=== PATIENT | male | born 1955 | race Caucasian/White ===

== ENCOUNTER 2021-02-17 08:10 | Outpatient (REF) | payer MEDICARE, SELFPAY ==
[2021-02-17 10:23] LABS: MANUAL DIFF FLAG NO
[2021-02-17 10:32] LABS: Basophils Absolute Auto 0.1 X10*3/uL (0.0-0.2); Basophils Percent Auto 1.1 % (0-2); Eosinophils Absolute Auto 0.3 X10*3/uL (0.0-0.4); Eosinophils Percent Auto 3.3 % (0-4); Hematocrit 43.8 % (42-52); Imm Gran Abs Auto 0.04 X10*3/uL (0.00-0.03); Imm Gran Pct Auto 0.5 % (0.0-0.4); Lymphocytes Absolute Auto 1.7 X10*3/uL (1.2-4.9); Lymphocytes Percent Auto 20.3 % (20-40); Mean Corpuscular Hemoglobin 28.1 pg (27.0-33.0); Mean Platelet Volume 10.2 fL (9.4-12.4); Monocytes Absolute Auto 0.6 X10*3/uL (0.1-1.2); Monocytes Percent Auto 6.8 % (2-11); Neutrophils Absolute Auto 5.8 X10*3/uL (2.0-8.3); Platelet Count 231 X10*3/uL (160-400); Red Blood Count 4.98 X10*6/uL (4.60-5.80); Red Cell Distribution Width 14.4 % (11.0-16.0); White Blood Count 8.4 X10*3/uL (4.8-10.8)
[2021-02-17 10:49] LABS: Alanine Aminotransferase 12 U/L (0-40); Albumin Level 4.4 g/dL (3.5-5.0); Alkaline Phosphatase 50 U/L (39-117); Anion Gap 16 (12-20); Aspartate Amino Transferase 12 U/L (5-37); Bilirubin Total 0.5 mg/dL (0.0-1.0); Blood Urea Nitrogen 23 mg/dL (9-16); Calcium 10.1 mg/dL (8.4-10.2); Carbon Dioxide 25 mmol/L (22-29); Chloride 105 mmol/L (96-108); Cholesterol 150 mg/dL; Estimated Glomerular Filt Rate 43; Glucose Fasting 174 mg/dL (60-99); HDL Cholesterol 41 mg/dL; LDL Cholesterol Calculated 81 mg/dl; Potassium 5.2 mmol/L (3.3-5.1); Sodium 141 mmol/L (135-145); Triglycerides 141 mg/dL
[2021-02-17 11:00] LABS: Prostate Specific Antigen 0.23 ng/mL (<0.05-4.0)
[2021-02-17 11:38] LABS: Estimated Average Glucose 186 mg/dL; Hemoglobin A1c % 8.1 %
== END 2021-02-17 08:11 | disposition home or self-care (01) ==
LOC: HO.10HDL 08:10
PROVIDERS: PCP Internal Medicine Medical Oncology; Visit Provider Internal Medicine Medical Oncology
DX: Z12.5 Encounter for screening for malignant neoplasm of prostate (principal); I10 Essential (primary) hypertension; N40.0 Benign prostatic hyperplasia without lower urinary tract symptoms; E78.2 Mixed hyperlipidemia
CPT/HCPCS: 36415; 80053; 80061; 83036; 84153; 85025

== ENCOUNTER 2021-05-02 08:26 | Outpatient (REF) | payer MEDICARE, SELFPAY ==
[2021-05-02 10:12] LABS: MANUAL DIFF FLAG NO
[2021-05-02 10:14] LABS: Basophils Absolute Auto 0.1 X10*3/uL (0.0-0.2); Basophils Percent Auto 1.1 % (0-2); Eosinophils Absolute Auto 0.3 X10*3/uL (0.0-0.4); Eosinophils Percent Auto 3.7 % (0-4); Hematocrit 43.7 % (42-52); Imm Gran Abs Auto 0.01 X10*3/uL (0.00-0.03); Imm Gran Pct Auto 0.1 % (0.0-0.4); Lymphocytes Absolute Auto 1.6 X10*3/uL (1.2-4.9); Lymphocytes Percent Auto 20.4 % (20-40); Mean Corpuscular Hemoglobin 27.5 pg (27.0-33.0); Mean Corpuscular Volume 85.7 fL (80-98); Monocytes Absolute Auto 0.5 X10*3/uL (0.1-1.2); Neutrophils Absolute Auto 5.1 X10*3/uL (2.0-8.3); Neutrophils Percent Auto 67.7 % (45-73); Platelet Count 217 X10*3/uL (160-400); Red Cell Distribution Width 13.7 % (11.0-16.0); White Blood Count 7.6 X10*3/uL (4.8-10.8)
[2021-05-02 10:28] LABS: Estimated Average Glucose 217 mg/dL; Hemoglobin A1c % 9.2 %
[2021-05-02 10:33] LABS: Alanine Aminotransferase 9 U/L (0-40); Albumin Level 4.2 g/dL (3.5-5.0); Alkaline Phosphatase 58 U/L (39-117); Anion Gap 16 (12-20); Aspartate Amino Transferase 12 U/L (5-37); Bilirubin Total 0.7 mg/dL (0.0-1.0); Blood Urea Nitrogen 17 mg/dL (9-16); Calcium 9.6 mg/dL (8.4-10.2); Carbon Dioxide 24 mmol/L (22-29); Chloride 103 mmol/L (96-108); Cholesterol 137 mg/dL; Estimated Glomerular Filt Rate 54; Glucose Fasting 178 mg/dL (60-99); HDL Cholesterol 39 mg/dL; LDL Cholesterol Calculated 77 mg/dl; Potassium 4.9 mmol/L (3.3-5.1); Sodium 138 mmol/L (135-145); Total Protein 7.7 g/dL (6.5-8.0); Triglycerides 109 mg/dL
== END 2021-05-02 08:27 | disposition home or self-care (01) ==
LOC: HO.10HDL 08:26
PROVIDERS: Visit Provider Internal Medicine Medical Oncology
DX: I10 Essential (primary) hypertension (principal); E78.2 Mixed hyperlipidemia; I25.10 Atherosclerotic heart disease of native coronary artery without angina pectoris; E11.9 Type 2 diabetes mellitus without complications
CPT/HCPCS: 36415; 80053; 80061; 83036; 85025

== ENCOUNTER 2022-04-07 07:46 | Outpatient (REF) | payer MEDICARE, SELFPAY ==
[2022-04-07 10:20] LABS: MANUAL DIFF FLAG NO
[2022-04-07 10:23] LABS: Basophils Absolute Auto 0.1 X10*3/uL (0.0-0.2); Basophils Percent Auto 1.4 % (0-2); Eosinophils Absolute Auto 0.4 X10*3/uL (0.0-0.4); Eosinophils Percent Auto 3.8 % (0-4); Hematocrit 45.2 % (42.0-52.0); Hemoglobin 14.2 g/dl (14.0-18.0); Imm Gran Abs Auto 0.04 X10*3/uL (0.00-0.03); Imm Gran Pct Auto 0.4 % (0.0-0.4); Lymphocytes Absolute Auto 2.1 X10*3/uL (1.2-4.9); Lymphocytes Percent Auto 22.3 % (20-40); Mean Corpuscular HGB Conc 31.4 g/dl (31.0-36.0); Mean Corpuscular Hemoglobin 26.6 pg (27.0-33.0); Mean Corpuscular Volume 84.8 fL (80.0-98.0); Monocytes Absolute Auto 0.6 X10*3/uL (0.1-1.2); Neutrophils Absolute Auto 6.3 x10*3/uL (2.0-8.3); Neutrophils Percent Auto 66.1 % (45-73); Platelet Count 251 X10*3/uL (160-400); Red Blood Count 5.33 X10*6/uL (4.60-5.80); Red Cell Distribution Width 14.6 % (11.0-16.0); White Blood Count 9.6 X10*3/uL (4.8-10.8)
[2022-04-07 10:36] LABS: Estimated Average Glucose 220 mg/dL; Hemoglobin A1c % 9.3 %
[2022-04-07 10:42] LABS: Alanine Aminotransferase 18 U/L (0-40); Albumin Level 4.1 g/dL (3.5-5.0); Alkaline Phosphatase 65 U/L (39-117); Anion Gap 20 (12-20); Aspartate Amino Transferase 13 U/L (5-37); Bilirubin Total 0.4 mg/dL (0.0-1.0); Blood Urea Nitrogen 34 mg/dL (9-16); Calcium 9.2 mg/dL (8.4-10.2); Carbon Dioxide 18 mmol/L (22-29); Chloride 103 mmol/L (96-108); Cholesterol 143 mg/dL; Estimated Glomerular Filt Rate 42; Glucose Fasting 209 mg/dL (60-99); HDL Cholesterol 41 mg/dL; LDL Cholesterol Calculated 67 mg/dl; Potassium 5.1 mmol/L (3.3-5.1); Sodium 136 mmol/L (135-145); Triglycerides 175 mg/dL
[2022-04-07 10:56] LABS: B Type Natriuretic Peptide 46 pg/mL (<100)
== END 2022-04-07 07:47 | disposition home or self-care (01) ==
LOC: HO.10HDL 07:46
PROVIDERS: Visit Provider Internal Medicine Medical Oncology
DX: E66.09 Other obesity due to excess calories (principal); E78.2 Mixed hyperlipidemia; E11.9 Type 2 diabetes mellitus without complications
CPT/HCPCS: 36415; 80053; 80061; 83036; 83880; 85025

== ENCOUNTER 2022-09-10 07:33 | Outpatient (REF) | payer MEDICARE, SELFPAY ==
[2022-09-10 10:56] LABS: MANUAL DIFF FLAG NO
[2022-09-10 11:26] LABS: Basophils Absolute Auto 0.1 X10*3/uL (0.0-0.2); Basophils Percent Auto 1.1 % (0-2); Eosinophils Absolute Auto 0.3 X10*3/uL (0.0-0.4); Eosinophils Percent Auto 2.9 % (0-4); Hematocrit 43.4 % (42.0-52.0); Hemoglobin 13.7 g/dl (14.0-18.0); Imm Gran Abs Auto 0.04 X10*3/uL (0.00-0.03); Imm Gran Pct Auto 0.5 % (0.0-0.4); Lymphocytes Absolute Auto 1.7 X10*3/uL (1.2-4.9); Mean Corpuscular HGB Conc 31.6 g/dl (31.0-36.0); Mean Corpuscular Hemoglobin 26.2 pg (27.0-33.0); Mean Platelet Volume 10.5 fL (9.4-12.4); Monocytes Absolute Auto 0.6 X10*3/uL (0.1-1.2); Monocytes Percent Auto 7.1 % (2-11); Neutrophils Absolute Auto 5.8 x10*3/uL (2.0-8.3); Neutrophils Percent Auto 68.4 % (45-73); Platelet Count 210 X10*3/uL (160-400); Red Blood Count 5.23 X10*6/uL (4.60-5.80); Red Cell Distribution Width 15.4 % (11.0-16.0); White Blood Count 8.5 X10*3/uL (4.8-10.8)
[2022-09-10 11:47] LABS: Alanine Aminotransferase 19 U/L (0-40); Alkaline Phosphatase 60 U/L (39-117); Anion Gap 17 (12-20); Aspartate Amino Transferase 12 U/L (5-37); Bilirubin Total 0.6 mg/dL (0.0-1.0); Blood Urea Nitrogen 26 mg/dL (9-16); Calcium 9.1 mg/dL (8.4-10.2); Carbon Dioxide 20 mmol/L (22-29); Chloride 104 mmol/L (96-108); Cholesterol 143 mg/dL; Estimated Average Glucose 212 mg/dL; Estimated Glomerular Filt Rate 57; Glucose Fasting 119 mg/dL (60-99); HDL Cholesterol 38 mg/dL; LDL Cholesterol Calculated 61 mg/dl; Potassium 4.3 mmol/L (3.3-5.1); Sodium 137 mmol/L (135-145); Total Protein 7.5 g/dL (6.5-8.0); Triglycerides 221 mg/dL
== END 2022-09-10 07:34 | disposition home or self-care (01) ==
LOC: HO.10HDL 07:33
PROVIDERS: Visit Provider Internal Medicine Medical Oncology
DX: I10 Essential (primary) hypertension (principal); N40.0 Benign prostatic hyperplasia without lower urinary tract symptoms; E78.2 Mixed hyperlipidemia
CPT/HCPCS: 36415; 80053; 80061; 83036; 85025

== ENCOUNTER 2022-11-26 16:42 | Outpatient (REF) | payer MEDICARE, SELFPAY | END 2022-11-26 16:43 | disposition home or self-care (01) | LOC: HO.LNP 16:42 | PROVIDERS: Visit Provider Internal Medicine Medical Oncology | DX: L03.011 Cellulitis of right finger (principal) | CPT/HCPCS: 87070; 87077; 87147; 87186; 87205 ==

== ENCOUNTER 2022-12-09 07:31 | Outpatient (REF) | payer MEDICARE, SELFPAY ==
[2022-12-09 10:54] LABS: MANUAL DIFF FLAG NO
[2022-12-09 10:57] LABS: Basophils Absolute Auto 0.1 X10*3/uL (0.0-0.2); Basophils Percent Auto 1.3 % (0-2); Eosinophils Absolute Auto 0.3 X10*3/uL (0.0-0.4); Eosinophils Percent Auto 3.1 % (0-4); Hematocrit 42.1 % (42.0-52.0); Imm Gran Abs Auto 0.04 X10*3/uL (0.00-0.03); Imm Gran Pct Auto 0.4 % (0.0-0.4); Lymphocytes Absolute Auto 1.7 X10*3/uL (1.2-4.9); Lymphocytes Percent Auto 18.5 % (20-40); Mean Corpuscular HGB Conc 30.9 g/dl (31.0-36.0); Mean Corpuscular Hemoglobin 25.5 pg (27.0-33.0); Mean Corpuscular Volume 82.7 fL (80.0-98.0); Mean Platelet Volume 9.7 fL (9.4-12.4); Monocytes Absolute Auto 0.6 X10*3/uL (0.1-1.2); Monocytes Percent Auto 6.6 % (2-11); Neutrophils Absolute Auto 6.4 x10*3/uL (2.0-8.3); Neutrophils Percent Auto 70.1 % (45-73); Platelet Count 224 X10*3/uL (160-400); Red Blood Count 5.09 X10*6/uL (4.60-5.80); Red Cell Distribution Width 15.6 % (11.0-16.0); White Blood Count 9.1 X10*3/uL (4.8-10.8)
[2022-12-09 11:07] LABS: Estimated Average Glucose 217 mg/dL; Hemoglobin A1c % 9.2 %
[2022-12-09 11:24] LABS: Alanine Aminotransferase 15 U/L (0-40); Albumin Level 3.6 g/dL (3.5-5.0); Alkaline Phosphatase 63 U/L (39-117); Anion Gap 11 (12-20); Aspartate Amino Transferase 12 U/L (5-37); Bilirubin Total 0.6 mg/dL (0.0-1.0); Blood Urea Nitrogen 22 mg/dL (9-16); Carbon Dioxide 24 mmol/L (22-29); Chloride 108 mmol/L (96-108); Cholesterol 106 mg/dL; Estimated Glomerular Filt Rate > 60; Glucose Fasting 86 mg/dL (60-99); HDL Cholesterol 38 mg/dL; LDL Cholesterol Calculated 50 mg/dl; Potassium 4.4 mmol/L (3.3-5.1); Sodium 139 mmol/L (135-145); Total Protein 7.5 g/dL (6.5-8.0); Triglycerides 91 mg/dL
[2022-12-09 11:40] LABS: Prostate Specific Antigen 0.18 ng/mL (<0.05-4.0)
== END 2022-12-09 07:32 | disposition home or self-care (01) ==
LOC: HO.10HDL 07:31
PROVIDERS: Visit Provider Internal Medicine Medical Oncology
DX: Z12.5 Encounter for screening for malignant neoplasm of prostate (principal); E78.2 Mixed hyperlipidemia; E11.9 Type 2 diabetes mellitus without complications; N40.0 Benign prostatic hyperplasia without lower urinary tract symptoms
CPT/HCPCS: 36415; 80053; 80061; 83036; 84153; 85025

== ENCOUNTER 2023-07-30 13:15 | Inpatient (IN) | payer MEDICARE, SELFPAY ==
--- NOTE | ~2023-07-30 | XR_ITS ---
EXAMINATION: XR KNEE, LEFT CLINICAL INFORMATION: Left knee pain and swelling. Fall. COMPARISON: None available. TECHNIQUE: Four views of the left knee. FINDINGS: There is mild loss of tricompartment joint space without any loose bodies, fracture or periapical spurring. There is mild suprapatellar joint effusion. There is anterior enthesophytes along the patella. Postsurgical liza are seen posterior to the proximal tibia likely vascular. XR/XR knee LT 4V IMPRESSION: Mild degenerative changes of the left knee without any visible acute fracture, dislocation or subluxation. There is mild suprapatellar joint effusion.
--- NOTE | ~2023-07-30 | XR_ITS ---
EXAMINATION: XR HAND, RIGHT CLINICAL INFORMATION: Right middle finger swelling. Erythema. COMPARISON: None available. TECHNIQUE: PA, lateral, and oblique views of the right hand. FINDINGS: Chronic erosions with absence of the 1st middle and distal phalanx as well as the 2nd proximal, middle, and distal phalanx, 3rd middle and distal phalanx, and 4th distal phalanx. There is prominent soft tissue swelling with subcutaneous emphysema and acute erosions at the remaining base of the 3rd middle phalanx. Findings are consistent with acute cellulitis and osteomyelitis. No acute fracture or dislocation. Atherosclerotic calcifications. XR/XR hand RT 2V IMPRESSION: 1. Findings consistent with acute cellulitis and osteomyelitis at the remaining base of the 3rd middle phalanx. 2. Chronic erosions throughout the remaining phalanges as above. 3. No acute fracture or dislocation.
--- NOTE | 2023-07-30 13:24 | ED_ITS ---
HPI - General Adult General Chief complaint: Extremity Injury, Lower Stated complaint: DIFFICULTY AMBULATING X 2 DAYS,KNEE PAIN Time Seen by Provider: 07/30/23 13:23 Source: patient Limitations: no limitations History of Present Illness HPI narrative: 67 years old with history of diabetes, CAD status post bypass, right BKA presents emergency room for left knee pain. Patient reports the pain started few days ago and is associated with swelling of the knee. He reports the pain seems very similar to his prior gout episodes. Patient denies chills or fever, reports pain with active movement of the knee. Denies chest pain, shortness of breath, abdominal pain nausea or vomiting. No headache, blurry vision, slurred speech. Patient reports that 2 days ago when the pain started he had a fall without LOC. Patient also complains of swelling of the 3rd digit of the right hand was pending outpatient follow-up next with hand surgeon. Related Data Home Medications Medication Instructions Recorded Confirmed atorvastatin 80 mg tablet 80 mg PO BEDTIME 07/30/23 07/30/23 dapagliflozin propanediol 10 mg 10 mg PO DAILY 07/30/23 07/30/23 tablet (Farxiga) dulaglutide 4.5 mg/0.5 mL 4.5 mg subcut QWEEK 07/30/23 07/30/23 subcutaneous pen injector (Trulicity) insulin lispro protamine-lispro 28 unit subcut BID 07/30/23 07/30/23 100 unit/mL (75-25) subcutaneous pen (Humalog Mix 75-25 KwikPen) lisinopril 40 mg tablet 40 mg PO DAILY 07/30/23 07/30/23 metformin 500 mg tablet 1,000 mg PO BID 07/30/23 07/30/23 metoprolol succinate 200 mg 200 mg PO DAILY 07/30/23 07/30/23 tablet,extended release 24 hr spironolactone 25 mg tablet 25 mg PO DAILY 07/30/23 07/30/23 Allergies Allergy/AdvReac Type Severity Reaction Status Date / Time No Known Allergies Allergy Verified 07/30/23 13:43 Review of Systems 2 Review of Systems: Yes all other systems are reviewed and are negative PMFSH Social History Social History Smoked in Last 30 Days: No Use of substances other than those prescribed or required for medical reasons: No Advance Directives: Yes Advance Directives Information Provided: Yes Advance Directives on File: No Physical Exam ED Vital Signs: Vital Signs - 24 hr 07/30/23 13:47 07/30/23 15:05 07/30/23 19:23 Temperature 98.5 F 98.3 F Pulse Rate 107 H 101 H 102 H Respiratory Rate 17 16 18 Blood Pressure 133/60 131/67 113/52 L Pulse Oximetry 99 98 98 Oxygen Delivery Method Room Air Room Air Room Air BMI result Body Mass Index 32.0 General: Alert, Not in Distress Skin: No rash, warm HEENT: Atraumatic, No Exudate or Pharyngeal Erythema Resp: Normal Breath sounds bilaterally Cardio: Regular rate and Rhythm, Normal S1, S2 ABD: Abd soft, non tender, no guarding or rebound. Normal Bowel sounds. : No cva tenderness Neuro: Alert, oriented x4, PERRL Strenght 5/5 on all extremities Sensation is preserved in both lower and upper extremities Index to nose: normal Cranial Nerves II-XII grossly intact No dysarthria, or aphasia No neglet. Visual lujan are normal bilaterally Psych: Cooperative, NO SI Msk: R BKA, Left knee is swollen pain with active movement, mild pain with passive movement, ROM is reduced. Rhand: third digit is markedly swollen and erythematous Course Reevaluation(s) Reevaluation #1: Patient reports mild improvement after her thoracentesis. Still unable to walk. Covered with cefazolin for right hand infection. Arthrocentesis results are pending. Patient does not qualify for sniff given his insurance. Family concerned that patient not able to take care of himself at home Time: 16:31 Reevaluation #2: Patient synovial fluid showed almost 9000 white blood cells which is consistent with inflammatory specimen. Considering patient physical exam I have low suspicion for septic arthritis at this time. Will discuss with hospitalist for admission. Time: 16:50 Reevaluation #3: Pending evaluation from hospitalist. Will sign out to Dr. Devlin Time: 21:41 Medications Administered Discontinued Medications Generic Name Dose Route Start Last Admin Trade Name Freq PRN Reason Stop Dose Admin Acetaminophen 975 mg 07/30/23 13:30 07/30/23 13:58 Acetaminophen 325 Mg Tablet PO 07/30/23 13:31 975 mg ONCE ONE Administration Cefazolin Sodium/Dextrose 2 gm in 50 mls @ 100 mls/hr 07/30/23 16:05 07/30/23 18:23 Ancef IV 07/30/23 16:34 Infused ONCE ONE Infusion Procedures Joint Aspiration/Injection Joint Asp./Inject. 1: Time Out Performed: Yes Side of body: left Joint Aspirated: knee Ultrasound Guidance: No Skin Prep: Chlorhexidine Needle Size Used: 20G Fluid Obtained: turbid Total fluid obtained (mL): 30 Patient Tolerated Procedure: well Complications: none Medical Decision Making Medical Decision Making MDM Narrative: 67 years old with past medical history of diabetes, CAD, gout presenting presenting with left knee pain and swelling. Possible differential diagnosis of this time include gout, prepatellar bursitis, contusion urinary is a hold. Patient overall looks well and I think septic arthritis is less likely. Plan: CBC, BMP, sed rate, CRP, analgesia, x-ray knee Lab Data 07/30/23 14:06 07/30/23 14:06 Labs: Lab Results 07/30/23 07/30/23 Range/Units 14:06 15:40 WBC 9.7 (4.8-10.8) X10*3/uL RBC 4.94 (4.60-5.80) X10*6/uL Hgb 12.7 L (14.0-18.0) g/dl Hct 39.6 L (42.0-52.0) % MCV 80.2 (80.0-98.0) fL MCH 25.7 L (27.0-33.0) pg MCHC 32.1 (31.0-36.0) g/dl RDW 15.4 (11.0-16.0) % Plt Count 246 (160-400) X10*3/uL MPV 9.0 L (9.4-12.4) fL Immature Gran % (Auto) 0.4 (0.0-0.4) % Neut % (Auto) 78.2 H (45-73) % Lymph % (Auto) 10.6 L (20-40) % [place] % (Auto) 9.1 (2-11) % Eos % (Auto) 0.9 (0-4) % Baso % (Auto) 0.8 (0-2) % Lymph # (Auto) 1.0 L (1.2-4.9) X10*3/uL [place] # (Auto) 0.9 (0.1-1.2) X10*3/uL Eos # (Auto) 0.1 (0.0-0.4) X10*3/uL Baso # (Auto) 0.1 (0.0-0.2) X10*3/uL Abs Immat Gran (auto) 0.04 H (0.00-0.03) X10*3/uL Absolute Neuts (auto) 7.6 (2.0-8.3) x10*3/uL Absolute Nucleated RBC 0.000 (0.0-0.012) X10*3/uL Nucleated RBC % (auto) 0.0 (0.0-0.2) /100WBC ESR 83 H (0-15) MM/HR Sodium 132 L (135-145) mmol/L Potassium 4.4 (3.3-5.1) mmol/L Chloride 101 (96-108) mmol/L Carbon Dioxide 21 L (22-29) mmol/L Anion Gap 14 (12-20) BUN 33 H (9-16) mg/dL Creatinine 1.49 H (0.5-1.4) mg/dL Estim Creat Clear Calc 59.9 Estimated GFR 47 Random Glucose 140 H (60-115) mg/dL Calcium 9.4 (8.4-10.2) mg/dL C-Reactive Protein 25.78 H (< or = 0.50) mg/dL Synovial Source Left knee Synovial WBC 8.914 X10*3/uL Synovial RBC 0.065 X10*6/uL Synovial Neutrophils 78 % Synovial Lymphocytes 3 % Synovial Monocytes 14 % Synovial Other Cells 5 Synovial Glucose 140 MG/DL Discharge Plan Discharge Clinical Impression: Pain and swelling of left knee Prescriptions: No Action metformin 500 mg tablet 1,000 mg PO BID atorvastatin 80 mg tablet 80 mg PO BEDTIME metoprolol succinate 200 mg tablet extended release 24 hr 200 mg PO DAILY spironolactone 25 mg tablet 25 mg PO DAILY lisinopril 40 mg tablet 40 mg PO DAILY insulin lispro protamin-lispro [Humalog Mix 75-25 KwikPen] 100 unit/mL (75-25) Insulin Pen 28 unit SUBCUT BID Farxiga 10 mg Tablet 10 mg PO DAILY Trulicity 4.5 mg/0.5 mL Pen Injector 4.5 mg SUBCUT QWEEK
--- NOTE | 2023-07-30 13:35 | PC.NURSE ---
pt to xray at this time.
[2023-07-30 13:44] VITALS: BP 158/66; PULSE 108; O2SAT 100; BMI 32.0
[2023-07-30 13:47] VITALS: BP 133/60; PULSE 107; RESP 17; TEMP 36.9; O2SAT 99
[2023-07-30] MEDS: Acetaminophen 325 MG TABLET 975 MG PO (13:58)
--- NOTE | 2023-07-30 13:58 | PC.NURSE ---
medication administered per provider order. will reassess pain level.
--- OUTSIDE RECORDS SUMMARY | 2023-07-30 14:03 | XMS_ITS | Continuity of Care Document ---
Author Name Unknown Organization [facility] Address [address] [place] [id number] Care Team Providers Care Testing Engineer Name Role Phone [place] MD Primary Care Physician [phone] Encounter [facility] Date(s): 10/27/19 - 11/26/[address] [id number]- [facility] Attending Physician: Not on Staff, Attending MD Admitting Physician: Not on Staff, Admitting MD Referring Physician: Not on Staff, Referring MD
--- OUTSIDE RECORDS SUMMARY | 2023-07-30 14:03 | XMS_ITS | Patient Health Record ---
Author Name Unknown Organization Wale Ta III, MD Address [address] [place] [address] [place] [address] Care Team Providers Care Public Health Aides Teacher Name Role Phone Wale Ta Primary Care Provider ALLERGIES No Known Allergies RESULTS Component Value Reference Range Notes Complete Blood Count Auto Di ff Reviewed date:09/13/2022 06:26:32 AM Interpretation: Performing Lab:[facility], [address] [place] [phone] Notes/Report: White Blood Count 8.5 4.8-10.8 X10*3/uL Red Blood Count 5.23 4.60-5.80 X10*6/uL Hemoglobin 13.7 14.0-18.0 g/dl Hematocrit 43.4 42.0-52.0 % Mean Corpuscular Volume 83.0 80.0-98.0 fL Mean Corpuscular Hemoglobin 26.2 27.0-33.0 pg Mean Corpuscular HGB Conc 31.6 31.0-36.0 g/dl Red Cell Distribution Width 15.4 11.0-16.0 % Platelet Count 210 160-400 X10*3/uL Mean Platelet Volume 10.5 9.4-12.4 fL Neutrophils Percent Auto 68.4 45-73 % Imm Gran Pct Auto 0.5 0.0-0.4 % Lymphocytes Percent Auto 20.0 20-40 % Monocytes Percent Auto 7.1 2-11 % Eosinophils Percent Auto 2.9 0-4 % Basophils Percent Auto 1.1 0-2 % NRBC Pct Auto 0.0 0.0-0.2 /100WBC Neutrophils Absolute Auto 5.8 2.0-8.3 x10*3/u L Imm Gran Abs Auto 0.04 0.00-0.03 X10*3/uL Lymphocytes Absolute Auto 1.7 1.2-4.9 X10*3/u L Monocytes Absolute Auto 0.6 0.1-1.2 X10*3/uL Eosinophils Absolute Auto 0.3 0.0-0.4 X10*3/u L Basophils Absolute Auto 0.1 0.0-0.2 X10*3/uL NRBC Abs Auto 0.000 0.0-0.012 X10*3/uL Comprehensive [place]. Panel Fa st Reviewed date:09/13/2022 06:26:32 AM Interpretation: Performing Lab:[facility], [address] [place] [phone] Notes/Report: Sodium 137 135-145 mmol/L Potassium 4.3 3.3-5.1 mmol/L Chloride 104 96-108 mmol/L Carbon Dioxide 20 22-29 mmol/L Anion Gap 17 12-20 Blood Urea Nitrogen 26 9-16 mg/dL Creatinine 1.27 0.5-1.4 mg/dL Estimated Glomerular Filt Rate 57 NOTE: For -Kosovan individuals, multiply the result by 1.210. Chronic Kidney Disease: Estimated GFR < 60 mL/min/1.73m2 Severe Kidney Disease: Estimated GFR < 15 mL/min/1.73m2 Glucose Fasting 119 60-99 mg/dL A fasting glucose from 100-125 mg/dl is considered impaired (pre-diabetes). Calcium 9.1 8.4-10.2 mg/dL Bilirubin Total 0.6 0.0-1.0 mg/dL Aspartate Amino Transferase 12 5-37 U/L Alanine Aminotransferase 19 0-40 U/L Total Protein 7.5 6.5-8.0 g/dL Albumin Level 4.0 3.5-5.0 g/dL Alkaline Phosphatase 60 39-117 U/L Lipid Panel Reviewed date:09/13/2022 06:26:32 AM Interpretation: Performing Lab:[facility], [address] [place] [phone] Notes/Report: Triglycerides 221 Desirable Triglyceride: less than 150 mg/dL Borderline High Triglyceride 150-199 mg/dL High Triglyceride: 200-499 mg/dL Very High Triglyceride: greater than or equal to 5OO mg/dL Cholesterol 143 Desirable Cholesterol: less than 200 mg/dL Borderline High Cholesterol: 200-239 mg/dL High Cholesterol: greater than 239 mg/dL LDL Cholesterol Calculated 61 Desirable LDL: less than 100 mg/dL Near Optimal/Above Optimal LDL: 110-129 mg/dL Borderline High LDL: 130-159 mg/dL High LDL: 160-189 mg/dL Very High LDL: greater than or equal to 190 mg/dL HDL Cholesterol 38 Desirable HDL: greater than 40 mg/dL Note: This HDL assay may give artificially low results in patients with liver disease. Hemoglobin A1c Reviewed date:09/13/2022 06:26:32 AM Interpretation: Performing Lab:[address] [phone] Notes/Report: Hemoglobin A1c % 9.0 Hemoglobin A1C Reference Range Adults: 4.8 - 6.0 % Non diabetic: < 6.0 % Goal: < 7.0 % Additional Action Suggested: > 8.0 % Note: Hemoglobin A1c results are invalid for patients with abnormal amounts of HbF. Blood transfusions may impact the HbA1c concentration in the patient sample. Estimated Average Glucose 212 eAG = Estimated average glucose which is %A1C expressed as average glucose, using the formula of the [id number] Average Glucose study (ADAG), Diabetes Care, Vol.31,#8, Mar. 2007 Gram stain Reviewed date:12/01/2022 11:51:30 AM Interpretation: Performing Lab:[facility], [address] [place] [phone] Notes/Report: RIGHT HAND FIRST FINGER Gram stain Gram stain results: Gram stain No polys Gram stain 2+ red blood cells Gram stain 2+ Gram-positive cocci Routine Culture Reviewed date:12/01/2022 11:51:30 AM Interpretation: Performing Lab:[address] [phone] Notes/Report: RIGHT HAND FIRST FINGER O:STAAUR Staphylococcus aureus Routine Culture Quant Org ID Routine Culture 3+ O:STRAGA Strep agalactiae (Gr p B) Routine Culture Quant Org ID Routine Culture 3+ Routine Culture Susc N/A Routine Culture Susceptibility not routinely performed on this isolate. Clindamycin <=0.25 Erythromycin <=0.25 Levofloxacin 0.25 Oxacillin <=0.25 Penicillin-G 0.06 Tetracycline >=16 Trimethoprim/Sulfamethoxa zole <=10 Complete Blood Count Auto Di ff Reviewed date:12/11/2022 08:42:42 AM Interpretation: Performing Lab:[facility], [address] [place] [phone] Notes/Report: White Blood Count 9.1 4.8-10.8 X10*3/uL Red Blood Count 5.09 4.60-5.80 X10*6/uL Hemoglobin 13.0 14.0-18.0 g/dl Hematocrit 42.1 42.0-52.0 % Mean Corpuscular Volume 82.7 80.0-98.0 fL Mean Corpuscular Hemoglobin 25.5 27.0-33.0 pg Mean Corpuscular HGB Conc 30.9 31.0-36.0 g/dl Red Cell Distribution Width 15.6 11.0-16.0 % Platelet Count 224 160-400 X10*3/uL Mean Platelet Volume 9.7 9.4-12.4 fL Neutrophils Percent Auto 70.1 45-73 % Imm Gran Pct Auto 0.4 0.0-0.4 % Lymphocytes Percent Auto 18.5 20-40 % Monocytes Percent Auto 6.6 2-11 % Eosinophils Percent Auto 3.1 0-4 % Basophils Percent Auto 1.3 0-2 % NRBC Pct Auto 0.0 0.0-0.2 /100WBC Neutrophils Absolute Auto 6.4 2.0-8.3 x10*3/u L Imm Gran Abs Auto 0.04 0.00-0.03 X10*3/uL Lymphocytes Absolute Auto 1.7 1.2-4.9 X10*3/u L Monocytes Absolute Auto 0.6 0.1-1.2 X10*3/uL Eosinophils Absolute Auto 0.3 0.0-0.4 X10*3/u L Basophils Absolute Auto 0.1 0.0-0.2 X10*3/uL NRBC Abs Auto 0.000 0.0-0.012 X10*3/uL Comprehensive [place]. Panel Fa st Reviewed date:12/11/2022 08:42:42 AM Interpretation: Performing Lab:[facility], [address] [place] [phone] Notes/Report: Sodium 139 135-145 mmol/L Potassium 4.4 3.3-5.1 mmol/L Chloride 108 96-108 mmol/L Carbon Dioxide 24 22-29 mmol/L Anion Gap 11 12-20 Blood Urea Nitrogen 22 9-16 mg/dL Creatinine 1.19 0.5-1.4 mg/dL Estimated Glomerular Filt Rate > 60 NOTE: For -[place] individuals, multiply the result by 1.210. Chronic Kidney Disease: Estimated GFR < 60 mL/min/1.73m2 Severe Kidney Disease: Estimated GFR < 15 mL/min/1.73m2 Glucose Fasting 86 60-99 mg/dL Calcium 9.0 8.4-10.2 mg/dL Bilirubin Total 0.6 0.0-1.0 mg/dL Aspartate Amino Transferase 12 5-37 U/L Alanine Aminotransferase 15 0-40 U/L Total Protein 7.5 6.5-8.0 g/dL Albumin Level 3.6 3.5-5.0 g/dL Alkaline Phosphatase 63 39-117 U/L Lipid Panel Reviewed date:12/11/2022 08:42:42 AM Interpretation: Performing Lab:[facility], [address] [place] [phone] Notes/Report: Triglycerides 91 Desirable Triglyceride: less than 150 mg/dL Borderline High Triglyceride 150-199 mg/dL High Triglyceride: 200-499 mg/dL Very High Triglyceride: greater than or equal to 5OO mg/dL Cholesterol 106 Desirable Cholesterol: less than 200 mg/dL Borderline High Cholesterol: 200-239 mg/dL High Cholesterol: greater than 239 mg/dL LDL Cholesterol Calculated 50 Desirable LDL: less than 100 mg/dL Near Optimal/Above Optimal LDL: 110-129 mg/dL Borderline High LDL: 130-159 mg/dL High LDL: 160-189 mg/dL Very High LDL: greater than or equal to 190 mg/dL HDL Cholesterol 38 Desirable HDL: greater than 40 mg/dL Note: This HDL assay may give artificially low results in patients with liver disease. Prostate Specific Antigen Reviewed date:12/11/2022 08:42:42 AM Interpretation: Performing Lab:[facility], [address] [place] [phone] Notes/Report: Prostate Specific Antigen 0.18 <0.05-4.0 ng/mL PSA methodology: Alvarado Alinity i Chemiluminescent Microparticle Immunoassay (CMIA) Hemoglobin A1c Reviewed date:12/11/2022 08:42:42 AM Interpretation: Performing Lab:[facility], [address] [place] [address] Notes/Report: Hemoglobin A1c % 9.2 Hemoglobin A1C Reference Range Adults: 4.8 - 6.0 % Non diabetic: < 6.0 % Goal: < 7.0 % Additional Action Suggested: > 8.0 % Note: Hemoglobin A1c results are invalid for patients with abnormal amounts of HbF. Blood transfusions may impact the HbA1c concentration in the patient sample. Estimated Average Glucose 217 eAG = Estimated average glucose which is %A1C expressed as average glucose, using the formula of the [id number] Average Glucose study (ADAG), Diabetes Care, Vol.31,#8, Mar. 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) Referral Organization Wale Ta III, MD Referring Provider First Name Wale Referring Provider Last Name Keyon Referring Provider Speciality Internal M edicine Referred Provider Ke Cantu Referred Provider Specialty Hand Surgery Referral Priority Routine Referral Appointment Date 12/18/2022 MEDICATIONS Medication SIG (Take, Route, Frequency, Duration) Notes Start Date End Date Status Lisinopril 20 MG TAKE 1 TABLET BY [place] TH DAILY Active Atorvastatin Calcium 40 MG 1 tablet Oral ly Once a day Active metFORMIN HCl 500 MG TAKE 2 TABLETS BY M OUTH IN THE MORNING AND 2 TABLETS AT NIGHT Active Trulicity 3 MG/0.5ML as directed Subcutaneous 7 now Active Spironolactone 25 MG 1 tablet Orally Onc e a day Active Metoprolol Succinate ER 100 MG 1 tablet Orally Once a day Active Doxycycline Hyclate 100 MG 1 tablet Oral ly Once a day 11/26/2022 Active IMMUNIZATIONS Vaccine Route Administration Date Status Comme carlie COVID- 19 Vaccine Unknown 03/04/2021 Administered Dorothy brush & Diogenes COVID- 19 Vaccine Unknown 07/28/2021 Administered COVID- 19 Vaccine Unknown 12/07/2020 Administered SOCIAL HISTORY Tobacco Use: Social History Observation Description Date Details (start date - stop date) Former Smoker NA - NA Sex Assigned At : Social History Observation Description Sex Assigned At Male Tobacco Use/Smoking Question Answer Notes Patient is a former smoker How long has it been since you last smoked? > 10 years Additional Findings: Tobacco Non-User Ex-cigaret te smoker Alcohol Screen Question Answer Notes Did you have a drink containing alcohol in the p ast year? No Points 0 Interpretation Negative PROBLEMS Problem Type ICD Code Onset Dates Problem Status W/U Status Risk SNOMED Code Notes Problem Former smoker (Z87.891) Active confirmed 3624674 He seems highl y motivated not to smoke. We discussed a plan to prevent relapse in times of stress and illness. Problem Type 2 diabetes mellitus without complications (E11.9) Active confirmed 147126163 His A1c is 9.2 . I have sent his lab data to his straight tooth gear generator operator at the [facility]. We will try to arrange a telemetry health visit. If not, I will increase his trulicity in his medications. Problem Other obesity due to excess calories (E66.09) Active confirmed [id number] He has lost 3 pounds and his body mass index is 32. We discussed following a reduced calorie diabetic diet, low in animal fat and sodium designed to lose weight at a rate of one half of a pound per week. Problem Mixed hyperlipidemia (E78.2) Active confirmed 514104794 His lipids are within the normal range. On the last lipid profile. No change in his regimen was needed. Problem Impacted cerumen, bilateral (H61.23) Active confirmed [id number] The impa ction as were removed without difficulty and his hearing was much improved. Problem Ischemic cardiomyopathy (I25.5) Active confirmed [id number] His congestive heart feels well compensated and he will call me if he gains more than 5 pounds. He will weigh himself weekly. 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 I recommended aggressive sodium restriction, weight loss and regular exercise. Problem Carpal tunnel syndrome, right (G56.01) Active confirmed [id number] This prob vandana is mild and does not require treatment at this time. Problem Non-rheumatic mitral regurgitation (I34.0) Active confirmed 367180663 His mitral irasema ve is now functioning properly. No murmur was heard. He is in sinus rhythm. Problem Benign prostatic hyperplasia, unspecified whether lower urinary tract symptoms present (N40.0) Active confirmed Benign prost atic hypertrophy without outflow obstruction ([id number]) He rises some sleep once or twice a night and is happy with this level of function. We discussed lifestyle modification as a way of reducing nocturia. Problem History of osteomyelitis (Z87.39) Active confirmed 914644706 He continues t o be cared for by the surgeons at [facility]. All of his wounds are healed. Despite the numerous missing portions of multiple fingers he says he is able to conduct all of the activities of daily life well. Problem History of right below knee amputation (Z89.511) Active confirmed 103724074 His prosthesis is functional and in good condition. Stump is intact. He is ambulatory. Problem Coronary artery disease involving [place] heart without angina pectoris, unspecified vessel or lesion type (I25.10) Active confirmed 23587387 His ischemic heart disease is stable. He has been compliant with all his medications. I encouraged him to obtain a primary care physician during the 6 months he is in [place] so that he may be referred to cardiology if necessary. VITAL SIGNS Temperature 97.0 degrees Fahrenheit 04/01/2023 Height 71 in 04/01/2023 Encounters Encounter Location Date Provider Diagnosis Wale Ta III, MD [address] [place] [address] [place] [address] 04/01/2023 Wale Ta Impacted cerumen, bilateral H61.23 Wale Ta III, MD [address] [place] [address] [place] [address] 09/01/2022 Wale Ta Impacted cerumen of both ears H61.23 Wale Ta III, MD [address] [place] [address] [place] [address] 09/16/2022 Wale Ta Impacted cerumen of both ears H61.23 ; Mixed hyperlipidemia E78.2 ; Type 2 diabetes mellitus without complications E11.9 and Benign prostatic hyperplasia, unspecified whether lower urinary tract symptoms present N40.0 Wale Ta III, MD [address] [place] [address] [place] [address] 12/14/2022 Wale Ta Cellulitis of right finger L03.011 ; Essential hypertension I10 ; Benign prostatic hyperplasia, unspecified whether lower urinary tract symptoms present N40.0 ; Mixed hyperlipidemia E78.2 ; Other obesity due to excess calories E66.09 ; History of right below knee amputation Z89.511 ; Former smoker Z87.891 ; Coronary artery disease involving [place] tribe heart without angina pectoris, unspecified vessel or lesion type I25.10 ; Ischemic cardiomyopathy I25.5 ; Non-rheumatic mitral regurgitation I34.0 and Type 2 diabetes mellitus without complications E11.9 Wale Ta III, MD [address] [place] [address] [address] [place] [address] 11/26/2022 Wale Ta Cellulitis of right finger L03.011 ; Essential hypertension I10 ; Benign prostatic hyperplasia, unspecified whether lower urinary tract symptoms present N40.0 ; Mixed hyperlipidemia E78.2 ; Other obesity due to excess calories E66.09 ; History of osteomyelitis Z87.39 ; History of right below knee amputation Z89.511 ; Former smoker Z87.891 ; Coronary artery disease involving [place] heart without angina pectoris, unspecified vessel or lesion type I25.10 ; Ischemic cardiomyopathy I25.5 ; Non-rheumatic mitral regurgitation I34.0 and Type 2 diabetes mellitus without complications E11.9 Wale Ta III, MD [address] [place] [address] [place] [address] 12/01/2022 Wale Ta Essential hypertensi on I10 ; Benign prostatic hyperplasia, unspecified whether lower urinary tract symptoms present N40.0 ; Mixed hyperlipidemia E78.2 ; History of osteomyelitis Z87.39 ; Other obesity due to excess calories E66.09 ; History of right below knee amputation Z89.511 ; Former smoker Z87.891 ; Coronary artery disease involving [place] heart without angina pectoris, unspecified vessel or lesion type I25.10 ; Ischemic cardiomyopathy I25.5 ; Type 2 diabetes mellitus without complications E11.9 and Cellulitis of finger of right hand L03.011 Wale Ta III, MD [address] [place] [address] [place] [address] 12/11/2022 Wale Ta Cellulitis of finger , right L03.011 ; Benign prostatic hyperplasia, unspecified whether lower urinary tract symptoms present N40.0 ; Essential hypertension I10 ; Mixed hyperlipidemia E78.2 ; Other obesity due to excess calories E66.09 ; History of osteomyelitis Z87.39 ; History of right below knee amputation Z89.511 ; Former smoker Z87.891 ; Coronary artery disease involving [place] heart without angina pectoris, unspecified vessel or lesion type I25.10 ; Ischemic cardiomyopathy I25.5 ; Non-rheumatic mitral regurgitation I34.0 ; Carpal tunnel syndrome, right G56.01 ; Type 2 diabetes mellitus without complications E11.9 and termination clerk (current) use of insulin Z79.4 Wale Ta III, MD [address] [place] [address] [place] [address] 12/21/2022 Wale Ta III, MD [address] [place] [address] [place] [address] 01/01/2023 Wale Ta III, MD [address] [place] [address] [place] [address] 10/02/2022 Wale Ta III, MD [address] [place] [address] [place] [address] 10/07/2022 Wale Ta III, MD [address] [place] [address] [place] [address] 11/09/2022 Wale Ta III, MD [address] [place] [address] [place] [address] 12/10/2022 Wale Ta III, MD [address] [place] [address] [place] [address] 12/18/2022 Wale Ta Cellulitis of right finger L03.011 Wale Ta III, MD [address] [place] [address] [place] [address] 12/21/2022 Wale Ta III, MD [address] [place] [address] [place] [address] 12/29/2022 Wale Ta III, MD [address] [place] [address] [place] [address] 05/27/2023 Wale Ta III, MD [address] [place] [address] [place] [address] 12/08/2022 Wale Ta History of right bel ow knee amputation Z89.511 ; Former smoker Z87.891 ; Coronary artery disease involving [place] heart without angina pectoris, unspecified vessel or lesion type I25.10 ; Ischemic cardiomyopathy I25.5 ; Non-rheumatic mitral regurgitation I34.0 ; History of osteomyelitis Z87.39 ; Type 2 diabetes mellitus without complications E11.9 and Cellulitis of left finger L03.012 ASSESSMENTS Encounter Date Diagnosis Assessment Notes Treatment Notes Treatment Clinical Notes 04/01/2023 Impacted cerumen, bilateral (ICD-10 - H61.23) The impaction as were removed without difficulty and his hearing was much improved. 09/01/2022 Impacted cerumen of both ears (ICD-10 - H61.23) This was removed with warm water irrigation without any problem. His hearing was restored. He left the office in stable and ambulatory condition. 09/16/2022 Mixed hyperlipidemia (ICD-10 - E78.2) His lipids are within the normal range. On the last lipid profile. No change in his regimen was needed. 09/16/2022 Impacted cerumen of both ears (ICD-10 - H61.23) His ears were recently cleaned and they are in need of no attention today. 12/14/2022 Cellulitis of right finger (ICD-10 - L03.011) The finger is much improved today. There is drainage of a copious amount of pus can be expressed from a palpable abscess cavity under the skin of the proximal right portion of the finger beyond the DIP joint. He will continue to play the with mild soap and water twice a day and change the bandage as needed. He will be seen by the group caring for him at [facility] later this week. 12/14/2022 Essential hypertension (ICD-10 - I10) His blood pressure today is well-controlled at 130/82. I recommended aggressive sodium restriction, weight loss and regular exercise. 11/26/2022 Cellulitis of right finger (ICD-10 - L03.011) He will use warm soaks. A culture was sent. He was put on antibiotics. He will be seen early next week and call me if anything worsens. 11/26/2022 Essential hypertension (ICD-10 - I10) His blood pressure today is well-controlled at 130/82. I recommended aggressive sodium restriction, weight loss and regular exercise. 12/01/2022 Essential hypertension (ICD-10 - I10) His blood pressure today is well-controlled at 130/82. I recommended aggressive sodium restriction, weight loss and regular exercise. 12/01/2022 Benign prostatic hyperplasia, unspecified whether lower urinary tract symptoms present (ICD-10 - N40.0) He rises some sleep once or twice a night and is happy with this level of function. We discussed lifestyle modification as a way of reducing nocturia. 12/11/2022 Benign prostatic hyperplasia, unspecified whether lower urinary tract symptoms present (ICD-10 - N40.0) He rises some sleep once or twice a night and is happy with this level of function. We discussed lifestyle modification as a way of reducing nocturia. 12/11/2022 Cellulitis of finger, right (ICD-10 - L03.011) He was put on levofloxacin 500 mg daily for 10 days. An appointment was made for him to plastic surgeons at the hand center at the [facility] in [place]. 12/18/2022 Cellulitis of right finger (ICD-10 - L03.011) 12/08/2022 Former smoker (ICD-10 - Z87.891) He seems highly motivated not to smoke. We discussed a plan to prevent relapse in times of stress and illness. 12/08/2022 History of right below knee amputation (ICD-10 - Z89.511) His prosthesis is functional and in good condition. Stump is intact. He is ambulatory. 09/16/2022 Type 2 diabetes mellitus without complications (ICD-10 - E11.9) His A1c is 9.0. I have sent his lab data to his straight tooth gear generator operator at the [facility]. We will try to arrange a telemetry health visit. If not, I will increase his trulicity in his medications. 12/14/2022 Benign prostatic hyperplasia, unspecified whether lower urinary tract symptoms present (ICD-10 - N40.0) He rises some sleep once or twice a night and is happy with this level of function. We discussed lifestyle modification as a way of reducing nocturia. 11/26/2022 Benign prostatic hyperplasia, unspecified whether lower urinary tract symptoms present (ICD-10 - N40.0) He rises some sleep once or twice a night and is happy with this level of function. We discussed lifestyle modification as a way of reducing nocturia. 12/01/2022 Mixed hyperlipidemia (ICD-10 - E78.2) His lipids are within the normal range. On the last lipid profile. No change in his regimen was needed. 12/11/2022 Essential hypertension (ICD-10 - I10) His blood pressure today is well-controlled at 130/82. I recommended aggressive sodium restriction, weight loss and regular exercise. 12/08/2022 Coronary artery disease involving [place] heart without angina pectoris, unspecified vessel or lesion type (ICD-10 - I25.10) His ischemic heart disease is stable. He has been compliant with all his medications. I encouraged him to obtain a primary care physician during the 6 months he is in [place] so that he may be referred to cardiology if necessary. 09/16/2022 Benign prostatic hyperplasia, unspecified whether lower urinary tract symptoms present (ICD-10 - N40.0) He rises some sleep once or twice a night and is happy with this level of function. We discussed lifestyle modification as a way of reducing nocturia. 12/14/2022 Mixed hyperlipidemia (ICD-10 - E78.2) His lipids are within the normal range. On the last lipid profile. No change in his regimen was needed. 11/26/2022 Mixed hyperlipidemia (ICD-10 - E78.2) His lipids are within the normal range. On the last lipid profile. No change in his regimen was needed. 12/01/2022 History of osteomyelitis (ICD-10 - Z87.39) He continues to be cared for by the surgeons at [facility]. All of his wounds are healed. Despite the numerous missing portions of multiple fingers he says he is able to conduct all of the activities of daily life well. 12/11/2022 Mixed hyperlipidemia (ICD-10 - E78.2) His lipids are within the normal range. On the last lipid profile. No change in his regimen was needed. 12/08/2022 Ischemic cardiomyopathy (ICD-10 - I25.5) His congestive heart feels well compensated and he will call me if he gains more than 5 pounds. He will weigh himself weekly. 12/14/2022 Other obesity due to excess calories (ICD-10 - E66.09) He has lost 3 pounds and his body mass index is 32. We discussed following a reduced calorie diabetic diet, low in animal fat and sodium designed to lose weight at a rate of one half of a pound per week. 11/26/2022 Other obesity due to excess calories (ICD-10 - E66.09) He has lost 3 pounds and his body mass index is 32. We discussed following a reduced calorie diabetic diet, low in animal fat and sodium designed to lose weight at a rate of one half of a pound per week. 12/01/2022 Other obesity due to excess calories (ICD-10 - E66.09) He has lost 3 pounds and his body mass index is 32. We discussed following a reduced calorie diabetic diet, low in animal fat and sodium designed to lose weight at a rate of one half of a pound per week. 12/11/2022 Other obesity due to excess calories (ICD-10 - E66.09) He has lost 3 pounds and his body mass index is 32. We discussed following a reduced calorie diabetic diet, low in animal fat and sodium designed to lose weight at a rate of one half of a pound per week. 12/08/2022 Non-rheumatic mitral regurgitation (ICD-10 - I34.0) His mitral valve is now functioning properly. No murmur was heard. He is in sinus rhythm. 12/14/2022 History of right below knee amputation (ICD-10 - Z89.511) His prosthesis is functional and in good condition. Stump is intact. He is ambulatory. 11/26/2022 History of osteomyelitis (ICD-10 - Z87.39) He continues to be cared for by the surgeons at [facility]. All of his wounds are healed. Despite the numerous missing portions of multiple fingers he says he is able to conduct all of the activities of daily life well. 12/01/2022 History of right below knee amputation (ICD-10 - Z89.511) His prosthesis is functional and in good condition. Stump is intact. He is ambulatory. 12/11/2022 History of osteomyelitis (ICD-10 - Z87.39) He continues to be cared for by the surgeons at [facility]. All of his wounds are healed. Despite the numerous missing portions of multiple fingers he says he is able to conduct all of the activities of daily life well. 12/08/2022 History of osteomyelitis (ICD-10 - Z87.39) He continues to be cared for by the surgeons at [facility]. All of his wounds are healed. Despite the numerous missing portions of multiple fingers he says he is able to conduct all of the activities of daily life well. 12/14/2022 Former smoker (ICD-10 - Z87.891) He seems highly motivated not to smoke. We discussed a plan to prevent relapse in times of stress and illness. 11/26/2022 History of right below knee amputation (ICD-10 - Z89.511) His prosthesis is functional and in good condition. Stump is intact. He is ambulatory. 12/01/2022 Former smoker (ICD-10 - Z87.891) He seems highly motivated not to smoke. We discussed a plan to prevent relapse in times of stress and illness. 12/11/2022 History of right below knee amputation (ICD-10 - Z89.511) His prosthesis is functional and in good condition. Stump is intact. He is ambulatory. 12/08/2022 Type 2 diabetes mellitus without complications (ICD-10 - E11.9) His A1c is 9.0. I have sent his lab data to his straight tooth gear generator operator at the [facility]. We will try to arrange a telemetry health visit. If not, I will increase his trulicity in his medications. 12/14/2022 Coronary artery disease involving [place] heart without angina pectoris, unspecified vessel or lesion type (ICD-10 - I25.10) His ischemic heart disease is stable. He has been compliant with all his medications. I encouraged him to obtain a primary care physician during the 6 months he is in [place] so that he may be referred to cardiology if necessary. 11/26/2022 Former smoker (ICD-10 - Z87.891) He seems highly motivated not to smoke. We discussed a plan to prevent relapse in times of stress and illness. 12/01/2022 Coronary artery disease involving [place] heart without angina pectoris, unspecified vessel or lesion type (ICD-10 - I25.10) His ischemic heart disease is stable. He has been compliant with all his medications. I encouraged him to obtain a primary care physician during the 6 months he is in [place] so that he may be referred to cardiology if necessary. 12/11/2022 Former smoker (ICD-10 - Z87.891) He seems highly motivated not to smoke. We discussed a plan to prevent relapse in times of stress and illness. 12/08/2022 Cellulitis of left finger (ICD-10 - L03.012) He will continue the antibiotic for the regular this week and come to the office for evaluation next Wednesday. 12/14/2022 Ischemic cardiomyopathy (ICD-10 - I25.5) His congestive heart feels well compensated and he will call me if he gains more than 5 pounds. He will weigh himself weekly. 11/26/2022 Coronary artery disease involving [place] heart without angina pectoris, unspecified vessel or lesion type (ICD-10 - I25.10) His ischemic heart disease is stable. He has been compliant with all his medications. I encouraged him to obtain a primary care physician during the 6 months he is in [place] so that he may be referred to cardiology if necessary. 12/01/2022 Ischemic cardiomyopathy (ICD-10 - I25.5) His congestive heart feels well compensated and he will call me if he gains more than 5 pounds. He will weigh himself weekly. 12/11/2022 Coronary artery disease involving [place] heart without angina pectoris, unspecified vessel or lesion type (ICD-10 - I25.10) His ischemic heart disease is stable. He has been compliant with all his medications. I encouraged him to obtain a primary care physician during the 6 months he is in [place] so that he may be referred to cardiology if necessary. 12/14/2022 Non-rheumatic mitral regurgitation (ICD-10 - I34.0) His mitral valve is now functioning properly. No murmur was heard. He is in sinus rhythm. 11/26/2022 Ischemic cardiomyopathy (ICD-10 - I25.5) His congestive heart feels well compensated and he will call me if he gains more than 5 pounds. He will weigh himself weekly. 12/01/2022 Type 2 diabetes mellitus without complications (ICD-10 - E11.9) His A1c is 9.0. I have sent his lab data to his straight tooth gear generator operator at the [facility]. We will try to arrange a telemetry health visit. If not, I will increase his trulicity in his medications. 12/11/2022 Ischemic cardiomyopathy (ICD-10 - I25.5) His congestive heart feels well compensated and he will call me if he gains more than 5 pounds. He will weigh himself weekly. 12/14/2022 Type 2 diabetes mellitus without complications (ICD-10 - E11.9) His A1c is 9.2. I have sent his lab data to his straight tooth gear generator operator at the [facility]. We will try to arrange a telemetry health visit. If not, I will increase his trulicity in his medications. 11/26/2022 Non-rheumatic mitral regurgitation (ICD-10 - I34.0) His mitral valve is now functioning properly. No murmur was heard. He is in sinus rhythm. 12/01/2022 Cellulitis of finger of right hand (ICD-10 - L03.011) The organism is Staphylococcus aureus which is sensitive to tetracycline. His doxycycline was continued. 12/11/2022 Non-rheumatic mitral regurgitation (ICD-10 - I34.0) His mitral valve is now functioning properly. No murmur was heard. He is in sinus rhythm. 11/26/2022 Type 2 diabetes mellitus without complications (ICD-10 - E11.9) His A1c is 9.0. I have sent his lab data to his straight tooth gear generator operator at the [facility]. We will try to arrange a telemetry health visit. If not, I will increase his trulicity in his medications. 12/11/2022 Carpal tunnel syndrome, right (ICD-10 - G56.01) This problem is mild and does not require treatment at this time. 12/11/2022 Type 2 diabetes mellitus without complications (ICD-10 - E11.9) His A1c is 9.0. I have sent his lab data to his straight tooth gear generator operator at the [facility]. We will try to arrange a telemetry health visit. If not, I will increase his trulicity in his medications. 12/11/2022 termination clerk (current) use of insulin (ICD-10 - Z79.4) PLAN OF TREATMENT Pending Test Test Name Order Date PROFILE, FASTING (COMPREHENSIVE METABOLI C) 09/16/2022 PROFILE, FASTING (COMPREHENSIVE METABOLI C) 12/18/2021 PROFILE, FASTING (COMPREHENSIVE METABOLI C) 06/15/2018 PROFILE, FASTING (COMPREHENSIVE METABOLI C) 05/05/2021 PROFILE, FASTING (COMPREHENSIVE METABOLI C) 04/09/2022 PROFILE, FASTING (COMPREHENSIVE METABOLI C) 07/01/2020 PROFILE, FASTING (COMPREHENSIVE METABOLI C) 03/27/2020 PROFILE, FASTING (COMPREHENSIVE METABOLI C) 12/29/2018 PROFILE, FASTING (COMPREHENSIVE METABOLI C) 09/26/2018 PROFILE, RANDOM (COMPREHENSIVE METABOLIC ) 03/03/2021 HEMOGLOBIN A1C (GLYCOHEMOGLOBIN) 019 HEMOGLOBIN A1C (GLYCOHEMOGLOBIN) 022 HEMOGLOBIN A1C (GLYCOHEMOGLOBIN) 021 HEMOGLOBIN A1C (GLYCOHEMOGLOBIN) 021 HEMOGLOBIN A1C (GLYCOHEMOGLOBIN) 020 HEMOGLOBIN A1C (GLYCOHEMOGLOBIN) 020 HEMOGLOBIN A1C (GLYCOHEMOGLOBIN) 019 LIPID PANEL 12/29/2018 LIPID PANEL 09/26/2018 LIPID PANEL 06/15/2018 LIPID PANEL 05/05/2021 LIPID PANEL 03/03/2021 LIPID PANEL 07/01/2020 LIPID PANEL 03/27/2020 BRAIN NATRIURETIC PEPTIDE (BNP) 12/19/19 22 PSA, TOTAL 09/16/2022 PSA, TOTAL 06/15/2018 PSA, TOTAL 07/01/2020 MICROALBUMIN, RANDOM 12/18/2021 MICROALBUMIN, RANDOM 05/05/2021 MICROALBUMIN, RANDOM 03/03/2021 MICROALBUMIN, RANDOM 03/27/2020 CBC w DIFF 03/03/2021 CBC w DIFF 07/01/2020 CBC w DIFF 03/27/2020 CBC w DIFF 12/29/2018 CBC w DIFF 09/16/2022 CBC w DIFF 04/09/2022 CBC w DIFF 09/26/2018 CBC w DIFF 06/15/2018 CBC w DIFF 12/18/2021 CBC w DIFF 05/05/2021 Lipid Panel 12/18/2021 Lipid Panel 09/16/2022 Lipid Panel 04/09/2022 Microalbumin, Random 09/16/2022 Hemoglobin A1c 04/09/2022 Hemoglobin A1c 09/16/2022 Next Appt Details Provider Name:Wale Ta, 08/20/2023 10:00:00 AM, [address] [place] [address] [place], [place], [address], Insurance Providers Payer Name Payer Address Payer Phone Subscriber Number Group Number Insured Name Patient Relationship to Insured Coverage Start Date Coverage End Date MEDICARE NGS [address] [place] [address] [id number] December, Raulito Self - patient is the insured FORMERLY [facility] [employer] [facility] [address] [place] [address] [id number] December, Raulito Self - patient is the insured MEDICAL (GENERAL) HISTORY Medical History History ICD Code cerumen impactions mixed hyperlipidemia essential hypertension obesity adult-onset diabetes mellitus bilateral sensorineural hearing loss amputation multiple digits secondary to osteomyelitis former smoker recovering alcoholic since 2000 coronary artery disease with CABGx4 2016 [facility] compensated chronic class II stage C systolic ischemic congestive heart failure. 2017 mitral valve annuloplasty. 2017. 4. Mitr al regurgitation patient refused insertion of recommended defibrillator 2017 carpal tunnel syndrome, right wrist Surgical History Surgery Date(Month/Year) Debridement osteomyelitis middle phalanx , left ring finger 2020-04-11 surgery on middle finger of left hand left eye cataract surgery 11/2018 mitral valve annuloplastyMona x4, [facility], Dr. Melchor 02/15 amputation left second finger 09/2014 amputation of left third finger 01/2014 surgery of right second finger re: ostem yelitis 07/2011 right below the knee amputation re: oste omyelitis 11/2000 Hospitalization History Reason Date(Month/Year) multiple hospitalizations for surgery
--- OUTSIDE RECORDS SUMMARY | 2023-07-30 14:03 | XMS_ITS | Continuity of Care Document ---
Author Name Unknown Organization [facility] Address [address] [place] [address]- Care Team Providers Care Surgical Services Asst Name Role Phone [place] MD Primary Care Physician [phone] Encounter 10/31/19 - 12/08/19 [facility] [address] [place] [address]- [facility] Discharge Disposition: CLIENT NO LONGER REQUIRES SKILLED CARE
[2023-07-30 14:11] LABS: MANUAL DIFF FLAG NO
[2023-07-30 14:12] LABS: Basophils Absolute Auto 0.1 X10*3/uL (0.0-0.2); Basophils Percent Auto 0.8 % (0-2); Eosinophils Absolute Auto 0.1 X10*3/uL (0.0-0.4); Eosinophils Percent Auto 0.9 % (0-4); Hematocrit 39.6 % (42.0-52.0); Hemoglobin 12.7 g/dl (14.0-18.0); Imm Gran Abs Auto 0.04 X10*3/uL (0.00-0.03); Imm Gran Pct Auto 0.4 % (0.0-0.4); Lymphocytes Percent Auto 10.6 % (20-40); Mean Corpuscular HGB Conc 32.1 g/dl (31.0-36.0); Mean Corpuscular Hemoglobin 25.7 pg (27.0-33.0); Mean Corpuscular Volume 80.2 fL (80.0-98.0); Monocytes Absolute Auto 0.9 X10*3/uL (0.1-1.2); Monocytes Percent Auto 9.1 % (2-11); Neutrophils Absolute Auto 7.6 x10*3/uL (2.0-8.3); Neutrophils Percent Auto 78.2 % (45-73); Platelet Count 246 X10*3/uL (160-400); Red Blood Count 4.94 X10*6/uL (4.60-5.80); Red Cell Distribution Width 15.4 % (11.0-16.0); White Blood Count 9.7 X10*3/uL (4.8-10.8)
[2023-07-30 14:28] LABS: Anion Gap 14 (12-20); Blood Urea Nitrogen 33 mg/dL (9-16); C Reactive Protein 25.78 mg/dL (< or = 0.50); Calcium 9.4 mg/dL (8.4-10.2); Carbon Dioxide 21 mmol/L (22-29); Chloride 101 mmol/L (96-108); Creatinine Clr Calc Pharmacy 59.9; Estimated Glomerular Filt Rate 47; Glucose Random 140 mg/dL (60-115); Potassium 4.4 mmol/L (3.3-5.1); Sodium 132 mmol/L (135-145)
[2023-07-30 14:47] LABS: Erythrocyte Sedimentation Rate 83 MM/HR (0-15)
[2023-07-30 15:05] VITALS: BP 131/67; PULSE 101; RESP 16; TEMP 36.8; O2SAT 98
[2023-07-30 15:46] LABS: Source Synovial Fluid Left knee
[2023-07-30 16:32] LABS: RBC Synovial Fluid 0.065 X10*6/uL; WBC Synovial Fluid 8.914 X10*3/uL
[2023-07-30 17:21] LABS: Lymphocytes Synovial Fluid 3 %; Monocytes Synovial Fluid 14 %; Neutrophils Synovial Fluid 78 %; Other Cells Synovial Fluid 5
[2023-07-30 17:22] LABS: BF Shift QC OK YES
[2023-07-30] MEDS: ceFAZolin Sodium/Dextrose,Iso 2 GM/50 ML PIGGYBACK IV (17:31)
[2023-07-30 19:00] LABS: Glucose Synovial Fluid 140 MG/DL
[2023-07-30 19:23] VITALS: BP 113/52; PULSE 102; RESP 18; O2SAT 98
--- NOTE | 2023-07-30 19:53 | PHA.MEDREC ---
Pharmacy Consult ? Medication Reconciliation Pharmacy has completed the medication reconciliation. Patient brother Desmond reported medications. Beth Hall, GilbertD
--- NOTE | 2023-07-30 22:10 | PC.NURSE ---
Pt requested and given urinal. Plan of care ongoing.
--- NOTE | 2023-07-30 22:18 | PC.NURSE ---
Pt dropped urinal on the floor. Environmental called for clean up.
--- NOTE | 2023-07-30 22:42 | PM.IMHP ---
History of Present Illness Date of Service: 07/30/23 Attending physician on admission: El Condon Chief Complaint: Left knee pain x 3 days Patient is a 67 year old white male with PMH of gout, PAD s/p Rt BKA, CAD, T2DM (on Insulin), hypertension and hyperlipidemia who presents to the emergency room from home complaining of severe left knee pain for the past several days. He also reports falling on the knee 2 days ago when he could no longer support himself on his left leg. The fall happened after the knee swelling and hence not the cause. There was no head strike or LOC associated with the fall. He also denies any associated fevers or chills. He states that these symptoms are very similar to previous episodes of acute gout attack that he has had. The knee was aspirated and synovial fluid analysis revealed 8.914 WBC with 78% neutrophils. Crystal analysis is pending. Blood work done revealed elevated serum creatinine at 1.5 (baseline 1.2). He received IV Morphine and empiric Cefazolin and admission was thereafter requested. Review of Systems Review of Systems: Yes all other systems are reviewed and are negative [facility] Medical History (Updated 07/31/23 @ 05:22 by El Condon MD) Amputation finger Gout Coronary artery disease Hypertension, essential Type 2 diabetes mellitus Functional capacity: independent ambulation Pertinent family history: Reviewed with patient and not pertinent to current admission Surgical History (Updated 07/31/23 @ 05:22 by El Condon MD) Hx of right BKA Social History Household Members: Family Housing: House Patient Tobacco Use Status: Never used Tobacco Smoked in Last 30 Days: No Use of substances other than those prescribed or required for medical reasons: No Have you been hit, kicked, punched, or otherwise hurt by someone within the past year? If so, by whom?: No Are you made to feel afraid or neglected: No Advance Directives: Yes Advance Directives Information Provided: Yes Advance Directives on File: No Advance Directives Date on File: 07/31/23 Do you have thoughts of harming others: None Do you have a plan to hurt others: No Plan Nutrition Risks: No Nutritional Risk Meds Allergies Allergy/AdvReac Type Severity Reaction Status Date / Time No Known Allergies Allergy Verified 07/30/23 13:43 Active Medications: Home Medications Medication Instructions Recorded Confirmed Last Taken Type atorvastatin 80 mg tablet 80 mg PO BEDTIME 07/30/23 07/30/23 07/29/23 History dapagliflozin propanediol 10 mg 10 mg PO DAILY 07/30/23 07/30/23 07/30/23 History tablet (Farxiga) dulaglutide 4.5 mg/0.5 mL 4.5 mg subcut QWEEK 07/30/23 07/30/23 Unknown History subcutaneous pen injector (Trulicity) insulin lispro protamine-lispro 28 unit subcut BID 07/30/23 07/30/23 07/30/23 History 100 unit/mL (75-25) subcutaneous pen (Humalog Mix 75-25 KwikPen) lisinopril 40 mg tablet 40 mg PO DAILY 07/30/23 07/30/23 07/30/23 History metformin 500 mg tablet 1,000 mg PO BID 07/30/23 07/30/23 07/30/23 History metoprolol succinate 200 mg 200 mg PO DAILY 07/30/23 07/30/23 07/30/23 History tablet,extended release 24 hr spironolactone 25 mg tablet 25 mg PO DAILY 07/30/23 07/30/23 07/30/23 History Physical Exam Vital Signs and Narrative: Vital Signs: Last Vital Signs Temp 98.3 F 07/30/23 15:05 Pulse 102 H 07/30/23 19:23 Resp 18 07/30/23 19:23 BP 113/52 L 07/30/23 19:23 Pulse Ox 98 07/30/23 19:23 O2 Del Method Room Air 07/30/23 19:23 BMI result Body Mass Index 32.0 General: Well nourished. Awake, alert and oriented x 4. No apparent distress Eyes: No pallor or jaundice. PERRLA, EOMI HENT: Moist oral mucus membranes. No oropharyngeal lesions. Neck: Supple. No cervical adenopathy. No JVD Cardiovascular: Regular rate and rhythm. Normal heart sounds. No murmurs, rubs or gallops. No JVD. No peripheral edema. Respiratory: Normal respiratory effort with no accessory muscle use. CTAB. Gastrointestinal: Abdomen is soft, non-tender, non-distended. NABS. No hepatosplenomegaly Extremities: Amputation of all fingers and right BKA. Left knee is swollen and with limited ROM. No erythema and no increased warmth. Skin: Warm/Dry. No rashes. No mottling. Capillary refill is < 2 seconds Neurological: AAOx4. Intact speech & cognition. CN II - XII grossly intact but not individually tested. No motor or sensory deficits Hematologic: No bleeding. No ecchymosis. No swollen or tender lymph nodes. Psychiatric: Cooperative. Appropriate mood and affect. Results Labs 07/30/23 14:06 07/30/23 14:06 Labs: Laboratory Results - last 24 hr 07/30/23 07/30/23 14:06 15:40 MCV 80.2 MCH 25.7 L MCHC 32.1 RDW 15.4 Plt Count 246 MPV 9.0 L Immature Gran % (Auto) 0.4 Neut % (Auto) 78.2 H Lymph % (Auto) 10.6 L [place] % (Auto) 9.1 Eos % (Auto) 0.9 Baso % (Auto) 0.8 Lymph # (Auto) 1.0 L [place] # (Auto) 0.9 Eos # (Auto) 0.1 Baso # (Auto) 0.1 Abs Immat Gran (auto) 0.04 H Absolute Neuts (auto) 7.6 Absolute Nucleated RBC 0.000 Nucleated RBC % (auto) 0.0 ESR 83 H Anion Gap 14 Estim Creat Clear Calc 59.9 Estimated GFR 47 Random Glucose 140 H Calcium 9.4 C-Reactive Protein 25.78 H Synovial Source Left knee Synovial WBC 8.914 Synovial RBC 0.065 Synovial Neutrophils 78 Synovial Lymphocytes 3 Synovial Monocytes 14 Synovial Other Cells 5 Synovial Glucose 140 Imaging Radiologist's Impressions: Impressions Knee X-Ray 07/30/23 13:53 Mild degenerative changes of the left knee without any visible acute fracture, dislocation or subluxation. There is mild suprapatellar joint effusion. Assessment and Plan (1) Gouty arthritis of left knee: Status: Acute (2) Acute renal failure: Status: Acute (3) Hypertension, essential: Status: Acute (4) Coronary artery disease: Status: Acute (5) Type 2 diabetes mellitus: Status: Acute Plan 67 year old white male with PMH of gout, PAD s/p Rt BKA, CAD, T2DM (on Insulin), hypertension and hyperlipidemia here with: 1. Left knee pain and swelling - concerning for gouty arthritis given h/o gout and synovial fluid analysis though crystal analysis is pending - admit for pain control - he has mild renal insufficiency so will avoid NSAIDs - await synovial fluid crystal analysis before deciding on starting allopurinol - avoid systemic steroids for now - hold off antibiotics for now 2. Acute renal failure - noted with mild renal insufficiency with serum creatinine up to 1.49 - avoid nephrotoxic meds - closely monitor 3. Type 2 diabetes mellitus - he is on Insulin 75/25 28 units BID which we don't carry - start on Insulin Lantus (will start at 20 units BID) and titrate for BS control. - add SSI coverage 4. Hypertension - BP well controlled - resume Metoprolol 5. Hyperlipidemia - resume Atorvastatin DVT: SC Lovenox CODE STATUS: Full code Admission for at least 2 midnights for management of possible gouty arthritis of left knee and QUINTEN. Total time managing care of this patient today: 75 minutes. Quality Stroke Does the patient have a stroke diagnosis?: No VTE Prior VTE?: No VTE Risk Level:: Medical - moderate - high VTE Device Contraindication: Treatment Not Indicated VTE Drug Contraindication: N/A - Med Ordered
[2023-07-30] MEDS: Insulin Glargine,Hum.rec.anlog 100 UNIT/ML 10 ML VIAL 20 UNIT SUBCUT (23:33)
[2023-07-30] MEDS: Atorvastatin Calcium 80 MG TABLET PO (23:34)
[2023-07-30] MEDS: Enoxaparin Sodium 40 MG/0.4 ML SYRINGE SUBCUT (23:35)
[2023-07-30 23:44] LABS: Glucose, Whole Blood 161 mg/dL (60-115)
--- NOTE | 2023-07-30 23:44 | PC.NURSE ---
Pt medicated per sep. POC 161. Pt refused morphine. Plan of care ongoing.
[2023-07-31] MEDS: 0.9 % Sodium Chloride Flush 3 ML SYRINGE IVFLUSH ×4 (00:58→20:55)
[2023-07-31 01:55] VITALS: BMI 30.9
[2023-07-31 01:56] VITALS: BP 127/66; PULSE 114; RESP 16; TEMP 36.7; O2SAT 96
[2023-07-31 03:41] VITALS: BP 140/73; PULSE 109; RESP 16; TEMP 36.9; O2SAT 99
[2023-07-31 06:39] LABS: MANUAL DIFF FLAG NO
[2023-07-31 06:55] LABS: Anion Gap 15 (12-20); Blood Urea Nitrogen 35 mg/dL (9-16); Calcium 9.4 mg/dL (8.4-10.2); Carbon Dioxide 21 mmol/L (22-29); Chloride 105 mmol/L (96-108); Creatinine Clr Calc Pharmacy 68.6; Estimated Glomerular Filt Rate 56; Glucose Random 110 mg/dL (60-115); Potassium 4.4 mmol/L (3.3-5.1); Sodium 137 mmol/L (135-145)
[2023-07-31 07:07] LABS: Basophils Absolute Auto 0.1 X10*3/uL (0.0-0.2); Basophils Percent Auto 0.7 % (0-2); Eosinophils Absolute Auto 0.1 X10*3/uL (0.0-0.4); Eosinophils Percent Auto 1.7 % (0-4); Hematocrit 39.9 % (42.0-52.0); Hemoglobin 12.7 g/dl (14.0-18.0); Imm Gran Abs Auto 0.03 X10*3/uL (0.00-0.03); Imm Gran Pct Auto 0.4 % (0.0-0.4); Lymphocytes Absolute Auto 0.8 X10*3/uL (1.2-4.9); Mean Corpuscular HGB Conc 31.8 g/dl (31.0-36.0); Mean Corpuscular Hemoglobin 26.1 pg (27.0-33.0); Mean Corpuscular Volume 82.1 fL (80.0-98.0); Mean Platelet Volume 9.4 fL (9.4-12.4); Monocytes Absolute Auto 0.7 X10*3/uL (0.1-1.2); Monocytes Percent Auto 9.7 % (2-11); Neutrophils Absolute Auto 5.4 x10*3/uL (2.0-8.3); Neutrophils Percent Auto 76.5 % (45-73); Platelet Count 263 X10*3/uL (160-400); Red Blood Count 4.86 X10*6/uL (4.60-5.80); Red Cell Distribution Width 15.2 % (11.0-16.0)
[2023-07-31 07:36] LABS: Glucose, Whole Blood 96 mg/dL (60-115)
[2023-07-31 07:52] VITALS: BP 134/73; PULSE 100; RESP 18; TEMP 36.3; O2SAT 100
[2023-07-31] MEDS: Insulin Glargine,Hum.rec.anlog 100 UNIT/ML 10 ML VIAL 20 UNIT SUBCUT ×2 (08:35→20:55)
[2023-07-31] MEDS: Spironolactone 25 MG TABLET PO (08:35)
[2023-07-31] MEDS: lisinopriL 40 MG TABLET PO (08:36)
[2023-07-31] MEDS: metFORMIN HCl 1,000 MG TABLET 1000 MG PO (08:36)
[2023-07-31] MEDS: Empagliflozin 10 MG TABLET PO (08:36)
[2023-07-31] MEDS: Docusate Sodium 100 MG CAPSULE PO ×2 (08:36→20:55)
[2023-07-31] MEDS: Metoprolol Succinate ER 100 MG TAB.ER.24H 200 MG PO (08:36)
[2023-07-31 11:27] LABS: Glucose, Whole Blood 176 mg/dL (60-115)
[2023-07-31] MEDS: Insulin Lispro 100 UNIT/ML 3 ML VIAL SUBCUT ×3 (11:40→20:54)
--- NOTE | 2023-07-31 15:32 | MHC.CM.PN ---
CM MET WITH PT AND BROTHER, EDMUNDO, AT BEDSIDE PT LIVES IN THE SAME HOME HIS BROTHER WHO ASSISTS HIM PRN THEY REPORT WHEN THE PT IS WELL, HE IS INDEPENDENT WITH MOST CARE AND DRIVES HE HAS NO HOME SERVICES PT HAS A WALKER AND WHEEL CHAIR WELL A LE PROSTHETIC HE CAN TRANSFER INDEPENDENTLY AND WALKS WITH WALKER AND PROSTHETIC WHEN AT BASELINE PT HAS A HCP COMPLETED WITH A SUPERVISOR HOUSECLEANER NAMING HIS BROTHER HIS AGENT, COPY REQUESTED PCP: RAND KIRKLAND IMM DELIVERED DCP: HOME RESUME FAMILY SUPPORT BROTHER TO TRANSPORT EDMUNDO: [phone]
[2023-07-31 15:41] VITALS: BP 119/59; PULSE 93; RESP 18; TEMP 36.4; O2SAT 96
[2023-07-31 16:26] LABS: Glucose, Whole Blood 210 mg/dL (60-115)
--- NOTE | 2023-07-31 17:26 | P.PNIM_ITS ---
Subjective Subjective Date of Service: 07/31/23 Interval History: seen and examined this morning follow up for left knee pain, right middle finger swelling and erythema still with pain at left knee denies fever or chills Review of Systems Review of Systems: Yes all other systems are reviewed and are negative Constitutional Constitutional: Denies chills and Denies fever(s) Cardiovascular Cardiovascular: Denies chest pain and Denies palpitations Gastrointestinal Gastrointestinal: Denies abdominal pain Endocrine Endocrine: Denies palpitations Physical Exam 2 Vital Signs: Vital Signs: Last Vital Signs Temp 97.5 F 07/31/23 15:41 Pulse 93 07/31/23 15:41 Resp 18 07/31/23 15:41 BP 119/59 L 07/31/23 15:41 Pulse Ox 96 07/31/23 15:41 O2 Del Method Room Air 07/31/23 15:41 BMI result Body Mass Index 30.9 Const: General: cooperative, comfortable, alert and awake Nutritional Appearance: average body habitus Orientation/consciousness: patient oriented x3 Resp: Effort & Inspection: normal respiratory effort, able to speak in complete sentences, no respiratory distress and no use of accessory muscles Cardio: Rate: regular rate GI: Inspection: No distended Palpation (GI): Soft to palpation and nontender Neuro: General: patient oriented x3, moves all extremities and CN's II-XI intact bilaterally Extrem: Other: no redness, no significant swelling of left knee right middle finger with erythema, swelling, no drainage multiple finger amputations on bilateral hands right bka Objective Data Active Medications Acetaminophen (Acetaminophen 325 Mg Tablet) 650 mg PO Q6H PRN PRN Reason: Pain, Mild (Pain Scale 1-3) Atorvastatin Calcium (Atorvastatin Calcium 80 Mg Tablet) 80 mg PO BEDTIME [facility] Last Admin: 07/30/23 23:34 Dose: 80 mg Documented By: NANCI Dextrose (Dextrose 50 % 25 Gm/50 Ml Syringe) 25 gm IVPUSH Q15M PRN; Protocol PRN Reason: per Hypoglycemia Standing Ord. Docusate Sodium (Docusate Sodium 100 Mg Capsule) 100 mg PO BID [facility] Last Admin: 07/31/23 08:36 Dose: 100 mg Documented By: OKSANA Empagliflozin (Empagliflozin 10 Mg Tablet) 10 mg PO DAILY [facility] Last Admin: 07/31/23 08:36 Dose: 10 mg Documented By: OKSANA Enoxaparin Sodium (Enoxaparin Sodium 40 Mg/0.4 Ml Syringe) 40 mg SUBCUT Q24H [facility] Last Admin: 07/30/23 23:35 Dose: 40 mg Documented By: NANCI Glucose (Glucose Gel 15 Gm Gel..Gram.) 15 gm PO Q15M PRN; Protocol PRN Reason: per Hypoglycemia Standing Ord. Cefazolin Sodium 1 gm/ Sodium (Chloride) 50 mls @ 100 mls/hr IV Q8H [facility] Last Infusion: 07/31/23 12:17 Dose: Infused Documented By: OKSANA Insulin Glargine (Insulin Glargine,Hum.Rec.Anlog 100 Unit/Ml 10 Ml Vial) 20 unit SUBCUT BID [facility] Last Admin: 07/31/23 08:35 Dose: 20 unit Documented By: OKSANA Insulin Human Lispro (Insulin Lispro 100 Unit/Ml 3 Ml Vial) 0 unit SUBCUT QIDACHS [facility]; Protocol Last Admin: 07/31/23 16:40 Dose: 4 unit Documented By: OKSANA Lisinopril (Lisinopril 40 Mg Tablet) 40 mg PO DAILY [facility]; Protocol Last Admin: 07/31/23 08:36 Dose: 40 mg Documented By: OKSANA Melatonin (Melatonin 3 Mg Tablet) 6 mg PO BEDTIME PRN PRN Reason: Insomnia Metformin HCl (Metformin Hcl 1,000 Mg Tablet) 1,000 mg PO BID [facility] Last Admin: 07/31/23 08:36 Dose: 1,000 mg Documented By: OKSANA Metoprolol Succinate (Metoprolol Succinate Er 100 Mg Tab.Er.24h) 200 mg PO DAILY [facility]; Protocol Last Admin: 07/31/23 08:36 Dose: 200 mg Documented By: OKSANA Morphine Sulfate (Morphine Sulfate 4 Mg/Ml Cartridge) 2 mg IVPUSH Q4H PRN; Protocol PRN Reason: Pain, Severe (Pain Scale 7-10) Ondansetron HCl (Ondansetron Hcl 4 Mg/2 Ml Vial) 4 mg IVPUSH Q8H PRN PRN Reason: Nausea and Vomiting Oxycodone HCl (Oxycodone Hcl Immed Release 5 Mg Tablet) 5 mg PO Q6H PRN PRN Reason: Pain, Moderate(Pain Scale 4-6) Sodium Chloride (0.9 % Sodium Chloride Flush 3 Ml Syringe) 3 ml IVFLUSH QSHIFT [facility] Last Admin: 07/31/23 14:59 Dose: 3 ml Documented By: OKSANA Spironolactone (Spironolactone 25 Mg Tablet) 25 mg PO DAILY [facility]; Protocol Last Admin: 07/31/23 08:35 Dose: 25 mg Documented By: OKSANA Labs 07/31/23 06:29 07/31/23 06:29 Labs: Laboratory Results - last 24 hr 07/30/23 07/30/23 07/31/23 15:40 23:40 06:29 MCV 82.1 MCH 26.1 L MCHC 31.8 RDW 15.2 Plt Count 263 MPV 9.4 Immature Gran % (Auto) 0.4 Neut % (Auto) 76.5 H Lymph % (Auto) 11.0 L [place] % (Auto) 9.7 Eos % (Auto) 1.7 Baso % (Auto) 0.7 Lymph # (Auto) 0.8 L [place] # (Auto) 0.7 Eos # (Auto) 0.1 Baso # (Auto) 0.1 Abs Immat Gran (auto) 0.03 Absolute Neuts (auto) 5.4 Absolute Nucleated RBC 0.000 Nucleated RBC % (auto) 0.0 Anion Gap 15 Estim Creat Clear Calc 68.6 Estimated GFR 56 POC Glucose 161 H Random Glucose 110 Calcium 9.4 Synovial Glucose 140 07/31/23 07/31/23 07/31/23 07:13 11:13 16:07 MCV MCH MCHC RDW Plt Count MPV Immature Gran % (Auto) Neut % (Auto) Lymph % (Auto) [place] % (Auto) Eos % (Auto) Baso % (Auto) Lymph # (Auto) [place] # (Auto) Eos # (Auto) Baso # (Auto) Abs Immat Gran (auto) Absolute Neuts (auto) Absolute Nucleated RBC Nucleated RBC % (auto) Anion Gap Estim Creat Clear Calc Estimated GFR POC Glucose 96 176 H 210 H Random Glucose Calcium Synovial Glucose Microbiology Microbiology Results: Microbiology 07/30/23 15:40 Gram Stain - Final Knee aspirate Anaerobic Culture - Preliminary No growth to date. Gross Specimen Examination - Final Fluid Crystals - Final Joint Fluid Culture - Preliminary No growth to date. Assessment and Plan (1) Pain and swelling of left knee: Status: Acute Plan 67 year old white male with PMH of gout, PAD s/p Rt BKA, CAD, T2DM (on Insulin), hypertension and hyperlipidemia here with: right middle finger cellulitis and osteomyelitis xray showing osteo, CRP and ESR elevated was started on kefzol for cellulitis, will add vanco no sepsis ID consult patient follow with hand clinic/surgeon that he has an appointment with on 08/06. he would like to keep that appointment Left knee pain and swelling synovial fluid negative for infection, no crystals seen likely due to OA symptomatic treatment PT eval pending QUINTEN on CKD3 resolved, creatinine near baseline Type 2 diabetes mellitus on Insulin 75/25 28 units BID -nonformulary - started on Insulin Lantus (will start at 20 units BID) and titrate for BS control. - SSI coverage - metformin, trulicity on hold Hypertension continue Metoprolol Hyperlipidemia Atorvastatin DVT: SC Lovenox CODE STATUS: Full code attending - dr. harrison dispo: PT eval pending Patient requires ongoing inpatient stay for management of right hand cellulitis and osteomyelitis requiring IV antibiotics and evaluation by specialist as well as PT evaluation Quality Stroke Does the patient have a stroke diagnosis?: No VTE Prior VTE?: No VTE Risk Level:: Medical - moderate - high VTE Device Contraindication: Treatment Not Indicated VTE Drug Contraindication: N/A - Med Ordered
--- NOTE | 2023-07-31 18:19 | PHA.PROG ---
Admission Date/Time: July 30, 2023 22:37 Indication: SSTI Weight in k.2 kg Adjusted body weight in K.2 KG [place] body weight in K.6 KG Obesity Dosing Indication % IBW: Serum Creatinine - Last 168 Hours 07/30/23 07/31/23 14:06 06:29 Creatinine 1.49 H 1.28 Estimated CrCl and GFR - Last 168 Hours 07/30/23 07/31/23 14:06 06:29 Estim Creat Clear Calc 59.9 68.6 Estimated GFR 47 56 Vancomycin Loading Dose: 2000 MG Current Vancomycin Dosing Regimen: 750 MG Q12H Vancomycin Monitoring using AUC goal of 400 - 600 range with trough as surrogate marker:PREDICTED AUC 421 Date and Time for next Vancomycin Level to be drawn: BEFORE 3RD DOSE 08/01/23 @1600 Pharmacist Comments on Vancomycin Plan: OBESE Vancomycin dosing will take advantage of [employer] as a clinical decision support tool that uses Bayesian modeling to calculate individual patient's pharmacokinetic parameters and forecast the patient's drug concentration time course with the target goal AUC 24 range of 400 - 600 mg/L/hr.
[2023-07-31] MEDS: vancomycin/NS 2,000 MG/500 ML PLAST..BAG 250 MG IV (19:25)
[2023-07-31 19:29] VITALS: BP 109/58; PULSE 87; RESP 18; TEMP 37.1; O2SAT 100
[2023-07-31 20:25] LABS: Glucose, Whole Blood 175 mg/dL (60-115)
[2023-07-31] MEDS: Atorvastatin Calcium 80 MG TABLET PO (20:54)
[2023-07-31] MEDS: Enoxaparin Sodium 40 MG/0.4 ML SYRINGE SUBCUT (23:17)
[2023-08-01 03:24] VITALS: BP 111/55; PULSE 75; RESP 18; TEMP 37; O2SAT 99
[2023-08-01 05:46] LABS: Hematocrit 36.6 % (42.0-52.0); Hemoglobin 11.5 g/dl (14.0-18.0); Mean Corpuscular HGB Conc 31.4 g/dl (31.0-36.0); Mean Corpuscular Hemoglobin 25.8 pg (27.0-33.0); Mean Corpuscular Volume 82.1 fL (80.0-98.0); Mean Platelet Volume 9.6 fL (9.4-12.4); Platelet Count 275 X10*3/uL (160-400); Red Blood Count 4.46 X10*6/uL (4.60-5.80); Red Cell Distribution Width 15.4 % (11.0-16.0); White Blood Count 8.2 X10*3/uL (4.8-10.8)
[2023-08-01] MEDS: vancomycin HCL 750 MG in 0.9 % Sodium Chloride 250 ML 265 MG IV (05:52)
[2023-08-01 05:59] LABS: Anion Gap 14 (12-20); Blood Urea Nitrogen 41 mg/dL (9-16); Calcium 9.1 mg/dL (8.4-10.2); Carbon Dioxide 22 mmol/L (22-29); Chloride 104 mmol/L (96-108); Creatinine Clr Calc Pharmacy 64.1; Estimated Glomerular Filt Rate 52; Glucose Random 117 mg/dL (60-115); Potassium 4.6 mmol/L (3.3-5.1); Sodium 135 mmol/L (135-145)
[2023-08-01 07:29] LABS: Glucose, Whole Blood 129 mg/dL (60-115)
[2023-08-01 08:00] VITALS: BP 137/61; PULSE 77; RESP 16; TEMP 36.1; O2SAT 100
[2023-08-01] MEDS: Insulin Glargine,Hum.rec.anlog 100 UNIT/ML 10 ML VIAL 20 UNIT SUBCUT ×2 (08:54→21:08)
[2023-08-01] MEDS: Spironolactone 25 MG TABLET PO (08:54)
[2023-08-01] MEDS: lisinopriL 40 MG TABLET PO (08:55)
[2023-08-01] MEDS: Metoprolol Succinate ER 100 MG TAB.ER.24H 200 MG PO (08:55)
[2023-08-01] MEDS: Empagliflozin 10 MG TABLET PO (08:55)
[2023-08-01] MEDS: 0.9 % Sodium Chloride Flush 3 ML SYRINGE IVFLUSH ×3 (08:55→22:15)
[2023-08-01] MEDS: Docusate Sodium 100 MG CAPSULE PO ×2 (08:55→20:41)
[2023-08-01 10:12] LABS: Estimated Average Glucose 177 mg/dL; Hemoglobin A1c % 7.8 % (<6.0)
[2023-08-01 11:30] LABS: Glucose, Whole Blood 159 mg/dL (60-115)
[2023-08-01] MEDS: Insulin Lispro 100 UNIT/ML 3 ML VIAL SUBCUT ×3 (11:44→21:09)
[2023-08-01] MEDS: Acetaminophen 325 MG TABLET 650 MG PO (11:52)
--- NOTE | 2023-08-01 14:34 | P.PNIM_ITS ---
Subjective Subjective Date of Service: 08/01/23 Interval History: seen and examined this morning follow up for left knee pain, right hand infection no overnight events has not attempted standing or walking today no fever or chills Review of Systems Review of Systems: Yes all other systems are reviewed and are negative Constitutional Constitutional: Denies fever(s) Cardiovascular Cardiovascular: Denies chest pain, Denies palpitations and Denies dyspnea Respiratory Respiratory: Denies cough and Denies dyspnea Gastrointestinal Gastrointestinal: Denies abdominal pain Endocrine Endocrine: Denies palpitations Physical Exam 2 Vital Signs: Vital Signs: Last Vital Signs Temp 96.9 F 08/01/23 08:00 Pulse 77 08/01/23 08:00 Resp 16 08/01/23 08:00 BP 137/61 08/01/23 08:00 Pulse Ox 100 08/01/23 08:00 O2 Del Method Room Air 08/01/23 08:00 BMI result Body Mass Index 30.9 Const: General: cooperative, comfortable, alert and awake Nutritional Appearance: average body habitus Orientation/consciousness: patient oriented x3 Resp: Effort & Inspection: normal respiratory effort, able to speak in complete sentences, no respiratory distress and no use of accessory muscles Cardio: Rate: regular rate GI: Inspection: No distended Palpation (GI): Soft to palpation and nontender Skin: Other: right middle finger with erythema, swelling, some drainage Neuro: General: patient oriented x3, moves all extremities and CN's II-XI intact bilaterally Extrem: Other: s/p right BKA no erythema or swelling of left knee; no significant joint effusion appreciated Objective Data Active Medications Acetaminophen (Acetaminophen 325 Mg Tablet) 650 mg PO Q6H PRN PRN Reason: Pain, Mild (Pain Scale 1-3) Last Admin: 08/01/23 11:52 Dose: 650 mg Documented By: OKSANA Atorvastatin Calcium (Atorvastatin Calcium 80 Mg Tablet) 80 mg PO BEDTIME [facility] Last Admin: 07/31/23 20:54 Dose: 80 mg Documented By: JASON Dextrose (Dextrose 50 % 25 Gm/50 Ml Syringe) 25 gm IVPUSH Q15M PRN; Protocol PRN Reason: per Hypoglycemia Standing Ord. Docusate Sodium (Docusate Sodium 100 Mg Capsule) 100 mg PO BID [facility] Last Admin: 08/01/23 08:55 Dose: 100 mg Documented By: OKSANA Empagliflozin (Empagliflozin 10 Mg Tablet) 10 mg PO DAILY [facility] Last Admin: 08/01/23 08:55 Dose: 10 mg Documented By: OKSANA Enoxaparin Sodium (Enoxaparin Sodium 40 Mg/0.4 Ml Syringe) 40 mg SUBCUT Q24H [facility] Last Admin: 07/31/23 23:17 Dose: 40 mg Documented By: JASON Glucose (Glucose Gel 15 Gm Gel..Gram.) 15 gm PO Q15M PRN; Protocol PRN Reason: per Hypoglycemia Standing Ord. Cefazolin Sodium 1 gm/ Sodium (Chloride) 50 mls @ 100 mls/hr IV Q8H [facility] Last Infusion: 08/01/23 12:28 Dose: Infused Documented By: OKSANA Vancomycin HCl 750 mg/ Sodium (Chloride) 265 mls @ 265 mls/hr IV Q12H [facility] Last Infusion: 08/01/23 07:04 Dose: Infused Documented By: JASON Insulin Glargine (Insulin Glargine,Hum.Rec.Anlog 100 Unit/Ml 10 Ml Vial) 20 unit SUBCUT BID [facility] Last Admin: 08/01/23 08:54 Dose: 20 unit Documented By: OKSANA Insulin Human Lispro (Insulin Lispro 100 Unit/Ml 3 Ml Vial) 0 unit SUBCUT QIDACHS [facility]; Protocol Last Admin: 08/01/23 11:44 Dose: 2 unit Documented By: OKSANA Lisinopril (Lisinopril 40 Mg Tablet) 40 mg PO DAILY [facility]; Protocol Last Admin: 08/01/23 08:55 Dose: 40 mg Documented By: KOSANA Melatonin (Melatonin 3 Mg Tablet) 6 mg PO BEDTIME PRN PRN Reason: Insomnia Metoprolol Succinate (Metoprolol Succinate Er 100 Mg Tab.Er.24h) 200 mg PO DAILY [facility]; Protocol Last Admin: 08/01/23 08:55 Dose: 200 mg Documented By: OKSANA Morphine Sulfate (Morphine Sulfate 4 Mg/Ml Cartridge) 2 mg IVPUSH Q4H PRN; Protocol PRN Reason: Pain, Severe (Pain Scale 7-10) Ondansetron HCl (Ondansetron Hcl 4 Mg/2 Ml Vial) 4 mg IVPUSH Q8H PRN PRN Reason: Nausea and Vomiting Oxycodone HCl (Oxycodone Hcl Immed Release 5 Mg Tablet) 5 mg PO Q6H PRN PRN Reason: Pain, Moderate(Pain Scale 4-6) Pharmacy Consult (Consult Rx Vancomycin Dosing) 1 each MISCELLANE DAILY PRN PRN Reason: Consult order Sodium Chloride (0.9 % Sodium Chloride Flush 3 Ml Syringe) 3 ml IVFLUSH QSHIFT [facility] Last Admin: 08/01/23 08:55 Dose: 3 ml Documented By: OKSANA Spironolactone (Spironolactone 25 Mg Tablet) 25 mg PO DAILY [facility]; Protocol Last Admin: 08/01/23 08:54 Dose: 25 mg Documented By: OKSANA Labs 08/01/23 05:11 08/01/23 05:11 Labs: Laboratory Results - last 24 hr 07/31/23 07/31/23 08/01/23 16:07 20:20 05:11 MCV 82.1 MCH 25.8 L MCHC 31.4 RDW 15.4 Plt Count 275 MPV 9.6 Absolute Nucleated RBC 0.000 Nucleated RBC % (auto) 0.0 Anion Gap 14 Estim Creat Clear Calc 64.1 Estimated GFR 52 POC Glucose 210 H 175 H Random Glucose 117 H Estimat Average Glucose 177 Hemoglobin A1c % 7.8 H Calcium 9.1 08/01/23 08/01/23 07:20 11:22 MCV MCH MCHC RDW Plt Count MPV Absolute Nucleated RBC Nucleated RBC % (auto) Anion Gap Estim Creat Clear Calc Estimated GFR POC Glucose 129 H 159 H Random Glucose Estimat Average Glucose Hemoglobin A1c % Calcium Microbiology Microbiology Results: Microbiology 07/30/23 15:40 Gram Stain - Final Knee aspirate Anaerobic Culture - Preliminary No growth to date. Gross Specimen Examination - Final Fluid Crystals - Final Joint Fluid Culture - Final No growth after 2 days Assessment and Plan (1) Pain and swelling of left knee: Status: Acute (2) Osteomyelitis of right hand: Status: Acute Plan 67 year old white male with PMH of gout, PAD s/p Rt BKA, CAD, T2DM (on Insulin), hypertension and hyperlipidemia here with: right middle finger cellulitis and osteomyelitis xray showing osteo, CRP and ESR elevated continue kefzol (has previous culture from right hand MSSA) no sepsis ID consult patient follow with hand clinic/surgeon that he has an appointment with on 08/06. he would like to keep that appointment and have definitive management with his hand surgeon. Left knee pain and swelling synovial fluid negative for infection, no crystals seen xray negative for fracture, dislocation, mild suprapatellar joint effusion likely due to OA symptomatic treatment PT eval pending consider ortho eval if no improvement QUINTEN on CKD3 resolved, creatinine near baseline Type 2 diabetes mellitus Hba1c 7.8 on Insulin 75/25 28 units BID -nonformulary - started on Insulin Lantus (will start at 20 units BID) and titrate for BS control. continue jardiance - SSI coverage - metformin, trulicity on hold Hypertension continue Metoprolol, lisinopril, aldactone Hyperlipidemia Atorvastatin DVT: SC Lovenox CODE STATUS: Full code attending - dr. harrison dispo: PT eval pending. likely discharge with po abx for definitive management with pt hand surgeon as per patient preference Patient requires ongoing inpatient stay for management of right hand cellulitis and osteomyelitis requiring IV antibiotics and evaluation by specialist as well as PT evaluation Quality Stroke Does the patient have a stroke diagnosis?: No VTE Prior VTE?: No VTE Risk Level:: Medical - moderate - high VTE Device Contraindication: Treatment Not Indicated VTE Drug Contraindication: N/A - Med Ordered
[2023-08-01 15:22] VITALS: BP 100/52; PULSE 70; RESP 16; TEMP 36.4; O2SAT 98
[2023-08-01 16:34] LABS: Glucose, Whole Blood 210 mg/dL (60-115)
[2023-08-01 16:48] LABS: Vancomycin Random 21.8 mcg/mL (15-20)
[2023-08-01 20:00] VITALS: BP 110/53; PULSE 70; RESP 18; TEMP 36.2; O2SAT 99
[2023-08-01] MEDS: Atorvastatin Calcium 80 MG TABLET PO (20:41)
[2023-08-01 20:57] LABS: Glucose, Whole Blood 176 mg/dL (60-115)
[2023-08-01] MEDS: Enoxaparin Sodium 40 MG/0.4 ML SYRINGE SUBCUT (22:14)
--- NOTE | 2023-08-01 23:31 | W.PM.IDCN ---
History of Present Illness Data of Consult Service Date: 08/01/23 Requesting physician: Jovita Kwong Primary Care Provider: Wale Ta MD HPI Reason for consult: right middle finger He presents with right third finger erythema and discomfort. He has right BKA and had left knee swelling . He is anxious to see Dr Clarke at [facility] hand clinic this week. He has OM right third finger. He has no fever or chills. Review of Systems Review of Systems: Yes all other systems are reviewed and are negative PMFSH Past Medical History Medical History Amputation finger Gout Coronary artery disease Hypertension, essential Type 2 diabetes mellitus Family History Family history: reviewed and not pertinent Surgical History Surgical History Hx of right BKA Social History Social History Household Members: Family Housing: House Patient Tobacco Use Status: Never used Tobacco Smoked in Last 30 Days: No Use of substances other than those prescribed or required for medical reasons: No Currently Displaying Signs/Symptoms of Drug Intoxication Withdrawal: No Have you been hit, kicked, punched, or otherwise hurt by someone within the past year? If so, by whom?: No Are you made to feel afraid or neglected: No Advance Directives: Yes Advance Directives Information Provided: Yes Advance Directives on File: No Advance Directives Date on File: 07/31/23 Do you have thoughts of harming others: None Do you have a plan to hurt others: No Plan Nutrition Risks: No Nutritional Risk service: No Meds Allergies Allergy/AdvReac Type Severity Reaction Status Date / Time No Known Allergies Allergy Verified 07/30/23 13:43 Active Medications: Current Medications Acetaminophen (Acetaminophen 325 Mg Tablet) 650 mg PO Q6H PRN PRN Reason: Pain, Mild (Pain Scale 1-3) Last Admin: 08/01/23 11:52 Dose: 650 mg Atorvastatin Calcium (Atorvastatin Calcium 80 Mg Tablet) 80 mg PO BEDTIME [facility] Last Admin: 08/01/23 20:41 Dose: 80 mg Dextrose (Dextrose 50 % 25 Gm/50 Ml Syringe) 25 gm IVPUSH Q15M PRN; Protocol PRN Reason: per Hypoglycemia Standing Ord. Docusate Sodium (Docusate Sodium 100 Mg Capsule) 100 mg PO BID [facility] Last Admin: 08/01/23 20:41 Dose: 100 mg Empagliflozin (Empagliflozin 10 Mg Tablet) 10 mg PO DAILY [facility] Last Admin: 08/01/23 08:55 Dose: 10 mg Enoxaparin Sodium (Enoxaparin Sodium 40 Mg/0.4 Ml Syringe) 40 mg SUBCUT Q24H [facility] Last Admin: 08/01/23 22:14 Dose: 40 mg Glucose (Glucose Gel 15 Gm Gel..Gram.) 15 gm PO Q15M PRN; Protocol PRN Reason: per Hypoglycemia Standing Ord. Cefazolin Sodium 1 gm/ Sodium (Chloride) 50 mls @ 100 mls/hr IV Q8H [facility] Last Infusion: 08/01/23 20:43 Dose: Infused Insulin Glargine (Insulin Glargine,Hum.Rec.Anlog 100 Unit/Ml 10 Ml Vial) 20 unit SUBCUT BID [facility] Last Admin: 08/01/23 21:08 Dose: 20 unit Insulin Human Lispro (Insulin Lispro 100 Unit/Ml 3 Ml Vial) 0 unit SUBCUT QIDACHS [facility]; Protocol Last Admin: 08/01/23 21:09 Dose: 2 unit Lisinopril (Lisinopril 40 Mg Tablet) 40 mg PO DAILY [facility]; Protocol Last Admin: 08/01/23 08:55 Dose: 40 mg Melatonin (Melatonin 3 Mg Tablet) 6 mg PO BEDTIME PRN PRN Reason: Insomnia Metoprolol Succinate (Metoprolol Succinate Er 100 Mg Tab.Er.24h) 200 mg PO DAILY [facility]; Protocol Last Admin: 08/01/23 08:55 Dose: 200 mg Morphine Sulfate (Morphine Sulfate 4 Mg/Ml Cartridge) 2 mg IVPUSH Q4H PRN; Protocol PRN Reason: Pain, Severe (Pain Scale 7-10) Ondansetron HCl (Ondansetron Hcl 4 Mg/2 Ml Vial) 4 mg IVPUSH Q8H PRN PRN Reason: Nausea and Vomiting Oxycodone HCl (Oxycodone Hcl Immed Release 5 Mg Tablet) 5 mg PO Q6H PRN PRN Reason: Pain, Moderate(Pain Scale 4-6) Sodium Chloride (0.9 % Sodium Chloride Flush 3 Ml Syringe) 3 ml IVFLUSH QSHIFT [facility] Last Admin: 08/01/23 22:15 Dose: 3 ml Spironolactone (Spironolactone 25 Mg Tablet) 25 mg PO DAILY [facility]; Protocol Last Admin: 08/01/23 08:54 Dose: 25 mg Home Medications Medication Instructions Recorded Confirmed Last Taken Type atorvastatin 80 mg tablet 80 mg PO BEDTIME 07/30/23 07/30/23 07/29/23 History dapagliflozin propanediol 10 mg 10 mg PO DAILY 07/30/23 07/30/23 07/30/23 History tablet (Farxiga) dulaglutide 4.5 mg/0.5 mL 4.5 mg subcut QWEEK 07/30/23 07/30/23 Unknown History subcutaneous pen injector (Trulicity) insulin lispro protamine-lispro 28 unit subcut BID 07/30/23 07/30/23 07/30/23 History 100 unit/mL (75-25) subcutaneous pen (Humalog Mix 75-25 KwikPen) lisinopril 40 mg tablet 40 mg PO DAILY 07/30/23 07/30/23 07/30/23 History metformin 500 mg tablet 1,000 mg PO BID 07/30/23 07/30/23 07/30/23 History metoprolol succinate 200 mg 200 mg PO DAILY 07/30/23 07/30/23 07/30/23 History tablet,extended release 24 hr spironolactone 25 mg tablet 25 mg PO DAILY 07/30/23 07/30/23 07/30/23 History Physical Exam Vital Signs: Vital Signs: Last Vital Signs Temp 97.2 F 08/01/23 20:00 Pulse 70 08/01/23 20:00 Resp 18 08/01/23 20:00 BP 110/53 L 08/01/23 20:00 Pulse Ox 99 08/01/23 20:00 O2 Del Method Room Air 08/01/23 20:00 BMI result Body Mass Index 30.9 Const: General: cooperative HEENT: Head: Yes normal to inspection Face and sinus: Yes normal facial exam Mouth: Normal oral and palatal mucosa present Teeth and gingiva: dentition normal Eyes: General: appearance normal, both eyes and all related structures Pupils: Equal, round and reactive pupils present Resp: Effort & Inspection: normal respiratory effort Cardio: Rate: regular rate Rhythm: regular rhythm GI: Palpation (GI): Soft to palpation and nontender : General: Yes no CVA tenderness Back/Spine/Pelvis: Back: no CVA tenderness Skin: General skin exam: no rashes or lesions noted Neuro: General: moves all extremities Cranial nerves: Yes Equal, round and reactive pupils present Extrem: Other: right BKA right fingers multiple amputations finger Psych: Appearance: grossly normal Results Labs 08/01/23 05:11 08/01/23 05:11 Labs: Short CBC 08/01/23 Range/Units 05:11 WBC 8.2 (4.8-10.8) X10*3/uL Hgb 11.5 L (14.0-18.0) g/dl Hct 36.6 L (42.0-52.0) % Plt Count 275 (160-400) X10*3/uL BMP 08/01/23 05:11 Sodium 135 Potassium 4.6 Chloride 104 Carbon Dioxide 22 BUN 41 H Creatinine 1.37 Calcium 9.1 Microbiology Microbiology Results: Microbiology 07/30/23 15:40 Knee aspirate Gram Stain - Final 07/30/23 15:40 Knee aspirate Anaerobic Culture - Preliminary No growth to date. 07/30/23 15:40 Knee aspirate Gross Specimen Examination - Final 07/30/23 15:40 Knee aspirate Fluid Crystals - Final 07/30/23 15:40 Knee aspirate Joint Fluid Culture - Final No growth after 2 days Assessment and Plan (1) Osteomyelitis of right hand: Status: Acute Right hand OM Patient wants amputation that is curative he has had in past of finger. (2) Acute renal failure: Status: Acute Plan Would continue IV Kefzol as in hospital Po Keflex outpatient until sees Hand Surgeon.
[2023-08-02 03:32] VITALS: BP 127/56; PULSE 68; RESP 18; TEMP 36; O2SAT 99
[2023-08-02 06:00] LABS: Creatinine Clr Calc Pharmacy 55.9; Estimated Glomerular Filt Rate 44
[2023-08-02 07:29] VITALS: BP 117/63; PULSE 66; RESP 16; TEMP 36.4; O2SAT 100
[2023-08-02 07:58] LABS: Glucose, Whole Blood 148 mg/dL (60-115)
[2023-08-02] MEDS: lisinopriL 40 MG TABLET PO (08:04)
[2023-08-02] MEDS: Spironolactone 25 MG TABLET PO (08:04)
[2023-08-02] MEDS: Insulin Glargine,Hum.rec.anlog 100 UNIT/ML 10 ML VIAL 20 UNIT SUBCUT ×2 (08:04→20:18)
[2023-08-02] MEDS: Docusate Sodium 100 MG CAPSULE PO ×2 (08:05→20:18)
[2023-08-02] MEDS: Metoprolol Succinate ER 100 MG TAB.ER.24H 200 MG PO (08:05)
[2023-08-02] MEDS: 0.9 % Sodium Chloride Flush 3 ML SYRINGE IVFLUSH ×3 (08:05→20:19)
[2023-08-02] MEDS: Empagliflozin 10 MG TABLET PO (08:05)
[2023-08-02 09:00] VITALS: BP 117/63; PULSE 66; O2SAT 100
--- NOTE | 2023-08-02 11:18 | P.PNIM_ITS ---
Subjective Subjective Date of Service: 08/02/23 Interval History: seen and examined this morning follow up for left knee pain, right hand infection no new issues, PT saw him today and recommends STR Physical Exam 2 Vital Signs: Vital Signs: Last Vital Signs Temp 97.6 F 08/02/23 07:29 Pulse 66 08/02/23 09:00 Resp 16 08/02/23 07:29 BP 117/63 08/02/23 09:00 Pulse Ox 100 08/02/23 09:00 O2 Del Method Room Air 08/02/23 07:29 BMI result Body Mass Index 30.9 Objective Data Active Medications Acetaminophen (Acetaminophen 325 Mg Tablet) 650 mg PO Q6H PRN PRN Reason: Pain, Mild (Pain Scale 1-3) Last Admin: 08/01/23 11:52 Dose: 650 mg Documented By: OKSANA Atorvastatin Calcium (Atorvastatin Calcium 80 Mg Tablet) 80 mg PO BEDTIME [facility] Last Admin: 08/01/23 20:41 Dose: 80 mg Documented By: JOSELITO Dextrose (Dextrose 50 % 25 Gm/50 Ml Syringe) 25 gm IVPUSH Q15M PRN; Protocol PRN Reason: per Hypoglycemia Standing Ord. Docusate Sodium (Docusate Sodium 100 Mg Capsule) 100 mg PO BID [facility] Last Admin: 08/02/23 08:05 Dose: 100 mg Documented By: YOVANY Empagliflozin (Empagliflozin 10 Mg Tablet) 10 mg PO DAILY [facility] Last Admin: 08/02/23 08:05 Dose: 10 mg Documented By: YOVANY Enoxaparin Sodium (Enoxaparin Sodium 40 Mg/0.4 Ml Syringe) 40 mg SUBCUT Q24H [facility] Last Admin: 08/01/23 22:14 Dose: 40 mg Documented By: JOSELITO Glucose (Glucose Gel 15 Gm Gel..Gram.) 15 gm PO Q15M PRN; Protocol PRN Reason: per Hypoglycemia Standing Ord. Cefazolin Sodium 1 gm/ Sodium (Chloride) 50 mls @ 100 mls/hr IV Q8H [facility] Last Infusion: 08/02/23 11:13 Dose: Infused Documented By: YOVANY Insulin Glargine (Insulin Glargine,Hum.Rec.Anlog 100 Unit/Ml 10 Ml Vial) 20 unit SUBCUT BID [facility] Last Admin: 08/02/23 08:04 Dose: 20 unit Documented By: YOVANY Insulin Human Lispro (Insulin Lispro 100 Unit/Ml 3 Ml Vial) 0 unit SUBCUT QIDACHS [facility]; Protocol Last Admin: 08/02/23 07:59 Dose: Not Given Documented By: YOVANY Non-Admin Reason: No Insulin Coverage Lisinopril (Lisinopril 40 Mg Tablet) 40 mg PO DAILY [facility]; Protocol Last Admin: 08/02/23 08:04 Dose: 40 mg Documented By: YOVANY Melatonin (Melatonin 3 Mg Tablet) 6 mg PO BEDTIME PRN PRN Reason: Insomnia Metoprolol Succinate (Metoprolol Succinate Er 100 Mg Tab.Er.24h) 200 mg PO DAILY [facility]; Protocol Last Admin: 08/02/23 08:05 Dose: 200 mg Documented By: YOVANY Morphine Sulfate (Morphine Sulfate 4 Mg/Ml Cartridge) 2 mg IVPUSH Q4H PRN; Protocol PRN Reason: Pain, Severe (Pain Scale 7-10) Ondansetron HCl (Ondansetron Hcl 4 Mg/2 Ml Vial) 4 mg IVPUSH Q8H PRN PRN Reason: Nausea and Vomiting Oxycodone HCl (Oxycodone Hcl Immed Release 5 Mg Tablet) 5 mg PO Q6H PRN PRN Reason: Pain, Moderate(Pain Scale 4-6) Sodium Chloride (0.9 % Sodium Chloride Flush 3 Ml Syringe) 3 ml IVFLUSH [facility] Last Admin: 08/02/23 08:05 Dose: 3 ml Documented By: YOVANY Spironolactone (Spironolactone 25 Mg Tablet) 25 mg PO DAILY [facility]; Protocol Last Admin: 08/02/23 08:04 Dose: 25 mg Documented By: YOVANY Labs 08/01/23 05:11 08/02/23 05:27 Labs: Laboratory Results - last 24 hr 08/01/23 08/01/23 08/01/23 11:22 16:05 16:22 Hold Purple Top Estim Creat Clear Calc Estimated GFR POC Glucose 159 H 210 H Random Vancomycin 21.8 H 08/01/23 08/02/23 08/02/23 20:52 05:27 07:41 Hold Purple Top SEE NOTE Estim Creat Clear Calc 55.9 Estimated GFR 44 POC Glucose 176 H 148 H Random Vancomycin Microbiology Microbiology Results: Microbiology 07/30/23 15:40 Gram Stain - Final Knee aspirate Anaerobic Culture - Preliminary No growth to date. Gross Specimen Examination - Final Fluid Crystals - Final Joint Fluid Culture - Final No growth after 2 days Assessment and Plan (1) Pain and swelling of left knee: Status: Acute (2) Osteomyelitis of right hand: Status: Acute Plan 67 year old white male with PMH of gout, PAD s/p Rt BKA, CAD, T2DM (on Insulin), hypertension and hyperlipidemia here with: right middle finger cellulitis and osteomyelitis xray showing osteo, CRP and ESR elevated continue kefzol (has previous culture from right hand MSSA) no sepsis ID consult: recommends ampuatation as curative, pt prefers further management by his hand Surgeon in [place], he has an appointment [place] 08/06/23. Left knee pain and swelling synovial fluid negative for infection, no crystals seen xray negative for fracture, dislocation, mild suprapatellar joint effusion likely due to OA symptomatic treatment PT rec STR consider ortho eval if no improvement QUINTEN on CKD3,Cr within baseline Type 2 diabetes mellitus Hba1c 7.8 on Insulin 75/25 28 units BID -nonformulary - changed to Lantus 20 and will adjust as needed for optimal sugar control continue jardiance, SSI - metformin, trulicity on hold Hypertension continue Metoprolol, lisinopril, aldactone Hyperlipidemia Atorvastatin DVT: SC Lovenox CODE STATUS: Full code dispo: STR recommended by PT but unlikely to agree with that Patient requires ongoing inpatient stay for management of right hand cellulitis and osteomyelitis requiring IV antibiotics and evaluation by specialist and need for placement, will discuss placement with him and CM Quality Stroke Does the patient have a stroke diagnosis?: No VTE Prior VTE?: No VTE Risk Level:: Medical - moderate - high VTE Device Contraindication: Treatment Not Indicated VTE Drug Contraindication: N/A - Med Ordered
[2023-08-02 12:02] LABS: Glucose, Whole Blood 176 mg/dL (60-115)
[2023-08-02] MEDS: Insulin Lispro 100 UNIT/ML 3 ML VIAL SUBCUT ×3 (12:06→20:18)
[2023-08-02 15:51] VITALS: BP 117/56; PULSE 67; RESP 16; TEMP 36.2; O2SAT 100
[2023-08-02 16:09] LABS: Glucose, Whole Blood 176 mg/dL (60-115)
[2023-08-02 19:34] VITALS: BP 124/59; PULSE 75; RESP 18; TEMP 36.7; O2SAT 100
[2023-08-02 20:13] LABS: Glucose, Whole Blood 193 mg/dL (60-115)
[2023-08-02] MEDS: Atorvastatin Calcium 80 MG TABLET PO (20:18)
[2023-08-02] MEDS: Enoxaparin Sodium 40 MG/0.4 ML SYRINGE SUBCUT (22:27)
[2023-08-03 04:00] VITALS: BP 143/67; PULSE 68; RESP 18; TEMP 37; O2SAT 98
[2023-08-03 07:14] LABS: Creatinine Clr Calc Pharmacy 66.5; Estimated Glomerular Filt Rate 54
[2023-08-03 08:00] VITALS: BP 102/55; PULSE 68; RESP 18; TEMP 36.4; O2SAT 100
[2023-08-03 08:15] LABS: Glucose, Whole Blood 136 mg/dL (60-115)
[2023-08-03] MEDS: 0.9 % Sodium Chloride Flush 3 ML SYRINGE IVFLUSH ×3 (08:15→20:30)
[2023-08-03] MEDS: Insulin Glargine,Hum.rec.anlog 100 UNIT/ML 10 ML VIAL 20 UNIT SUBCUT ×2 (08:15→20:28)
[2023-08-03] MEDS: Spironolactone 25 MG TABLET PO (08:21)
[2023-08-03] MEDS: Metoprolol Succinate ER 100 MG TAB.ER.24H 200 MG PO (08:21)
[2023-08-03] MEDS: Empagliflozin 10 MG TABLET PO (08:21)
[2023-08-03] MEDS: lisinopriL 40 MG TABLET PO (08:22)
--- NOTE | 2023-08-03 09:53 | P.PNIM_ITS ---
Subjective Subjective Date of Service: 08/04/23 Interval History: f/u on OM of finger, patient thinks continue to improve Physical Exam 2 Vital Signs: Vital Signs: Last Vital Signs Temp 97.6 F 08/03/23 08:00 Pulse 68 08/03/23 08:00 Resp 18 08/03/23 08:00 BP 102/55 L 08/03/23 08:00 Pulse Ox 100 08/03/23 08:00 O2 Del Method Room Air 08/03/23 08:00 BMI result Body Mass Index 30.9 Const: Other: General: AO X 3, no acute distress Resp: CTA bilateral CVS: S1,S2,RRR GI: +BS, NT, no distention Skin: No rash Neuro: motor grossly intact Psych: appropriate affect Objective Data Active Medications Acetaminophen (Acetaminophen 325 Mg Tablet) 650 mg PO Q6H PRN PRN Reason: Pain, Mild (Pain Scale 1-3) Last Admin: 08/01/23 11:52 Dose: 650 mg Documented By: OKSANA Atorvastatin Calcium (Atorvastatin Calcium 80 Mg Tablet) 80 mg PO BEDTIME [facility] Last Admin: 08/02/23 20:18 Dose: 80 mg Documented By: JOSELITO Dextrose (Dextrose 50 % 25 Gm/50 Ml Syringe) 25 gm IVPUSH Q15M PRN; Protocol PRN Reason: per Hypoglycemia Standing Ord. Docusate Sodium (Docusate Sodium 100 Mg Capsule) 100 mg PO BID [facility] Last Admin: 08/03/23 08:23 Dose: Not Given Documented By: LAMAR Non-Admin Reason: Patient Refused Empagliflozin (Empagliflozin 10 Mg Tablet) 10 mg PO DAILY [facility] Last Admin: 08/03/23 08:21 Dose: 10 mg Documented By: LAMAR Enoxaparin Sodium (Enoxaparin Sodium 40 Mg/0.4 Ml Syringe) 40 mg SUBCUT Q24H [facility] Last Admin: 08/02/23 22:27 Dose: 40 mg Documented By: JOSELITO Glucose (Glucose Gel 15 Gm Gel..Gram.) 15 gm PO Q15M PRN; Protocol PRN Reason: per Hypoglycemia Standing Ord. Cefazolin Sodium 1 gm/ Sodium (Chloride) 50 mls @ 100 mls/hr IV Q8H [facility] Last Infusion: 08/03/23 03:07 Dose: Infused Documented By: JOSELITO Insulin Glargine (Insulin Glargine,Hum.Rec.Anlog 100 Unit/Ml 10 Ml Vial) 20 unit SUBCUT BID [facility] Last Admin: 08/03/23 08:15 Dose: 20 unit Documented By: LAMAR Insulin Human Lispro (Insulin Lispro 100 Unit/Ml 3 Ml Vial) 0 unit SUBCUT QIDACHS [facility]; Protocol Last Admin: 08/03/23 08:10 Dose: Not Given Documented By: LAMAR Non-Admin Reason: No Insulin Coverage Lisinopril (Lisinopril 40 Mg Tablet) 40 mg PO DAILY [facility]; Protocol Last Admin: 08/03/23 08:22 Dose: 40 mg Documented By: LAMAR Melatonin (Melatonin 3 Mg Tablet) 6 mg PO BEDTIME PRN PRN Reason: Insomnia Metoprolol Succinate (Metoprolol Succinate Er 100 Mg Tab.Er.24h) 200 mg PO DAILY [facility]; Protocol Last Admin: 08/03/23 08:21 Dose: 200 mg Documented By: LAMAR Morphine Sulfate (Morphine Sulfate 4 Mg/Ml Cartridge) 2 mg IVPUSH Q4H PRN; Protocol PRN Reason: Pain, Severe (Pain Scale 7-10) Ondansetron HCl (Ondansetron Hcl 4 Mg/2 Ml Vial) 4 mg IVPUSH Q8H PRN PRN Reason: Nausea and Vomiting Oxycodone HCl (Oxycodone Hcl Immed Release 5 Mg Tablet) 5 mg PO Q6H PRN PRN Reason: Pain, Moderate(Pain Scale 4-6) Sodium Chloride (0.9 % Sodium Chloride Flush 3 Ml Syringe) [facility] Last Admin: 08/03/23 08:15 Dose: 3 ml Documented By: LAMAR Spironolactone (Spironolactone 25 Mg Tablet) 25 mg PO DAILY [facility]; Protocol Last Admin: 08/03/23 08:21 Dose: 25 mg Documented By: LAMAR Labs 08/01/23 05:11 08/03/23 05:50 Labs: Laboratory Results - last 24 hr 08/02/23 08/02/23 08/02/23 11:59 15:54 20:07 Hold Purple Top Estim Creat Clear Calc Estimated GFR POC Glucose 176 H 176 H 193 H 08/03/23 08/03/23 05:50 08:09 Hold Purple Top SEE NOTE Estim Creat Clear Calc 66.5 Estimated GFR 54 POC Glucose 136 H Microbiology Microbiology Results: Microbiology 07/30/23 15:40 Gram Stain - Final Knee aspirate Anaerobic Culture - Preliminary No growth to date. Gross Specimen Examination - Final Fluid Crystals - Final Joint Fluid Culture - Final No growth after 2 days Assessment and Plan (1) Pain and swelling of left knee: Status: Acute (2) Osteomyelitis of right hand: Status: Acute Plan 67 year old white male with PMH of gout, PAD s/p Rt BKA, CAD, T2DM (on Insulin), hypertension and hyperlipidemia here with: right middle finger cellulitis and osteomyelitis xray showing osteo, CRP and ESR elevated continue kefzol (has previous culture from right hand MSSA) no sepsis ID consult: recommends ampuatation as curative, pt prefers further management by his hand Surgeon in [place], he has an appointment [place] 08/06/23. Left knee pain and swelling synovial fluid negative for infection, no crystals seen xray negative for fracture, dislocation, mild suprapatellar joint effusion likely due to OA symptomatic treatment PT rec STR consider ortho eval if no improvement QUINTEN on CKD3,Cr within baseline Type 2 diabetes mellitus Hba1c 7.8 on Insulin 75/25 28 units BID -nonformulary - changed to Lantus 20 and will adjust as needed for optimal sugar control continue jardiance, SSI - metformin, trulicity on hold Hypertension continue Metoprolol, lisinopril, aldactone Hyperlipidemia Atorvastatin DVT: SC Lovenox CODE STATUS: Full code dispo: STR recommended by PT but unlikely to agree with that Patient requires ongoing inpatient stay for management of right hand cellulitis and osteomyelitis requiring IV antibiotics and evaluation by specialist and need for placement, will discuss placement with him and CM Quality Stroke Does the patient have a stroke diagnosis?: No VTE Prior VTE?: No VTE Risk Level:: Medical - moderate - high VTE Device Contraindication: Treatment Not Indicated VTE Drug Contraindication: N/A - Med Ordered
[2023-08-03 11:08] LABS: Glucose, Whole Blood 178 mg/dL (60-115)
[2023-08-03] MEDS: Insulin Lispro 100 UNIT/ML 3 ML VIAL SUBCUT ×2 (11:48→16:43)
[2023-08-03 15:03] VITALS: BP 119/56; PULSE 64; RESP 18; TEMP 36.3; O2SAT 100
--- NOTE | 2023-08-03 16:01 | MHC.CM.PN ---
CM MET WITH PT AND BROTHER AT BEDSIDE WITH SNF CHOICES. PT/BROTHER CHOSE [facility], [facility]. [facility] HAS OFFERED A BED FOR 08/04/23. TRANSPORT PRE BOOKED FOR 11 AM, MADE AWARE. CM WILL CONTINUE TO FOLLOW FOR ANY CHANGE IN DC PLAN/NEEDS.
[2023-08-03 16:18] LABS: Glucose, Whole Blood 229 mg/dL (60-115)
[2023-08-03 19:46] VITALS: BP 122/59; PULSE 67; RESP 18; TEMP 36.3; O2SAT 99
[2023-08-03 20:19] LABS: Glucose, Whole Blood 150 mg/dL (60-115)
[2023-08-03] MEDS: Atorvastatin Calcium 80 MG TABLET PO (20:28)
[2023-08-03] MEDS: Enoxaparin Sodium 40 MG/0.4 ML SYRINGE SUBCUT (22:56)
[2023-08-04 04:00] VITALS: BP 117/56; PULSE 70; RESP 16; TEMP 36; O2SAT 99
[2023-08-04 07:13] LABS: Glucose, Whole Blood 152 mg/dL (60-115)
[2023-08-04 07:42] VITALS: BP 127/61; PULSE 63; RESP 20; TEMP 36.1; O2SAT 94
[2023-08-04] MEDS: Insulin Lispro 100 UNIT/ML 3 ML VIAL SUBCUT ×2 (08:09→11:43)
[2023-08-04] MEDS: Insulin Glargine,Hum.rec.anlog 100 UNIT/ML 10 ML VIAL 20 UNIT SUBCUT (08:10)
[2023-08-04] MEDS: Metoprolol Succinate ER 100 MG TAB.ER.24H 200 MG PO (08:11)
[2023-08-04] MEDS: cephALEXin 500 MG CAPSULE PO (08:11)
[2023-08-04] MEDS: Empagliflozin 10 MG TABLET PO (08:11)
[2023-08-04] MEDS: 0.9 % Sodium Chloride Flush 3 ML SYRINGE IVFLUSH (08:11)
[2023-08-04] MEDS: Spironolactone 25 MG TABLET PO (08:11)
[2023-08-04] MEDS: lisinopriL 40 MG TABLET PO (08:11)
--- NOTE | 2023-08-04 10:09 | PM.DS ---
DS: Providers Provider Date of Service: 08/04/23 Date of admission: 07/30/23 22:37 Primary care physician: Wale Ta MD Consults: 07/31/23 17:28 Consult to Infectious Diseases Routine Consulting Provider: [facility] Infectious Disease Reason for consultation: osteo right middle finger Has provider been notified: No DS: Diagnosis Discharge Diagnosis (1) Pain and swelling of left knee: Status: Acute (2) Osteomyelitis of right hand: Status: Acute DS: Summary Hospital Course Hospital Course: admission HPI Chief Complaint: Left knee pain x 3 days Patient is a 67 year old white male with PMH of gout, PAD s/p Rt BKA, CAD, T2DM (on Insulin), hypertension and hyperlipidemia who presents to the emergency room from home complaining of severe left knee pain for the past several days. He also reports falling on the knee 2 days ago when he could no longer support himself on his left leg. The fall happened after the knee swelling and hence not the cause. There was no head strike or LOC associated with the fall. He also denies any associated fevers or chills. He states that these symptoms are very similar to previous episodes of acute gout attack that he has had. The knee was aspirated and synovial fluid analysis revealed 8.914 WBC with 78% neutrophils. Crystal analysis is pending. Blood work done revealed elevated serum creatinine at 1.5 (baseline 1.2). He received IV Morphine and empiric Cefazolin and admission was thereafter requested. Additionally he was noted to have right middle finger with erythema, swelling, some drainage Hospital course by problems Left knee pain and swelling--Patient had join aspirate done and fluid was negative for infection or crystal, xray showed no fracture, pain likely from OA and fall. He has been treated symptomatically and physical therapy recommends STR which he is agreable right middle finger cellulitis and osteomyelitis as evident on xray, elevated CRP and ESR. 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 He has previous history of MSSA of the right hand, he was treated with IV Kefzol and was evaluated by ID with recommendation of likely amputation that the patient prefers being addressed by his hand surgeon at [place], he has an appointment on 08/06/23, his brother will take him to the appointment. ID recommends changing to PO Keflex at discharge. QUINTEN on CKD3, Cr within baseline 1.3 Type 2 diabetes mellitus Hba1c 7.8 on Insulin 75/25 28 units BID -nonformulary - changed to Lantus 20, while in the hospital and recommend resuming usual meds upon discharge Hypertension continue Metoprolol, lisinopril, aldactone Hyperlipidemia Atorvastatin Dispo: to STR Time Attestation Discharge coordination time: Greater than 30 minutes Quality: Safe Use of Opioids Does Pt have an Active Cancer Diagnosis on the Problem List?: No Quality: Stroke Does the patient have a stroke diagnosis?: No Physical Exam Vital Signs: Vital Signs: Last Vital Signs Temp 96.9 F 08/04/23 07:42 Pulse 63 08/04/23 07:42 Resp 20 08/04/23 07:42 BP 127/61 08/04/23 07:42 Pulse Ox 94 08/04/23 07:42 O2 Del Method Room Air 08/04/23 07:42 BMI result Body Mass Index 30.9 Const: Other: General: AO X 3, no acute distress Resp: CTA bilateral CVS: S1,S2,RRR GI: +BS, NT, no distention Skin: No rash, swollen right middle finger, no discharge, Neuro: motor grossly intact Psych: appropriate affect DS: Data Data Completed and Pending Labs on day of discharge: Laboratory Results - last 24 hr 08/03/23 08/03/23 08/03/23 11:03 16:14 20:08 POC Glucose 178 H 229 H 150 H 08/04/23 07:06 POC Glucose 152 H Preliminary micro results at discharge 07/30/23 15:40 Anaerobic Culture - Preliminary Knee aspirate No growth to date. Discharge Plan Discharge Anticipated Discharge Date/Time: 08/04/23 10:07 Patient Disposition: Xfer SNF Discharge Diagnosis: osteomyelitis of the finger Referrals: Wale Ta MD [Primary Care Provider] - 1 Week Discharge Medications: New oxycodone 5 mg Tablet 5 mg PO Q6H PRN (Reason: Pain, Moderate(Pain Scale 4-6)) Qty: 15 0RF Rx Instructions: Partial Fill upon patient request. cephalexin 500 mg Capsule 500 mg PO QID Qty: 56 0RF Continued metformin 500 mg tablet 1,000 mg PO BID atorvastatin 80 mg tablet 80 mg PO BEDTIME metoprolol succinate 200 mg tablet extended release 24 hr 200 mg PO DAILY spironolactone 25 mg tablet 25 mg PO DAILY lisinopril 40 mg tablet 40 mg PO DAILY insulin lispro protamin-lispro [Humalog Mix 75-25 KwikPen] 100 unit/mL (75-25) Insulin Pen 28 unit SUBCUT BID Farxiga 10 mg Tablet 10 mg PO DAILY Trulicity 4.5 mg/0.5 mL Pen Injector 4.5 mg SUBCUT QWEEK Discharge Orders: Discharge Order (Routine); Ordered 08/04/23 Ordered By: Jesus Fine Diet: Diabetic diet Activity on Discharge: As tolerated Stand Alone Forms: Patient Portal Discharge page Care Plan Goals: full recovery from osteomyelitis and recovery from knee pain difficulty ambulating. Health Concerns: Osteomyelitis of the finger Plan of Treatment: antibiotics to treat the osteomyelitis and to follow up with hand surgeon as scheduled on WednesdayAugust 06 , please tell your surgeon you are prescribed antibiotics for 14 more day and if no surgery will be done, you will need antibiotivs for longer Assessment: See above
--- NOTE | 2023-08-04 11:02 | MHC.CM.PN ---
PLAN IS DC TO [facility] TODAY FOR [facility]. PATIENT, RN, AND UNIT AWARE OF PLAN.
--- NOTE | 2023-08-04 11:47 | MHC.CM.PN ---
PATIENT'S BROTHER, CHRISTIANO (IN ROOM) WILL BRING PATIENT'S KWICK PEN HUMALOG, TRULICITY, AND FARXIGA, TO THE FACILITY. [facility] AWARE VIA [facility].
== END 2023-08-04 12:45 | disposition skilled nursing facility (03) | DRG 638 ==
LOC: HO.ED 14:44 → HO.EDOVER 23:52 → HO.S3 07-31 00:13
PROVIDERS: Physician Assistant Medical; Admitting Provider Internal Medicine; Emergency Provider Student in an Organized Health Care Education/Training Program; PCP Internal Medicine Medical Oncology; Visit Provider Internal Medicine
DX: E11.628 Type 2 diabetes mellitus with other skin complications (principal); M86.141 Other acute osteomyelitis, right hand; L03.011 Cellulitis of right finger; I12.9 Hypertensive chronic kidney disease with stage 1 through stage 4 chronic kidney disease, or unspecified chronic kidney disease; E78.5 Hyperlipidemia, unspecified; N17.9 Acute kidney failure, unspecified; E11.51 Type 2 diabetes mellitus with diabetic peripheral angiopathy without gangrene; N18.30 Chronic kidney disease, stage 3 unspecified; E11.22 Type 2 diabetes mellitus with diabetic chronic kidney disease; E11.69 Type 2 diabetes mellitus with other specified complication; I25.10 Atherosclerotic heart disease of native coronary artery without angina pectoris; Z95.1 Presence of aortocoronary bypass graft; Z89.511 Acquired absence of right leg below knee; Z79.4 Long term (current) use of insulin; Z79.899 Other long term (current) drug therapy
CPT/HCPCS: 36415; 73120; 73564; 80048; 80202; 82565; 82945; 82947; 83036; 85025; 85027; 85652; 86140; 87070; 87073; 87205; 89051; 89060; 97162; 99285; J0690; J1650; J3370

== ENCOUNTER → 2023-07-30 22:37 | Outpatient (BNV) | payer MEDICARE, SELFPAY | PROVIDERS: Admitting Provider Internal Medicine; Emergency Provider Student in an Organized Health Care Education/Training Program; PCP Internal Medicine Medical Oncology; Visit Provider Internal Medicine | DX: M86.9 Osteomyelitis, unspecified (principal); N17.9 Acute kidney failure, unspecified | CPT/HCPCS: 99222 ==

== ENCOUNTER → 2023-07-30 22:37 | Outpatient (BNV) | payer MEDICARE, SELFPAY | PROVIDERS: Admitting Provider Internal Medicine; Emergency Provider Student in an Organized Health Care Education/Training Program; PCP Internal Medicine Medical Oncology; Visit Provider Internal Medicine | DX: M86.9 Osteomyelitis, unspecified (principal); L03.011 Cellulitis of right finger; M25.462 Effusion, left knee; M17.12 Unilateral primary osteoarthritis, left knee | CPT/HCPCS: 99223; 99232; 99233; 99239 ==

== ENCOUNTER 2025-01-30 12:52 | Inpatient (IN) | payer MEDICARE, MEDICAID, SELFPAY ==
[2025-01-30] VITALS (19 sets, daily range): BP systolic 76–133; BP diastolic 34–94; PULSE 96–122; RESP 13–26; TEMP 36.6–39.5; O2SAT 93–100; BMI 32.4; BMI 32.6
--- NOTE | ~2025-01-30 | CT_ITS ---
EXAMINATION: CT ABDOMEN AND PELVIS WITHOUT CONTRAST CLINICAL INFORMATION: Acute kidney insufficiency, sepsis, urinary tract infection COMPARISON: None available. TECHNIQUE: Multidetector volumetric imaging was performed from the superior aspect of the liver through the pubic symphysis. Sagittal and coronal reformatted images were obtained on the technologist's workstation. This CT examination was performed using dose optimization techniques as appropriate, variously including the following: *Automated exposure control *Adjustment of mA and/or kV according to patient size (this includes techniques or standardized protocols for targeted exams where dose is matched to indication/reason for exam; i.e. extremities or head) *Use of iterative reconstruction technique DLP: 777 mGY*cm FINDINGS: LUNG BASES: The visualized lung bases are unremarkable. LIVER, GALLBLADDER, AND BILIARY TREE: The liver is normal in size, shape, and attenuation. No focal hepatic lesion or biliary ductal dilatation is present. There is a large calcified gallstone. PANCREAS: Unremarkable. SPLEEN: Unremarkable. ADRENAL GLANDS: Unremarkable. KIDNEYS AND URETERS: The kidneys are normal in size, shape, and attenuation. No hydronephrosis, hydroureter, or calculi seen. No perinephric stranding. BLADDER: There is circumferential bladder wall thickening. GASTROINTESTINAL TRACT: There is a wire leading into the rectum. Diverticulosis is present in the descending and sigmoid colon without inflammation or wall thickening. Normal appendix is identified. ABDOMINAL WALL: No significant hernia is appreciated. LYMPH NODES: Normal. VASCULAR: Moderate atherosclerotic calcific lesions are present. PELVIC VISCERA: Unremarkable. OSSEOUS STRUCTURES: Multilevel degenerative disc disease with bridging osteophytes thoracic spine is noted. 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 CT/CT abdomen pelvis wo IV con IMPRESSION: Bladder wall thickening raises torsion of cystitis. Cholelithiasis. Diverticulosis without sign of infection. Fleischner guidelines were followed. Electronically signed by: Dani Huerta MD 01/30/2025 05:12 PM EDT
--- NOTE | ~2025-01-30 | CT_ITS ---
CLINICAL HISTORY: Osteo of fingers? Left Hand CT left hand without IV contrast. Comparison: None Findings: This exam was nondiagnostic due to excessive motion. There is evidence of amputation at the level of the 2nd proximal phalanx 3rd metacarpal phalangeal joint 4th middle phalanx and 5th middle phalanx Impression: 1. Nondiagnostic study due to motion This document has been electronically signed by: Devan Enriquez MD on 01/31/2025 10:09:05
--- NOTE | ~2025-01-30 | CT_ITS ---
CLINICAL HISTORY: osteo of fingers? Right Hand CT righthand without IV contrast. Comparison: None Findings: This exam was nondiagnostic for osteomyelitis of the digits due to motion. 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 Impression: 1. Nondiagnostic exam for osteomyelitis of the digits. Amputation sites as described with the adjacent soft tissue thickening but no soft tissue gas or soft tissue defects demonstrated. Subtle pathology may be obscured.. No carpal bone fractures or carpal malalignment. Radial carpal joint intact ulnar and radial styloid preserved. 2. Consider plain radiograph correlation if patient can not cooperate. Otherwise three-phase bone scan may be indicated This document has been electronically signed by: Devan Enriquez MD on 01/31/2025 10:21:29
--- NOTE | ~2025-01-30 | XR_ITS ---
EXAMINATION: XR CHEST CLINICAL INFORMATION: sepsis COMPARISON: None available. TECHNIQUE: Frontal view of the chest was obtained. FINDINGS: Poor inspiration. No consolidation pleural effusion or pneumothorax. Cardiomediastinal silhouette size is normal. Metallic device overlapping the left lateral lower hemithorax. Sternal wires. Level spondylosis. Degenerative changes both shoulders. XR/XR chest 1V IMPRESSION: No acute airspace disease. Electronically signed by: Jovan Howard MD 01/30/2025 03:21 PM EDT
--- NOTE | ~2025-01-30 | NM_ITS ---
EXAMINATION: Nuclear medicine three-phase bone scan both hands. CLINICAL INDICATIONS: Bilateral hand osteomyelitis. Amputation of distal phalanges of both hands. Below left knee amputation COMPARISON: CT hand 01/31/2025. TECHNIQUE: Following intravenous administration of 36 mCi of 99m technetium MDP, three-phase bone scan of both hands were obtained. FINDINGS: RIGHT HAND: On first phase bone scan there is increased flow, blood pool imaging and static activity in the first, third and the fifth distal fingers consistent with osteomyelitis. LEFT HAND: On first phase bone scan there is mild increased flow to the fifth digit with increased blood pool activity in the second phase and focal intense activity in third phase in distal first and fifth digit consistent with osteomyelitis. Additional areas of abnormal activity seen. NM/NM bone 3 phase IMPRESSION: Findings suggestive of osteomyelitis of first, third and fifth distal fingers of RIGHT HAND consistent with osteomyelitis. Osteomyelitis distal first and the fifth digit LEFT HAND. Activity is significantly more intense in the distal little finger/fifth digit Electronically signed by: Armando Alvarado MD 02/01/2025 04:33 PM EDT
--- NOTE | 2025-01-30 13:09 | ED.FEVER ---
HPI - Fever General Chief Complaint: Weakness Stated Complaint: Sepsis Alert, Weakness X2 weeks Temp 100.5,HR120 Time Seen by Provider: 01/30/25 13:01 History of Present Illness ED Provider: Alberto Simpson MD HPI Narrative: . The patient is a poor historian apparently not as active over the past few days per the brother who checks on him intermittently. The brother notes that the patient has been coughing a bit patient denies this. He denies any urinary incontinence or urinary symptoms. This is a pt with patient history of bilateral lower extremity amputations, diabetes, right middle finger osteomyelitis presents with fever Related Data Home Medications ?Medication ?Instructions ?Recorded ?Confirmed atorvastatin 80 mg tablet 80 mg PO DAILY 07/30/23 01/30/25 dapagliflozin propanediol 10 mg 10 mg PO DAILY 07/30/23 01/30/25 tablet (Farxiga) dulaglutide 4.5 mg/0.5 mL 4.5 mg subcut WE 07/30/23 01/30/25 subcutaneous pen injector (Trulicity) insulin lispro protamine-lispro 28 unit subcut BIDAC 07/30/23 01/30/25 100 unit/mL (75-25) subcutaneous pen (Humalog Mix 75-25 KwikPen) lisinopril 40 mg tablet 40 mg PO DAILY 07/30/23 01/30/25 metformin 500 mg tablet 1,000 mg PO BID 07/30/23 01/30/25 metoprolol succinate 200 mg 200 mg PO DAILY 07/30/23 01/30/25 tablet,extended release 24 hr spironolactone 25 mg tablet 25 mg PO DAILY 07/30/23 01/30/25 hydrochlorothiazide 25 mg tablet 25 mg PO DAILY 01/30/25 01/30/25 Allergies Allergy/AdvReac Type Severity Reaction Status Date / Time No Known Allergies Allergy Verified 01/30/25 13:14 [facility] Past Medical History Medical History Amputation finger Gout Coronary artery disease Hypertension, essential Type 2 diabetes mellitus Surgical History Hx of right BKA Social History Social History Household Members: Other Household Members Other:: brother Housing: House Do you presently have visiting nurse or other home services: No Patient Tobacco Use Status: Never used Tobacco Smoked in Last 30 Days: No Use of substances other than those prescribed or required for medical reasons: No Currently Displaying Signs/Symptoms of Drug Intoxication Withdrawal: No Have you been hit, kicked, punched, or otherwise hurt by someone within the past year? If so, by whom?: No Do you feel safe in your current relationship?: No Current Relationship Is there a partner from a previous relationship who is making you feel unsafe now?: No Are you made to feel afraid or neglected: No Advance Directives: Yes Advance Directives on File: Yes Advance Directives Date on File: 07/31/23 Do you have a plan to hurt others: No Plan Recently lost weight without trying: No service: No Physical Exam Vital Signs: Vital Signs: Last Vital Signs Temp 97.6 F 01/31/25 11:00 Pulse 108 H 01/31/25 15:00 Resp 14 01/31/25 15:00 BP 133/63 01/31/25 15:00 Pulse Ox 95 01/31/25 15:00 O2 Del Method Room Air 01/31/25 15:00 BMI result Body Mass Index 32.4 Const: Other: EXAM: Gen: Alert, awake, well appearing, dehydrated. Scattered bandages on the fingers. BKA. Occasionally confused thought he was in the ER for several days but he just arrived a few hours before proceeding me. He is otherwise interactive. No focal deficits or external signs of injury Head: Atraumatic Eyes: Anicteric, Normal conjunctiva. ENT: Moist mucosa, no pallor. ? Neck: Supple. Skin: ?No observable rash or bruising on exposed or examined skin Respiratory: Breathing comfortably, No distress.Clear to auscultation bilaterally, symmetric chest expansion, No wheeze, rales, ronchi. Cardiovascular: Regular rate and rhythm. No murmurs or rub. Well perfused periphery, warm extremities. No edema. ? Abdominal: No FOCAL TENDERNESS. Soft, no objective distension. No palpable masses or obvious organomegaly. ?No guarding, no rebound tenderness or other peritoneal findings. : No flank tenderness. Neuro: Alert. Gross movement of all extremities intact. ? Psych: Calm. Cooperative. MSK: No grossly visible deformity. Vital signs: See flowsheet Course Reevaluation(s) Reevaluation #1: 17:30 focused examination and reassessment for sepsis. IVC with normal respirophasic dynamics. Medications Administered Generic Name Dose Route Start Last Admin Trade Name Lakhwinder PRN Reason Stop Dose Admin Acetaminophen 650 mg 01/30/25 20:02 01/30/25 21:27 Acetaminophen 325 Mg Tablet PO 650 mg Q6H PRN Administration Pain, Mild 1-3,fever,headache Atorvastatin Calcium 80 mg 01/31/25 09:00 01/31/25 10:18 Atorvastatin Calcium 80 Mg Tablet PO 80 mg DAILY RONAL Administration Enoxaparin Sodium 40 mg 01/30/25 21:00 01/30/25 20:26 Enoxaparin Sodium 40 Mg/0.4 Ml Syringe SUBCUT 40 mg Q24H RONAL Administration Piperacillin Sod/Tazobactam 50 mls @ 100 mls/hr 01/30/25 20:00 01/31/25 10:50 Sod 3.375 gm/ Sodium Chloride IV Infused Q6H RONAL Infusion Norepinephrine Bitartrate 8 mg in 250 mls @ 0 mls/hr 01/30/25 22:30 01/31/25 04:34 Levophed IVCONT 0 mcg/kg/min .Q0M RONAL 0 mls/hr Protocol Titration Per Protocol Insulin Human Lispro 0 unit 01/30/25 21:00 01/31/25 12:28 Insulin Lispro 100 Unit/Ml 3 Ml Vial SUBCUT 4 unit QIDACHS RONAL Administration Protocol Sodium Chloride 3 ml 01/31/25 00:00 01/31/25 09:48 0.9 % Sodium Chloride Flush 3 Ml Syringe IVFLUSH 3 ml QSHIFT RONAL Administration Discontinued Medications Generic Name Dose Route Start Last Admin Trade Name Lakhwinder PRN Reason Stop Dose Admin Acetaminophen 975 mg 01/30/25 13:42 01/30/25 13:53 Acetaminophen 325 Mg Tablet PO 01/30/25 13:43 975 mg ONCE ONE Administration Albuterol Sulfate 10 mg 01/30/25 14:22 01/30/25 14:39 Albuterol Sulfate (0.083%) 2.5 Mg/3 Ml Vial.Neb INHALE 01/30/25 14:23 10 mg ONCE ONE Administration Ceftriaxone Sodium 2 gm 01/30/25 13:41 01/30/25 13:53 Ceftriaxone Sodium 2 Gm Vial IVPUSH 01/30/25 13:42 2 gm ONCE ONE Administration Dextrose 25 gm 01/30/25 14:22 01/30/25 14:42 Dextrose 50 % 25 Gm/50 Ml Syringe IVPUSH 01/30/25 14:23 25 gm ONCE ONE Administration Vancomycin HCl 2,000 mg in 500 mls @ 250 mls/hr 01/30/25 13:41 01/30/25 16:09 Vancomycin/Ns IV 01/30/25 15:40 Infused ONCE ONE Infusion Lactated Ringer's 3,072 mls @ 3,072 mls/hr 01/30/25 13:42 01/30/25 16:29 Lr 30 ml/kg infuse over 1 hr (3072 ml) 01/30/25 14:41 Infused IV Infusion .Q1H ONE Calcium Gluconate 1 gm in 50 mls @ 200 mls/hr 01/30/25 14:25 01/30/25 16:00 Calcium Gluconate IV 01/30/25 14:39 Infused ONCE ONE Infusion Lactated Ringer's 500 mls @ 999 mls/hr 01/30/25 19:45 01/30/25 20:29 Lr IV 01/30/25 20:15 Infused .Q31M RONAL Infusion Albumin Human 100 mls @ 133.333 mls/hr 01/30/25 20:00 01/30/25 21:35 Kedbumin 25 % IV 01/30/25 21:44 Infused Q1H RONAL Infusion Magnesium Sulfate 2 gm in 50 mls @ 25 mls/hr 01/31/25 08:20 01/31/25 11:50 Magnesium Sulfate/H2o IV 01/31/25 10:19 Infused ONCE ONE Infusion Insulin Human Regular 5 unit 01/30/25 14:22 01/30/25 14:42 Insulin Regular, Human 100 Unit/Ml 10 Ml Vial IVPUSH 01/30/25 14:23 5 unit ONCE ONE Administration Sodium Zirconium Cyclosilicate 5 gm 01/30/25 14:22 01/30/25 14:43 Sodium Zirconium Cyclosilicate 5 Gm Powd.Pack PO 01/30/25 14:23 5 gm ONCE ONE Administration Sodium Zirconium Cyclosilicate 10 gm 01/30/25 20:13 01/30/25 20:25 Sodium Zirconium Cyclosilicate 10 Gm Powd.Pack PO 01/30/25 20:14 10 gm ONCE ONE Administration Procedures Procedure Narrative Procedure Narrative: EMERGENCY ULTRASOUND INTERPRETATION-Limited Echocardiography [This study was ordered, performed, and interpreted by myself. The study reveals: Impression: Limited evaluation of LV or RV function. No pericardial effusion [Emergent Cardiac for Indication: Views Used: PLAX, Pericardial Effusion/Tamponade Findings: NONE Chest: No evidence of pleural effusion on either side Performed by: MD Calvin Images were stored CPT:16040] __ EMERGENCY ULTRASOUND INTERPRETATION-Limited Retroperitoneal (Renal) [This study was ordered, performed, and interpreted by myself. The study reveals: Impression: NO EVIDENCE OF UROLOGIC OBSTRUCTION] January 30, 2025: 1723 [Indication: FLANK PAIN Bladder: ANECHOIC URINE moderate volume at least over 200 cc Right Kidney: NO HYDRONEPHROSIS Performed by: Alberto Simpson MD Images were stored CPT: 24544] Medical Decision Making Medical Decision Making MDM Narrative: 69-year-old male arrived with fever. The patient is a poorly-controlled diabetic looks likely this is urinary etiology. The patient remained hemodynamically stable most of the ED course did have transient hypotension resolved on its own starting at about 16:30. The patient has no obvious acute musculoskeletal or skin or soft tissue sources identified. No traumatic injuries. He likely was having some urinary retention possibly due to positional difficulty voluntarily urinating in the bed so we placed a Arthur given the QUINTEN. Hyperkalemia: Likely secondary to dehydration/acute kidney injury. Hyperkalemic treatment provided including Lokelma, albuterol, D50 and insulin. This improved although the repeat potassium went from 6.5-5.8 there was some hemolysis on the 2nd study we will get that repeated. CT of the abdomen was performed to evaluate for any signs of urologic obstruction. Chest x-ray clear of infiltrates the patient has no acute hypoxia. Total 3.5 L of crystalloid including the 3 L here and 500 from EMS Differential Diagnosis Differential Diagnoses: The differential diagnosis associated with the presentation includes UTI, encephalopathy, musculoskeletal or skin or soft tissue infection, Admission/Observation Consideration of admission/observation: Escalation of care including admission/observation considered Briefly considered vasopressors however patient's blood pressure level doubt and stabilized. There was only 1 measurement that was hypotensive that the nurse felt was legitimate accurate blood pressure measurement. Without any treatment subsequent blood pressures were normal . No systolic below 90. The single blood pressure was a map of 62. Lactate never increased over 4. Regardless the patient received a total of 30 cc/kg fluid. Lab Data MDM Lab Attestation statement: I reviewed the patient's lab results. 01/31/25 07:39 01/31/25 07:39 Labs: Lab Results 01/30/25 01/30/25 01/30/25 Range/Units 13:29 13:34 13:37 WBC 15.5 H (4.8-10.8) X10*3/uL RBC 5.10 (4.60-5.80) X10*6/uL Hgb 11.5 L (14.0-18.0) g/dl Hct 38.3 L (42.0-52.0) % MCV 75.1 L (80.0-98.0) fL MCH 22.5 L (27.0-33.0) pg MCHC 30.0 L (31.0-36.0) g/dl RDW 19.9 H (11.0-16.0) % Plt Count 281 (160-400) X10*3/uL MPV 9.3 L (9.4-12.4) fL Immature Gran % (Auto) 0.4 (0.0-0.4) % Neut % (Auto) 92.4 H (45-73) % Lymph % (Auto) 4.2 L (20-40) % [place] % (Auto) 2.3 (2-11) % Eos % (Auto) 0.2 (0-4) % Baso % (Auto) 0.5 (0-2) % Lymph # (Auto) 0.7 L (1.2-4.9) X10*3/uL [place] # (Auto) 0.4 (0.1-1.2) X10*3/uL Eos # (Auto) 0.0 (0.0-0.4) X10*3/uL Baso # (Auto) 0.1 (0.0-0.2) X10*3/uL Abs Immat Gran (auto) 0.06 H (0.00-0.03) X10*3/uL Absolute Neuts (auto) 14.3 H (2.0-8.3) x10*3/uL Absolute Nucleated RBC 0.000 (0.0-0.012) X10*3/uL Nucleated RBC % (auto) 0.0 (0.0-0.2) /100WBC Smear Tech's Comments VERIFIED Sodium 138 (135-145) mmol/L Potassium 6.5 H* (3.3-5.1) mmol/L Chloride 113 H (96-108) mmol/L Carbon Dioxide 15 L (22-29) mmol/L Anion Gap 17 (12-20) BUN 73 H (9-16) mg/dL Creatinine 1.97 H (0.5-1.4) mg/dL Estim Creat Clear Calc 41.8 Estimated GFR 34 POC Glucose (60-115) mg/dL Random Glucose 86 (60-115) mg/dL Lactic Acid 2.2 H* (0.5-2.0) mmol/L Lactic Acid F/U @ 2Hr (0.5-2.0) mmol/L Calcium 9.7 D (8.4-10.2) mg/dL Total Bilirubin 0.3 (0.0-1.0) mg/dL Direct Bilirubin (0.0-0.5) mg/dL AST (5-37) U/L ALT (0-40) U/L Alkaline Phosphatase (39-117) U/L Total Protein (6.5-8.0) g/dL Albumin (3.5-5.0) g/dL Lipase (8-78) U/L Urine Color Yellow Urine Appearance Cloudy Urine pH 5.5 (5.0-9.0) Ur Specific [place] 1.015 (1.005-1.025) Urine Protein 30 (1+) H (Neg-Trace) mg/dL Urine Glucose (UA) 500 H (Negative) mg/dL Urine Ketones Negative (Negative) mg/dL Urine Blood Moderate (2+) H (Negative) Urine Nitrite Negative (Negative) Ur Leukocyte Esterase Large (3+) H (Negative) Urine RBC 3-5 H (0-2) /HPF Urine WBC >50 H (0-5) /HPF Ur Squamous Epith Cells 0-2 (0-2) /HPF Urine Bacteria None Seen (None Seen) Hyaline Casts 0-2 (0-2) /LPF Influenza Type A (PCR) NEGATIVE (Negative) Influenza Type B (PCR) NEGATIVE (Negative) RSV RNA Qual (PCR) NEGATIVE (Negative) SARS-CoV-2 RNA (RT-PCR) NEGATIVE (Negative) 01/30/25 01/30/25 Range/Units 15:56 16:36 WBC (4.8-10.8) X10*3/uL RBC (4.60-5.80) X10*6/uL Hgb (14.0-18.0) g/dl Hct (42.0-52.0) % MCV (80.0-98.0) fL MCH (27.0-33.0) pg MCHC (31.0-36.0) g/dl RDW (11.0-16.0) % Plt Count (160-400) X10*3/uL MPV (9.4-12.4) fL Immature Gran % (Auto) (0.0-0.4) % Neut % (Auto) (45-73) % Lymph % (Auto) (20-40) % [place] % (Auto) (2-11) % Eos % (Auto) (0-4) % Baso % (Auto) (0-2) % Lymph # (Auto) (1.2-4.9) X10*3/uL [place] # (Auto) (0.1-1.2) X10*3/uL Eos # (Auto) (0.0-0.4) X10*3/uL Baso # (Auto) (0.0-0.2) X10*3/uL Abs Immat Gran (auto) (0.00-0.03) X10*3/uL Absolute Neuts (auto) (2.0-8.3) x10*3/uL Absolute Nucleated RBC (0.0-0.012) X10*3/uL Nucleated RBC % (auto) (0.0-0.2) /100WBC Smear Tech's Comments Sodium 135 (135-145) mmol/L Potassium 5.8 H (3.3-5.1) mmol/L Chloride 115 H (96-108) mmol/L Carbon Dioxide 12 L (22-29) mmol/L Anion Gap 14 (12-20) BUN 65 H (9-16) mg/dL Creatinine 1.95 H (0.5-1.4) mg/dL Estim Creat Clear Calc 42.2 Estimated GFR 34 POC Glucose 109 (60-115) mg/dL Random Glucose 125 H (60-115) mg/dL Lactic Acid (0.5-2.0) mmol/L Lactic Acid F/U @ 2Hr 2.3 H* (0.5-2.0) mmol/L Calcium 8.7 D (8.4-10.2) mg/dL Total Bilirubin 0.3 (0.0-1.0) mg/dL Direct Bilirubin 0.1 (0.0-0.5) mg/dL AST 69 H (5-37) U/L ALT 21 (0-40) U/L Alkaline Phosphatase 62 (39-117) U/L Total Protein 7.1 (6.5-8.0) g/dL Albumin 2.7 L (3.5-5.0) g/dL Lipase 96 H (8-78) U/L Urine Color Urine Appearance Urine pH (5.0-9.0) Ur Specific [place] (1.005-1.025) Urine Protein (Neg-Trace) mg/dL Urine Glucose (UA) (Negative) mg/dL Urine Ketones (Negative) mg/dL Urine Blood (Negative) Urine Nitrite (Negative) Ur Leukocyte Esterase (Negative) Urine RBC (0-2) /HPF Urine WBC (0-5) /HPF Ur Squamous Epith Cells (0-2) /HPF Urine Bacteria (None Seen) Hyaline Casts (0-2) /LPF Influenza Type A (PCR) (Negative) Influenza Type B (PCR) (Negative) RSV RNA Qual (PCR) (Negative) SARS-CoV-2 RNA (RT-PCR) (Negative) Radiology Impression Discussion of test interpretation with radiology: I have reviewed the radiologist's reading. (There was a delay in receiving radiology report of the CT eventually we got it scanned in below) Radiologist Impression: Critical Care Time Critical Care Time Critical Care Time: Yes Total Critical Care Time: 85 Attestation: ED Critical Care: Authorized and Performed by: Alberto Simpson MD Total critical care time: Approximately 85 Diagnosis: Severe sepsis, UTI with encephalopathy, hyperkalemia secondary to acute kidney injury requiring aggressive intravenous treatments Due to a high probability of clinically significant, life threatening deterioration, the patient required my highest level of preparedness to intervene emergently and I personally spent this critical care time directly and personally managing the patient. This critical care time included obtaining a history; examining the patient; pulse oximetry; ordering and review of studies; arranging urgent treatment with development of a management plan; evaluation of patient's response to treatment; frequent reassessment; and, discussions with other providers. This critical care time was performed to assess and manage the high probability of imminent, life-threatening deterioration that could result in multi-organ failure. It was exclusive of separately billable procedures and treating other patients and teaching time. Discharge Plan Discharge Clinical Impression: Acute UTI Patient Disposition: Admitted As Inpatient Interventions: Admission Worksheet (ED) Last Done: 01/30/25 18:19 Discharge Date/Time: 01/30/25 19:02
[2025-01-30 13:44] LABS: Hematocrit 38.3 % (42.0-52.0); Hemoglobin 11.5 g/dl (14.0-18.0); Imm Gran Abs Auto 0.06 X10*3/uL (0.00-0.03); Imm Gran Pct Auto 0.4 % (0.0-0.4); Lymphocytes Absolute Auto 0.7 X10*3/uL (1.2-4.9); MANUAL DIFF FLAG SCAN; Mean Corpuscular HGB Conc 30.0 g/dl (31.0-36.0); Mean Corpuscular Hemoglobin 22.5 pg (27.0-33.0); Mean Corpuscular Volume 75.1 fL (80.0-98.0); NRBC Abs Auto 0.000 X10*3/uL (0.0-0.012); NRBC Pct Auto 0.0 /100WBC (0.0-0.2); Platelet Count 281 X10*3/uL (160-400); Red Blood Count 5.10 X10*6/uL (4.60-5.80); SCAN SMEAR FLAG 1; White Blood Count 15.5 X10*3/uL (4.8-10.8)
--- NOTE | 2025-01-30 13:52 | ECG_ITS ---
Test Reason : WEAKNESS Blood Pressure : */* mmHG Vent. Rate : 123 BPM Atrial Rate : 123 BPM P-R Int : 120 ms QRS Dur : 150 ms QT Int : 394 ms P-R-T Axes : 34 -89 73 degrees QTcB Int : 564 ms Sinus tachycardia Left axis deviation Right bundle branch block Inferior infarct , age undetermined Abnormal ECG No previous ECGs available Referred By: Alberto Simpson Electronically Signed By: DARYL DAVIDSON MD
[2025-01-30] MEDS: vancomycin/NS 2,000 MG/500 ML PLAST..BAG 250 MG IV (13:53)
[2025-01-30 13:54] LABS: Appearance Urine Cloudy; Glucose Urine UA 500 mg/dL (Negative); PH 5.5 (5.0-9.0); Specific Gravity - Urine 1.015 (1.005-1.025); UMIC TRIGGER UACC YES
[2025-01-30] MEDS: LACTATED RINGERS 3072 ML IV (13:57)
[2025-01-30 14:01] LABS: UACC Culture Trigger YES
[2025-01-30 14:15] LABS: Anion Gap 17 (12-20); Blood Urea Nitrogen 73 mg/dL (9-16); Calcium 9.7 mg/dL (8.4-10.2); Carbon Dioxide 15 mmol/L (22-29); Chloride 113 mmol/L (96-108); Creatinine Clr Calc Pharmacy 41.8; Estimated Glomerular Filt Rate 34; Potassium 6.5 mmol/L (3.3-5.1); Sodium 138 mmol/L (135-145)
[2025-01-30 14:21] LABS: Resp Syncy Virus RNA Qual PCR NEGATIVE (Negative); SARS COV2 PCR INHOUSE NEGATIVE (Negative)
[2025-01-30] MEDS: Albuterol Sulfate (0.083%) 2.5 MG/3 ML VIAL.NEB 10 MG INHALE (14:39)
[2025-01-30] MEDS: Calcium Gluconate/NaCl,Iso-Osm 1 GM/50 ML PLAST..BAG IV (14:41)
--- NOTE | 2025-01-30 15:04 | PC.NURSE ---
69 M presents to ED with generalized weakness, unable to walk this morning and weakness that has progressed over 2 weeks, pt also had a temperature at home. A+Ox4. Pt has a BKA on the R leg and bilateral hand finger amputations. RR even and unlabored, denies SOB. Sts some dark stools but denies n/v/c/d or abdominal pain. Denies CP. Pt is tachycardic and had a fever upon arrival. Pt being worked up as a sepsis protocol. Continuing to work-up patient.
--- OUTSIDE RECORDS SUMMARY | 2025-01-30 15:09 | XMS_ITS ---
Author Organization [facility] Care Team Providers Care Emergency Medcl Emt Name Role Phone Kyle Nieto Zan Unavailable Unavailable Allergies and adverse reactions No Known Allergies Care Team Name Role Address Phone Organization Dates Kyle Zan Owensyousif [address] [place] [address], [id number], [place] (Office): : [facility] 07/03/2015 - 07/19/2015 Immunizations Immunization Status Vaccine Details Vaccine Code CodeSystem Date Notes Influenza cancelled Influenza, high-dose, split virus, trivalent, injectable, preservative free 135 CVX created date: 07/04/2015 consent date: 07/04/2015 Pneumovax Dose 1 cancelled pneumococcal polysaccharide vaccine, 23 valent 33 CVX created date: 07/04/2015 consent date: 07/04/2015 Prevnar 13 cancelled created date: 07/04/2015 consent date: 07/04/2015 Mental Status Section Date Assessment Total Score Description 07/19/2015 BIMS 15 cognitively int act PHQ-9 00 07/17/2015 BIMS 14 cognitively int act PHQ-9 00 Problems Problem # Description Date of onset Resolved Date Code CodeSystem Concern Status 1 ACQUIRED ABSENCE OF LEFT FINGER(S) 07/03/[address] active 2 ACQUIRED ABSENCE OF RIGHT FINGER(S) 07/03/[address] active 3 ACQUIRED ABSENCE OF RIGHT LEG BELOW KNEE 07/03/[address] active 4 ATHEROSCLEROTIC HEART DISEASE OF [place] CORONARY ARTERY WITHOUT ANGINA PECTORIS 07/03/[address] active 5 CHRONIC OSTEOMYELITIS WITH DRAINING SINUS, LEFT ANKLE AND FOOT 07/03/[address] active 6 DIRECT INFECTION OF UNSPECIFIED ANKLE AND FOOT IN INFECTIOUS AND PARASITIC DISEASES CLASSIFIED ELSEWHERE 07/03/[address] active 7 ENCOUNTER FOR OTHER SPECIFIED AFTERCARE 07/03/[address] active 8 ESSENTIAL (PRIMARY) HYPERTENSION 07/03/[address] active 9 HYPERLIPIDEMIA, UNSPECIFIED 07/03/[address] active 10 OTHER ABNORMALITIES OF GAIT AND MOBILITY 07/03/[address] active 11 PERIPHERAL VASCULAR DISEASE, UNSPECIFIED 07/03/[address] active 12 POLYNEUROPATHY IN DISEASES CLASSIFIED ELSEWHERE 07/03/[address] active 13 TYPE 2 DIABETES MELLITUS WITH OTHER SPECIFIED COMPLICATION 07/03/[address] active 14 UNSPECIFIED LACK OF COORDINATION 07/03/[address] active Reason for Referral No Reasons for Referral Entered Social History Social History Observation Description Start Date End Date Code Code System Current Smoking Status Tobacco smoking consumption unknown 200978256 SNOMED CT Sex Assigned At Male 1955 39574-0 [facility] Gender Identity Vital Signs Code Code System Vitals Name Values and Units Timing Information 2339-0 [facility] Blood Sugar Ofesf=984.0 Units=mg/dL 07/19/2015 8462-4 [facility] Blood Pressure-Diastolic Value=70 Un its=mmHg 07/19/2015 8480-6 [facility] Blood Pressure-Systolic Mdyyt=638 Un its=mmHg 07/19/2015 8310-5 [facility] Body Temperature Value=98.8 Units= F 07/19/2015 8867-4 [facility] Heart rate Value=97.0 Units=/min 52974-0 [facility] O2 % BldC Oximetry Value=98.0 Units= % 07/19/2015 9279-1 [facility] Respiratory Rate Value=18.0 Units=/m in 07/17/2015 56858-0 [facility] Weight Whekj=608.0 Units=Lbs 07/2015 8302-2 [facility] Height Value=72.0 Units=Inches 07/09/2015
--- OUTSIDE RECORDS SUMMARY | 2025-01-30 15:09 | XMS_ITS | Encounter Summary ---
Author Organization [facility] Address [address] [place] [address] Care Team Providers Care Anchor Operator Name Role Phone Wale Ta Primary Care Provider [phone] Encounter Details Date Type Department Care Team (Late st Contact Info) Description 08/04/2022 Telephone [facility] [address] [place] [address] Rosa Sandra NP [address] [place] [address] Social History Tobacco Use Types Packs/Day Years Used Date Smoking Tobacco: Former Cigarettes 1 45 1 965 - 2010 Smokeless Tobacco: Never Comments:: Alcohol Use Standard Drinks/Week Comments Not Currently 0 (1 standard drink = 0.6 oz pur e alcohol) Sex and Gender Information Value Date Recorded Sex Assigned at Male 12/24/2022 12:42 PM EDT Legal Sex Male 6:26 PM EDT Gender Identity Male 12/24/2022 12:42 PM EDT Sexual Orientation Straight 12/27/2022 10 :27 AM EDT documented as of this encounter Plan of Treatment Upcoming Encounters Date Type Department Care Team (Late st Contact Info) Description 05/18/2025 8:30 AM EDT Office Visit [facility] [address] [place] [address] [place]: Thu Rinaldi, Azam Ledbetter MD [address] [place] [address] 06/06/2025 8:00 AM EST Appointment [facility] [address] [place] [address] Shakir Moctezuma MD [address] [place] [phone] 11/08/2025 7:40 AM EDT Follow-Up [facility] 4th floor Cardiology Medicine [address] [place] [address] [place]: Efrain Mccoy II, MD [address] [place] [id number] documented as of this encounter Visit Diagnoses Not on filedocumented in this encounter Additional Health Concerns Infection Onset Date Last Indicated Resolved Time 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
--- OUTSIDE RECORDS SUMMARY | 2025-01-30 15:09 | XMS_ITS | Patient Health Record ---
Author Organization Wale Ta III, MD Address [address] [place] [address] [place] [address] Care Team Providers Care Disease Control Inspector Name Role Phone Wale Ta Primary Care Provider Allergies Allergen (clinical drug ingredient) Drug/Non Drug Allergy documented on EMR Reaction Allergy Type Onset Date Status No Known Drug Allergy Unknown Drug Allergy Active Reason For Referral No Information Medications Medication SIG (Take, Route, Frequency, Duration) Notes Start Date End Date Status metFORMIN HCl 500 MG 2 tablet daily Oral ly Once a day for 90 days Active Lisinopril 20 MG TAKE 1 TABLET BY DAILY Active Trulicity 3 MG/0.5ML as directed Subcutaneous 7 now Active Spironolactone 25 MG 1 tablet Orally Onc e a day Active Atorvastatin Calcium 40 MG 1 tablet Oral ly Once a day Active Metoprolol Succinate ER 100 MG 1 tablet Orally Once a day Active Immunizations Vaccine Route Administration Date Status [facility] COVID- 19 Vaccine Unknown 03/04/2021 Administered ip.access & Diogenes COVID- 19 Vaccine Unknown 07/28/2021 Administered COVID- 19 Vaccine Unknown 12/07/2020 Administered Social History Tobacco Use: Social History Observation Description Date [...] ast year? No Points 0 Interpretation Negative Problems Problem Type SNOMED Code ICD Code Onset Dates Problem Status W/U Status Risk Notes Problem 5100539 Former smoker (Z87.891) Active confirmed He seems highly motivated not to smoke. We discussed a plan to prevent relapse in times of stress and illness. Problem 895194146 Type 2 diabetes mellitus without complications (E11.9) Active confirmed His A1c is 9.2. I have sent his lab data to his distribution coordinator at the [facility]. We will try to arrange a telemetry health visit. If not, I will increase his trulicity in his medications. Problem 227916652 Other obesity due to excess calories (E66.09) Active confirmed His body mass index is now 33. He has gained 16 pounds since his last visit. We have discussed his diet and nutrition. We formulated a weight loss program. He will lose weight at a rate of one half of a pound per week through a diet restricted in fact calories and sodium combined with physical activity. Problem 568632774 Mixed hyperlipidemia (E78.2) Active confirmed His lipids are within the normal range. On the last lipid profile. No change in his regimen was needed. Problem Impacted cerumen (25509903) Impacted cerumen, unspecified ear (H61.20) Active confirmed Warm water irrigation of the ear canals was employed to remove the cerumen impaction. Both were removed without any toxicity or trauma. He immediately could hear better and says he felt much better. He will return to routine medical care as scheduled. Problem 6819289713007077 Impacted cerumen, bilateral (H61.23) Active confirmed The impaction a s were removed without difficulty and his hearing was much improved. Problem 085798406 Ischemic cardiomyopathy (I25.5) Active confirmed His congestive heart feels well compensated and he will call me if he gains more than 5 pounds. He will weigh himself weekly. 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 I recommended aggressive sodium restriction, weight loss and regular exercise. Problem 902350433802966 Carpal tunnel syndrome, right (G56.01) Active confirmed This problem is mild and does not require treatment at this time. Problem 765716153 Non-rheumatic mitral regurgitation (I34.0) Active confirmed His mitral valv e is now functioning properly. No murmur was heard. He is in sinus rhythm. Problem Benign prostatic hypertrophy without outflow obstruction (082283639) Benign prostatic hyperplasia, unspecified whether lower urinary tract symptoms present (N40.0) Active confirmed He rises den e sleep once or twice a night and is happy with this level of function. We discussed lifestyle modification as a way of reducing nocturia. Problem 731477842 History of osteomyelitis (Z87.39) Active confirmed He continues to be cared for by the surgeons at [facility]. All of his wounds are healed. Despite the numerous missing portions of multiple fingers he says he is able to conduct all of the activities of daily life well. Problem 176359455 History of right below knee amputation (Z89.511) Active confirmed His prosthesis is functional and in good condition. Stump is intact. He is ambulatory. Problem 10375414 Coronary artery disease involving [place] heart without angina pectoris, unspecified vessel or lesion type (I25.10) Active confirmed His ischemic heart disease is stable. He has been compliant with all his medications. I encouraged him to obtain a primary care physician during the 6 months he is in [place] so that he may be referred to cardiology if necessary. Vital Signs Heart Rate 71 /min 10/10/2024 Temperature 97.0 degrees Fahrenheit 10/10/2024 Blood pressure diastolic 70 mm Hg 10/10/2024 Height 71 in 10/10/2024 Blood pressure systolic 136 mm Hg 10/10/2024 Weight 241 lbs 10/10/2024 BMI 33.61 kg/m2 10/10/2024 Encounters Encounter Location Date Provider Diagnosis Wale Ta III, MD [address] [place] [address] [place] [address] 06/23/2024 Wale Ta Impacted cerumen, unspecified ear H61.20 Wale Ta III, MD [address] [place] [address] [place] [address] 08/31/2024 Wale Ta Impacted cerumen, unspecified ear H61.20 ; Other obesity due to excess calories E66.09 ; Essential hypertension I10 ; Coronary artery disease involving [place] heart without angina pectoris, unspecified vessel or lesion type I25.10 ; Mixed hyperlipidemia E78.2 ; Former smoker Z87.891 and Loose toenail L60.9 Wale Ta III, MD [address] [place] [address] [address] [place] [address] 10/10/2024 Wale Ta Impacted cerumen, unspecified ear H61.20 Wale Ta III, MD [address] [place] [address] [address] [place] [address] 12/28/2024 Wale Ta III, MD [address] [place] [address] [address] [place] [address] 01/01/2025 Wale Ta Assessments Encounter Date Diagnosis (ICD Code) Assessment Notes Treat ment Notes Treatment Clinical Notes 06/23/2024 Impacted cerumen, unspecified ear (ICD-10 - H61.20) 08/31/2024 Other obesity due to excess calories (ICD-10 - E66.09) His body mass index is now 33. He has gained 16 pounds since his last visit. We have discussed his diet and nutrition. We formulated a weight loss program. He will lose weight at a rate of one half of a pound per week through a diet restricted in fact calories and sodium combined with physical activity. 08/31/2024 Impacted cerumen, unspecified ear (ICD-10 - H61.20) Both ears were cleaned and free of cerumen at this time. 10/10/2024 Impacted cerumen, unspecified ear (ICD-10 - H61.20) Warm water irrigation of the ear canals was employed to remove the cerumen impaction. Both were removed without any toxicity or trauma. He immediately could hear better and says he felt much better. He will return to routine medical care as scheduled. 08/31/2024 Essential hypertension (ICD-10 - I10) His blood pressure today is well-controlled at 130/82. I recommended aggressive sodium restriction, weight loss and regular exercise. 08/31/2024 Coronary artery disease involving [place] heart without angina pectoris, unspecified vessel or lesion type (ICD-10 - I25.10) His ischemic heart disease is stable. He has been compliant with all his medications. I encouraged him to obtain a primary care physician during the 6 months he is in [place] so that he may be referred to cardiology if necessary. 08/31/2024 Mixed hyperlipidemia (ICD-10 - E78.2) His lipids are within the normal range. On the last lipid profile. No change in his regimen was needed. 08/31/2024 Former smoker (ICD-1 0 - Z87.891) He seems highly motivated not to smoke. We discussed a plan to prevent relapse in times of stress and illness. 08/31/2024 Loose toenail (ICD-1 0 - L60.9) The left first toenail is loose but still attached above 50% at the base. It will likely become detached in the near future. He was instructed to bandage it and protected to let me know if it is detached. It was not removed today Plan Of Treatment Pending Test Test Name Order Date PROFILE, FASTING (COMPREHENSIVE METABOLI C) 09/26/2018 PROFILE, FASTING (COMPREHENSIVE METABOLI C) 09/16/2022 PROFILE, FASTING (COMPREHENSIVE METABOLI C) 06/15/2018 PROFILE, FASTING (COMPREHENSIVE METABOLI C) 12/18/2021 PROFILE, FASTING (COMPREHENSIVE METABOLI C) 05/05/2021 PROFILE, FASTING (COMPREHENSIVE METABOLI C) 04/09/2022 PROFILE, FASTING (COMPREHENSIVE METABOLI C) 07/01/2020 PROFILE, FASTING (COMPREHENSIVE METABOLI C) 03/27/2020 PROFILE, FASTING (COMPREHENSIVE METABOLI C) 12/29/2018 PROFILE, RANDOM (COMPREHENSIVE METABOLIC ) 03/03/2021 HEMOGLOBIN A1C (GLYCOHEMOGLOBIN) 019 HEMOGLOBIN A1C (GLYCOHEMOGLOBIN) 019 HEMOGLOBIN A1C (GLYCOHEMOGLOBIN) 022 HEMOGLOBIN A1C (GLYCOHEMOGLOBIN) 021 HEMOGLOBIN A1C (GLYCOHEMOGLOBIN) 021 HEMOGLOBIN A1C (GLYCOHEMOGLOBIN) 020 HEMOGLOBIN A1C (GLYCOHEMOGLOBIN) 020 LIPID PANEL 12/29/2018 LIPID PANEL 09/26/2018 LIPID PANEL 06/15/2018 LIPID PANEL 05/05/2021 LIPID PANEL 03/03/2021 LIPID PANEL 07/01/2020 LIPID PANEL 03/27/2020 BRAIN NATRIURETIC PEPTIDE (BNP) 12/19/19 22 PSA, TOTAL 07/01/2020 PSA, TOTAL 09/16/2022 PSA, TOTAL 06/15/2018 MICROALBUMIN, RANDOM 03/03/2021 MICROALBUMIN, RANDOM 03/27/2020 MICROALBUMIN, RANDOM 12/18/2021 MICROALBUMIN, RANDOM 05/05/2021 CBC w DIFF 12/18/2021 CBC w DIFF 05/05/2021 CBC w DIFF 03/03/2021 CBC w DIFF 07/01/2020 CBC w DIFF 03/27/2020 CBC w DIFF 12/29/2018 CBC w DIFF 09/16/2022 CBC w DIFF 04/09/2022 CBC w DIFF 09/26/2018 CBC w DIFF 06/15/2018 Lipid Panel 12/18/2021 Lipid Panel 09/16/2022 Lipid Panel 04/09/2022 Microalbumin, Random 09/16/2022 Hemoglobin A1c 04/09/2022 Hemoglobin A1c 09/16/2022 Next Appt Details Provider Name:Wale Ta, 03/01/2025 09:00:00 AM, [address] [place] [address] [address], [place], [address], Insurance Providers Payer Name Payer Address Payer Phone Subscriber Number Group Number Insured Name Patient Relationship to Insured Coverage Start Date Coverage End Date MEDICARE NGS [address] [place] [address] [id number] December, Raulito Self - patient is the insured [facility] CLAIM DIV [address] [place] [address] [id number] December, Raulito Self - patient is the insured Medical (General) History Medical History History ICD Code cerumen impactions mixed hyperlipidemia essential hypertension obesity adult-onset diabetes mellitus bilateral sensorineural hearing loss amputation multiple digits secondary to osteomyelitis former smoker recovering alcoholic since 2000 coronary artery disease with CABGx4 2016 [facility] compensated chronic class II stage C systolic ischemic congestive heart failure. 2017 mitral valve annuloplasty. 2017. 4. Mitr al regurgitation patient refused insertion of recommended defibrillator 2017 carpal tunnel syndrome, right wrist Diabetes Surgical History Surgery Date(Month/Year) No history Debridement osteomyelitis middle phalanx , left ring finger 2020-04-11 surgery on middle finger of left hand left eye cataract surgery 11/2018 mitral valve annuloplasty, C ABG x4, [facility], Dr. Melchor 02/15 amputation left second finger 09/2014 amputation of left third finger 01/2014 surgery of right second finger re: ostem yelitis 07/2011 right below the knee amputation re: oste omyelitis 11/2000 Hospitalization History Reason Date(Month/Year) No history multiple hospitalizations for surgery
--- OUTSIDE RECORDS SUMMARY | 2025-01-30 15:09 | XMS_ITS | Data Portability ---
Author Organization [place] - [facility] Address [address] [place] [address] Care Team Providers Care Assistant Name Role Phone RAND KIRKLAND Primary Care Provider [phone] Assessment Encounter Date Assessment Date Assessment LastModified by Organization Details LastModified Time 08/21/2020 08/21/2020 Overview/History : 64yo male who is new to with a PMHx of HTN, HLD, DM, osteomyelitis, CAD s/p CABG & pacemaker/defib being seen today for wound evaluation. He has had multiple courses of osteomyelitis, multiple fingers amputated as well as a R BKA. He reports 8 days ago he burned L foot in the shower. He has neuropathy so he cannot feel his feet. He reports his RN popped the blisters last as well as 2 days ago. Draining purulent/sanguinou s fluid. He was last treated for Osteomyelitis in June and recently has his Piccline removed after completeing a course of Vanco. He denies any recent fevers, chest pain, difficulty breathing or N/V/D. He reports he can no longer walk past 24hrs, he thinks he has gout in his knees. Normally ambulates with prosthetic leg & walker. Exam: Alert, non toxic appearing Normal heart sounds Lungs clear- breathing unlabored No swelling or signs of gout noted knees. See Photos of L foot- draining blisters, erythema and warmth, appears infected DDx considered, but not limited to: Infected 2nd degree burn Osteomyelitis- most likely, given history and appearance of wound Cellulitis- likely- warm/erythema Sepsis possible- currently hemodynamically stable Gout-knees less likely Work up/Results: Wound cleansed, redressed- care escalated to ED Plan/Discussion: Discussed with patient and his brother given his history of diabetes and osteomyelitis, he needs to be evaluated in the emergency department. Wound appears infected, warmth and erythema, patient will likely need IV antibiotics and extensive wound care, and surgical consult. The patient understood and agreed with this plan. All questions were answered prior to team departure. Fire department was called to assist us in getting patient into his brothers car, all of his care is at [facility] and he wishes to go there. Pt transferred in stable condition. Proper Personal Protective Equipment (PPE), including gloves, eye protection and masks were donned and doffed appropriately and all equipment cleaned using approved technique with germicidal disposable wipes prior to and after care of this patient according [facility]. [email or web address] Not available 08/21/2020 15:10:34 Plan of Treatment Reminders Order Date Submit Date Provider Last Modified By Organization Details Last Modified Time Details Appointments None record ed. Lab None record ed. Referral None record ed. Procedures None record ed. Surgeries None record ed. Imaging None record ed. Medication Orders None record ed. Patient TargetsNo targets recorded. Patient InstructionsNo instructions recorded. Reason for Referral None Reported. Procedures Surgical History Date Name Laterality Status Provider Name and Address Organization Details Recorded Time 08/21/19 21 Medication Review completed Tiffani Hoang NP [address] [place], [address], [facility] 08/21/2020 10:46:57 amputation of leg through tibia and fibula completed Tiffani Hoang NP [address] [place], [address], [facility] 08/21/2020 10:29:36 Imaging Results None recorded. Procedure Notes None recorded. Medical Equipment None Reported. Allergies No known drug allergies Medications Name Sig Start Date Stop Date Status Note LastModified by Organization Details LastModified Time atorvastati n 40 mg tablet active Not Available Not Available Not Available metformin 500 mg tablet active Not Available Not Available Not Available azithromyci n 250 mg tablet TAKE 2 TABLETS BY MOUTH TODAY, THEN TAKE 1 TABLET DAILY FOR 4 DAYS 08/21 completed Not Available Not Available Not Available metoprolol succinate ER 50 mg tablet,exte nded release 24 hr active Not Available Not Available Not Available FreeStyle Lancets 28 gauge CHECK BLOOD SUGAR THREE TIMES A DAY OR DIRECTED active Not Available Not Available No t Available lisinopril 20 mg tablet active Not Available Not Available Not Available metoprolol succinate ER 100 mg tablet,exte nded release 24 hr active Not Available Not Available Not Available vancomycin 5 gram intravenous solution 08/21 completed Not Available Not Available Not Available vancomycin 1,000 mg intravenous injection 08/21 completed Not Available Not Available Not Available cefazolin 10 gram solution for injection 08/21 completed Not Available Not Available Not Available spironolact one 25 mg tablet active Not Available Not Available Not Available Ear Wax Removal Drops 6.5 % INSTILL 5 DROPS INTO AFFECTED EAR TWICE A DAY FOR 5 DAYS active Not Available Not Available No t Available lisinopril 40 mg tablet TAKE 1/2 TAB BY MOUTH DAILY X3DAYS AND IF NO DIZZINESS INCREASE TO 1 FULL TABLET active Not Available Not Available No t Available glipizide 5 mg tablet active Not Available Not Available No t Available amoxicillin 875 mg-potassiu m clavulanate 125 mg tablet 08/21 completed Not Available Not Available Not Available ceftriaxone 2 gram solution for injection 08/21 completed Not Available Not Available Not Available FreeStyle Lite Meter kit USE TO CHECK BLOOD SUGARS 3 TIMES DAILY OR DIRECTED active Not Available Not Available No t Available FreeStyle Lite Strips USE TO TEST BLOOD SUGAR 3 TIMES A DAY DIRECTED active Not Available Not Available No t Available Humalog Mix 75-25 KwikPen U-100 insulin 100 unit/mL subcutaneou s pen INJECT 30 UNITS INTO THE SKIN IN THE MORNING AND 15 UNITS IN THE EVENING active Not Available Not Available No t Available BD Ultra-Fine Sunita Pen Needle 32 gauge x 5/32 USE TO ADMINISTE R INSULIN TWICE DAILY active Not Available Not Available No t Available Trulicity 1.5 mg/0.5 mL subcutaneou s pen injector INJECT 1 PEN INTO THE SKIN ONCE A WEEK 08/21 completed Not Available Not Available Not Available Trulicity 0.75 mg/0.5 mL subcutaneou s pen injector INJECT 1 PEN SUBCUTANE OUSLY ONCE WEEKLY active Not Available Not Available No t Available Vitals Date Recorded Body temperature Respiratory rate Oxygen saturation Oxygen saturation in Arterial blood by Pulse oximetry Heart rate Systolic blood pressure Diastolic blood pressure Provider Name and Address Organization Details Last Updated DateTime 1 99 [degF] 18 /min 96 % 96 % 92 /min 118 mm[Hg] 68 mm[Hg] Not Available [facility] 10:15:43 Social History Question Answer Notes LastModified by Organizat ion Details LastModified Time Tobacco Smoking Status Former Smoker Tiffani Hoang, VANDA [address], [place], [address], [place] [facility] 08/21/2020 10:30:16 What Is Your Code Status? Full Code [email or web address] Information not available 08/21/2020 Within The Past 12 Months, Has It Happened That The Food You Bought Just Didn't Last And You Didn't Have Money To Get More. No Information not available 08/21/2020 Within The Past 12 Months, Have You Worried That Your Food Would Run Out Before You Got Money To Buy More. No Information not available 08/21/2020 Fall Risk: Do You Feel Unsteady When Standing Or Walking? Yes [email or web address] Information not available 08/21/2020 We Know That How And When People Interact With Friends And Family Can Be Very Different From Person To Person. How Often Do You Have The Opportunity To See Or Talk To People That You Care About And Feel Close To? (Ex: Talking To Friends On The Phone Or Visiting Friends Or Family Or Going To Synagogue Or Club Meetings) 5 Or More Times Per Week [email or web address] Information not available 08/21/2020 We Know From Many Of Our Patients That Covering All Of Their Costs Can Be Difficult At Times. This Can Cause Stress And Impact Health. In The Past Year, Have You Been Unable To Get Any Of The Following When It Was Really Needed? No [email or web address] Information not available 08/21/2020 What Is Your Housing Situation Today? I Have Housing [email or web address] Information not available 08/21/2020 Would You Like Help Connecting To Resources? None [email or web address] Information not available 08/21/2020 Sex: Unknown Functional Status None recorded. Mental Status None recorded. Family History Relationship Description Onset Age of this Age Resolved Age Notes LastModified by Organization Details LastModified Time Maternal Grandmother Diabetes mellitus Not available 2020 10:30:02 Medical History Condition Response Diabetes Y Coronary Artery Disease Y High Cholesterol Y Pulmonary Embolism N Cancer N Stroke N Hypertension Y Depression N COPD N Asthma N Kidney Disease N Past Encounters Encounter ID Performer Location Encounter Start Date Encounter Closed Date Diagnosis/Indication Diagnosis SNOMED-CT Code Diagnosis ICD10 Code Diagnosis Note [id number] Tiffani Hoang NP [facility] [address] [place] [address] 08/21/2020 10:06:16 08/23/2020 15:32:27 Partial thickness burn of lower limb 16761314 T24.232A Wound cellulitis 8957062 03 L03.90 Type 2 ignacio betes mellitus 76185400 E11.59 History of osteomyelitis 107415454 Z87.39 Health Concerns Section Related Observation LastModified by Organization Detai ls LastModified Time None Recorded Concern Status LastModified by Organization Details LastModified Time None Recorded Advance Directives Directive None Recorded Payers Insurance Date Sequence Insurance Name Policy Number Policy [place] Covered Member ID [place] Member ID Guarantor Name 08/20/2020 1 *SELF PAY* Raulito December [id number] Raulito 08/28/2020 2 AARP (MEDICARE SUPPLEMENT) Raulito December [id number] Raulito 08/28/2020 1 [place]IC[place] [employer] Raulito Zuluaga December [id number] Raulito December Notes Date Note Type Note Provider Name and Address Organization Details Recorded Time 08/21/2020 text/html 64yo male who is new to being seen today for a burn to his L foot in the shower on Wednesday08/13/20- blisters formed, RN broke blisters on and again yesterday. He has a PMHx of DM, osteomyelitis, CAD s/p CABG, HTN/HLD, pacemaker/defib. He denies any pain but has had neuropathy for >30 years and cannot feel like foot. He denies any fevers. Reports normal appetite no N/V/D. Tiffani Hoang NP [address], [place], [address], [place] [facility] 08/21/2020 15:12:17
[2025-01-30 15:41] LABS: Reflex Lactate? Lactic Acid Added
[2025-01-30 16:02] LABS: Glucose, Whole Blood 109 mg/dL (60-115)
[2025-01-30 17:02] LABS: Anion Gap 14 (12-20); Blood Urea Nitrogen 65 mg/dL (9-16); Calcium 8.7 mg/dL (8.4-10.2); Carbon Dioxide 12 mmol/L (22-29); Chloride 115 mmol/L (96-108); Creatinine Clr Calc Pharmacy 42.2; Estimated Glomerular Filt Rate 34; Potassium 5.8 mmol/L (3.3-5.1); Sodium 135 mmol/L (135-145)
[2025-01-30 17:15] LABS: ~Lactic Acid-LAB USE ONLY 2.3 mmol/L (0.5-2.0)
--- NOTE | 2025-01-30 17:56 | MHC.EDTECH ---
Admitting provider said to hold off on doing the potassium blood draw due to the lactic acid being due in 30 minutes and the save the patient a second blood draw
[2025-01-30 18:39] LABS: Reflex Lactate? 2 Y
--- NOTE | 2025-01-30 18:43 | PHA.MEDREC ---
Addendum entered by Raulito Galindo, [facility] 01/30/25 19:06: Med rec reviewed Original Note: Pharmacy Consult ? Medication Reconciliation Pharmacy has completed the medication reconciliation. Spoke with pt and he confirmed his medications. Pt confirmed his medications but was not so sure about his Trulicity dose . I called pt brother Caleb to help and he was able to confirm the Trulicity dosage of 4.5mg and the pt is due for it tomorrow (01/31). Pt brother confirmed the pt gets Trulicity and Humalog filled though [facility] and Farxiga is filled through [facility] and all of his other medications through [facility].
--- NOTE | 2025-01-30 19:05 | PM.IMHP ---
History of Present Illness Date of Service: 01/30/25 Attending physician on admission: [facility] Chief Complaint: Generalized weakness Pt is a 69-year-old male with a PMH significant for?PAD s/p right BKA, multiple finger amputations, CAD, insulin-dependent type 2 diabetes, HTN, HLD, and gout who presents to the ED from home with?generalized weakness and lethargy. Pt is a poor historian with possible cognitive impairment and unable to provide any detailed HPI. Lives with his brother who takes care of him, feeds him, and administers all of his medications. Brother contacted via phone and he reports pt has been feeling generally unwell for the past 2 weeks and not been eating or drinking much. Intermittently complains of epigastric and periumbilical discomfort, though no nausea or vomiting. A few episodes of diarrhea 2 weeks ago, but none since. Pt himself denies any acute medical complaints, including abdominal pain, nausea, vomiting, or diarrhea. Of note, brother reports pt was previously on chronic amoxicillin for 1 year for chronic finger infections, last dose on November 29. Breath reports since November pt has been on a slow decline. In the ED pt was febrile up to 103.1, tachycardic up to 122, tachypneic up to 26, and soft BP as low as 96/45, satting at 100% Labs were significant for leukocytosis of 15.5, potassium 6.5, creatinine 1.97 (previous 1.32), lactic acid 2.2, AST 69, and lipase 96. UA positive for UTI. Tested negative for flu, COVID, RSV. CXR showed no acute airspace disease. EKG demonstrated sinus tachycardia of 123 with RBBB, nothing prior for comparison. Pt was treated in the ED with acetaminophen, IVF, albuterol, calcium gluconate, insulin, dextrose, Lokelma, vancomycin, and ceftriaxone. Pt is admitted to the hospital for treatment and further evaluation of UTI with sepsis and hyperkalemia and QUINTEN in the setting of diuretic use and poor p.o. intake. Review of Systems Review of Systems: Negative except for that which is stated in the HPI. [facility] Medical History (Updated 02/01/25 @ 09:51 by Raiza Pruett, DNP, DIRECTOR ENGINEERING-BC) Finger ulcer Amputation finger Gout Coronary artery disease Hypertension, essential Type 2 diabetes mellitus Surgical History Hx of right BKA Social History Household Members: Other Household Members Other:: brother Housing: House Do you presently have visiting nurse or other home services: No Patient Tobacco Use Status: Never used Tobacco Smoked in Last 30 Days: No Use of substances other than those prescribed or required for medical reasons: No Currently Displaying Signs/Symptoms of Drug Intoxication Withdrawal: No Have you been hit, kicked, punched, or otherwise hurt by someone within the past year? If so, by whom?: No Do you feel safe in your current relationship?: No Current Relationship Is there a partner from a previous relationship who is making you feel unsafe now?: No Are you made to feel afraid or neglected: No Advance Directives: Yes Advance Directives on File: Yes Advance Directives Date on File: 07/31/23 Do you have a plan to hurt others: No Plan Recently lost weight without trying: No service: No Meds Allergies Allergy/AdvReac Type Severity Reaction Status Date / Time No Known Allergies Allergy Verified 01/30/25 13:14 Home Medications ?Medication ?Instructions ?Recorded ?Confirmed ?Last Taken ?Type atorvastatin 80 mg tablet 80 mg PO DAILY 07/30/23 01/30/25 01/29/25 History dapagliflozin propanediol 10 mg 10 mg PO DAILY 07/30/23 01/30/25 01/29/25 History tablet (Farxiga) dulaglutide 4.5 mg/0.5 mL 4.5 mg subcut WE 07/30/23 01/30/25 01/24/25 History subcutaneous pen injector (Trulicity) insulin lispro protamine-lispro 28 unit subcut BIDAC 07/30/23 01/30/25 01/29/25 History 100 unit/mL (75-25) subcutaneous pen (Humalog Mix 75-25 KwikPen) lisinopril 40 mg tablet 40 mg PO DAILY 07/30/23 01/30/25 01/29/25 History metformin 500 mg tablet 1,000 mg PO BID 07/30/23 01/30/25 01/29/25 History metoprolol succinate 200 mg 200 mg PO DAILY 1201/30/25 01/29/25 History tablet,extended release 24 hr spironolactone 25 mg tablet 25 mg PO DAILY 07/30/23 01/30/25 01/29/25 History hydrochlorothiazide 25 mg tablet 25 mg PO DAILY 01/30/25 01/30/25 01/29/25 History Physical Exam Vital Signs and Narrative: Vital Signs: Last Vital Signs Temp 100.4 F 01/30/25 18:30 Pulse 96 01/30/25 18:30 Resp 13 01/30/25 18:30 BP 101/52 L 01/30/25 18:30 Pulse Ox 96 01/30/25 18:30 O2 Del Method Room Air 01/30/25 18:30 BMI result Body Mass Index 32.4 General: Alert and oriented to person and time, but not to place or situation. This appears to be his baseline. In no acute distress Resp: CTA bilaterally CVS: S1, S2, RRR GI: +BS, NT, no distention Skin: Warm, dry Neuro: Cranial nerves II-XII grossly intact bilaterally. Motor grossly intact bilaterally Extremities: Right BKA. Left lower extremity with area of erythema and superficial abrasions. As pictured below. Upper extremities with multiple finger amputations. Psych: Appropriate affect Results Labs 02/01/25 03:27 02/01/25 03:27 Labs: Laboratory Results - last 24 hr 01/30/25 01/30/25 01/30/25 13:29 13:34 13:37 MCV 75.1 L MCH 22.5 L MCHC 30.0 L RDW 19.9 H Plt Count 281 MPV 9.3 L Immature Gran % (Auto) 0.4 Neut % (Auto) 92.4 H Lymph % (Auto) 4.2 L [place] % (Auto) 2.3 Eos % (Auto) 0.2 Baso % (Auto) 0.5 Lymph # (Auto) 0.7 L [place] # (Auto) 0.4 Eos # (Auto) 0.0 Baso # (Auto) 0.1 Abs Immat Gran (auto) 0.06 H Absolute Neuts (auto) 14.3 H Absolute Nucleated RBC 0.000 Nucleated RBC % (auto) 0.0 Smear Tech's Comments VERIFIED Anion Gap 17 Estim Creat Clear Calc 41.8 Estimated GFR 34 POC Glucose Random Glucose 86 Lactic Acid 2.2 H* Lactic Acid F/U @ 2Hr Calcium 9.7 D Total Bilirubin 0.3 Urine Color Yellow Urine Appearance Cloudy Urine pH 5.5 Ur Specific [place] 1.015 Urine Protein 30 (1+) H Urine Glucose (UA) 500 H Urine Ketones Negative Urine Blood Moderate (2+) H Urine Nitrite Negative Ur Leukocyte Esterase Large (3+) H Urine RBC 3-5 H Urine WBC >50 H Ur Squamous Epith Cells 0-2 Urine Bacteria None Seen Hyaline Casts 0-2 Influenza Type A (PCR) NEGATIVE Influenza Type B (PCR) NEGATIVE RSV RNA Qual (PCR) NEGATIVE SARS-CoV-2 RNA (RT-PCR) NEGATIVE 01/30/25 01/30/25 15:56 16:36 MCV MCH MCHC RDW Plt Count MPV Immature Gran % (Auto) Neut % (Auto) Lymph % (Auto) [place] % (Auto) Eos % (Auto) Baso % (Auto) Lymph # (Auto) [place] # (Auto) Eos # (Auto) Baso # (Auto) Abs Immat Gran (auto) Absolute Neuts (auto) Absolute Nucleated RBC Nucleated RBC % (auto) Smear Tech's Comments Anion Gap 14 Estim Creat Clear Calc 42.2 Estimated GFR 34 POC Glucose 109 Random Glucose 125 H Lactic Acid Lactic Acid F/U @ 2Hr 2.3 H* Calcium 8.7 D Total Bilirubin Urine Color Urine Appearance Urine pH Ur Specific [place] Urine Protein Urine Glucose (UA) Urine Ketones Urine Blood Urine Nitrite Ur Leukocyte Esterase Urine RBC Urine WBC Ur Squamous Epith Cells Urine Bacteria Hyaline Casts Influenza Type A (PCR) Influenza Type B (PCR) RSV RNA Qual (PCR) SARS-CoV-2 RNA (RT-PCR) Imaging Radiologist's Impressions: Impressions Chest X-Ray 01/30/25 15:10 IMPRESSION: No acute airspace disease. Electronically signed by: Jovan Howard MD 01/30/2025 03:21 PM EDT Assessment and Plan (1) Acute UTI: Status: Acute (2) QUINTEN (acute kidney injury): Status: Acute (3) Hyperkalemia: Status: Acute Plan Pt is a 69-year-old male with a PMH significant for?PAD s/p right BKA, multiple finger amputations, CAD, insulin-dependent type 2 diabetes, HTN, HLD, and gout who presents to the ED from home with?generalized weakness and lethargy. Pt is admitted to the hospital for treatment and further evaluation of UTI with sepsis and hyperkalemia and QUINTEN in the setting of diuretic use and poor p.o. intake. UTI with severe sepsis UA+, pt with generalized weakness, lethargy, reduced p.o. intake at home Meets sepsis criteria with severe features with fever, tachycardia, tachypnea, and lactic acid 2.2 Pt was given sepsis bolus fluids and started on broad-spectrum antibiotics in the ED After being brought to the floor pt became hypotensive at 76/46; was given albumin at sepsis rate Will treat with vancomycin and Zosyn, started 01/30/2025 Follow urine cultures, monitor BP closely QUINTEN and hyperkalemia Potassium 6.5, creatinine 1.97 Secondary to hypovolemia in the setting of reduced p.o. intake and continued hydrochlorothiazide and spironolactone use Pt received IVF for QUINTEN Received albuterol, calcium gluconate, insulin, dextrose, and Lokelma for hyperkalemia Trend labs Monitor on telemetry Question of left lower extremity cellulitis Pt with questionable cellulitis vs chronic venous stasis dermatitis Pt being covered with vancomycin and Zosyn as above Insulin-dependent type [address] sliding scale insulin Hold metformin, Farxiga, Trulicity HTN Hold lisinopril, hydrochlorothiazide, and spironolactone due to QUINTEN and electrolyte abnormalities Full Code Attending:?Dr. Fine DVT Prophylaxis: Lovenox Pt will require a hospitalization of at least two nights for treatment of UTI with sepsis and hyperkalemia and QUINTEN in the setting of hypovolemia from diuretic use and poor p.o. intake. Pt will require administration of IV antibiotics, IVF, and close monitoring of electrolytes and labs. Quality Stroke Does the patient have a stroke diagnosis?: No VTE Prior VTE?: No VTE Risk Level:: Medical - moderate - high VTE Device Contraindication: Treatment Not Indicated VTE Drug Contraindication: N/A - Med Ordered
[2025-01-30 19:20] LABS: Alanine Aminotransferase 21 U/L (0-40); Albumin Level 2.7 g/dL (3.5-5.0); Alkaline Phosphatase 62 U/L (39-117); Aspartate Amino Transferase 69 U/L (5-37); Lipase 96 U/L (8-78); Total Protein 7.1 g/dL (6.5-8.0)
[2025-01-30] MEDS: Lactated Ringers 500 ML 999 ML IV (19:39)
--- NOTE | 2025-01-30 19:45 | PHA.PROG ---
Admission Date/Time: January 30, 2025 17:29 Indication: skin + skin structure Weight in k.4 kg Adjusted body weight in Kg: [place] body weight in Kg: Obesity Dosing Indication % IBW: BMI 32.4 Serum Creatinine - Last 168 Hours 01/30/25 01/30/25 13:29 16:36 Creatinine 1.97 H 1.95 H Estimated CrCl and GFR - Last 168 Hours 01/30/25 01/30/25 13:29 16:36 Estim Creat Clear Calc 41.8 42.2 Estimated GFR 34 34 Vancomycin Loading Dose: 2000mg X1 Current Vancomycin Dosing Regimen: 1000mg Q24H Vancomycin Monitoring using AUC goal of 400 - 600 range with trough as surrogate marker: 440 Date and Time for next Vancomycin Level to be drawn: 02/01 @1200 Pharmacist Comments on Vancomycin Plan: pt's SCr elevated, staying on cautious side, with potential to be increased to 1250mg Q24H if improves. Predicted trough 14.3. Vancomycin dosing will take advantage of [employer] as a clinical decision support tool that uses Bayesian modeling to calculate individual patient's pharmacokinetic parameters and forecast the patient's drug concentration time course with the target goal AUC 24 range of 400 - 600 mg/L/hr.
[2025-01-30] MEDS: Albumin Human 25 % 100 ML 133.33 ML IV ×2 (20:02→20:48)
[2025-01-30 20:08] LABS: Potassium 5.7 mmol/L (3.3-5.1)
[2025-01-30 20:13] LABS: ~Lactic Acid-LAB USE ONLY 2.0 mmol/L (0.5-2.0)
[2025-01-30 20:55] LABS: Glucose, Whole Blood 135 mg/dL (60-115)
--- NOTE | 2025-01-30 21:48 | PM.CCN ---
Critical Care Event Note Summary Date of Service: 01/30/25 Code activated: No Narrative: This case had a high probability of a clinically significant, sudden, or life threatening deterioration of this patient's condition which required my full and direct attention, intervention and personal management. Critical Care Time (minutes): 30 Comment: This is a 69-year-old male with a past medical history of peripheral artery disease s/p? right BKA, multiple fingers amputations, coronary artery disease, insulin-dependent type 2 diabetes, hypertension, hyperlipidemia, gout,? and possible cognitive impairment (lives with brother who feeds him and administers meds) who presented to the? emergency department with generalized weakness and lethargy.? In the ED pt was febrile up to 103.1, tachycardic up to 122, tachypneic up to 26, and soft BP as low as 96/45, satting at 100%? Labs were significant for leukocytosis of 15.5, potassium 6.5, creatinine 1.97 (previous 1.32), lactic acid 2.2, AST 69, and lipase 96.? UA positive for UTI.? Tested negative for flu, COVID, RSV. CXR showed no acute airspace disease. Treated in the ED with acetaminophen, IVF, albuterol, calcium gluconate, insulin, dextrose, Lokelma, vancomycin, and ceftriaxone. ?He was admitted to Hospital Medicine? for UTI with sepsis,? hyperkalemia,? and QUINTEN in the setting of diuretic use and poor p.o. Intake.? ?Initially patient normotensive,? but later hypotensive to systolic of 70s.? Despite fluid administration patient continued to be hypotensive requiring transfer to ICU for? vasopressor support.? Dx: Severe sepsis due to? UTI.? No evidence of septic shock,? when patient became hypotensive lactic improved to 2.? Plan: Broaden antibiotic coverage to vancomycin and Zosyn. Wean off vasopressors as tolerated
[2025-01-31] VITALS (28 sets, daily range): BP systolic 89–152; BP diastolic 33–67; PULSE 90–108; RESP 11–28; TEMP 36.4–37.2; O2SAT 90–99; BMI 32.6
--- NOTE | 2025-01-31 07:14 | PC.NURSE ---
Pt arrived to bed 259 from [facility] and oriented to staff and unit. He denied pain or other complaint. Pt afebrile, MAP 65 when cuff positioned well and pt not moving during BP check. He had a full bed bath and was repositioned with pt falling asleep quickly after. MAP dropped and Levophed started as noted in MAR. Provider aware. Levophed titrated to off in approx 3 hours as noted in MAR and provider also aware. Lab called with 3 critical results BC+ 2nd set for gram+ cocci in clusters, BC + 1st set for gram+ cocci in clusters, and BC +SA. all 3 results immediately reported to provider Petra Augustine who was present on unit. Pt noted to have slight pink blanchable buttocks with foam applied for protection. L heel slight pink blanchable with foam heel/ankle protector applied. L abraham and L great toe with scattered scabbing. R inner knee with 1cm open area with callous border with no drainage noted and pink foam applied. ? from prosthetic leg? bilateral hands with amputations of fingers. dsgs on L 5th, R 2nd and 4th fingers stated as from bleeding after finger pokes. This am discussing removing dressings to fingers with patient he states they are there so he doesn't bite his fingers. dressings removed and fingertips appear close to bone and soft. all cleansed with NS and CSD applied. Provider made immediately aware. bunch cath initially yellow,cloudy, and purulent now clear yellow. bunch care provided.
[2025-01-31 07:47] LABS: Glucose, Whole Blood 253 mg/dL (60-115)
[2025-01-31 07:50] LABS: Venous Blood Gas Refer to POC result
[2025-01-31 07:51] LABS: VBG HCO3 11 mmol/L (22-26); VBG O2 % Saturation 99.0 %
[2025-01-31 07:57] LABS: Hematocrit 30.3 % (42.0-52.0); Hemoglobin 9.1 g/dl (14.0-18.0); Imm Gran Abs Auto 0.04 X10*3/uL (0.00-0.03); Imm Gran Pct Auto 0.5 % (0.0-0.4); Lymphocytes Absolute Auto 0.3 X10*3/uL (1.2-4.9); MANUAL DIFF FLAG SCAN; Mean Corpuscular HGB Conc 30.0 g/dl (31.0-36.0); Mean Corpuscular Hemoglobin 22.4 pg (27.0-33.0); Mean Corpuscular Volume 74.6 fL (80.0-98.0); NRBC Abs Auto 0.000 X10*3/uL (0.0-0.012); NRBC Pct Auto 0.0 /100WBC (0.0-0.2); Platelet Count 162 X10*3/uL (160-400); Red Blood Count 4.06 X10*6/uL (4.60-5.80); SCAN SMEAR FLAG 1; White Blood Count 8.6 X10*3/uL (4.8-10.8)
[2025-01-31 08:08] LABS: Alanine Aminotransferase 22 U/L (0-40); Albumin Level 3.2 g/dL (3.5-5.0); Alkaline Phosphatase 52 U/L (39-117); Anion Gap 13 (12-20); Aspartate Amino Transferase 33 U/L (5-37); Blood Urea Nitrogen 56 mg/dL (9-16); Calcium 8.7 mg/dL (8.4-10.2); Carbon Dioxide 14 mmol/L (22-29); Chloride 113 mmol/L (96-108); Creatinine Clr Calc Pharmacy 45.6; Estimated Glomerular Filt Rate 37; Lipase 41 U/L (8-78); Potassium 5.6 mmol/L (3.3-5.1); Sodium 134 mmol/L (135-145); Total Protein 7.0 g/dL (6.5-8.0)
[2025-01-31 08:14] LABS: Magnesium 1.4 mg/dL (1.6-2.6)
[2025-01-31 08:16] LABS: Troponin-I High Sensitivity 72.1 ng/L (<3.5-35.0)
[2025-01-31] MEDS: 0.9 % Sodium Chloride Flush 3 ML SYRINGE IVFLUSH ×3 (09:48→21:19)
[2025-01-31] MEDS: Magnesium Sulfate/H2O 2 GM/50 ML PIGGYBACK IV (09:50)
[2025-01-31 11:41] LABS: Glucose, Whole Blood 203 mg/dL (60-115)
--- NOTE | 2025-01-31 11:53 | PM.CCPN ---
Subjective Subjective Date of Service: 01/31/25 Interval History: 69-year-old male longstanding type 2 diabetic besides insulin requiring he is on metformin he is on an SGLT2 inhibitor he is on a GLP 1 inhibitor and metformin I believe and for hypertension he is on lisinopril and apparently has not been feeling well for a while and he has had a lot of peripheral ischemic issues and multiple fingers with with amputations down to the proximal interphalangeal joints and he apparently nausea on the end of it and he has got exposed bone and a lot of necrotic looking the no skin so surrounding it as of course potential portals of entry for bacteria but he did present with a prolonged failure to thrive loss of appetite and Nichole progressive weakness and some degree of nausea and no anusha vomiting no diarrhea in the last 2 weeks but he became amino more precipitously lethargic and weak and the brother who takes care of him brings him to the hospital and so far we have 2/2 blood culture bottles for Gram-positive cocci and urinary tract also which is clearly infected positive for Gram-positive cocci and antibiotic coverage is certainly more than adequate and will Pare it down once we get a and organism but he has had history that we did not know that he had a coronary bypass grafting surgery a number of years ago and he has a defibrillator could see the coil in the apex of the right ventricle it has never fired but obviously was given to him because of an underlying cardiomyopathy and I did a bedside echo with a subxiphoid view normal right ventricle but he has got a dilated and very hypokinetic left ventricle sinus rhythm but a wide QRS looking light bifascicular block with first-degree AV block and metabolically I can see why the adeno he has not been thriving because I think he has he has developed a form of a non-anion gap hyperchloremic metabolic acidosis probably from renal tubular acidosis and he has got a moderate degree of renal insufficiency as well and probably a recent rise in his BUN and creatinine but thus far he is not on the Levophed he has gym he just got IV fluid and with that his blood pressures have been hovering at about 100-115 systolic over 70 sinus tachycardia 105 but oxygen saturations 98 Critical Care Time (minutes): 50 Physical Exam Vital Signs: Vital Signs: Last Vital Signs Temp 97.6 F 01/31/25 11:00 Pulse 94 01/31/25 11:00 Resp 14 01/31/25 11:00 BP 115/57 L 01/31/25 11:00 Pulse Ox 97 01/31/25 11:00 O2 Del Method Room Air 01/31/25 11:00 BMI result Body Mass Index 32.6 So vital signs adequate and his mental status is is fine and he is able to communicate and there are no skin rashes just those areas that he unfortunately nose on which are the finger surrounding the exposed bone on all of his digits Lungs by exam and by x-ray are clear Abdomen is soft with no organomegaly nontender Objective Data Labs 01/31/25 07:39 01/31/25 07:39 Labs: Laboratory Results - last 24 hr 01/30/25 01/30/25 01/30/25 13:29 13:34 13:37 WBC 15.5 H RBC 5.10 Hgb 11.5 L Hct 38.3 L MCV 75.1 L MCH 22.5 L MCHC 30.0 L RDW 19.9 H Plt Count 281 MPV 9.3 L Immature Gran % (Auto) 0.4 Neut % (Auto) 92.4 H Lymph % (Auto) 4.2 L Caroline % (Auto) 2.3 Eos % (Auto) 0.2 Baso % (Auto) 0.5 Lymph # (Auto) 0.7 L Caroline # (Auto) 0.4 Eos # (Auto) 0.0 Baso # (Auto) 0.1 Abs Immat Gran (auto) 0.06 H Absolute Neuts (auto) 14.3 H Absolute Nucleated RBC 0.000 Nucleated RBC % (auto) 0.0 Smear Tech's Comments VERIFIED Hold Purple Top VBG pH VBG pCO2 VBG pO2 VBG HCO3 VBG O2 Saturation VBG Base Excess Sodium 138 Potassium 6.5 H* Chloride 113 H Carbon Dioxide 15 L Anion Gap 17 BUN 73 H Creatinine 1.97 H Estim Creat Clear Calc 41.8 Estimated GFR 34 POC Glucose Random Glucose 86 Lactic Acid 2.2 H* Lactic Acid F/U @ 2Hr Lactic Acid F/U @ 4Hr Calcium 9.7 D Phosphorus Magnesium Total Bilirubin 0.3 Direct Bilirubin AST ALT Alkaline Phosphatase Troponin I High Sens Total Protein Albumin Lipase Hold Yellow Top Urine Color Yellow Urine Appearance Cloudy Urine pH 5.5 Ur Specific [place] 1.015 Urine Protein 30 (1+) H Urine Glucose (UA) 500 H Urine Ketones Negative Urine Blood Moderate (2+) H Urine Nitrite Negative Ur Leukocyte Esterase Large (3+) H Urine RBC 3-5 H Urine WBC >50 H Ur Squamous Epith Cells 0-2 Urine Bacteria None Seen Hyaline Casts 0-2 Influenza Type A (PCR) NEGATIVE Influenza Type B (PCR) NEGATIVE RSV RNA Qual (PCR) NEGATIVE SARS-CoV-2 RNA (RT-PCR) NEGATIVE 01/30/25 01/30/25 01/30/25 15:56 16:36 19:27 WBC RBC Hgb Hct MCV MCH MCHC RDW Plt Count MPV Immature Gran % (Auto) Neut % (Auto) Lymph % (Auto) Caroline % (Auto) Eos % (Auto) Baso % (Auto) Lymph # (Auto) Caroline # (Auto) Eos # (Auto) Baso # (Auto) Abs Immat Gran (auto) Absolute Neuts (auto) Absolute Nucleated RBC Nucleated RBC % (auto) Smear Tech's Comments Hold Purple Top SEE NOTE VBG pH VBG pCO2 VBG pO2 VBG HCO3 VBG O2 Saturation VBG Base Excess Sodium 135 Potassium 5.8 H 5.7 H Chloride 115 H Carbon Dioxide 12 L Anion Gap 14 BUN 65 H Creatinine 1.95 H Estim Creat Clear Calc 42.2 Estimated GFR 34 POC Glucose 109 Random Glucose 125 H Lactic Acid Lactic Acid F/U @ 2Hr 2.3 H* Lactic Acid F/U @ 4Hr 2.0 Calcium 8.7 D Phosphorus Magnesium Total Bilirubin 0.3 Direct Bilirubin 0.1 AST 69 H ALT 21 Alkaline Phosphatase 62 Troponin I High Sens Total Protein 7.1 Albumin 2.7 L Lipase 96 H Hold Yellow Top See Note Urine Color Urine Appearance Urine pH Ur Specific [place] Urine Protein Urine Glucose (UA) Urine Ketones Urine Blood Urine Nitrite Ur Leukocyte Esterase Urine RBC Urine WBC Ur Squamous Epith Cells Urine Bacteria Hyaline Casts Influenza Type A (PCR) Influenza Type B (PCR) RSV RNA Qual (PCR) SARS-CoV-2 RNA (RT-PCR) 01/30/25 01/31/25 01/31/25 20:51 07:39 07:45 WBC 8.6 RBC 4.06 L D Hgb 9.1 L D Hct 30.3 L D MCV 74.6 L MCH 22.4 L MCHC 30.0 L RDW 19.4 H Plt Count 162 D MPV 9.2 L Immature Gran % (Auto) 0.5 H Neut % (Auto) 91.8 H Lymph % (Auto) 3.7 L Caroline % (Auto) 3.4 Eos % (Auto) 0.1 Baso % (Auto) 0.5 Lymph # (Auto) 0.3 L Caroline # (Auto) 0.3 Eos # (Auto) 0.0 Baso # (Auto) 0.0 Abs Immat Gran (auto) 0.04 H Absolute Neuts (auto) 7.9 Absolute Nucleated RBC 0.000 Nucleated RBC % (auto) 0.0 Smear Tech's Comments VERIFIED Hold Purple Top VBG pH 7.43 VBG pCO2 17 VBG pO2 206 VBG HCO3 11 L VBG O2 Saturation 99.0 VBG Base Excess -10.4 Sodium 134 L Potassium 5.6 H Chloride 113 H Carbon Dioxide 14 L Anion Gap 13 BUN 56 H Creatinine 1.81 H Estim Creat Clear Calc 45.6 Estimated GFR 37 POC Glucose 135 H 253 H Random Glucose 172 H Lactic Acid Lactic Acid F/U @ 2Hr Lactic Acid F/U @ 4Hr Calcium 8.7 Phosphorus 3.1 Magnesium 1.4 L* Total Bilirubin 0.4 Direct Bilirubin AST 33 ALT 22 Alkaline Phosphatase 52 Troponin I High Sens 72.1 H Total Protein 7.0 Albumin 3.2 L Lipase 41 Hold Yellow Top Urine Color Urine Appearance Urine pH Ur Specific [place] Urine Protein Urine Glucose (UA) Urine Ketones Urine Blood Urine Nitrite Ur Leukocyte Esterase Urine RBC Urine WBC Ur Squamous Epith Cells Urine Bacteria Hyaline Casts Influenza Type A (PCR) Influenza Type B (PCR) RSV RNA Qual (PCR) SARS-CoV-2 RNA (RT-PCR) 01/31/25 01/31/25 11:26 11:38 WBC RBC Hgb Hct MCV MCH MCHC RDW Plt Count MPV Immature Gran % (Auto) Neut % (Auto) Lymph % (Auto) Caroline % (Auto) Eos % (Auto) Baso % (Auto) Lymph # (Auto) Caroline # (Auto) Eos # (Auto) Baso # (Auto) Abs Immat Gran (auto) Absolute Neuts (auto) Absolute Nucleated RBC Nucleated RBC % (auto) Smear Tech's Comments Hold Purple Top VBG pH VBG pCO2 VBG pO2 VBG HCO3 VBG O2 Saturation VBG Base Excess Sodium Potassium Chloride Carbon Dioxide Anion Gap BUN Creatinine Estim Creat Clear Calc Estimated GFR POC Glucose 203 H Random Glucose Lactic Acid 1.6 Lactic Acid F/U @ 2Hr Lactic Acid F/U @ 4Hr Calcium Phosphorus Magnesium Total Bilirubin Direct Bilirubin AST ALT Alkaline Phosphatase Troponin I High Sens Total Protein Albumin Lipase Hold Yellow Top Urine Color Urine Appearance Urine pH Ur Specific [place] Urine Protein Urine Glucose (UA) Urine Ketones Urine Blood Urine Nitrite Ur Leukocyte Esterase Urine RBC Urine WBC Ur Squamous Epith Cells Urine Bacteria Hyaline Casts Influenza Type A (PCR) Influenza Type B (PCR) RSV RNA Qual (PCR) SARS-CoV-2 RNA (RT-PCR) Microbiology Microbiology Results: Microbiology 01/30/25 Unknown Urine Catheterized - Straight Catheter Urine Culture - Preliminary Gram positive cocci 01/30/25 13:29 Blood - Venous Blood Culture - Preliminary Gram positive cocci 01/30/25 13:29 Blood - Venous Blood Culture - Preliminary Gram positive cocci Progress Note: A&P Assessment and plan (1) QUINTEN (acute kidney injury): Status: Acute (2) Hyperkalemia: Status: Acute (3) Acute UTI: Status: Acute (4) Osteomyelitis of right hand: Status: Acute (5) Gouty arthritis of left knee: Status: Acute (6) Pain and swelling of left knee: Status: Acute (7) Renal tubular acidosis, type 4: Status: Acute (8) Metabolic acidosis with normal anion gap and bicarbonate losses: Status: Acute (9) Diabetes mellitus: Status: Acute (10) Sepsis associated hypotension: Status: Acute (11) Urinary tract infection: Status: Acute (12) Ischemic cardiomyopathy with implantable cardioverter-defibrillator (ICD): Status: Acute Plan So the plan is to withhold his home medicines which I think is causing his type 4 RTA and I am going to withhold his diabetic medicines except for insulin coverage and try to encourage some form of p.o. intake and possibly start some oral bicarb replacement and maintain antibiotics as above and put him on some continuous IV fluids at a rate that is compatible with his cardiomyopathy Quality Stroke Does the patient have a stroke diagnosis?: No VTE Prior VTE?: No VTE Risk Level:: Medical - moderate - high VTE Device Contraindication: Treatment Not Indicated VTE Drug Contraindication: N/A - Med Ordered
[2025-01-31 12:09] LABS: Procalcitonin 13.37 ng/mL
--- NOTE | 2025-01-31 14:04 | MHC.CM.PN ---
IMM DELIVERED. PT VERY SLEEPY AND UNABLE TO FULLY PARTICIPATE IN ASSESSMENT. PER CHART REVIEW, PT LIVES WITH BROTHER EDMUNDO WHO IS HIS CAREGIVER. CALL PLACED TO BROTHER WITH REQUEST FOR RETURN CALL. CM WILL RE-APPROACH PT WHEN ABLE TO PARTICIPATE. PCP DR. KIRKLAND. CM WILL CONTINUE TO FOLLOW.
[2025-01-31 14:07] LABS: ABG HCO3 13 mmol/L (22-26); ABG O2 % Saturation 99.0 %
[2025-01-31 16:16] LABS: Glucose, Whole Blood 166 mg/dL (60-115)
--- NOTE | 2025-01-31 17:51 | PC.NURSE ---
P: Alteration in Integumentary I: See nursing documentation and MD orders E: Patient has multiple wounds on bilateral upper digits from chewing on them. Wound care nurse at bedside and pictures uploaded to patient chart. Purulent drainage from L hand digit. P: Alteration in Gastrointestinal I: See nursing documentation and MD orders E: Patient has increased lethargy and decreased appetite in response to disease process. Ensures supplements ordered BID with meals.
--- NOTE | 2025-01-31 17:57 | PM.CNGS ---
History of Present Illness Consult details Consult date: 01/31/25 Narrative: 69-year-old male with multiple medical problems including peripheral artery disease, hypertension, hyperlipidemia, coronary disease, diabetes, cognitive impairment, admitted initially to the regular floor yesterday for sepsis likely secondary to UTI. He became hypotensive with a systolic of 70s despite IV hydration so his transferred to the ICU last night. He was on vasopressor support He has a right BKA and multiple finger amputations. Some of the old stumps of the fingers have open ulcers at the tip so I have been consulted for this being a source of his sepsis. He had currently denies pain on his stumps on the fingers although he does not appear to have good historian. Review of Systems Review of Systems: Patient does not appear to be good historian Constitutional: Constitutional: Reports chills and Reports fever(s) Cardiovascular: Cardiovascular: Denies chest pain Respiratory: Respiratory: Denies cough Gastrointestinal: Gastrointestinal: Denies abdominal pain Genitourinary: Genitourinary: Denies difficulty urinating [facility] Past Medical History Medical History (Updated 02/01/25 @ 09:51 by Raiza Pruett, DNP, [facility]-) Finger ulcer Amputation finger Gout Coronary artery disease Hypertension, essential Type 2 diabetes mellitus Surgical History Surgical History Hx of right BKA Social History Social History Household Members: Other Household Members Other:: brother Housing: House Do you presently have visiting nurse or other home services: No Patient Tobacco Use Status: Never used Tobacco Smoked in Last 30 Days: No Use of substances other than those prescribed or required for medical reasons: No Currently Displaying Signs/Symptoms of Drug Intoxication Withdrawal: No Have you been hit, kicked, punched, or otherwise hurt by someone within the past year? If so, by whom?: No Do you feel safe in your current relationship?: No Current Relationship Is there a partner from a previous relationship who is making you feel unsafe now?: No Are you made to feel afraid or neglected: No Advance Directives: Yes Advance Directives on File: Yes Advance Directives Date on File: 07/31/23 Do you have a plan to hurt others: No Plan Recently lost weight without trying: No service: No Meds Allergies Allergy/AdvReac Type Severity Reaction Status Date / Time No Known Allergies Allergy Verified 01/30/25 13:14 Active Medications: Current Medications Acetaminophen (Acetaminophen 325 Mg Tablet) 650 mg PO Q6H PRN PRN Reason: Pain, Mild 1-3,fever,headache Last Admin: 01/30/25 21:27 Dose: 650 mg Atorvastatin Calcium (Atorvastatin Calcium 80 Mg Tablet) 80 mg PO DAILY [facility] Last Admin: 01/31/25 10:18 Dose: 80 mg Calcium Carbonate (Calcium Carbonate 750 Mg Tab.Chew) 750 mg PO Q4H PRN PRN Reason: Heartburn Dextrose (Dextrose 50 % 25 Gm/50 Ml Syringe) 25 gm IVPUSH Q15M PRN; Protocol PRN Reason: per Hypoglycemia Standing Ord. Enoxaparin Sodium (Enoxaparin Sodium 40 Mg/0.4 Ml Syringe) 40 mg SUBCUT Q24H [facility] Last Admin: 01/30/25 20:26 Dose: 40 mg Glucose (Glucose Gel 15 Gm Gel..Gram.) 15 gm PO Q15M PRN; Protocol PRN Reason: per Hypoglycemia Standing Ord. Piperacillin Sod/Tazobactam (Sod 3.375 gm/ Sodium Chloride) 50 mls @ 100 mls/hr IV Q6H [facility] Last Infusion: 01/31/25 16:15 Dose: Infused Vancomycin HCl 1,000 mg/ (Sodium Chloride) 270 mls @ 270 mls/hr IV Q24H [facility] Last Infusion: 01/31/25 16:39 Dose: Infused Norepinephrine Bitartrate (Levophed) 8 mg in 250 mls @ 0 mls/hr IVCONT .Q0M [facility]; Protocol Last Titration: 01/31/25 04:34 Dose: 0 mcg/kg/min, 0 mls/hr Insulin Human Lispro (Insulin Lispro 100 Unit/Ml 3 Ml Vial) 0 unit SUBCUT QIDACHS [facility]; Protocol Last Admin: 01/31/25 16:26 Dose: 2 unit Magnesium Hydroxide (Milk Of Magnesia 30 Ml Oral.Susp) 30 ml PO DAILY PRN PRN Reason: Constipation Melatonin (Melatonin 3 Mg Tablet) 6 mg PO BEDTIME PRN PRN Reason: Insomnia Pharmacy Consult (Consult Rx Vancomycin Dosing) 1 each MISCELLANE DAILY PRN PRN Reason: Consult order Sodium Bicarbonate (Sodium Bicarbonate 650 Mg Tablet) 650 mg PO TID [facility] Last Admin: 01/31/25 15:33 Dose: 650 mg Sodium Chloride (0.9 % Sodium Chloride Flush 3 Ml Syringe) 3 ml IVFLUSH QSHIFT [facility] Last Admin: 01/31/25 15:33 Dose: 3 ml Home Medications ?Medication ?Instructions ?Recorded ?Confirmed ?Last Taken ?Type atorvastatin 80 mg tablet 80 mg PO DAILY 07/30/23 01/30/25 01/29/25 History dapagliflozin propanediol 10 mg 10 mg PO DAILY 07/30/23 01/30/25 01/29/25 History tablet (Farxiga) dulaglutide 4.5 mg/0.5 mL 4.5 mg subcut WE 07/30/23 01/30/25 01/24/25 History subcutaneous pen injector (Trulicity) insulin lispro protamine-lispro 28 unit subcut BIDAC 07/30/23 01/30/25 01/29/25 History 100 unit/mL (75-25) subcutaneous pen (Humalog Mix 75-25 KwikPen) lisinopril 40 mg tablet 40 mg PO DAILY 07/30/23 01/30/25 01/29/25 History metformin 500 mg tablet 1,000 mg PO BID 07/30/23 01/30/25 01/29/25 History metoprolol succinate 200 mg 200 mg PO DAILY 07/30/23 01/30/25 01/29/25 History tablet,extended release 24 hr spironolactone 25 mg tablet 25 mg PO DAILY 07/30/23 01/30/25 01/29/25 History hydrochlorothiazide 25 mg tablet 25 mg PO DAILY 01/30/25 01/30/25 01/29/25 History Physical Exam Vital Signs: Vital Signs: Last Vital Signs Temp 98.8 F 01/31/25 16:00 Pulse 108 H 01/31/25 17:00 Resp 17 01/31/25 17:00 BP 127/59 L 01/31/25 17:00 Pulse Ox 99 01/31/25 17:00 O2 Del Method Room Air 01/31/25 17:00 BMI result Body Mass Index 32.6 Const: General: comfortable and no acute distress Resp: Effort & Inspection: normal respiratory effort Cardio: Rate: tachycardic Rhythm: regular rhythm GI: Palpation (GI): Soft to palpation, not firm and nontender Extrem: Other: Has incisions all fingers with superficial induration on the 1st and 4 stumps on the left and the 5th stump on the right, no pus currently, no cellulitis Results Labs 02/01/25 03:27 02/01/25 11:59 Labs: Abnormal lab results 01/30/25 01/30/25 01/30/25 Range/Units 16:36 19:27 20:51 RBC (4.60-5.80) X10*6/uL Hgb (14.0-18.0) g/dl Hct (42.0-52.0) % MCV (80.0-98.0) fL MCH (27.0-33.0) pg MCHC (31.0-36.0) g/dl RDW (11.0-16.0) % MPV (9.4-12.4) fL Immature Gran % (Auto) (0.0-0.4) % Neut % (Auto) (45-73) % Lymph % (Auto) (20-40) % Lymph # (Auto) (1.2-4.9) X10*3/uL Abs Immat Gran (auto) (0.00-0.03) X10*3/uL ABG pH at Pt Temp (7.35-7.45) ABG pCO2 at Pt Temp (32-45) mmHg ABG pO2 at Pt Temp (83-108) mmHg ABG HCO3 (22-26) mmol/L VBG HCO3 (22-26) mmol/L Sodium (135-145) mmol/L Potassium 5.7 H (3.3-5.1) mmol/L Chloride (96-108) mmol/L Carbon Dioxide (22-29) mmol/L BUN (9-16) mg/dL Creatinine (0.5-1.4) mg/dL POC Glucose 135 H (60-115) mg/dL Random Glucose (60-115) mg/dL Magnesium (1.6-2.6) mg/dL AST 69 H (5-37) U/L Troponin I High Sens (<3.5-35.0) ng/L Albumin 2.7 L (3.5-5.0) g/dL Lipase 96 H (8-78) U/L Beta-Hydroxybutyrate (0.02-0.27) mmol/L 01/31/25 01/31/25 01/31/25 Range/Units 07:39 07:45 11:26 RBC 4.06 L D (4.60-5.80) X10*6/uL Hgb 9.1 L D (14.0-18.0) g/dl Hct 30.3 L D (42.0-52.0) % MCV 74.6 L (80.0-98.0) fL MCH 22.4 L (27.0-33.0) pg MCHC 30.0 L (31.0-36.0) g/dl RDW 19.4 H (11.0-16.0) % MPV 9.2 L (9.4-12.4) fL Immature Gran % (Auto) 0.5 H (0.0-0.4) % Neut % (Auto) 91.8 H (45-73) % Lymph % (Auto) 3.7 L (20-40) % Lymph # (Auto) 0.3 L (1.2-4.9) X10*3/uL Abs Immat Gran (auto) 0.04 H (0.00-0.03) X10*3/uL ABG pH at Pt Temp (7.35-7.45) ABG pCO2 at Pt Temp (32-45) mmHg ABG pO2 at Pt Temp (83-108) mmHg ABG HCO3 (22-26) mmol/L VBG HCO3 11 L (22-26) mmol/L Sodium 134 L (135-145) mmol/L Potassium 5.6 H (3.3-5.1) mmol/L Chloride 113 H (96-108) mmol/L Carbon Dioxide 14 L (22-29) mmol/L BUN 56 H (9-16) mg/dL Creatinine 1.81 H (0.5-1.4) mg/dL POC Glucose 253 H (60-115) mg/dL Random Glucose 172 H (60-115) mg/dL Magnesium 1.4 L* (1.6-2.6) mg/dL AST (5-37) U/L Troponin I High Sens 72.1 H (<3.5-35.0) ng/L Albumin 3.2 L (3.5-5.0) g/dL Lipase (8-78) U/L Beta-Hydroxybutyrate 1.04 H (0.02-0.27) mmol/L 01/31/25 01/31/25 01/31/25 Range/Units 11:38 14:04 16:12 RBC (4.60-5.80) X10*6/uL Hgb (14.0-18.0) g/dl Hct (42.0-52.0) % MCV (80.0-98.0) fL MCH (27.0-33.0) pg MCHC (31.0-36.0) g/dl RDW (11.0-16.0) % MPV (9.4-12.4) fL Immature Gran % (Auto) (0.0-0.4) % Neut % (Auto) (45-73) % Lymph % (Auto) (20-40) % Lymph # (Auto) (1.2-4.9) X10*3/uL Abs Immat Gran (auto) (0.00-0.03) X10*3/uL ABG pH at Pt Temp 7.46 H (7.35-7.45) ABG pCO2 at Pt Temp 18 L* (32-45) mmHg ABG pO2 at Pt Temp 109 H (83-108) mmHg ABG HCO3 13 L (22-26) mmol/L VBG HCO3 (22-26) mmol/L Sodium (135-145) mmol/L Potassium (3.3-5.1) mmol/L Chloride (96-108) mmol/L Carbon Dioxide (22-29) mmol/L BUN (9-16) mg/dL Creatinine (0.5-1.4) mg/dL POC Glucose 203 H 166 H (60-115) mg/dL Random Glucose (60-115) mg/dL Magnesium (1.6-2.6) mg/dL AST (5-37) U/L Troponin I High Sens (<3.5-35.0) ng/L Albumin (3.5-5.0) g/dL Lipase (8-78) U/L Beta-Hydroxybutyrate (0.02-0.27) mmol/L Short CBC 01/31/25 Range/Units 07:39 WBC 8.6 (4.8-10.8) X10*3/uL Hgb 9.1 L D (14.0-18.0) g/dl Hct 30.3 L D (42.0-52.0) % Plt Count 162 D (160-400) X10*3/uL BMP 01/30/25 01/31/25 19:27 07:39 Sodium 134 L Potassium 5.7 H 5.6 H Chloride 113 H Carbon Dioxide 14 L BUN 56 H Creatinine 1.81 H Calcium 8.7 Liver Function 01/30/25 01/31/25 Range/Units 16:36 07:39 Total Bilirubin 0.3 0.4 (0.0-1.0) mg/dL Direct Bilirubin 0.1 (0.0-0.5) mg/dL AST 69 H 33 (5-37) U/L ALT 21 22 (0-40) U/L Alkaline Phosphatase 62 52 (39-117) U/L Albumin 2.7 L 3.2 L (3.5-5.0) g/dL Urine 01/30/25 Range/Units 13:37 Urine Color Yellow Urine Appearance Cloudy Urine pH 5.5 (5.0-9.0) Ur Specific [place] 1.015 (1.005-1.025) Urine Protein 30 (1+) H (Neg-Trace) mg/dL Urine Glucose (UA) 500 H (Negative) mg/dL All other labs normal. Assessment and Plan (1) Finger ulcer: Status: Acute He has superficial ulcerations on the 1st and 4th finger on the left and the 5th finger on the right at the stumps of his amputations. There is no obvious necrotic tissue. I do not feel that he will require any surgical debridement at this time. I would recommend good wound care and hygiene for these small superficial ulcers. He was other medical problems at this time I have reached out to the [facility] Surgery Service but they are unavailable for the next 2 weeks. Procedures Date of Service Date of Service: 02/01/25
--- NOTE | 2025-01-31 18:52 | HO.WOUND ---
Wound Consult: Initial 69yr old? male admitted to [facility] on 01/30/25 17:29 - See progress notes and H&P for detailed history.? Wound consult placed for Fingers.? Patient agreeable to assessment and photo documentation.? patient brother at bedside - he reports he cares for the brothers wounds. He reports he treats out in [facility] with a plastic surgeon for his fingers. He viewed the wounds with me and reports they are all improved at this time. I did voice my concern for the left hand 5th finger he reports he felt the site was overall improving compared to past ulcerations. The left 5th finger does probe close to bone i did not appreciate bone exposure but given the close proximity I discussed with Dr. Roman to consider imaging to rule out osteo and source of sepsis. Will defer to provider for imaging if needed. The patient brother reports he uses Mupirocin to the sites when he feels they need attention. There is not indication at this time for Mupriocin on the right hand and the left hand wound benefit from small light packing would not recommend Mupriorcin use at this time. Right Fingers Left 5th Finger Etiology: ?Self inflicted wound from chewing on fingers - per family statement Present on Admission Wound Bed: various stages of wound beds - left 5th finger is most concerning Drainage / Odor: schneider yellow from left 5th finger other wounds are not noted to be draining [place] wound: intact ? No Induration, Fluctuance or Warmth noted Goals of Treatment: ? Moisture management to left finger and right hand to keep covered and allow for continued healing Recommendations: 1. Turn and Reposition every 2 hours and as needed for patient comfort.? Use pillows or wedges to support off loading positions. 2. Off Load all bony prominences with use of pillows and heel boots if needed.? Apply Preventative foams where needed. ? 3. Monitor for incontinence and moisture control, use barrier creams when needed for prevention and treatment. 4. Provide adequate and supplemental nutrition.? 5. Continue low air loss mattress. 6. When applicable maintain blood glucose levels per Providers order. Left 5th finger - Cleanse with NS moist gauze, Lightly pack or cover wound bed with Durafiber AG, dry gauze and wrap. Change every other day. Right Fingers - Cleanse with NS moist gauze, Cover wound bed with xeroform, dry gauze and wrap. Change every other day. Re-consult wound care Nurse for wound deterioration or wound changes.
[2025-01-31 20:11] LABS: VBG HCO3 15 mmol/L (22-26); VBG O2 % Saturation 94.0 %
[2025-01-31 20:16] LABS: Glucose, Whole Blood 151 mg/dL (60-115)
[2025-01-31 20:48] LABS: Albumin Level 3.0 g/dL (3.5-5.0); Anion Gap 14 (12-20); Blood Urea Nitrogen 39 mg/dL (9-16); Calcium 8.4 mg/dL (8.4-10.2); Carbon Dioxide 14 mmol/L (22-29); Chloride 107 mmol/L (96-108); Creatinine Clr Calc Pharmacy 55.1; Estimated Glomerular Filt Rate 46; Magnesium 1.6 mg/dL (1.6-2.6); Potassium 4.7 mmol/L (3.3-5.1); Sodium 130 mmol/L (135-145)
[2025-01-31] MEDS: Sodium,Potassium Phosphates POWD.PACK 2 PACKET PO (21:18)
[2025-01-31] MEDS: Albumin Human 25 % 100 ML IV (21:18)
[2025-01-31 23:08] LABS: Venous Blood Gas Refer to POC result
[2025-02-01] VITALS (10 sets, daily range): BP systolic 97–126; BP diastolic 47–72; PULSE 102–111; RESP 16–26; TEMP 36–37.1; O2SAT 94–100; BMI 32.6
--- NOTE | 2025-02-01 02:45 | PM.CCPN ---
Subjective Subjective Date of Service: 02/01/25 Interval History: This is a 69-year-old male with a past medical history of peripheral artery disease s/p? right BKA, multiple fingers amputations, coronary artery disease, insulin-dependent type 2 diabetes, hypertension, hyperlipidemia, gout,? and possible cognitive impairment (lives with brother who feeds him and administers meds) who presented to the? emergency department with generalized weakness and lethargy.? In the ED pt was febrile up to 103.1, tachycardic up to 122, tachypneic up to 26, and soft BP as low as 96/45, satting at 100%? Labs were significant for leukocytosis of 15.5, potassium 6.5, creatinine 1.97 (previous 1.32), lactic acid 2.2, AST 69, and lipase 96.? UA positive for UTI.? Tested negative for flu, COVID, RSV. CXR showed no acute airspace disease. Treated in the ED with acetaminophen, IVF, albuterol, calcium gluconate, insulin, dextrose, Lokelma, vancomycin, and ceftriaxone. ? He was initially admitted to Hospital Medicine? for UTI with sepsis,? hyperkalemia,? and QUINTEN in the setting of diuretic use and poor p.o. Intake.? He was treated with ceftriaxone. Hospital course complicated by severe hypotension despite fluid resuscitation, require transfer to ICU? in the evening of 01/30/2025,? due to hypotension requiring vasopressor support. Antibiotic coverage broaden with vancomycin and Zosyn.? Patient?s blood cultures? as well as urine culture positive for GPC.? ?Patient has multiple fingers amputations, with superficial ulcerations on the 1st and 4th finger on the left and the 5th finger on the right at the stumps of his amputations. ? Attempted to obtain CT of the hands to rule out osteomyelitis,? but it was unsuccessful due to motion.? General surgery, Dr Katz, consulted,? did not believe patient has require surgical debridement at this time,? he attempted to contact hand surgery service but they were unavailable for the next 2 weeks.? Will obtain three-phase bone scan to rule out osteomyelitis Patient weaned off Vasopressor support on 01/31/2025. Okay to be downgraded to medical floor. Please follow up with nuclear med imaging Critical Care Time (minutes): 30 Physical Exam Vital Signs: Vital Signs: Last Vital Signs Temp 98.2 F 02/01/25 00:00 Pulse 105 H 02/01/25 02:00 Resp 25 H 02/01/25 02:00 BP 123/69 02/01/25 02:00 Pulse Ox 99 02/01/25 02:00 O2 Del Method Room Air 02/01/25 02:00 BMI result Body Mass Index 32.6 Objective Data Labs 01/31/25 07:39 01/31/25 20:05 Labs: Laboratory Results - last 24 hr 01/31/25 01/31/25 01/31/25 07:39 07:45 11:26 WBC 8.6 RBC 4.06 L D Hgb 9.1 L D Hct 30.3 L D MCV 74.6 L MCH 22.4 L MCHC 30.0 L RDW 19.4 H Plt Count 162 D MPV 9.2 L Immature Gran % (Auto) 0.5 H Neut % (Auto) 91.8 H Lymph % (Auto) 3.7 L [place] % (Auto) 3.4 Eos % (Auto) 0.1 Baso % (Auto) 0.5 Lymph # (Auto) 0.3 L [place] # (Auto) 0.3 Eos # (Auto) 0.0 Baso # (Auto) 0.0 Abs Immat Gran (auto) 0.04 H Absolute Neuts (auto) 7.9 Absolute Nucleated RBC 0.000 Nucleated RBC % (auto) 0.0 Smear Tech's Comments VERIFIED O2 Saturation ABG pH at Pt Temp ABG pCO2 at Pt Temp ABG pO2 at Pt Temp ABG HCO3 ABG Base Excess (Actual) VBG pH 7.43 VBG pCO2 17 VBG pO2 206 VBG HCO3 11 L VBG O2 Saturation 99.0 VBG Base Excess -10.4 Sodium 134 L Potassium 5.6 H Chloride 113 H Carbon Dioxide 14 L Anion Gap 13 BUN 56 H Creatinine 1.81 H Estim Creat Clear Calc 45.6 Estimated GFR 37 POC Glucose 253 H Random Glucose 172 H Lactic Acid 1.6 Calcium 8.7 Phosphorus 3.1 Magnesium 1.4 L* Total Bilirubin 0.4 AST 33 ALT 22 Alkaline Phosphatase 52 Troponin I High Sens 72.1 H Total Protein 7.0 Albumin 3.2 L Lipase 41 Beta-Hydroxybutyrate 1.04 H Procalcitonin 13.37 Ur Random Sodium Ur Random Potassium Ur Random Chloride 01/31/25 01/31/25 01/31/25 11:38 14:04 16:01 WBC RBC Hgb Hct MCV MCH MCHC RDW Plt Count MPV Immature Gran % (Auto) Neut % (Auto) Lymph % (Auto) [place] % (Auto) Eos % (Auto) Baso % (Auto) Lymph # (Auto) [place] # (Auto) Eos # (Auto) Baso # (Auto) Abs Immat Gran (auto) Absolute Neuts (auto) Absolute Nucleated RBC Nucleated RBC % (auto) Smear Tech's Comments O2 Saturation 99.0 ABG pH at Pt Temp 7.46 H ABG pCO2 at Pt Temp 18 L* ABG pO2 at Pt Temp 109 H ABG HCO3 13 L ABG Base Excess (Actual) -7.8 VBG pH VBG pCO2 VBG pO2 VBG HCO3 VBG O2 Saturation VBG Base Excess Sodium Potassium Chloride Carbon Dioxide Anion Gap BUN Creatinine Estim Creat Clear Calc Estimated GFR POC Glucose 203 H Random Glucose Lactic Acid Calcium Phosphorus Magnesium Total Bilirubin AST ALT Alkaline Phosphatase Troponin I High Sens Total Protein Albumin Lipase Beta-Hydroxybutyrate Procalcitonin Ur Random Sodium 118.0 Ur Random Potassium 19.4 Ur Random Chloride 119.0 01/31/25 01/31/25 01/31/25 16:12 20:05 20:08 WBC RBC Hgb Hct MCV MCH MCHC RDW Plt Count MPV Immature Gran % (Auto) Neut % (Auto) Lymph % (Auto) [place] % (Auto) Eos % (Auto) Baso % (Auto) Lymph # (Auto) [place] # (Auto) Eos # (Auto) Baso # (Auto) Abs Immat Gran (auto) Absolute Neuts (auto) Absolute Nucleated RBC Nucleated RBC % (auto) Smear Tech's Comments O2 Saturation ABG pH at Pt Temp ABG pCO2 at Pt Temp ABG pO2 at Pt Temp ABG HCO3 ABG Base Excess (Actual) VBG pH 7.45 H VBG pCO2 21 VBG pO2 71 VBG HCO3 15 L VBG O2 Saturation 94.0 VBG Base Excess -6.8 Sodium 130 L Potassium 4.7 Chloride 107 Carbon Dioxide 14 L Anion Gap 14 BUN 39 H Creatinine 1.50 H Estim Creat Clear Calc 55.1 Estimated GFR 46 POC Glucose 166 H Random Glucose 167 H Lactic Acid Calcium 8.4 Phosphorus 2.6 L Magnesium 1.6 Total Bilirubin AST ALT Alkaline Phosphatase Troponin I High Sens Total Protein Albumin 3.0 L Lipase Beta-Hydroxybutyrate Procalcitonin Ur Random Sodium Ur Random Potassium Ur Random Chloride 01/31/25 20:12 WBC RBC Hgb Hct MCV MCH MCHC RDW Plt Count MPV Immature Gran % (Auto) Neut % (Auto) Lymph % (Auto) [place] % (Auto) Eos % (Auto) Baso % (Auto) Lymph # (Auto) [place] # (Auto) Eos # (Auto) Baso # (Auto) Abs Immat Gran (auto) Absolute Neuts (auto) Absolute Nucleated RBC Nucleated RBC % (auto) Smear Tech's Comments O2 Saturation ABG pH at Pt Temp ABG pCO2 at Pt Temp ABG pO2 at Pt Temp ABG HCO3 ABG Base Excess (Actual) VBG pH VBG pCO2 VBG pO2 VBG HCO3 VBG O2 Saturation VBG Base Excess Sodium Potassium Chloride Carbon Dioxide Anion Gap BUN Creatinine Estim Creat Clear Calc Estimated GFR POC Glucose 151 H Random Glucose Lactic Acid Calcium Phosphorus Magnesium Total Bilirubin AST ALT Alkaline Phosphatase Troponin I High Sens Total Protein Albumin Lipase Beta-Hydroxybutyrate Procalcitonin Ur Random Sodium Ur Random Potassium Ur Random Chloride Microbiology Microbiology Results: Microbiology 01/30/25 Unknown Urine Catheterized - Straight Catheter Urine Culture - Preliminary Gram positive cocci 01/30/25 13:29 Blood - Venous Blood Culture - Preliminary Gram positive cocci 01/30/25 13:29 Blood - Venous Blood Culture - Preliminary Gram positive cocci Quality Stroke Does the patient have a stroke diagnosis?: No VTE Prior VTE?: No VTE Risk Level:: Medical - moderate - high VTE Device Contraindication: Treatment Not Indicated VTE Drug Contraindication: N/A - Med Ordered
[2025-02-01] MEDS: Albumin Human 25 % 100 ML IV (03:12)
--- NOTE | 2025-02-01 03:14 | P.PNCC_ITS ---
Critical Care Event Note Summary Date of Service: 02/01/25 Code activated: No Narrative: This case had a high probability of a clinically significant, sudden, or life threatening deterioration of this patient's condition which required my full and direct attention, intervention and personal management. Critical Care Time (minutes): 30 Comment: This is a 69-year-old male with a past medical history of peripheral artery disease s/p? right BKA, multiple fingers amputations, coronary artery disease, insulin-dependent type 2 diabetes, hypertension, hyperlipidemia, gout,? and possible cognitive impairment (lives with brother who feeds him and administers meds) who presented to the? emergency department with generalized weakness and lethargy.? In the ED pt was febrile up to 103.1, tachycardic up to 122, tachypneic up to 26, and soft BP as low as 96/45, satting at 100%? Labs were significant for leukocytosis of 15.5, potassium 6.5, creatinine 1.97 (previous 1.32), lactic acid 2.2, AST 69, and lipase 96.? UA positive for UTI.? Tested negative for flu, COVID, RSV. CXR showed no acute airspace disease. Treated in the ED with acetaminophen, IVF, albuterol, calcium gluconate, insulin, dextrose, Lokelma, vancomycin, and ceftriaxone. ?He was initially admitted to Hospital Medicine? for UTI with sepsis,? hyperkalemia,? and QUINTEN in the setting of diuretic use and poor p.o. Intake.? He was treated with ceftriaxone. ?Hospital course complicated by severe hypotension despite fluid resuscitation, require transfer to ICU? in the evening of 01/30/25,? due to hypotension requiring vasopressor support. ? Antibiotic coverage broaden with vancomycin and Zosyn.?Patient also noted to a non-anion gap hyperchloremic metabolic acidosis with a moderate degree of renal insufficiency likely due to combination of spironolactone and lisinopril. This is likely the cause of hyperkalemia. Patient?s blood cultures? as well as urine culture positive for GPC.? ?Patient has multiple fingers amputations, with superficial ulcerations on the 1st and 4th finger on the left and the 5th finger on the right at the stumps of his amputations. ? Attempted to obtain CT of the hands to rule out osteomyeliti s,? but it was unsuccessful due to motion.? ?General surgery, Dr Katz, consulted,? did not believe patient has require surgical debridement at this time,? he attempted to contact hand surgery service but they were unavailable for the next 2 weeks.? Plan: Will obtain three-phase bone scan to rule out osteomyelitis. Continue vancomycin and Zosyn. Stop lisinopril cont po bicarb tabs Patient has been weaned off from vasopressor support since 01/31/2025. Will downgrade patient to medical floor. Please follow up with [facility] imaging
[2025-02-01 03:43] LABS: MANUAL DIFF FLAG NO
[2025-02-01 03:44] LABS: Hematocrit 31.8 % (42.0-52.0); Hemoglobin 9.8 g/dl (14.0-18.0); Imm Gran Abs Auto 0.03 X10*3/uL (0.00-0.03); Imm Gran Pct Auto 0.5 % (0.0-0.4); Lymphocytes Absolute Auto 0.5 X10*3/uL (1.2-4.9); Mean Corpuscular HGB Conc 30.8 g/dl (31.0-36.0); Mean Corpuscular Hemoglobin 22.7 pg (27.0-33.0); Mean Corpuscular Volume 73.6 fL (80.0-98.0); NRBC Abs Auto 0.000 X10*3/uL (0.0-0.012); NRBC Pct Auto 0.0 /100WBC (0.0-0.2); Platelet Count 135 X10*3/uL (160-400); Red Blood Count 4.32 X10*6/uL (4.60-5.80); White Blood Count 5.6 X10*3/uL (4.8-10.8)
[2025-02-01 03:45] LABS: VBG HCO3 14 mmol/L (22-26); VBG O2 % Saturation 100.0 %
[2025-02-01 03:59] LABS: Alanine Aminotransferase 18 U/L (0-40); Albumin Level 3.0 g/dL (3.5-5.0); Alkaline Phosphatase 52 U/L (39-117); Anion Gap 16 (12-20); Aspartate Amino Transferase 37 U/L (5-37); Blood Urea Nitrogen 36 mg/dL (9-16); Calcium 8.5 mg/dL (8.4-10.2); Carbon Dioxide 15 mmol/L (22-29); Chloride 106 mmol/L (96-108); Creatinine Clr Calc Pharmacy 53.7; Estimated Glomerular Filt Rate 45; Magnesium 1.5 mg/dL (1.6-2.6); Potassium 4.9 mmol/L (3.3-5.1); Sodium 132 mmol/L (135-145); Total Protein 6.7 g/dL (6.5-8.0)
[2025-02-01] MEDS: Magnesium Sulfate/H2O 2 GM/50 ML PIGGYBACK IV (04:27)
[2025-02-01 06:22] LABS: Venous Blood Gas Refer to POC result
[2025-02-01 08:41] LABS: Glucose, Whole Blood 206 mg/dL (60-115)
--- NOTE | 2025-02-01 09:08 | HO.PM.IMPN ---
Subjective Subjective Date of Service: 02/01/25 Interval History: Pt transferred back from the ICU last night Reports feels so much better than prior Mentating better Able to tolerate a full breakfast this morning Sodium still low, creatinine about the same Review of Systems No acute medical complaints Denies nausea, vomiting, abdominal pain No SOB or difficulty breathing Denies chest pain/pressure, palpitations Physical Exam Vital Signs: Vital Signs: Last Vital Signs Temp 98.8 F 02/01/25 08:00 Pulse 103 H 02/01/25 08:00 Resp 18 02/01/25 08:00 BP 116/58 L 02/01/25 08:00 Pulse Ox 100 02/01/25 08:00 O2 Del Method Room Air 02/01/25 08:00 BMI result Body Mass Index 32.6 General: AOx3, no acute distress Resp: CTA bilaterally CVS: S1, S2, RRR GI: +BS, NT, no distention Skin: Warm, dry Neuro: Cranial nerves II-XII grossly intact bilaterally. Motor grossly intact bilaterally Extremities: No edema. Right BKA. Left heel with mild redness, not quite stage 1 decubitus ulcer, as pictured below. Upper extremities with multiple finger amputations. Right hand with chronic wounds to first, second, and fourth digits. No signs of active infection. As pictured below. Left leg with area of erythema and superficial abrasions. Psych: Appropriate affect, mentating well Objective Data Active Medications Acetaminophen (Acetaminophen 325 Mg Tablet) 650 mg PO Q6H PRN PRN Reason: Pain, Mild 1-3,fever,headache Last Admin: 01/30/25 21:27 Dose: 650 mg Documented By: FRANCISCO Atorvastatin Calcium (Atorvastatin Calcium 80 Mg Tablet) 80 mg PO DAILY PENDING SALE TO [facility] Last Admin: 01/31/25 10:18 Dose: 80 mg Documented By: ROB Calcium Carbonate (Calcium Carbonate 750 Mg Tab.Chew) 750 mg PO Q4H PRN PRN Reason: Heartburn Dextrose (Dextrose 50 % 25 Gm/50 Ml Syringe) 25 gm IVPUSH Q15M PRN; Protocol PRN Reason: per Hypoglycemia Standing Ord. Enoxaparin Sodium (Enoxaparin Sodium 40 Mg/0.4 Ml Syringe) 40 mg SUBCUT Q24H PENDING SALE TO [facility] Last Admin: 01/31/25 21:17 Dose: 40 mg Documented By: ALMA Glucose (Glucose Gel 15 Gm Gel..Gram.) 15 gm PO Q15M PRN; Protocol PRN Reason: per Hypoglycemia Standing Ord. Piperacillin Sod/Tazobactam (Sod 3.375 gm/ Sodium Chloride) 50 mls @ 100 mls/hr IV Q6H PENDING SALE TO [facility] Last Infusion: 02/01/25 03:10 Dose: Infused Documented By: MIGUEL Vancomycin HCl 1,000 mg/ (Sodium Chloride) 270 mls @ 270 mls/hr IV Q24H PENDING SALE TO [facility] Last Infusion: 01/31/25 16:39 Dose: Infused Documented By: ROB Insulin Human Lispro (Insulin Lispro 100 Unit/Ml 3 Ml Vial) 0 unit SUBCUT QIDACHS PENDING SALE TO [facility]; Protocol Last Admin: 01/31/25 20:24 Dose: Not Given Documented By: MIGUEL Non-Admin Reason: No Insulin Coverage Magnesium Hydroxide (Milk Of Magnesia 30 Ml Oral.Susp) 30 ml PO DAILY PRN PRN Reason: Constipation Melatonin (Melatonin 3 Mg Tablet) 6 mg PO BEDTIME PRN PRN Reason: Insomnia Metoprolol Tartrate (Metoprolol Tartrate 25 Mg Tablet) 25 mg PO BID PENDING SALE TO [facility]; Protocol Pharmacy Consult (Consult Rx Vancomycin Dosing) 1 each MISCELLANE DAILY PRN PRN Reason: Consult order Sodium Bicarbonate (Sodium Bicarbonate 650 Mg Tablet) 650 mg PO TID PENDING SALE TO [facility] Last Admin: 01/31/25 21:18 Dose: 650 mg Documented By: ALMA Sodium Chloride (0.9 % Sodium Chloride Flush 3 Ml Syringe) 3 ml IVFLUSH QSHIFT PENDING SALE TO [facility] Last Admin: 01/31/25 21:19 Dose: 3 ml Documented By: ALMA Labs 02/01/25 03:27 02/01/25 11:59 Labs: Laboratory Results - last 24 hr 01/31/25 01/31/25 01/31/25 11:26 11:38 14:04 MCV MCH MCHC RDW Plt Count MPV Immature Gran % (Auto) Neut % (Auto) Lymph % (Auto) [place] % (Auto) Eos % (Auto) Baso % (Auto) Lymph # (Auto) [place] # (Auto) Eos # (Auto) Baso # (Auto) Abs Immat Gran (auto) Absolute Neuts (auto) Absolute Nucleated RBC Nucleated RBC % (auto) O2 Saturation 99.0 ABG pH at Pt Temp 7.46 H ABG pCO2 at Pt Temp 18 L* ABG pO2 at Pt Temp 109 H ABG HCO3 13 L ABG Base Excess (Actual) -7.8 VBG pH VBG pCO2 VBG pO2 VBG HCO3 VBG O2 Saturation VBG Base Excess Anion Gap Estim Creat Clear Calc Estimated GFR POC Glucose 203 H Random Glucose Lactic Acid 1.6 Calcium Phosphorus Magnesium Total Bilirubin AST ALT Alkaline Phosphatase Total Protein Albumin Beta-Hydroxybutyrate 1.04 H Procalcitonin 13.37 Ur Random Sodium Ur Random Potassium Ur Random Chloride 01/31/25 01/31/25 01/31/25 16:01 16:12 20:05 MCV MCH MCHC RDW Plt Count MPV Immature Gran % (Auto) Neut % (Auto) Lymph % (Auto) [place] % (Auto) Eos % (Auto) Baso % (Auto) Lymph # (Auto) [place] # (Auto) Eos # (Auto) Baso # (Auto) Abs Immat Gran (auto) Absolute Neuts (auto) Absolute Nucleated RBC Nucleated RBC % (auto) O2 Saturation ABG pH at Pt Temp ABG pCO2 at Pt Temp ABG pO2 at Pt Temp ABG HCO3 ABG Base Excess (Actual) VBG pH VBG pCO2 VBG pO2 VBG HCO3 VBG O2 Saturation VBG Base Excess Anion Gap 14 Estim Creat Clear Calc 55.1 Estimated GFR 46 POC Glucose 166 H Random Glucose 167 H Lactic Acid Calcium 8.4 Phosphorus 2.6 L Magnesium 1.6 Total Bilirubin AST ALT Alkaline Phosphatase Total Protein Albumin 3.0 L Beta-Hydroxybutyrate Procalcitonin Ur Random Sodium 118.0 Ur Random Potassium 19.4 Ur Random Chloride 119.0 01/31/25 01/31/25 02/01/25 20:08 20:12 03:27 MCV 73.6 L MCH 22.7 L MCHC 30.8 L RDW 19.6 H Plt Count 135 L MPV 8.8 L Immature Gran % (Auto) 0.5 H Neut % (Auto) 82.9 H Lymph % (Auto) 8.4 L [place] % (Auto) 7.1 Eos % (Auto) 0.4 Baso % (Auto) 0.7 Lymph # (Auto) 0.5 L [place] # (Auto) 0.4 Eos # (Auto) 0.0 Baso # (Auto) 0.0 Abs Immat Gran (auto) 0.03 Absolute Neuts (auto) 4.7 Absolute Nucleated RBC 0.000 Nucleated RBC % (auto) 0.0 O2 Saturation ABG pH at Pt Temp ABG pCO2 at Pt Temp ABG pO2 at Pt Temp ABG HCO3 ABG Base Excess (Actual) VBG pH 7.45 H VBG pCO2 21 VBG pO2 71 VBG HCO3 15 L VBG O2 Saturation 94.0 VBG Base Excess -6.8 Anion Gap 16 Estim Creat Clear Calc 53.7 Estimated GFR 45 POC Glucose 151 H Random Glucose 169 H Lactic Acid Calcium 8.5 Phosphorus 3.2 Magnesium 1.5 L Total Bilirubin 0.5 AST 37 ALT 18 Alkaline Phosphatase 52 Total Protein 6.7 Albumin 3.0 L Beta-Hydroxybutyrate Procalcitonin Ur Random Sodium Ur Random Potassium Ur Random Chloride 02/01/25 02/01/25 03:39 08:36 MCV MCH MCHC RDW Plt Count MPV Immature Gran % (Auto) Neut % (Auto) Lymph % (Auto) [place] % (Auto) Eos % (Auto) Baso % (Auto) Lymph # (Auto) [place] # (Auto) Eos # (Auto) Baso # (Auto) Abs Immat Gran (auto) Absolute Neuts (auto) Absolute Nucleated RBC Nucleated RBC % (auto) O2 Saturation ABG pH at Pt Temp ABG pCO2 at Pt Temp ABG pO2 at Pt Temp ABG HCO3 ABG Base Excess (Actual) VBG pH 7.36 VBG pCO2 25 VBG pO2 146 VBG HCO3 14 L VBG O2 Saturation 100.0 VBG Base Excess -9.1 Anion Gap Estim Creat Clear Calc Estimated GFR POC Glucose 206 H Random Glucose Lactic Acid Calcium Phosphorus Magnesium Total Bilirubin AST ALT Alkaline Phosphatase Total Protein Albumin Beta-Hydroxybutyrate Procalcitonin Ur Random Sodium Ur Random Potassium Ur Random Chloride Microbiology Microbiology Results: Microbiology 01/30/25 Unknown Urine Culture - Final Urine Catheterized - Straight Catheter Staphylococcus lugdunensis 01/30/25 13:29 Blood Culture - Preliminary Blood - Venous Gram positive cocci 01/30/25 13:29 Blood Culture - Preliminary Blood - Venous Gram positive cocci Assessment and Plan (1) QUINTEN (acute kidney injury): Status: Acute (2) Acute UTI: Status: Acute Plan Pt is a 69-year-old male with a PMH significant for?PAD s/p right BKA, multiple finger amputations, CAD, insulin-dependent type 2 diabetes, HTN, HLD, and gout who presents to the ED from home with?generalized weakness and lethargy. Pt originally admitted to the hospital for treatment and further evaluation of UTI with sepsis and hyperkalemia and QUINTEN in the setting of diuretic use and poor p.o. intake. Hospital course was complicated by severe hypotension despite IVF and albumin resuscitation, and pt was transferred to the ICU in the evening of 01/30/2025 for vasopressor support. UTI with severe sepsis UA+, pt with generalized weakness, lethargy, reduced p.o. intake at home Met sepsis criteria with severe features with fever, tachycardia, tachypnea, and lactic acid 2.2 Pt was given sepsis bolus fluids and started on broad-spectrum antibiotics in the ED After being brought to the floor pt became hypotensive at 76/46 not responsive to IVF or albumin, was transferred on 02/10 ICU for pressor support, transferred back to the floor on 02/01/2025 Initially treated with vancomycin and Zosyn, started 01/30/2025; now switched to cefazolin Urine culture growing Staphylococcus lugdunensis Bacteremia 2/2 blood cultures positive for non MRSA Staphylococcus aureus Treat with abx as above Follow repeat blood cultures QUINTEN and hyperkalemia, hyponatremia Pt noted to have a non-anion gap hyperchloremic metabolic acidosis Secondary to hypovolemia in the setting of reduced p.o. intake and continued hydrochlorothiazide and spironolactone use Creatinine slowly improving, 1.97-->1.50, baseline 1.30 Hyperkalemia resolved Per nephrology, will stop oral sodium bicarb, check urine osmolality Hold diuretics, avoid nephrotoxins, I&O monitoring Trend labs Monitor on telemetry Chronic hand wounds Pt with chronic superficial ulceration of right 1st, 2nd, and 4th digits Seen by general surgery, no acute intervention needed at this time Follow up bones scan to rule out osteomyelitis Question of left lower extremity cellulitis Pt with questionable cellulitis vs chronic venous stasis dermatitis Being covered by abx as above Insulin-dependent type [address] sliding scale insulin Hold metformin, Farxiga, Trulicity HTN Hold lisinopril, hydrochlorothiazide, and spironolactone due to QUINTEN and electrolyte abnormalities Full Code Attending:?Dr. Mlapah DVT Prophylaxis: Lovenox Pt will require a hospitalization of at least two nights for treatment of UTI with sepsis and hyperkalemia and QUINTEN in the setting of hypovolemia from diuretic use and poor p.o. intake. Pt will require administration of IV antibiotics, IVF, and close monitoring of electrolytes and labs. Quality Stroke Does the patient have a stroke diagnosis?: No VTE Prior VTE?: No VTE Risk Level:: Medical - moderate - high VTE Device Contraindication: Treatment Not Indicated VTE Drug Contraindication: N/A - Med Ordered
[2025-02-01] MEDS: 0.9 % Sodium Chloride Flush 3 ML SYRINGE IVFLUSH ×2 (09:09→19:55)
--- NOTE | 2025-02-01 09:38 | P.CONNP_ITS ---
History of Present Illness Reason for Consult Consult date: 02/01/25 Chief Complaint Chief complaint: UTI sepsis History of Present Illness Narrative: 69 y/o male with PAD s/p right BKA, multiple finger amputations (on chronic amoxilcillin for 1 year, stopped late October and since has had a slow decline per brother), CAD, insulin-dependent type 2 diabetes, HTN, HLD, and gout. ?cognitive impairment, lives at home with his brother who is his caregiver. Presented 01/30 with generalized weakness and lethargy, per brother reportedly not eating and drinking well for past 2 weeks. Nephrology consulted for QUINTEN and metabolic acidosis. Most recent creatinine available prior to hospitalization from Aug 2023, was 1.32. creatinine at presentation 1.97- hydrochlorothiazide and spironolactone held since admission. blood pressures 76/46 on 01/30, also had low BP of 92/41 evening on 01/31 CT kidneys unremarkable without hydronephrosis/stones has developed mild hyponatremia- serum Na 132; urine sodium <20, no urine osm. urine output ~2500 over last 24 hours serum bicarb 15 on 01/30, between 12 and 15 since. Has been started on oral sodium bicarb- ABG pH 7.46 with pCO2 of 18 patient states he feels well at bedside. states he feels to be in his normal state of health- denies complaints/concerns. Review of Systems Constitutional: Reports no additional constitutional complaints Cardiovascular: Denies chest pain, Denies leg edema, Denies lightheadedness and Denies dyspnea Respiratory: Denies dyspnea Gastrointestinal: Denies abdominal pain, Denies diarrhea, Denies nausea and Reports vomiting Genitourinary: Denies hematuria, Denies oliguria, Denies difficulty urinating and Denies dysuria Musculoskeletal: Denies arthralgias and Denies muscle cramps Skin/Breast: Denies rash PMFSH Past Medical History Medical History (Updated 02/01/25 @ 09:51 by Raiza Pruett, DIANNA, [employer]) Finger ulcer Amputation finger Gout Coronary artery disease Hypertension, essential Type 2 diabetes mellitus Surgical History Surgical History Hx of right BKA Social History Social History Household Members: Other Household Members Other:: brother Housing: House Do you presently have visiting nurse or other home services: No Patient Tobacco Use Status: Never used Tobacco Smoked in Last 30 Days: No Use of substances other than those prescribed or required for medical reasons: No Currently Displaying Signs/Symptoms of Drug Intoxication Withdrawal: No Have you been hit, kicked, punched, or otherwise hurt by someone within the past year? If so, by whom?: No Do you feel safe in your current relationship?: No Current Relationship Is there a partner from a previous relationship who is making you feel unsafe now?: No Are you made to feel afraid or neglected: No Advance Directives: Yes Advance Directives on File: Yes Advance Directives Date on File: 07/31/23 Do you have a plan to hurt others: No Plan Recently lost weight without trying: No service: No Meds Allergies Allergy/AdvReac Type Severity Reaction Status Date / Time No Known Allergies Allergy Verified 01/30/25 13:14 Active Medications: Current Medications Acetaminophen (Acetaminophen 325 Mg Tablet) 650 mg PO Q6H PRN PRN Reason: Pain, Mild 1-3,fever,headache Last Admin: 01/30/25 21:27 Dose: 650 mg Atorvastatin Calcium (Atorvastatin Calcium 80 Mg Tablet) 80 mg PO DAILY [facility] Last Admin: 02/01/25 08:52 Dose: 80 mg Calcium Carbonate (Calcium Carbonate 750 Mg Tab.Chew) 750 mg PO Q4H PRN PRN Reason: Heartburn Dextrose (Dextrose 50 % 25 Gm/50 Ml Syringe) 25 gm IVPUSH Q15M PRN; Protocol PRN Reason: per Hypoglycemia Standing Ord. Enoxaparin Sodium (Enoxaparin Sodium 40 Mg/0.4 Ml Syringe) 40 mg SUBCUT Q24H [facility] Last Admin: 01/31/25 21:17 Dose: 40 mg Glucose (Glucose Gel 15 Gm Gel..Gram.) 15 gm PO Q15M PRN; Protocol PRN Reason: per Hypoglycemia Standing Ord. Piperacillin Sod/Tazobactam (Sod 3.375 gm/ Sodium Chloride) 50 mls @ 100 mls/hr IV Q6H [facility] Last Admin: 02/01/25 08:53 Dose: 100 mls/hr Vancomycin HCl 1,000 mg/ (Sodium Chloride) 270 mls @ 270 mls/hr IV Q24H [facility] Last Infusion: 01/31/25 16:39 Dose: Infused Insulin Human Lispro (Insulin Lispro 100 Unit/Ml 3 Ml Vial) 0 unit SUBCUT QIDACHS [facility]; Protocol Last Admin: 02/01/25 08:53 Dose: 4 unit Magnesium Hydroxide (Milk Of Magnesia 30 Ml Oral.Susp) 30 ml PO DAILY PRN PRN Reason: Constipation Melatonin (Melatonin 3 Mg Tablet) 6 mg PO BEDTIME PRN PRN Reason: Insomnia Metoprolol Tartrate (Metoprolol Tartrate 25 Mg Tablet) 25 mg PO BID [facility]; Protocol Last Admin: 02/01/25 08:53 Dose: 25 mg Pharmacy Consult (Consult Rx Vancomycin Dosing) 1 each MISCELLANE DAILY PRN PRN Reason: Consult order Sodium Bicarbonate (Sodium Bicarbonate 650 Mg Tablet) 650 mg PO TID [facility] Last Admin: 02/01/25 08:53 Dose: 650 mg Sodium Chloride (0.9 % Sodium Chloride Flush 3 Ml Syringe) 3 ml IVFLUSH QSHIFT [facility] Last Admin: 02/01/25 09:09 Dose: 3 ml Home Medications ?Medication ?Instructions ?Recorded ?Confirmed ?Last Taken ?Type atorvastatin 80 mg tablet 80 mg PO DAILY 07/30/23/08/2601/29/25 History dapagliflozin propanediol 10 mg 10 mg PO DAILY 3 01/30/25 01/29/25 History tablet (Farxiga) dulaglutide 4.5 mg/0.5 mL 4.5 mg subcut WE 07/30/2301/24/25 History subcutaneous pen injector (Trulicity) insulin lispro protamine-lispro 28 unit subcut BIDAC 1 01/30/25 01/29/25 History 100 unit/mL (75-25) subcutaneous pen (Humalog Mix 75-25 KwikPen) lisinopril 40 mg tablet 40 mg PO DAILY 07/30/23/08/2601/29/25 History metformin 500 mg tablet 1,000 mg PO BID 07/30/2308/2601/29/25 History metoprolol succinate 200 mg 200 mg PO DAILY 07/30/23 0 01/30/25 01/29/25 History tablet,extended release 24 hr spironolactone 25 mg tablet 25 mg PO DAILY 07/30/2325 History hydrochlorothiazide 25 mg tablet 25 mg PO DAILY 01/30/25 01/29/25 History Physical Exam Vital Signs: Last Vital Signs Temp 98.8 F 02/01/25 08:00 Pulse 103 H 02/01/25 08:00 Resp 18 02/01/25 08:00 BP 116/58 L 02/01/25 08:00 Pulse Ox 100 02/01/25 08:00 O2 Del Method Room Air 02/01/25 08:00 BMI result Body Mass Index 32.6 Const General: no acute distress, alert and awake Resp Effort & Inspection: normal respiratory effort and able to speak in complete sentences Auscultation: clear to auscultation bilaterally Cardio Rate: regular rate Rhythm: regular rhythm Heart sounds: S1 normal heart sound present and S2 normal heart sound present GI Palpation (GI): Soft to palpation and nontender General: Yes no CVA tenderness Back/Spine/Pelvis Back: no CVA tenderness Skin Rashes: no rashes Extrem General: No edema Results Lab Results 02/01/25 03:27 02/01/25 11:59 Lab results: Chemistry 01/30/25 01/30/25 01/30/25 13:29 16:36 19:27 Sodium 138 135 Potassium 6.5 H* 5.8 H 5.7 H Carbon Dioxide 15 L 12 L BUN 73 H 65 H Creatinine 1.97 H 1.95 H Calcium 9.7 D 8.7 D Phosphorus 01/31/25 01/31/25 02/01/25 07:39 20:05 03:27 Sodium 134 L 130 L 132 L Potassium 5.6 H 4.7 4.9 Carbon Dioxide 14 L 14 L 15 L BUN 56 H 39 H 36 H Creatinine 1.81 H 1.50 H 1.54 H Calcium 8.7 8.4 8.5 Phosphorus 3.1 2.6 L 3.2 Hematology 01/30/25 01/31/25 02/01/25 13:29 07:39 03:27 WBC 15.5 H 8.6 5.6 Hgb 11.5 L 9.1 L D 9.8 L Plt Count 281 162 D 135 L Urinalysis 01/30/25 13:37 Urine Color Yellow Urine Appearance Cloudy Urine pH 5.5 Ur Specific [place] 1.015 Urine Protein 30 (1+) H Urine Glucose (UA) 500 H Urine Ketones Negative Urine Blood Moderate (2+) H Urine Nitrite Negative Ur Leukocyte Esterase Large (3+) H Urine RBC 3-5 H Urine WBC >50 H Ur Squamous Epith Cells 0-2 Hyaline Casts 0-2 Assessment and Plan (1) QUINTEN (acute kidney injury): Status: Acute (2) Hyponatremia: Status: Acute (3) Respiratory alkalosis: Status: Acute Plan QUINTEN likely tubular injury secondary to hemodynamic QUINTEN and reduced oral intake in setting of diuretic use, as well as improving. recommend continuing to hold diuretics patient has respiratory alkalosis with metabolic compensation given ABG- recommend discontinuing oral sodium bicarb and treating respiratory alkalosis. hyponatremia- ?siadh given elevated urine sodium, will check urine osm Recommend daily electrolyte and renal function studies recommend I&O monitoring avoid nephrotoxins, will check vancomycin levels continue supportive care Discussed with Dr Loomis. Procedures Date of Service Date of Service: 02/01/25
[2025-02-01 11:48] LABS: Glucose, Whole Blood 262 mg/dL (60-115)
--- NOTE | 2025-02-01 11:52 | CA_ITS ---
Transthoracic Echocardiogram Patient (Last, First, Middle): December,, Gender: Male Date of : 1955 Age: 69 Procedure Date: 02/01/2025 Procedure Type: Transthoracic Echocardiogram [place] [facility] [place]: 177.8 cm Weight: 102.97 kg BSA: 2.20 m2 Heart Rate: 108 bpm BP: 112 / 55 mmHg Health Care Coordinator: MILTON Referring MD: Jesus Fine MD Chain Mortiser Operator: Ethan Deras MD Symptoms: bacteremia Study Quality: Technically Difficult ECG Rhythm: Ventriculary paced rhythm Conclusions: - 1. Technically limited study 2. Cardiac valvular vegetations can not be entirely ruled out on this study 3. Moderately reduced LV ejection fraction of 35-40% with impaired relaxation filling pattern 4. Calcific aortic and mitral valve changes noted with cardiac valvular Dopplers within normal limits 5. Normal measured RV systolic pressure Findings Procedure Information Contrast agent, definity, is being given per protocol without apparent complications. Left Ventricle The left ventricle was not well visualized. The visually estimated ejection fraction is between 35-40%. Regional wall motion abnormalities can not be excluded due to suboptimal endocardial definition. There is paradoxical septal motion consistent with a right ventricular pacemaker. Spectral Doppler is indicative of an impaired relaxation filling pattern. Right Ventricle The right ventricle was not well visualized. There is a pacemaker wire seen in the right ventricle. Atria The left atrium was not well visualized. Interatrial shunt cannot be excluded. The right atrium was not well visualized. Aortic Valve The aortic valve was not well visualized. There is moderate calcification of the aortic valve. There is no aortic valve stenosis. There is no aortic valve regurgitation. Mitral Valve There is moderate anterior and severe posterior mitral leaflet thickening. There is severe mitral annular calcification. There is trace mitral valve regurgitation. There is no mitral valve stenosis. Pulmonic Valve The pulmonic valve was not well visualized. Tricuspid Valve The tricuspid valve was not well visualized. There is trace tricuspid valve regurgitation. The right ventricular systolic pressure is 33 mmHg. Normal right atrial pressure. There is no evidence of pulmonary hypertension. Great Vessels The aorta was not well visualized. The pulmonary artery was not well visualized. Venous The inferior vena cava is normal in size. Pericardium/Pleural The pericardium was not well visualized. Prior Study Comparison No prior study available for comparison. Recommendations, Care & Conclusions Consider a LORI if clinically appropriate. Measurements 2D Linear Measurements IVSd: 0.93 0.6-0.9/0.6-1.0 cm LVIDd: 5.50 3.9-5.3/4.2-5.9 cm LVIDd Index: 2.50 2.4-3.2/2.2-3.1 cm/m2 LVIDs: 4.42 2.0-3.6 cm LVPWd: 0.79 0.7-1.1 cm LA Diam: 4.50 2.7-3.8/3.0-4.0 cm LAIDs Index: 2.05 1.5-2.3 cm/m2 LV Mass: 219.04 67-162/88-224 g LV Mass Index: 99.56 43-95/49-115 g/m2 LVOT Diam: 2.60 3.0+(-)1.3 cm Mitral Valve MV VTI: 0.21 MV Pk Ruddy: 1.46 MV Mn Ruddy: 0.91 MV Pk Grad: 9.00 MV Mn Grad: 4.00 MV Pk E: 0.88 MV PK A: 1.57 E/A: 0.60 E'Lateral: 8.92 E/E' Lat: 9.90 MVA Continuity: 2.30 Aortic Valve AoV Pk Ruddy: 1.51 AoV Pk Grad: 9.00 LOUIS: 2.42 LVOT LVOT Pk Ruddy: 0.63 LVOT Mn Ruddy: 0.43 LVOT VTI: 0.09 LVOT Pk Grad: 2.00 LVOT Mn Grad: 1.00 LVOT Diam: 2.60 LVOT Area: 5.31 Diastolic Function MV Pk E: 0.88 MV Pk A: 1.57 E/A: 0.60 E' Laterial: 8.92 E/E' Lat: 9.90 Tricuspid Valve TR Pk Ruddy: 2.74 TR Pk Grad: 30.00 RA Press: 3.00 RVSP: 33.00 Great Vessels Aorta Sinus of Valsalva: 3.80 2.0-3.5 cm Pulmonary Valve [place] Pk Ruddy: 0.62 Updated in Other Vendor System with Status of Final Ethan Deras MD electronically signed on 02/01/2025 3:57:17 PM with status of Final
[2025-02-01 12:33] LABS: Anion Gap 13 (12-20); Blood Urea Nitrogen 36 mg/dL (9-16); Calcium 8.4 mg/dL (8.4-10.2); Carbon Dioxide 19 mmol/L (22-29); Chloride 104 mmol/L (96-108); Creatinine Clr Calc Pharmacy 55.0; Estimated Glomerular Filt Rate 46; Magnesium 1.7 mg/dL (1.6-2.6); Potassium 4.9 mmol/L (3.3-5.1); Sodium 131 mmol/L (135-145)
[2025-02-01 16:29] LABS: Glucose, Whole Blood 301 mg/dL (60-115)
[2025-02-01 20:04] LABS: Glucose, Whole Blood 347 mg/dL (60-115)
[2025-02-02 03:46] VITALS: BP 118/60; PULSE 71; RESP 16; TEMP 35.9; O2SAT 95
[2025-02-02 06:00] VITALS: BMI 30.6
[2025-02-02 07:16] VITALS: BP 137/77; PULSE 92; RESP 18; TEMP 36.2; O2SAT 100
[2025-02-02 07:37] LABS: Alanine Aminotransferase 15 U/L (0-40); Albumin Level 3.2 g/dL (3.5-5.0); Alkaline Phosphatase 47 U/L (39-117); Anion Gap 13 (12-20); Aspartate Amino Transferase 34 U/L (5-37); Blood Urea Nitrogen 38 mg/dL (9-16); Calcium 8.6 mg/dL (8.4-10.2); Carbon Dioxide 19 mmol/L (22-29); Chloride 106 mmol/L (96-108); Creatinine Clr Calc Pharmacy 49.4; Estimated Glomerular Filt Rate 42; Potassium 4.4 mmol/L (3.3-5.1); Sodium 134 mmol/L (135-145); Total Protein 7.0 g/dL (6.5-8.0)
[2025-02-02] MEDS: 0.9 % Sodium Chloride Flush 3 ML SYRINGE IVFLUSH ×2 (07:52→20:05)
[2025-02-02 08:04] LABS: Glucose, Whole Blood 234 mg/dL (60-115)
--- NOTE | 2025-02-02 09:17 | HO.PM.IMPN ---
Subjective Subjective Date of Service: 02/02/25 Interval History: Overnight was having high volume urinary retention and had Arthur cath inserted, otherwise has no new complaint Physical Exam Vital Signs: Vital Signs: Last Vital Signs Temp 97.2 F 02/02/25 07:16 Pulse 92 02/02/25 07:16 Resp 18 02/02/25 07:16 BP 137/77 02/02/25 07:16 Pulse Ox 100 02/02/25 07:16 O2 Del Method Room Air 02/02/25 07:16 BMI result Body Mass Index 30.6 General: AOx3, no acute distress Resp: CTA bilaterally CVS: S1, S2, RRR GI: +BS, NT, no distention Skin: Warm, dry Neuro: Cranial nerves II-XII grossly intact bilaterally. Motor grossly intact bilaterally Extremities: No edema. Right BKA. Left heel with mild redness, not quite stage 1 decubitus ulcer, as pictured below. Upper extremities with multiple finger amputations. Right hand with chronic wounds to first, second, and fourth digits. No signs of active infection. As pictured below. Left leg with area of erythema and superficial abrasions. Psych: Appropriate affect, mentating well Objective Data Active Medications Acetaminophen (Acetaminophen 325 Mg Tablet) 650 mg PO Q6H PRN PRN Reason: Pain, Mild 1-3,fever,headache Last Admin: 01/30/25 21:27 Dose: 650 mg Documented By: FRANCISCO Atorvastatin Calcium (Atorvastatin Calcium 80 Mg Tablet) 80 mg PO DAILY [facility] Last Admin: 02/02/25 07:47 Dose: 80 mg Documented By: BRINA Calcium Carbonate (Calcium Carbonate 750 Mg Tab.Chew) 750 mg PO Q4H PRN PRN Reason: Heartburn Dextrose (Dextrose 50 % 25 Gm/50 Ml Syringe) 25 gm IVPUSH Q15M PRN; Protocol PRN Reason: per Hypoglycemia Standing Ord. Enoxaparin Sodium (Enoxaparin Sodium 40 Mg/0.4 Ml Syringe) 40 mg SUBCUT Q24H [facility] Last Admin: 02/01/25 19:54 Dose: 40 mg Documented By: KEYANNA Glucose (Glucose Gel 15 Gm Gel..Gram.) 15 gm PO Q15M PRN; Protocol PRN Reason: per Hypoglycemia Standing Ord. Cefazolin Sodium/Dextrose (Ancef) 2 gm in 50 mls @ 100 mls/hr IV Q8H [facility] Last Infusion: 02/02/25 03:55 Dose: Infused Documented By: KEYANNA Insulin Human Lispro (Insulin Lispro 100 Unit/Ml 3 Ml Vial) 0 unit SUBCUT QIDACHS [facility]; Protocol Last Admin: 02/02/25 07:47 Dose: 4 unit Documented By: BRINA Magnesium Hydroxide (Milk Of Magnesia 30 Ml Oral.Susp) 30 ml PO DAILY PRN PRN Reason: Constipation Melatonin (Melatonin 3 Mg Tablet) 6 mg PO BEDTIME PRN PRN Reason: Insomnia Metoprolol Tartrate (Metoprolol Tartrate 25 Mg Tablet) 25 mg PO BID [facility]; Protocol Last Admin: 02/02/25 07:47 Dose: 25 mg Documented By: BRINA Sodium Chloride (0.9 % Sodium Chloride Flush 3 Ml Syringe) 3 ml IVFLUSH QSHIFT [facility] Last Admin: 02/02/25 07:52 Dose: 3 ml Documented By: BRINA Labs 02/01/25 03:27 02/02/25 06:57 Labs: Laboratory Results - last 24 hr 02/01/25 02/01/25 02/01/25 11:42 11:59 16:25 Hold Purple Top Anion Gap 13 Estim Creat Clear Calc 55.0 Estimated GFR 46 POC Glucose 262 H 301 H Random Glucose 292 H Calcium 8.4 Magnesium 1.7 Total Bilirubin AST ALT Alkaline Phosphatase Total Protein Albumin Random Vancomycin 14.0 L 02/01/25 02/02/25 02/02/25 19:58 06:57 07:15 Hold Purple Top SEE NOTE Anion Gap 13 Estim Creat Clear Calc 49.4 Estimated GFR 42 POC Glucose 347 H 234 H Random Glucose 269 H Calcium 8.6 Magnesium Total Bilirubin 0.3 AST 34 ALT 15 Alkaline Phosphatase 47 Total Protein 7.0 Albumin 3.2 L Random Vancomycin Microbiology Microbiology Results: Microbiology 01/30/25 13:29 Blood Culture - Final Blood - Venous Staphylococcus aureus 01/30/25 13:29 Blood Culture - Final Blood - Venous Staphylococcus aureus 02/01/25 03:27 Blood Culture - Preliminary Blood - Venous No growth after 24 hours. 01/30/25 Unknown Urine Culture - Final Urine Catheterized - Straight Catheter Staphylococcus lugdunensis Assessment and Plan (1) QUINTEN (acute kidney injury): Status: Acute (2) Acute UTI: Status: Acute Plan Pt is a 69-year-old male with a PMH significant for?PAD s/p right BKA, multiple finger amputations, CAD, insulin-dependent type 2 diabetes, HTN, HLD, and gout who presents to the ED from home with?generalized weakness and lethargy. Pt originally admitted to the hospital for treatment and further evaluation of UTI with sepsis and hyperkalemia and QUINTEN in the setting of diuretic use and poor p.o. intake. Hospital course was complicated by severe hypotension despite IVF and albumin resuscitation, and pt was transferred to the ICU in the evening of 01/30/2025 for vasopressor support. UTI with severe sepsis UA+, pt with generalized weakness, lethargy, reduced p.o. intake at home Met sepsis criteria with severe features with fever, tachycardia, tachypnea, and lactic acid 2.2 Pt was given sepsis bolus fluids and started on broad-spectrum antibiotics in the ED After being brought to the floor pt became hypotensive at 76/46 not responsive to IVF or albumin, was transferred on 02/10 ICU for pressor support, transferred back to the floor on 02/01/2025 Initially treated with vancomycin and Zosyn, started 01/30/2025; now switched to cefazolin Urine culture growing Staphylococcus lugdunensis Bacteremia 2/2 blood cultures positive for non MRSA Staphylococcus aureus Treat with abx as above Follow repeat blood cultures pending ID consult echo 02/01, no vegetations Hyponatremia, supect SIADH, improving, sodium 134, hold diuretics QUINTEN, likely ATN from tubular injury Pt noted to have a non-anion gap hyperchloremic metabolic acidosis Secondary to hypovolemia in the setting of reduced p.o. intake and continued hydrochlorothiazide and spironolactone use Creatinine slowly improving, 1.97-->1.50, baseline 1.30-->1.62 Hyperkalemia resolved Chronic hand wounds Pt with chronic superficial ulceration of right 1st, 2nd, and 4th digits Seen by general surgery, no acute intervention needed at this time Follow up bones scan to rule out osteomyelitis Question of left lower extremity cellulitis Pt with questionable cellulitis vs chronic venous stasis dermatitis Being covered by abx as above Insulin-dependent type [address] sliding scale insulin Hold metformin, Farxiga, Trulicity HTN Hold lisinopril, hydrochlorothiazide, and spironolactone due to QUINTEN and electrolyte abnormalities Urinary retention, Flomax, urology consult if no improvement Full Code DVT Prophylaxis: Lovenox Quality Stroke Does the patient have a stroke diagnosis?: No VTE Prior VTE?: No VTE Risk Level:: Medical - moderate - high VTE Device Contraindication: Treatment Not Indicated VTE Drug Contraindication: N/A - Med Ordered
[2025-02-02 11:21] VITALS: BP 98/55; PULSE 86; RESP 20; TEMP 36.6; O2SAT 96
[2025-02-02 11:55] LABS: Glucose, Whole Blood 270 mg/dL (60-115)
--- NOTE | 2025-02-02 14:14 | MHC.CM.PN ---
CM met with pt. to ask about home care, his brother takes care of him, he does not have home health aids or a VNA. Pt. asked CM to call his brother. He said that as long as pt. is able to walk, he can go home with his current care, no need for VNA. If he can't walk, then he will have to go to [facility], choices are: [facility], [facility], and [facility], referrals out, awaiting PT addy.
[2025-02-02 15:50] VITALS: BP 115/55; PULSE 92; RESP 20; TEMP 36.3; O2SAT 98
[2025-02-02 16:25] LABS: Glucose, Whole Blood 307 mg/dL (60-115)
[2025-02-02 18:58] VITALS: BP 129/60; PULSE 91; RESP 18; TEMP 36.1; O2SAT 95
[2025-02-02 19:46] LABS: Glucose, Whole Blood 334 mg/dL (60-115)
[2025-02-02 22:53] VITALS: BP 112/56; PULSE 89; RESP 18; TEMP 35.9; O2SAT 94
[2025-02-03 03:05] VITALS: BP 143/63; PULSE 94; RESP 18; TEMP 36.9; O2SAT 99
[2025-02-03 05:56] VITALS: BMI 31.6
[2025-02-03 06:55] VITALS: BP 123/59; PULSE 90; RESP 18; TEMP 36.2; O2SAT 99
[2025-02-03 07:13] LABS: Glucose, Whole Blood 236 mg/dL (60-115)
[2025-02-03] MEDS: 0.9 % Sodium Chloride Flush 3 ML SYRINGE IVFLUSH ×2 (08:09→16:30)
--- NOTE | 2025-02-03 08:23 | HO.PM.IMPN ---
Subjective Subjective Date of Service: 02/03/25 Interval History: No new issues, he feels fine Physical Exam Vital Signs: Vital Signs: Last Vital Signs Temp 97.2 F 02/03/25 06:55 Pulse 90 02/03/25 06:55 Resp 18 02/03/25 06:55 BP 123/59 L 02/03/25 06:55 Pulse Ox 99 02/03/25 06:55 O2 Del Method Room Air 02/03/25 06:55 BMI result Body Mass Index 31.6 General: AOx3, no acute distress Resp: CTA bilaterally CVS: S1, S2, RRR GI: +BS, NT, no distention Skin: Warm, dry Neuro: Cranial nerves II-XII grossly intact bilaterally. Motor grossly intact bilaterally Extremities: No edema. Right BKA. Left heel with mild redness, not quite stage 1 decubitus ulcer, as pictured below. Upper extremities with multiple finger amputations. Right hand with chronic wounds to first, second, and fourth digits. No signs of active infection. As pictured below. Left leg with area of erythema and superficial abrasions. Psych: Appropriate affect, mentating well Objective Data Active Medications Acetaminophen (Acetaminophen 325 Mg Tablet) 650 mg PO Q6H PRN PRN Reason: Pain, Mild 1-3,fever,headache Last Admin: 01/30/25 21:27 Dose: 650 mg Documented By: FRANCISCO Atorvastatin Calcium (Atorvastatin Calcium 80 Mg Tablet) 80 mg PO DAILY [facility] Last Admin: 02/03/25 08:09 Dose: 80 mg Documented By: FRANKLYN Calcium Carbonate (Calcium Carbonate 750 Mg Tab.Chew) 750 mg PO Q4H PRN PRN Reason: Heartburn Dextrose (Dextrose 50 % 25 Gm/50 Ml Syringe) 25 gm IVPUSH Q15M PRN; Protocol PRN Reason: per Hypoglycemia Standing Ord. Enoxaparin Sodium (Enoxaparin Sodium 40 Mg/0.4 Ml Syringe) 40 mg SUBCUT Q24H [facility] Last Admin: 02/02/25 20:01 Dose: 40 mg Documented By: VENITA Glucose (Glucose Gel 15 Gm Gel..Gram.) 15 gm PO Q15M PRN; Protocol PRN Reason: per Hypoglycemia Standing Ord. Cefazolin Sodium/Dextrose (Ancef) 2 gm in 50 mls @ 100 mls/hr IV Q8H [facility] Last Infusion: 02/03/25 04:16 Dose: Infused Documented By: VENITA Insulin Human Lispro (Insulin Lispro 100 Unit/Ml 3 Ml Vial) 0 unit SUBCUT QIDACHS [facility]; Protocol Last Admin: 02/03/25 08:09 Dose: 4 unit Documented By: FRANKLYN Magnesium Hydroxide (Milk Of Magnesia 30 Ml Oral.Susp) 30 ml PO DAILY PRN PRN Reason: Constipation Melatonin (Melatonin 3 Mg Tablet) 6 mg PO BEDTIME PRN PRN Reason: Insomnia Metoprolol Tartrate (Metoprolol Tartrate 25 Mg Tablet) 25 mg PO BID [facility]; Protocol Last Admin: 02/03/25 08:09 Dose: 25 mg Documented By: FRANKLYN Sodium Chloride (0.9 % Sodium Chloride Flush 3 Ml Syringe) 3 ml IVFLUSH QSHIFT [facility] Last Admin: 02/03/25 08:09 Dose: 3 ml Documented By: FRANKLYN Tamsulosin HCl (Tamsulosin Hcl 0.4 Mg Capsule) 0.4 mg PO DAILY [facility] Last Admin: 02/03/25 08:09 Dose: 0.4 mg Documented By: FRANKLYN Labs 02/01/25 03:27 02/02/25 06:57 Labs: Laboratory Results - last 24 hr 02/02/25 02/02/25 02/02/25 11:19 15:47 19:38 POC Glucose 270 H 307 H 334 H 02/03/25 07:00 POC Glucose 236 H Microbiology Microbiology Results: Microbiology 02/01/25 03:27 Blood Culture - Preliminary Blood - Venous No growth after 48 hours. 01/30/25 13:29 Blood Culture - Final Blood - Venous Staphylococcus aureus 01/30/25 13:29 Blood Culture - Final Blood - Venous Staphylococcus aureus Assessment and Plan (1) QUINTEN (acute kidney injury): Status: Acute (2) Acute UTI: Status: Acute Plan Pt is a 69-year-old male with a PMH significant for?PAD s/p right BKA, multiple finger amputations, CAD, insulin-dependent type 2 diabetes, HTN, HLD, and gout who presents to the ED from home with?generalized weakness and lethargy. Pt originally admitted to the hospital for treatment and further evaluation of UTI with sepsis and hyperkalemia and QUINTEN in the setting of diuretic use and poor p.o. intake. Hospital course was complicated by severe hypotension despite IVF and albumin resuscitation, and pt was transferred to the ICU in the evening of 01/30/2025 for vasopressor support. UTI with severe sepsis UA+, pt with generalized weakness, lethargy, reduced p.o. intake at home Met sepsis criteria with severe features with fever, tachycardia, tachypnea, and lactic acid 2.2 Pt was given sepsis bolus fluids and started on broad-spectrum antibiotics in the ED After being brought to the floor pt became hypotensive at 76/46 not responsive to IVF or albumin, was transferred on 02/10 ICU for pressor support, transferred back to the floor on 02/01/2025 Initially treated with vancomycin and Zosyn, started 01/30/2025; now switched to cefazolin Urine culture growing Staphylococcus lugdunensis Bacteremia 2/ blood cultures positive for non MRSA Staphylococcus aureus, repeat culture 02/01 negative x 48 hrs Treat with abx as above Follow repeat blood cultures pending ID consult echo 02/01, no vegetations PICC line on wednesday Hyponatremia, supect SIADH, improving, sodium 134, hold diuretics QUINTEN, likely ATN from tubular injury Pt noted to have a non-anion gap hyperchloremic metabolic acidosis Secondary to hypovolemia in the setting of reduced p.o. intake and continued hydrochlorothiazide and spironolactone use Creatinine slowly improving, 1.97-->1.50, baseline 1.30-->1.62 Hyperkalemia resolved Chronic hand wounds Pt with chronic superficial ulceration of right 1st, 2nd, and 4th digits Seen by general surgery, no acute intervention needed at this time Follow up bones scan to rule out osteomyelitis Question of left lower extremity cellulitis Pt with questionable cellulitis vs chronic venous stasis dermatitis Being covered by abx as above Insulin-dependent type [address] on sliding scale insulin Hold metformin, Farxiga, Trulicity HTN Hold lisinopril, hydrochlorothiazide, and spironolactone due to QUINTEN and electrolyte abnormalities Urinary retention, Flomax, urology consult if no improvement Full Code DVT Prophylaxis: Lovenox Quality Stroke Does the patient have a stroke diagnosis?: No VTE Prior VTE?: No VTE Risk Level:: Medical - moderate - high VTE Device Contraindication: Treatment Not Indicated VTE Drug Contraindication: N/A - Med Ordered
[2025-02-03 11:04] VITALS: BP 118/58; PULSE 91; RESP 18; TEMP 36.3; O2SAT 100
[2025-02-03 11:26] LABS: Glucose, Whole Blood 291 mg/dL (60-115)
[2025-02-03 12:25] LABS: Anion Gap 15 (12-20); Blood Urea Nitrogen 33 mg/dL (9-16); Calcium 8.7 mg/dL (8.4-10.2); Carbon Dioxide 22 mmol/L (22-29); Chloride 105 mmol/L (96-108); Creatinine Clr Calc Pharmacy 61.6; Estimated Glomerular Filt Rate 54; Potassium 4.7 mmol/L (3.3-5.1); Sodium 137 mmol/L (135-145)
[2025-02-03 15:22] VITALS: BP 136/64; PULSE 97; RESP 20; TEMP 36.5; O2SAT 100
[2025-02-03 15:39] LABS: Glucose, Whole Blood 325 mg/dL (60-115)
[2025-02-03 19:48] VITALS: BP 129/58; PULSE 100; RESP 18; TEMP 36.2; O2SAT 100
[2025-02-03 20:11] LABS: Glucose, Whole Blood 320 mg/dL (60-115)
[2025-02-04] VITALS (8 sets, daily range): BP systolic 120–148; BP diastolic 58–69; PULSE 91–99; RESP 18; TEMP 36.1–36.6; O2SAT 95–100; BMI 31.6
[2025-02-04 07:21] LABS: Glucose, Whole Blood 344 mg/dL (60-115)
[2025-02-04] MEDS: 0.9 % Sodium Chloride Flush 3 ML SYRINGE IVFLUSH ×3 (08:37→19:52)
--- NOTE | 2025-02-04 09:41 | P.PNIM_ITS ---
Subjective Subjective Date of Service: 02/04/25 Interval History: No new issues, he feels fine Physical Exam 2 Vital Signs: Vital Signs: Last Vital Signs Temp 97.4 F 02/04/25 07:06 Pulse 97 02/04/25 08:36 Resp 18 02/04/25 07:06 BP 128/58 L 02/04/25 08:36 Pulse Ox 100 02/04/25 07:06 O2 Del Method Room Air 02/04/25 07:06 BMI result Body Mass Index 31.6 Objective Data Active Medications Acetaminophen (Acetaminophen 325 Mg Tablet) 650 mg PO Q6H PRN PRN Reason: Pain, Mild 1-3,fever,headache Last Admin: 01/30/25 21:27 Dose: 650 mg Documented By: FRANCISCO Atorvastatin Calcium (Atorvastatin Calcium 80 Mg Tablet) 80 mg PO DAILY [facility] Last Admin: 02/04/25 08:36 Dose: 80 mg Documented By: CHRISTIANO Calcium Carbonate (Calcium Carbonate 750 Mg Tab.Chew) 750 mg PO Q4H PRN PRN Reason: Heartburn Dextrose (Dextrose 50 % 25 Gm/50 Ml Syringe) 25 gm IVPUSH Q15M PRN; Protocol PRN Reason: per Hypoglycemia Standing Ord. Empagliflozin (Empagliflozin 10 Mg Tablet) 10 mg PO DAILY [facility] Last Admin: 02/04/25 08:36 Dose: 10 mg Documented By: CHRISTIANO Enoxaparin Sodium (Enoxaparin Sodium 40 Mg/0.4 Ml Syringe) 40 mg SUBCUT Q24H [facility] Last Admin: 02/03/25 20:25 Dose: 40 mg Documented By: RAMILA Glucose (Glucose Gel 15 Gm Gel..Gram.) 15 gm PO Q15M PRN; Protocol PRN Reason: per Hypoglycemia Standing Ord. Cefazolin Sodium/Dextrose (Ancef) 2 gm in 50 mls @ 100 mls/hr IV Q8H [facility] Last Infusion: 02/04/25 04:36 Dose: Infused Documented By: RAMILA Insulin Human Lispro (Insulin Lispro 100 Unit/Ml 3 Ml Vial) 0 unit SUBCUT QIDACHS [facility]; Protocol Last Admin: 02/04/25 08:37 Dose: 8 unit Documented By: CHRISTIANO Magnesium Hydroxide (Milk Of Magnesia 30 Ml Oral.Susp) 30 ml PO DAILY PRN PRN Reason: Constipation Melatonin (Melatonin 3 Mg Tablet) 6 mg PO BEDTIME PRN PRN Reason: Insomnia Metformin HCl (Metformin Hcl 1,000 Mg Tablet) 1,000 mg PO BIDWM [facility] Last Admin: 02/04/25 08:35 Dose: 1,000 mg Documented By: CHRISTIANO Metoprolol Tartrate (Metoprolol Tartrate 25 Mg Tablet) 25 mg PO BID [facility]; Protocol Last Admin: 02/04/25 08:36 Dose: 25 mg Documented By: CHRISTIANO Sodium Chloride (0.9 % Sodium Chloride Flush 3 Ml Syringe) 3 ml IVFLUSH QSHIFT [facility] Last Admin: 02/04/25 08:37 Dose: 3 ml Documented By: CHRISTIANO Tamsulosin HCl (Tamsulosin Hcl 0.4 Mg Capsule) 0.4 mg PO DAILY [facility] Last Admin: 02/04/25 08:35 Dose: 0.4 mg Documented By: CHRISTIANO Labs 02/01/25 03:27 02/03/25 12:07 Labs: Laboratory Results - last 24 hr 02/03/25 02/03/25 02/03/25 11:22 12:07 15:33 Anion Gap 15 Estim Creat Clear Calc 61.6 Estimated GFR 54 POC Glucose 291 H 325 H Random Glucose 349 H Calcium 8.7 02/03/25 02/04/25 20:06 07:09 Anion Gap Estim Creat Clear Calc Estimated GFR POC Glucose 320 H 344 H Random Glucose Calcium Microbiology Microbiology Results: Microbiology 02/01/25 03:27 Blood Culture - Preliminary Blood - Venous No growth after 48 hours. Assessment and Plan (1) QUINTEN (acute kidney injury): Status: Acute (2) Acute UTI: Status: Acute Plan Pt is a 69-year-old male with a PMH significant for?PAD s/p right BKA, multiple finger amputations, CAD, insulin-dependent type 2 diabetes, HTN, HLD, and gout who presents to the ED from home with?generalized weakness and lethargy. Pt originally admitted to the hospital for treatment and further evaluation of UTI with sepsis and hyperkalemia and QUINTEN in the setting of diuretic use and poor p.o. intake. Hospital course was complicated by severe hypotension despite IVF and albumin resuscitation, and pt was transferred to the ICU in the evening of 01/30/2025 for vasopressor support. UTI with severe sepsis UA+, pt with generalized weakness, lethargy, reduced p.o. intake at home Met sepsis criteria with severe features with fever, tachycardia, tachypnea, and lactic acid 2.2 Pt was given sepsis bolus fluids and started on broad-spectrum antibiotics in the ED After being brought to the floor pt became hypotensive at 76/46 not responsive to IVF or albumin, was transferred on 02/10 ICU for pressor support, transferred back to the floor on 02/01/2025 Initially treated with vancomycin and Zosyn, started 01/30/2025; now switched to cefazolin Urine culture growing Staphylococcus lugdunensis Bacteremia 2/ blood cultures positive for non MRSA Staphylococcus aureus, repeat culture 02/01 negative x 48 hrs Treat with abx as above Follow repeat blood cultures pending ID consult echo 02/01, no vegetations PICC line on wednesday Hyponatremia, supect SIADH, improving, sodium 134, hold diuretics QUINTEN, likely ATN from tubular injury Pt noted to have a non-anion gap hyperchloremic metabolic acidosis Secondary to hypovolemia in the setting of reduced p.o. intake and continued hydrochlorothiazide and spironolactone use Creatinine slowly improving, 1.97-->1.50, baseline 1.30-->1.62 Hyperkalemia resolved Chronic hand wounds Pt with chronic superficial ulceration of right 1st, 2nd, and 4th digits Seen by general surgery, no acute intervention needed at this time Follow up bones scan to rule out osteomyelitis Question of left lower extremity cellulitis Pt with questionable cellulitis vs chronic venous stasis dermatitis Being covered by abx as above Insulin-dependent type [address] on sliding scale insulin hold Farxiga, Trulicity restart metformin HTN Hold lisinopril, hydrochlorothiazide, and spironolactone due to QUINTEN and electrolyte abnormalities Urinary retention, Flomax, urology consult if no improvement voiding trial Full Code DVT Prophylaxis: Haley Can be transferred to med/surg Quality Stroke Does the patient have a stroke diagnosis?: No VTE Prior VTE?: No VTE Risk Level:: Medical - moderate - high VTE Device Contraindication: Treatment Not Indicated VTE Drug Contraindication: N/A - Med Ordered
[2025-02-04 11:21] LABS: Glucose, Whole Blood 365 mg/dL (60-115)
[2025-02-04 16:08] LABS: Glucose, Whole Blood 207 mg/dL (60-115)
[2025-02-04 19:51] LABS: Glucose, Whole Blood 184 mg/dL (60-115)
[2025-02-05 03:52] VITALS: BP 174/74; PULSE 94; RESP 18; TEMP 36.2; O2SAT 96
[2025-02-05 06:00] VITALS: BMI 31.3
[2025-02-05 07:05] VITALS: BP 146/72; PULSE 96; RESP 18; TEMP 36.1; O2SAT 100
[2025-02-05] MEDS: 0.9 % Sodium Chloride Flush 3 ML SYRINGE IVFLUSH ×3 (07:11→20:56)
[2025-02-05 07:12] LABS: Glucose, Whole Blood 213 mg/dL (60-115)
--- NOTE | 2025-02-05 11:17 | HO.PM.IMPN ---
Subjective Subjective Date of Service: 02/05/25 Interval History: Doing well, no new issues Physical Exam Vital Signs: Vital Signs: Last Vital Signs Temp 97.0 F 02/05/25 07:05 Pulse 96 02/05/25 07:05 Resp 18 02/05/25 07:05 BP 146/72 H 02/05/25 07:05 Pulse Ox 100 02/05/25 07:05 O2 Del Method Room Air 02/05/25 07:05 BMI result Body Mass Index 31.3 Objective Data Active Medications Acetaminophen (Acetaminophen 325 Mg Tablet) 650 mg PO Q6H PRN PRN Reason: Pain, Mild 1-3,fever,headache Last Admin: 01/30/25 21:27 Dose: 650 mg Documented By: FRANCISCO Atorvastatin Calcium (Atorvastatin Calcium 80 Mg Tablet) 80 mg PO DAILY [facility] Last Admin: 02/05/25 07:12 Dose: 80 mg Documented By: ALEK Calcium Carbonate (Calcium Carbonate 750 Mg Tab.Chew) 750 mg PO Q4H PRN PRN Reason: Heartburn Dextrose (Dextrose 50 % 25 Gm/50 Ml Syringe) 25 gm IVPUSH Q15M PRN; Protocol PRN Reason: per Hypoglycemia Standing Ord. Empagliflozin (Empagliflozin 10 Mg Tablet) 10 mg PO DAILY [facility] Last Admin: 02/05/25 07:12 Dose: 10 mg Documented By: ALEK Enoxaparin Sodium (Enoxaparin Sodium 40 Mg/0.4 Ml Syringe) 40 mg SUBCUT Q24H [facility] Last Admin: 02/04/25 19:52 Dose: 40 mg Documented By: RAMILA Glucose (Glucose Gel 15 Gm Gel..Gram.) 15 gm PO Q15M PRN; Protocol PRN Reason: per Hypoglycemia Standing Ord. Cefazolin Sodium/Dextrose (Ancef) 2 gm in 50 mls @ 100 mls/hr IV Q8H [facility] Last Admin: 02/05/25 10:50 Dose: 100 mls/hr Documented By: ALEK Insulin Human Lispro (Insulin Lispro 100 Unit/Ml 3 Ml Vial) 0 unit SUBCUT QIDACHS [facility]; Protocol Last Admin: 02/05/25 07:11 Dose: 4 unit Documented By: ALEK Magnesium Hydroxide (Milk Of Magnesia 30 Ml Oral.Susp) 30 ml PO DAILY PRN PRN Reason: Constipation Melatonin (Melatonin 3 Mg Tablet) 6 mg PO BEDTIME PRN PRN Reason: Insomnia Metformin HCl (Metformin Hcl 1,000 Mg Tablet) 1,000 mg PO BIDWM [facility] Last Admin: 02/05/25 07:12 Dose: 1,000 mg Documented By: ALEK Metoprolol Tartrate (Metoprolol Tartrate 25 Mg Tablet) 25 mg PO BID [facility]; Protocol Last Admin: 02/05/25 07:12 Dose: 25 mg Documented By: ALEK Sodium Chloride (0.9 % Sodium Chloride Flush 3 Ml Syringe) 3 ml IVFLUSH QSHIFT [facility] Last Admin: 02/05/25 07:11 Dose: 3 ml Documented By: ALEK Tamsulosin HCl (Tamsulosin Hcl 0.4 Mg Capsule) 0.4 mg PO DAILY [facility] Last Admin: 02/05/25 07:12 Dose: 0.4 mg Documented By: ALEK Labs 02/01/25 03:27 02/03/25 12:07 Labs: Laboratory Results - last 24 hr 02/04/25 02/04/25 02/04/25 11:11 16:01 19:46 POC Glucose 365 H* 207 H 184 H 02/05/25 07:08 POC Glucose 213 H Microbiology Microbiology Results: Microbiology 02/01/25 03:27 Blood Culture - Preliminary Blood - Venous No growth after 48 hours. Assessment and Plan (1) QUINTEN (acute kidney injury): Status: Acute (2) Acute UTI: Status: Acute Plan Pt is a 69-year-old male with a PMH significant for?PAD s/p right BKA, multiple finger amputations, CAD, insulin-dependent type 2 diabetes, HTN, HLD, and gout who presents to the ED from home with?generalized weakness and lethargy. Pt originally admitted to the hospital for treatment and further evaluation of UTI with sepsis and hyperkalemia and QUINTEN in the setting of diuretic use and poor p.o. intake. Hospital course was complicated by severe hypotension despite IVF and albumin resuscitation, and pt was transferred to the ICU in the evening of 01/30/2025 for vasopressor support. UTI with severe sepsis, due to staph UA+, pt with generalized weakness, lethargy, reduced p.o. intake at home Met sepsis criteria with severe features with fever, tachycardia, tachypnea, and lactic acid 2.2 Pt was given sepsis bolus fluids and started on broad-spectrum antibiotics in the ED After being brought to the floor pt became hypotensive at 76/46 not responsive to IVF or albumin, was transferred on 02/10 ICU for pressor support, transferred back to the floor on 02/01/2025 Initially treated with vancomycin and Zosyn, started 01/30/2025; now switched to cefazolin Urine culture growing Staphylococcus lugdunensis Bacteremia 2/ blood cultures positive for non MRSA Staphylococcus aureus, repeat culture 02/01 negative x 48 hrs Treat with abx as above Follow repeat blood cultures pending ID consult echo 02/01, no vegetations PICC line today ID recommends 4 weeks of Kefzol Hyponatremia, supect SIADH, improving, sodium 134, hold diuretics QUINTEN, likely ATN from tubular injury Pt noted to have a non-anion gap hyperchloremic metabolic acidosis Secondary to hypovolemia in the setting of reduced p.o. intake and continued hydrochlorothiazide and spironolactone use Creatinine slowly improving, 1.97-->1.50, baseline 1.30-->1.62 Hyperkalemia resolved Chronic hand wounds Pt with chronic superficial ulceration of right 1st, 2nd, and 4th digits Seen by general surgery, no acute intervention needed at this time Follow up bones scan to rule out osteomyelitis Question of left lower extremity cellulitis Pt with questionable cellulitis vs chronic venous stasis dermatitis Being covered by abx as above Insulin-dependent type [address] on sliding scale insulin hold Farxiga, Trulicity restart metformin HTN Hold lisinopril, hydrochlorothiazide, and spironolactone due to QUINTEN and electrolyte abnormalities Urinary retention, Flomax, urology consult if no improvement voiding trial Full Code DVT Prophylaxis: Lovenox Can be transferred to med/surg PT eval, Dispo will be going home with Quality Stroke Does the patient have a stroke diagnosis?: No VTE Prior VTE?: No VTE Risk Level:: Medical - moderate - high VTE Device Contraindication: Treatment Not Indicated VTE Drug Contraindication: N/A - Med Ordered
[2025-02-05 11:43] LABS: Glucose, Whole Blood 146 mg/dL (60-115)
[2025-02-05 12:00] VITALS: BP 117/60; PULSE 94; RESP 18; TEMP 36.4; O2SAT 96
[2025-02-05 12:41] LABS: Anion Gap 12 (12-20); Blood Urea Nitrogen 24 mg/dL (9-16); Calcium 9.1 mg/dL (8.4-10.2); Carbon Dioxide 23 mmol/L (22-29); Chloride 106 mmol/L (96-108); Creatinine Clr Calc Pharmacy 69.8; Estimated Glomerular Filt Rate > 60; Potassium 4.3 mmol/L (3.3-5.1); Sodium 137 mmol/L (135-145)
--- NOTE | 2025-02-05 13:57 | MHC.CM.PN ---
PT is recommending STR; CM met with Patient at bedside to discuss dc planning. Patient prefers to go home but he has accepted a bed offer from [facility] for STR.Per Patient's request, CM spoke with Brother/HCP/Caleb, who is also in agreement with STR @ [facility]. Per Caleb,once Patient is able to walk, he wants Patient to be dc'd to home from [facility] (Brother has done Patient's IV ABX at home in the past). CM will follow.
[2025-02-05 15:47] VITALS: BP 120/52; PULSE 93; RESP 18; TEMP 36.5; O2SAT 98
--- NOTE | 2025-02-05 16:04 | P.PNNP_ITS ---
Subjective Subjective Date of Service: 02/05/25 Interval history: Doing well, no new issues, feels better Physical Exam 2 Vital Signs: Vital Signs: Last Vital Signs Temp 97.7 F 02/05/25 15:47 Pulse 93 02/05/25 15:47 Resp 18 02/05/25 15:47 BP 120/52 L 02/05/25 15:47 Pulse Ox 98 02/05/25 15:47 O2 Del Method Room Air 02/05/25 15:47 BMI result Body Mass Index 31.3 General: Elderly lady not in acute distress Nutritional Appearance: well nourished and overweight Eyes: appearance normal, both eyes and all related structures; Alignment and Position: alignment normal and position normal Neck: No lymphadenopathy, no thyromegaly Resp: bilateral air entry equal, no added sounds present Cardio: Regular rate, regular rhythm; Heart sounds: S1 normal heart sound present and S2 normal heart sound present GI: soft, nontender, no guarding, no hepatosplenomegaly : bladder normal to inspection, bladder normal to palpation, no renal angle tenderness Skin: no rashes or lesions noted and elasticity normal Neuro: oriented to person, oriented to place, oriented to time and moves all extremities Objective Data Labs 02/01/25 03:27 02/05/25 12:20 Labs: Laboratory Results - last 24 hr 02/04/25 02/04/25 02/05/25 16:01 19:46 07:08 Sodium Potassium Chloride Carbon Dioxide Anion Gap BUN Creatinine Estim Creat Clear Calc Estimated GFR POC Glucose 207 H 184 H 213 H Fasting Glucose Calcium 02/05/25 02/05/25 11:36 12:20 Sodium 137 Potassium 4.3 Chloride 106 Carbon Dioxide 23 Anion Gap 12 BUN 24 H Creatinine 1.16 Estim Creat Clear Calc 69.8 Estimated GFR > 60 POC Glucose 146 H Fasting Glucose 180 H Calcium 9.1 Microbiology Microbiology Results: Microbiology 02/01/25 03:27 Blood - Venous Blood Culture - Preliminary No growth after 48 hours. 01/30/25 13:29 Blood - Venous Blood Culture - Final Staphylococcus aureus 01/30/25 13:29 Blood - Venous Blood Culture - Final Staphylococcus aureus 01/30/25 Unknown Urine Catheterized - Straight Catheter Urine Culture - Final Staphylococcus lugdunensis Procedures Date of Service Date of Service: 02/05/25 Assessment & Plan Assessment and plan (1) Ischemic cardiomyopathy with implantable cardioverter-defibrillator (ICD): Status: Acute (2) Diabetes mellitus: Status: Acute (3) QUINTEN (acute kidney injury): Status: Acute (4) Metabolic acidosis with normal anion gap and bicarbonate losses: Status: Acute Plan QUINTEN resolved, creatinine down to 1.16 from a peak of 1.97 which seems to be the baseline Hyponatremia is possibly secondary to mild SIADH which might be contributed from pain and stress, improved with fluid restriction, sodium is up to 137 Metabolic acidosis has improved, bicarb is up to 23. We will sign off at this point, please reconsult if additional support needed. Time Spent With Patient Time: Total time managing care of this patient today 25 minutes. Progress Note: Quality Stroke Does the patient have a stroke diagnosis?: No
[2025-02-05 16:19] LABS: Glucose, Whole Blood 221 mg/dL (60-115)
--- NOTE | 2025-02-05 18:44 | PC.NURSE ---
Pt without urge to void at this time. will monitor. DTV 2000
[2025-02-05 19:45] VITALS: BP 121/59; PULSE 101; RESP 18; TEMP 36.1; O2SAT 100
[2025-02-05 20:51] VITALS: BP 127/64; PULSE 106
[2025-02-05 20:51] LABS: Glucose, Whole Blood 173 mg/dL (60-115)
--- NOTE | 2025-02-05 21:56 | PC.NURSE ---
Addendum entered by Rose Mckeon RN 02/06/25 03:57: Patient refused midnight vitals. 03:00 hour: Scheduled viitals obtained and pt voided 150ml. Post-void bladder scan obtained showing 603ml. Patient still resistive to discussing/education on straight cath and risks of prolonged retention. Dr. Austin Olsen notified and advised will come to speak with this patient. Original Note: Assumed care of this patient at 19:00. Patient seen on s3. Pt was due to void at 20:00 after f/c was discontinued today, per handoff report. Bladder scan obtained showing 477ml during 20:00 hour. Pt attempted to void in urinal while in bed, produced 50ml cloudy yellow urine. PVR showed 570ml. After much education and encouragement, this pt was assisted with attempting to stand to void, using RLE prosthetic and walker with 2-staff assist, though pt was weak and unable to stand with poor participation effort. Pt was unable to void while sitting at the edge of the bed either. Pt assisted back to bed and repositioned. Pt denies pressure or discomfort to palpation. This pt was making accusatory statements towards staff and facility, stated It's the fault of [facility] that I can't pee. I'll fight someone if they come near me again with a catheter and They don't know how to manage diabetes, I don't need that insulin (pt declined ISS despite education). Pt was educated to call staff should he later have pressure/discomfort/urge to void or be able to void. Pt calms down when allowed to rest. Impaired coping/knowledge deficit/resistive to care and education attempts by staff, with patient stating Sitting and trying to stand to pee won't make a different. You're wasting your time that I could be sleeping . Dr. Jose A Olsen notified of the above while rounding on the unit; advised to reassess void status later and will assist with educating patient should he continue to retain urine/refuse education. Please see shift assessment and MAR for full details. Bed alarm on and safety measures in place. Plan of care continues.
[2025-02-06 01:22] VITALS: RESP 16
[2025-02-06 03:40] VITALS: BP 129/57; PULSE 96; RESP 18; TEMP 36.4; O2SAT 100
--- NOTE | 2025-02-06 04:31 | PM.EVENT ---
Event Note Date of Service: 02/06/25 Event Note: Patient is having significant urinary retention post void urine 600 ml. He is refusing any type of catheter. He is aware of the consequences such renal failure and bladder rupture. Time Spent With Patient Time: Total time managing care of this patient today ____ minutes.
[2025-02-06 06:00] VITALS: BMI 31.1
[2025-02-06 07:46] LABS: Glucose, Whole Blood 179 mg/dL (60-115)
[2025-02-06 08:04] VITALS: BP 118/57
[2025-02-06 08:06] VITALS: BP 118/57; PULSE 95; RESP 18; TEMP 36.2; O2SAT 100
[2025-02-06] MEDS: 0.9 % Sodium Chloride Flush 3 ML SYRINGE IVFLUSH ×2 (08:12→16:09)
--- NOTE | 2025-02-06 10:04 | P.PICC_ITS ---
PICC Line Insertion NPICC Diagnosis: osteomyelitis Indication: nursing home ABT Pertinent Labs: reviewed Technique: Following informed consent including risks, benefits and alternatives and using sterile technique including cap and mask, sterile gown, glove and drape, the right arm was prepped and draped in the usual sterile fashion of full barrier technique with CHG. Following completion of [place] Protocol the skin and soft tissues were anesthetized with 1% Lidocaine plain. Using ultrasound guidance, right basilic vein access was obtained. Over an 0.018 wire through peel-away sheath, a 4fr single lumen PASV PICC line was positioned. Catheter length is 44cm internal length, 0cm external length, for a total trimmed length of 44cm. The procedure was performed in rm 272. Tip verification was performed by Elizabeth Coffey with Sherlock 3CG. Tip located in SVC. Ultrasound was used to document vein patency and for needle entry. A formal ultrasound picture and cardiac rhythm strip was recorded. [employer] Super[employer] has released the line for use and it is currently dressed with a StatLock, Tegaderm, and CHG disc. Verification has been performed for blood return and line patency. Arm Circumference: 29.5cm Equipment: [employer] POWER PICC SOLO Catheter withSherlock 3CG Catheter Type: 4FR single lumen PASV Lot #: [id number]
--- NOTE | 2025-02-06 10:39 | P.DS_ITS ---
DS: Providers Provider Date of Service: 02/06/25 Date of admission: 01/30/25 17:29 Date of discharge: 02/06/25 Primary care physician: Wale Ta MD Consults: 02/01/25 07:38 Consult to Nephrology Routine Consulting Provider: [facility] Reason for consultation: QUINTEN/CKD and chronic metabolic acidosis 02/01/25 11:51 Consult to Infectious Diseases Routine Consulting Provider: [facility] Reason for consultation: STaph bacteremia DS: Diagnosis Discharge Diagnosis (1) Ischemic cardiomyopathy with implantable cardioverter-defibrillator (ICD): Status: Acute (2) Diabetes mellitus: Status: Acute (3) QUINTEN (acute kidney injury): Status: Acute (4) Metabolic acidosis with normal anion gap and bicarbonate losses: Status: Acute DS: Summary Hospital Course Hospital Course: admission hpi Chief Complaint: Generalized weakness Pt is a 69-year-old male with a PMH significant for?PAD s/p right BKA, multiple finger amputations, CAD, insulin-dependent type 2 diabetes, HTN, HLD, and gout who presents to the ED from home with?generalized weakness and lethargy. Pt is a poor historian with possible cognitive impairment and unable to provide any detailed HPI. Lives with his brother who takes care of him, feeds him, and administers all of his medications. Brother contacted via phone and he reports pt has been feeling generally unwell for the past 2 weeks and not been eating or drinking much. Intermittently complains of epigastric and periumbilical discomfort, though no nausea or vomiting. A few episodes of diarrhea 2 weeks ago, but none since. Pt himself denies any acute medical complaints, including abdominal pain, nausea, vomiting, or diarrhea. Of note, brother reports pt was previously on chronic amoxicillin for 1 year for chronic finger infections, last dose on November 29. Breath reports since November pt has been on a slow decline. In the ED pt was febrile up to 103.1, tachycardic up to 122, tachypneic up to 26, and soft BP as low as 96/45, satting at 100% Labs were significant for leukocytosis of 15.5, potassium 6.5, creatinine 1.97 (previous 1.32), lactic acid 2.2, AST 69, and lipase 96. UA positive for UTI. Tested negative for flu, COVID, RSV. CXR showed no acute airspace disease. EKG demonstrated sinus tachycardia of 123 with RBBB, nothing prior for comparison. Pt was treated in the ED with acetaminophen, IVF, albuterol, calcium gluconate, insulin, dextrose, Lokelma, vancomycin, and ceftriaxone. Pt is admitted to the hospital for treatment and further evaluation of UTI with sepsis and hyperkalemia and QUINTEN in the setting of diuretic use and poor p.o. intake. hospital course: Pt is a 69-year-old male with a PMH significant for?PAD s/p right BKA, multiple finger amputations, CAD, insulin-dependent type 2 diabetes, HTN, HLD, and gout who presents to the ED from home with?generalized weakness and lethargy. Pt was dmitted to the hospital for treatment and further evaluation of UTI with sepsis, hyperkalemia and QUINTEN in the setting of diuretic use and poor p.o. intake. Hospital course was complicated by severe hypOtension (76/46) despite IVF and albumin resuscitation, and pt was transferred to the ICU in the evening of 01/30/2025 for vasopressor support. Patient would later be found to be septic due to Staph UTI and bacteremia. He was initially treated with IV Vancomycin and Zosyn and later changed Cefazolin He had an echocardiogram on 02/01 showing no vegatation. Final culture show Staphylococcus lugdunensi in the urine and Staph aureures in blood, repeat cultures have been negative. He was seen by ID with recommendation to treat with Kefzol 2 gram q8 daily for 4 weeks, a PICC line was placed today Hyponatremia, supect SIADH, improving, sodium 137, holding diuretics QUINTEN, likely ATN from tubular injury Pt noted to have a non-anion gap hyperchloremic metabolic acidosis Secondary to hypovolemia in the setting of reduced p.o. intake and continued hydrochlorothiazide and spironolactone use Creatinine slowly improving, 1.97 on 01/30 and today 02/06 1.16 Hyperkalemia resolved Chronic hand wounds Pt with chronic superficial ulceration of right 1st, 2nd, and 4th digits Seen by general surgery, no acute intervention needed at this time Follow up bones scan to rule out osteomyelitis Question of left lower extremity cellulitis Pt with questionable cellulitis vs chronic venous stasis dermatitis Being covered by abx as above Insulin-dependent type 2 diabetes was on sliding scale insulin hold Mariela Richmondconrado restarted metformin can resume all med upon discharge HTN, following hypotension. His BP meds have been on hold including Lisinopril 40, aldactone 25, HCTZ 25, and metoprolol 200 mg daily. His BP have been noraml or sligyly up , Metoprolol restarted at 25 mg twice daily and will continue holding the rest of the meds. Urinary retention, Flomax, urology consult if no improvement outpatient urology follow up Time Attestation Discharge Coordination Time (in mins): 45 Quality: Safe Use of Opioids Does Pt have an Active Cancer Diagnosis on the Problem List?: No Quality: Stroke Does the patient have a stroke diagnosis?: No Physical Exam Vital Signs: Vital Signs: Last Vital Signs Temp 97.1 F 02/06/25 08:06 Pulse 95 02/06/25 08:06 Resp 18 02/06/25 08:06 BP 118/57 L 02/06/25 08:06 Pulse Ox 100 02/06/25 08:06 O2 Del Method Room Air 02/06/25 08:06 BMI result Body Mass Index 31.1 DS: Data Data Completed and Pending Completed studies during hospitalization [Text1]: Procedures Drainage of Left Knee Joint, Percutaneous Approach (07/30/23) Labs on day of discharge: Laboratory Results - last 24 hr 02/05/25 02/05/25 02/05/25 11:36 12:20 16:12 Sodium 137 Potassium 4.3 Chloride 106 Carbon Dioxide 23 Anion Gap 12 BUN 24 H Creatinine 1.16 Estim Creat Clear Calc 69.8 Estimated GFR > 60 POC Glucose 146 H 221 H Fasting Glucose 180 H Calcium 9.1 02/05/25 02/06/25 20:35 07:26 Sodium Potassium Chloride Carbon Dioxide Anion Gap BUN Creatinine Estim Creat Clear Calc Estimated GFR POC Glucose 173 H 179 H Fasting Glucose Calcium Discharge Plan Discharge Anticipated Discharge Date/Time: 02/06/25 13:04 Patient Disposition: Xfer [facility] Discharge Diagnosis: Sepsis, UTI, bacteremia Referrals: [facility] [Outside] - 1 Day Referral Note: Short term rehab, IV antibiotics Wale Ta MD [Primary Care Provider, Internal Medicine] - 1 Week Discharge Medications: New cefazolin in dextrose (iso-os) 2 gram/50 mL Piggyback 50 ml IV Q8H 24 Days Qty: 72 0RF Rx Instructions: Ending March 02 insulin lispro [Admelog U-100 Insulin lispro] 100 unit/mL Solution See Protocol subcut QIDACHS Qty: 10 0RF Protocol: Insulin Correction Scale Less than or equal to 110 ---- Give (units): 0 111 to 150 Give (units): 0 151 to 200 Give (units): 2 201 to 250 Give (units): 4 251 to 300 Give (units): 6 301 to 350 Give (units): 8 Greater than 350 Give (units): 10 Call MD if Blood Glucose > : 350 Rx Instructions: BG <111 0 units, 111-150 - 0 units, 151-200 2 units, 201-250 4 units, 251-300 6 units, 301-350 8 units, >350 10 units Continued metformin 500 mg tablet 1,000 mg PO BID atorvastatin 80 mg tablet 80 mg PO DAILY insulin lispro protamin-lispro [Humalog Mix 75-25 KwikPen] 100 unit/mL (75-25) Insulin Pen 28 unit SUBCUT BIDAC dapagliflozin propanediol [Farxiga] 10 mg Tablet 10 mg PO DAILY Trulicity 4.5 mg/0.5 mL Pen Injector 4.5 mg SUBCUT WE Discontinued metoprolol succinate 200 mg tablet extended release 24 hr 200 mg PO DAILY spironolactone 25 mg tablet 25 mg PO DAILY lisinopril 40 mg tablet 40 mg PO DAILY hydrochlorothiazide 25 mg tablet 25 mg PO DAILY Discharge Orders: Discharge Order (Routine); Ordered 02/06/25 Ordered By: Jesus Fine Diet: Diabetic diet Activity on Discharge: As tolerated Stand Alone Forms: Patient Portal Discharge page Print Language: Estonian Care Plan Goals: recovery from sepsis due to UTI, staph bacteremia and hypotension Health Concerns: urinary retention sepsis due to staph aureus diabetes Plan of Treatment: to finsih IV Cefazolin 2 gram q8 hrs daily for 24 more days, check cbc and bmp weekly on wednesday Arthur catheter for uinray retetion and follow up with urology for voiding trial take Flomax Blood pressure medications have been adjusted, lisinopril, HCT Z and aldactone To short term rehab for less than 30 days Assessment: see above
--- NOTE | 2025-02-06 10:52 | P.PNIM_ITS ---
Subjective Subjective Date of Service: 02/06/25 Interval History: No new issues, Picc line placed today Physical Exam 2 Vital Signs: Vital Signs: Last Vital Signs Temp 97.1 F 02/06/25 08:06 Pulse 95 02/06/25 08:06 Resp 18 02/06/25 08:06 BP 118/57 L 02/06/25 08:06 Pulse Ox 100 02/06/25 08:06 O2 Del Method Room Air 02/06/25 08:06 BMI result Body Mass Index 31.1 Objective Data Active Medications Acetaminophen (Acetaminophen 325 Mg Tablet) 650 mg PO Q6H PRN PRN Reason: Pain, Mild 1-3,fever,headache Last Admin: 01/30/25 21:27 Dose: 650 mg Documented By: FRANCISCO Atorvastatin Calcium (Atorvastatin Calcium 80 Mg Tablet) 80 mg PO DAILY [facility] Last Admin: 02/06/25 08:04 Dose: 80 mg Documented By: LIEN Calcium Carbonate (Calcium Carbonate 750 Mg Tab.Chew) 750 mg PO Q4H PRN PRN Reason: Heartburn Dextrose (Dextrose 50 % 25 Gm/50 Ml Syringe) 25 gm IVPUSH Q15M PRN; Protocol PRN Reason: per Hypoglycemia Standing Ord. Empagliflozin (Empagliflozin 10 Mg Tablet) 10 mg PO DAILY [facility] Last Admin: 02/06/25 08:05 Dose: 10 mg Documented By: LIEN Enoxaparin Sodium (Enoxaparin Sodium 40 Mg/0.4 Ml Syringe) 40 mg SUBCUT Q24H [facility] Last Admin: 02/05/25 20:53 Dose: 40 mg Documented By: SIERRA Glucose (Glucose Gel 15 Gm Gel..Gram.) 15 gm PO Q15M PRN; Protocol PRN Reason: per Hypoglycemia Standing Ord. Cefazolin Sodium/Dextrose (Ancef) 2 gm in 50 mls @ 100 mls/hr IV Q8H [facility] Last Infusion: 02/06/25 04:08 Dose: Infused Documented By: SIERRA Insulin Human Lispro (Insulin Lispro 100 Unit/Ml 3 Ml Vial) 0 unit SUBCUT QIDACHS [facility]; Protocol Last Admin: 02/06/25 08:03 Dose: 2 unit Documented By: LIEN Magnesium Hydroxide (Milk Of Magnesia 30 Ml Oral.Susp) 30 ml PO DAILY PRN PRN Reason: Constipation Melatonin (Melatonin 3 Mg Tablet) 6 mg PO BEDTIME PRN PRN Reason: Insomnia Metformin HCl (Metformin Hcl 1,000 Mg Tablet) 1,000 mg PO BIDWM [facility] Last Admin: 02/06/25 08:06 Dose: 1,000 mg Documented By: LIEN Metoprolol Tartrate (Metoprolol Tartrate 25 Mg Tablet) 25 mg PO BID [facility]; Protocol Last Admin: 02/06/25 08:04 Dose: 25 mg Documented By: LIEN Metoprolol Tartrate (Metoprolol Tartrate 25 Mg Tablet) 25 mg PO BID [facility]; Protocol Sodium Chloride (0.9 % Sodium Chloride Flush 3 Ml Syringe) 3 ml IVFLUSH QSHIFT [facility] Last Admin: 02/06/25 08:12 Dose: 3 ml Documented By: LIEN Tamsulosin HCl (Tamsulosin Hcl 0.4 Mg Capsule) 0.4 mg PO DAILY [facility] Last Admin: 02/06/25 08:05 Dose: 0.4 mg Documented By: LIEN Labs 02/01/25 03:27 02/05/25 12:20 Labs: Laboratory Results - last 24 hr 02/05/25 02/05/25 02/05/25 11:36 12:20 16:12 Anion Gap 12 Estim Creat Clear Calc 69.8 Estimated GFR > 60 POC Glucose 146 H 221 H Fasting Glucose 180 H Calcium 9.1 02/05/25 02/06/25 20:35 07:26 Anion Gap Estim Creat Clear Calc Estimated GFR POC Glucose 173 H 179 H Fasting Glucose Calcium Microbiology Microbiology Results: Microbiology 02/01/25 03:27 Blood Culture - Final Blood - Venous No growth after 5 days. Assessment and Plan (1) QUINTEN (acute kidney injury): Status: Acute (2) Acute UTI: Status: Acute Plan Pt is a 69-year-old male with a PMH significant for PAD s/p right BKA, multiple finger amputations, CAD, insulin-dependent type 2 diabetes, HTN, HLD, and gout who presents to the ED from home with generalized weakness and lethargy. Pt? was? admitted to the hospital for treatment and further evaluation of UTI with sepsis, hyperkalemia and QUINTEN in the setting of diuretic use and poor p.o. intake.? Hospital course was complicated by severe hypOtension (76/46) despite IVF and albumin resuscitation, and pt was transferred to the ICU in the evening of 01/30/2025 for vasopressor support. The patient would later be found to be septic due to Staph UTI and bacteremia. He was initially treated with IV Vancomycin and Zosyn and later changed to Cefazolin He had an echocardiogram on 02/01 showing no vegetation.? Final cultures show Staphylococcus lugdunensi in the urine and Staph aureures in? blood; repeat cultures have been negative. He was seen by ID with recommendation to treat with Kefzol 2 gram q8? daily for 4 weeks, a PICC line was placed today Hyponatremia, suspect SIADH, improving, sodium 137, holding diuretics QUINTEN, likely ATN from tubular injury Pt noted to have a non-anion gap hyperchloremic metabolic acidosis Secondary to hypovolemia in the setting of reduced p.o. intake and continued hydrochlorothiazide and spironolactone use Creatinine slowly improving, 1.97 on 01/30 and today 02/06 1.16 Hyperkalemia resolved Chronic hand wounds Pt with chronic superficial ulceration of right 1st, 2nd, and 4th digits Seen by general surgery, no acute intervention needed at this time Follow up bones scan to rule out osteomyelitis Question of left lower extremity cellulitis Pt with questionable cellulitis vs chronic venous stasis dermatitis Being covered by and as above Insulin-dependent type 2 diabetes was on sliding scale insulin hold Preston Richmond restarted metformin can resume all med upon discharge HTN, following hypotension. His BP meds have been on hold including Lisinopril 40, aldactone 25, HCTZ 25, and metoprolol 200 mg daily. His BP have been normal or slightly up , Metoprolol restarted at 25 mg twice daily and will continue holding the rest of the meds. Urinary retention, Flomax, urology consult if no improvement outpatient urology? follow up DVT prophylaxis: lovenox Full code to rehab when bed available. Quality Stroke Does the patient have a stroke diagnosis?: No VTE Prior VTE?: No VTE Risk Level:: Medical - moderate - high VTE Device Contraindication: Treatment Not Indicated VTE Drug Contraindication: N/A - Med Ordered
[2025-02-06 11:55] VITALS: BP 119/58; PULSE 87; RESP 18; TEMP 36.3; O2SAT 98
[2025-02-06 11:56] LABS: Glucose, Whole Blood 171 mg/dL (60-115)
--- NOTE | 2025-02-06 12:33 | MHC.CM.PN ---
Addendum entered by Abby eLe RN 02/06/25 12:36: Brother/HCP will email this CM copy of HCP. Original Note: Per MD, patient medically cleared for dc to SNF for IV abx and STR. [facility] can accept this afternoon. BLS booked for 4pm. Brother, patient, MD and RN aware. IMM delivered.
--- NOTE | 2025-02-06 15:06 | PC.NURSE ---
pt had not voided since last night. BS for 630 mL. Pt refusing catheter, Dr. Fine notified and requested bunch be placed prior to discharge. Pt brother discussed bunch placement with pt and pt agreeable to bunch being placed. 16F bunch placed, pt tolerated procedure.
[2025-02-06 15:43] VITALS: BP 111/54; PULSE 96; RESP 18; TEMP 36.3; O2SAT 97
[2025-02-06 16:10] LABS: Glucose, Whole Blood 159 mg/dL (60-115)
== END 2025-02-06 16:38 | disposition skilled nursing facility (03) | DRG 871 ==
LOC: HO.ED 17:32 → HO.EDOVER 17:51 → HO.IMC 18:10 → HO.ICU 23:57 → HO.IMC 02-01 04:52 → HO.S3 02-05 15:47
PROVIDERS: Internal Medicine Cardiovascular Disease; Nurse Practitioner Family; Registered Nurse Community Health; Admitting Provider Student in an Organized Health Care Education/Training Program; Emergency Provider Emergency Medicine; PCP Internal Medicine Medical Oncology; Visit Provider Internal Medicine
DX: A41.9 Sepsis, unspecified organism (principal); N17.0 Acute kidney failure with tubular necrosis; L03.116 Cellulitis of left lower limb; N39.0 Urinary tract infection, site not specified; E87.3 Alkalosis; E22.2 Syndrome of inappropriate secretion of antidiuretic hormone; M86.9 Osteomyelitis, unspecified; R65.20 Severe sepsis without septic shock; Z95.810 Presence of automatic (implantable) cardiac defibrillator; Z89.511 Acquired absence of right leg below knee; I10 Essential (primary) hypertension; I87.2 Venous insufficiency (chronic) (peripheral); E87.5 Hyperkalemia; L98.499 Non-pressure chronic ulcer of skin of other sites with unspecified severity; I25.10 Atherosclerotic heart disease of native coronary artery without angina pectoris; R33.9 Retention of urine, unspecified; I25.5 Ischemic cardiomyopathy; E86.1 Hypovolemia; E11.69 Type 2 diabetes mellitus with other specified complication; B95.61 Methicillin susceptible Staphylococcus aureus infection as the cause of diseases classified elsewhere; E86.0 Dehydration; B95.7 Other staphylococcus as the cause of diseases classified elsewhere; I95.9 Hypotension, unspecified; Z20.822 Contact with and (suspected) exposure to COVID-19; Z79.4 Long term (current) use of insulin; Z79.84 Long term (current) use of oral hypoglycemic drugs; Z79.85 Long-term (current) use of injectable non-insulin antidiabetic drugs; Z79.899 Other long term (current) drug therapy
CPT/HCPCS: 36415; 36573; 71045; 73200; 74176; 78315; 80048; 80053; 80076; 80202; 81001; 82010; 82040; 82247; 82436; 82803; 82947; 83605; 83690; 83735; 83935; 84100; 84132; 84133; 84145; 84300; 84484; 85025; 87040; 87077; 87086; 87088; 87186; 87205; 87637; 93005; 93306; 94640; 97162; 99285; A9503; C1751; J0613; J0690; J0696; J1650; J2543; J3373; J3374; J3475; J7120; P9047; Q9957

== ENCOUNTER → 2025-01-30 13:08 | Outpatient (BNV) | payer MEDICARE, MEDICAID, SELFPAY | PROVIDERS: Emergency Provider Emergency Medicine; PCP Internal Medicine Medical Oncology; Visit Provider Radiology Diagnostic Radiology | DX: N32.89 Other specified disorders of bladder (principal); N30.90 Cystitis, unspecified without hematuria; K80.20 Calculus of gallbladder without cholecystitis without obstruction; K57.90 Diverticulosis of intestine, part unspecified, without perforation or abscess without bleeding; A41.9 Sepsis, unspecified organism | CPT/HCPCS: 71045 ==

== ENCOUNTER → 2025-01-30 13:52 | Outpatient (BNV) | payer MEDICARE, MEDICAID, SELFPAY | PROVIDERS: Emergency Provider Emergency Medicine; PCP Internal Medicine Medical Oncology; Visit Provider Internal Medicine Cardiovascular Disease | DX: I45.10 Unspecified right bundle-branch block (principal); R00.0 Tachycardia, unspecified | CPT/HCPCS: 93010 ==

== ENCOUNTER 2025-01-30 17:29 | Outpatient (BNV) | payer MEDICARE, MEDICAID, SELFPAY | END 2025-02-01 11:52 | PROVIDERS: Admitting Provider Student in an Organized Health Care Education/Training Program; Emergency Provider Emergency Medicine; PCP Internal Medicine Medical Oncology; Visit Provider Internal Medicine Cardiovascular Disease | DX: I34.81 Nonrheumatic mitral (valve) annulus calcification (principal); I35.8 Other nonrheumatic aortic valve disorders; Z95.0 Presence of cardiac pacemaker | CPT/HCPCS: 93306 ==

== ENCOUNTER 2025-01-30 17:29 | Outpatient (BNV) | payer MEDICARE, MEDICAID, SELFPAY | END 2025-02-01 08:00 | PROVIDERS: Admitting Provider Student in an Organized Health Care Education/Training Program; Emergency Provider Emergency Medicine; PCP Internal Medicine Medical Oncology; Visit Provider Radiology Diagnostic Radiology | DX: M86.142 Other acute osteomyelitis, left hand (principal) | CPT/HCPCS: 78315 ==

== ENCOUNTER → 2025-01-30 17:29 | Outpatient (BNV) | payer MEDICARE, MEDICAID, SELFPAY | PROVIDERS: Admitting Provider Student in an Organized Health Care Education/Training Program; Emergency Provider Emergency Medicine; PCP Internal Medicine Medical Oncology; Visit Provider Nurse Practitioner Family | DX: N17.9 Acute kidney failure, unspecified (principal); E87.1 Hypo-osmolality and hyponatremia; E87.3 Alkalosis | CPT/HCPCS: 99222 ==

== ENCOUNTER → 2025-01-30 17:29 | Outpatient (BNV) | payer MEDICARE, MEDICAID, SELFPAY | PROVIDERS: Admitting Provider Student in an Organized Health Care Education/Training Program; Emergency Provider Emergency Medicine; PCP Internal Medicine Medical Oncology; Visit Provider Registered Nurse Community Health | DX: M86.9 Osteomyelitis, unspecified (principal); N17.9 Acute kidney failure, unspecified; E87.5 Hyperkalemia; N39.0 Urinary tract infection, site not specified; A41.9 Sepsis, unspecified organism; M10.9 Gout, unspecified; M25.562 Pain in left knee; M25.462 Effusion, left knee; N25.89 Other disorders resulting from impaired renal tubular function; E87.20 Acidosis, unspecified; E11.9 Type 2 diabetes mellitus without complications | CPT/HCPCS: 99232; 99291 ==

== ENCOUNTER → 2025-01-30 17:29 | Outpatient (BNV) | payer MEDICARE, MEDICAID, SELFPAY | PROVIDERS: Admitting Provider Student in an Organized Health Care Education/Training Program; Emergency Provider Emergency Medicine; PCP Internal Medicine Medical Oncology; Visit Provider Surgery | DX: L98.499 Non-pressure chronic ulcer of skin of other sites with unspecified severity (principal) | CPT/HCPCS: 99222 ==

== ENCOUNTER → 2025-01-30 17:29 | Outpatient (BNV) | payer MEDICARE, MEDICAID, SELFPAY | PROVIDERS: Admitting Provider Student in an Organized Health Care Education/Training Program; Emergency Provider Emergency Medicine; PCP Internal Medicine Medical Oncology; Visit Provider Student in an Organized Health Care Education/Training Program | DX: N39.0 Urinary tract infection, site not specified (principal); N17.9 Acute kidney failure, unspecified; E87.5 Hyperkalemia | CPT/HCPCS: 99223; 99232; 99233; 99239; 99499 ==

== ENCOUNTER 2025-03-07 09:51 | Outpatient (AMB) | payer MEDICARE, SELFPAY ==
--- NOTE | 2025-03-07 10:09 | HO.NEPHOV ---
Vital Signs 03/07/25 10:10 Height 5 ft 10 in BP 100/60 Blood Pressure Location Rt brachial Position Sitting Intake Visit Reasons: ENP: QUINTEN, CKD-Conf Guide Visitor Required: No Accompanied by: Brother Allergies No Known Allergies Allergy (Verified 03/07/25 10:09) HPI Comments Details: 69 years old Gentleman with past medical history of hypertension, diabetes mellitus, coronary artery disease, hyperlipidemia, gout, PAD s/p right BKA, multiple finger amputations (on chronic amoxilcillin for 1 year, stopped late October and since has had a slow decline per brother) recently hospitalized with QUINTEN and hyponatremia due to poor oral intake also noted to have staph UTI and bacteremia. He was discharged from the hospital on 02/06/2025, here for a follow up appointment. Currently wheel chair bound, accompanied by his brother Desmond. He also had hyponatremia thought to be secondary to SIADH as his urine sodium was 118 and urine Osmo was 510. Diabetes mellitus: since he was about 20 years, well controlled on Farxiga, Trulicity and metformin He has Arthur due to urinary retention, seeing a urologist on of this month. Discharged him to rehab, could not urinate, on tamsulosin. Has an appointment with urologist. [facility] Medical History (Updated 03/07/25 @ 10:15 by Victor M Madison MD) Peripheral vascular disease, unspecified HLD (hyperlipidemia) Acquired absence of right leg below knee Morbid (severe) obesity due to excess calories Acute metabolic acidosis Acute renal failure Atherosclerotic heart disease of [place] coronary artery without angina pectoris Unspecified protein-calorie malnutrition Bacteremia Presence of automatic (implantable) cardiac defibrillator Ischemic cardiomyopathy with implantable cardioverter-defibrillator (ICD) Sepsis associated hypotension Diabetes mellitus Acute UTI Osteomyelitis of right hand Gouty arthritis of left knee Pain and swelling of left knee Finger ulcer Amputation finger Gout Coronary artery disease Hypertension, essential Type 2 diabetes mellitus Surgical History Hx of right BKA Social History Household Members: Other Household Members Other:: brother Housing: House Do you presently have visiting nurse or other home services: No Patient Tobacco Use Status: Never used Tobacco Advance Directives Date on File: 12/30/23 service: No Review of Systems Const Details: Const : no body aches, no chills, no excessive sweating and ++ fatigue Eyes: no blurry vision and no change in vision ENT: no bleeding gums and no change in voice, no dizziness Card: no chest pain, no shortness of breath, no orthopnea, no PND Resp: no cough, no excessive phlegm production, no SOB GI: no abdominal pain and no nausea, no vomiting : no hematuria, + urinary frequency and + difficulty voiding Musc: no abnormal gait, no bone pain Neuro: no abnormal movements, __weakness, ++ abnormal gait and no behavioral changes Psych: no behavioral changes and no change in appetite Endo: no change in body appearance, no cold intolerance, no excessive sweating and ++ fatigue Physical Exam General: not in any acute distress, comfortable, sitting on the chair Nutritional Appearance: well nourished and overweight Eyes: normal position, no icterus Neck: No lymphadenopathy, no thyromegaly Resp: bilateral air entry equal, no added sounds present Cardio: normal S1, S2 heard, no murmur heard, no edema GI: soft, nontender, no guarding, no hepatosplenomegaly : bladder normal to inspection, bladder normal to palpation, no renal angle tenderness Skin: no rashes or lesions noted and elasticity normal Neuro: oriented to person, oriented to place, oriented to time and moves all extremities Results Reviewed Nephrology Results: Hgb, (14.0-18.0) 9.3 g/dl L 03/05/25 WBC, (4.8-10.8) 7.0 X10*3/uL 03/05/25 Plt Count, (160-400) 127 X10*3/uL L 03/05/25 Sodium, (135-145) 139 mmol/L 03/05/25 Potassium, (3.3-5.1) 4.2 mmol/L 03/05/25 Chloride, (96-108) 111 mmol/L H 03/05/25 Carbon Dioxide, (22-29) 17 mmol/L L 03/05/25 BUN, (9-16) 22 mg/dL H 03/05/25 Creatinine, (0.5-1.4) 1.21 mg/dL 03/05/25 Calcium, (8.4-10.2) 8.2 mg/dL L 03/05/25 Assessment & Plan Assessment & Plan (1) Urinary tract infection: Code(s): N39.0 - Urinary tract infection, site not specified Category: Medical (2) SIADH (syndrome of inappropriate ADH production): Code(s): E22.2 - Syndrome of inappropriate secretion of antidiuretic hormone Category: Medical (3) Acute renal failure: Code(s): N17.9 - Acute kidney failure, unspecified Category: Medical Plan Acute kidney injury: Patient has baseline creatinine around 1.0 with multiple episodes of QUINTEN in the past. The most recent episode of QUINTEN was triggered from hypotension from septic shock. Most recent creatinine is 1.21 His urinalysis showed 1+ protein but in the setting of UTI. We will repeat a urinalysis and we will quantify proteinuria Continue Farxiia for renal protection SIADH: Last sodium 139 checked at the rehab 2 days ago. His last episode of SIADH was triggered by pain in the feet, improved with fluid restriction. Hypertension: On metoprolol 25 mg b.i.d for history of CAD, tamsulosin 0.4 mg daily Diabetes mellitus: On Trulicity, metformin 1000 mg b.i.d. and Farxiga Gout: On allopurinol will see him back in 6 months for folowup of diabetic kidney disease Orders: Orders Microalbumin, Random (w Creat) Today E22.2 - Syndrome of inappropriate secretion of antidiuretic hormone, N39.0 - Urinary tract infection, site not specified UA and rflx microscopic Today E22.2 - Syndrome of inappropriate secretion of antidiuretic hormone, N39.0 - Urinary tract infection, site not specified Total Protein Urine Random Today E22.2 - Syndrome of inappropriate secretion of antidiuretic hormone, N39.0 - Urinary tract infection, site not specified Creatinine Urine Today E22.2 - Syndrome of inappropriate secretion of antidiuretic hormone, N39.0 - Urinary tract infection, site not specified Coding Level of Care Code New Pt Level 4 (21463) Diagnoses Urinary tract infection N39.0 SIADH (syndrome of inappropriate ADH production) E22.2 Acute renal failure N17.9
[2025-03-07 10:10] VITALS: BP 100/60
--- OUTSIDE RECORDS SUMMARY | 2025-03-07 10:21 | XMS_ITS | Encounter Summary ---
Author Organization [facility] Address [address] [place] [address] Care Team Providers Care Rebar Worker Name Role Phone Wale Ta Primary Care Provider [phone] Encounter Details Date Type Department Care Team (Late st Contact Info) Description 08/04/2022 Telephone [facility] [address] [place] [address] Rosa Sandra NP [address] [place] [address] Social History Tobacco Use Types Packs/Day Years [...] Description 05/18/2025 8:30 AM EDT Office Visit [facility] [address] [place] [address] Tinsmith Apprentice: Thu Rinaldi, Azam Ledbetter MD [address] [place] [address] 06/06/2025 8:00 AM EST Appointment [facility] [address] [place] [address] Shakir Moctezuma MD [address] [place] [phone] 11/08/2025 7:40 AM EDT Follow-Up [facility] 4th floor Cardiology Medicine [address] [place] [address] Tinsmith Apprentice: Efrain Mccoy II, MD [address] [place] [phone] documented as of this encounter Visit Diagnoses Not on filedocumented in this encounter Additional Health Concerns Infection Onset Date Last Indicated Resolved Time Multidrug resistant organisms MRSA 05/02/20172016 documented as of this encounter Care Teams Rebar Worker Relationship Specialty Start Date End Date Wale Ta [address] [place] [phone] PCP - General Hematology 05/05/18 documented as of this encounter
--- OUTSIDE RECORDS SUMMARY | 2025-03-07 10:21 | XMS_ITS | Patient Health Record ---
Author Organization Wale Ta III, MD Address [address] [place] [address] [place] [address] Care Team Providers Care Die Try Out Worker Name Role Phone Wale Ta Primary Care Provider Allergies Allergen (clinical drug ingredient) Drug/Non Drug Allergy documented on EMR Reaction Allergy Type Onset Date Status No Known Drug Allergy Unknown Drug Allergy Active Results Component Value Reference Range Notes Liver Panel Reviewed date:01/31/2025 07:22:58 AM Interpretation: Performing Lab:[address] [address] Notes/Report: Bilirubin Total 0.3 0.0-1.0 mg/dL Bilirubin Direct 0.1 0.0-0.5 mg/dL Aspartate Amino Transferase 69 5-37 U/L Slight Hemolysis.Interpret result with caution. Alanine Aminotransferase 21 0-40 U/L Total Protein 7.1 6.5-8.0 g/dL Albumin Level 2.7 3.5-5.0 g/dL Alkaline Phosphatase 62 39-117 U/L Basic Metabolic Panel Reviewed date:01/31/2025 07:22:58 AM Interpretation: Performing Lab:[facility], [address] [place] [phone] Notes/Report: Sodium 135 135-145 mmol/L Potassium 5.8 3.3-5.1 mmol/L Slight Hemolysis.Interpret result with caution. Chloride 115 96-108 mmol/L Carbon Dioxide 12 22-29 mmol/L Anion Gap 14 12-20 Blood Urea Nitrogen 65 9-16 mg/dL Creatinine 1.95 0.5-1.4 mg/dL Creatinine Clr Calc Pharmacy 42.2 eGFR (calculated from the MDRD study equation) and eCrCl (calculated from the Cockcroft-Gault equation) are based on different parameters and may not yield comparable results. If eCrCl result is absurd, please check patient's height/weight. Estimated Glomerular Filt Rate 34 Chronic Kidney Disease: Estimated GFR < 60 mL/min/1.73m2 Severe Kidney Disease: Estimated GFR < 15 mL/min/1.73m2 Glucose Random 125 60-115 mg/dL Calcium 8.7 8.4-10.2 mg/dL Potassium Reviewed date:01/31/2025 07:22:58 AM Interpretation: Performing Lab:[address] [address] Notes/Report: Pt was ED pt when K was ordered. Fioc. Potassium 5.7 3.3-5.1 mmol/L Lipase Reviewed date:01/31/2025 07:22:58 AM Interpretation: Performing Lab:[facility], [address] [place] [address] Notes/Report: Lipase 96 8-78 U/L Glucose, Whole Blood Reviewed date:01/31/2025 07:22:58 AM Interpretation: Performing Lab:[address] [address] Notes/Report: Glucose, Whole Blood 109 60-115 mg/dL METER # : [id number] Urine Culture Reviewed date:02/01/2025 01:36:53 PM Interpretation: Performing Lab:[facility], [address] [place] [phone] Notes/Report: Pt was ED pt when K was ordered. Fioc. O:STALUG Staphylococcus lugdunensis Urine Culture Quant Urine Culture 50,000 to 100,000 cfu/mL Clindamycin <=0.25 Erythromycin >=8 Nitrofurantoin 32 Oxacillin 1 Penicillin-G >=0.5 Tetracycline 8 Trimethoprim/Sulfamethox azole >=320 Lactic Acid-LAB USE ONLY Reviewed date:01/31/2025 07:22:58 AM Interpretation: Performing Lab:[facility], [address] [place] [phone] Notes/Report: Lactic Acid-LAB USE ONLY 2.3 0.5-2.0 mmol/L Critical value for test(s): LACTA Results called to and read back by: QUENTIN Person calling:CHRISTINE Date: 01/30/25 Time: 1714 Lactic Acid-LAB USE ONLY Reviewed date:01/31/2025 07:22:58 AM Interpretation: Performing Lab:[facility], [address] [place] [phone] Notes/Report: Pt was ED pt when K was ordered. Fioc. Lactic Acid-LAB USE ONLY 2.0 0.5-2.0 mmol/L CT abdomen pelvis wo con Reviewed date:01/31/2025 07:22:58 AM Interpretation: Performing Lab: Notes/Report: [address] [address] [address] Scan Report Signed Patient: Raulito Anderson MR#: [id number] : 1955 Acct:[id number] Age/Sex: 69 / M ADM Date: 01/30/25 Loc: [facility] 472-[address]: Tiki Mac MD Ordering Physician: Alberto Simpson MD Date of Service: 01/30/25 Procedure(s): CT abdomen pelvis wo IV con Accession Number(s): [id number] cc: Wale Ta MD; Alberto Simpson MD Report Number: [id number]: Total DLP = 777.00 mGy-cm EXAMINATION: CT ABDOMEN AND PELVIS WITHOUT CONTRAST CLINICAL INFORMATION: Acute kidney insufficiency, sepsis, urinary tract infection COMPARISON: None available. TECHNIQUE: Multidetector volumetric imaging was performed from the superior aspect of the liver through the pubic symphysis. Sagittal and coronal reformatted images were obtained on the technologist's workstation. This CT examination was performed using dose optimization techniques as appropriate, variously including the following: *Automated exposure control *Adjustment of mA and/or kV according to patient size (this includes techniques or standardized protocols for targeted exams where dose is matched to indication/reason for exam; i.e. extremities or head) *Use of iterative reconstruction technique DLP: 777 mGY*cm FINDINGS: LUNG BASES: The visualized lung bases are unremarkable. LIVER, GALLBLADDER, AND BILIARY TREE: The liver is normal in size, shape, and attenuation. No focal hepatic lesion or biliary ductal dilatation is present. There is a large calcified gallstone. PANCREAS: Unremarkable. SPLEEN: Unremarkable. ADRENAL GLANDS: Unremarkable. KIDNEYS AND URETERS: The kidneys are normal in size, shape, and attenuation. No hydronephrosis, hydroureter, or calculi seen. No perinephric stranding. BLADDER: There is circumferential bladder wall thickening. GASTROINTESTINAL TRACT: There is a wire leading into the rectum. Diverticulosis is present in the descending and sigmoid colon without inflammation or wall thickening. Normal appendix is identified. ABDOMINAL WALL: No significant hernia is appreciated. LYMPH NODES: Normal. VASCULAR: Moderate atherosclerotic calcific lesions are present. PELVIC VISCERA: Unremarkable. OSSEOUS STRUCTURES: Multilevel degenerative disc disease with bridging osteophytes thoracic spine is noted. 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 CT/CT abdomen pelvis wo IV con IMPRESSION: Bladder wall thickening raises torsion of cystitis. Cholelithiasis. Diverticulosis without sign of infection. Fleischner guidelines were followed. Electronically signed by: Dani Huerta MD 01/30/2025 05:12 PM EDT RP Dictated By: Dani Huerta MD Signed By: <Electronically signed by Dani Huerta MD in OV> 01/30/25 1712 DD/ 1646 TD/TT: 01/30/25 1659 Card Folder: [place] [address] CT Scan Report Signed Patient: Michelle Anderson MR#: [id number] : 1955 Acct:[id number] Age/Sex: 69 / M ADM Date: 01/30/25 Loc: [facility] 472-[address]: Pastora Mac MD Ordering Physician: Alberto Simpson MD Date of Service: 01/30/25 Procedure(s): CT abd omen pelvis wo IV con Accession Number(s): [id number] cc: Wale Ta MD; Alberto Simpson MD Report Number: [id number]: Total DLP = 777.00 mGy-cm EXAMINATION: CT ABDOMEN AND PELVI S WITHOUT CONTRAST CLINICAL INFORMATION: Acute kidney insufficiency, sepsis, urinary tract infection COMPARISON: None available. TECHNIQUE: Multidetector volume tric imaging was performed from the superior aspect of the liver through the pubic symphysis. Sagittal and coronal reformatted images w ere obtained on the technologist's workstation. This CT examination was performed using dose optimization techniques as appropriate, various ly including the following: *Automated exposure control *Adjustment of mA an d/or kV according to patient size (this includes techniques or standardized protocols for targeted exams where dose is matched to indication/reason for exam; i.e. extremities or head) *Use of iterative reconstruction technique DLP: 777 mGY*cm FINDINGS: LUNG BASES: The visualized lung bases are unremarkable. LIVER, GALLBLADDER, AND BILIARY TREE: The liver is normal in size, shape, and attenuati on. No focal hepatic lesion or biliary ductal dilatation is presen t. There is a large calcified gallstone. PANCREAS: Unremarkable. SPLEEN: Unremarkable. ADRENAL GLANDS: Unremarkable. KIDNEYS AND URETERS: The kidneys are normal in size, shape, and attenuation. No hydronephrosis, hydroureter, or calculi seen. No perinephric stranding. BLADDER: There is circumferential bladder wall thickening. GASTROINTESTINAL TRACT: There is a wire lead ing into the rectum. Diverticulosis is pr esent in the descending and sigmoid colon without inflammation or wall thickening. Normal appendix is identified. ABDOMINAL WALL: No significant hernia is appreciated. LYMPH NODES: Normal. VASCULAR: Moderate atherosclerotic calcific lesions are present. PELVIC VISCERA: Unremarkable. OSSEOUS STRUCTURES: Multilevel degenerative disc disease with bridging osteophytes thoracic spine is noted. 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 C T/CT abdomen pelvis wo IV con IMPRESSION: Bladder wall thicken ing raises torsion of cystitis. Cholelithiasis. Diverticulosis witho ut sign of infection. Fleischner guideline s were followed. Electronically awilda d by: Dani Huerta MD 01/30/2025 05:12 PM EDT Dictated By: Dani Huerta MD Signed By: <Electronically signed by Dani Huerta MD in OV> 01/30/25 1712 DD/ 1646 TD/TT: 01/30/25 1659 Card Folder: XR chest 1V Reviewed date:01/31/2025 07:22:58 AM Interpretation: Performing Lab: Notes/Report: [address] [address] XRay Report Signed Patient: Raulito Anderson MR#: [id number] : 1955 Acct:[id number] Age/Sex: 69 / M ADM Date: 01/30/25 Loc: HO.ED Attending Dr: Ordering Physician: Alberto Simpson MD Date of Service: 01/30/25 Procedure(s): XR chest 1V Accession Number(s): [id number] cc: Wale Ta MD; Alberto Simpson MD EXAMINATION: XR CHEST CLINICAL INFORMATION: sepsis COMPARISON: None available. TECHNIQUE: Frontal view of the chest was obtained. FINDINGS: Poor inspiration. No consolidation pleural effusion or pneumothorax. Cardiomediastinal silhouette size is normal. Metallic device overlapping the left lateral lower hemithorax. Sternal wires. Level spondylosis. Degenerative changes both shoulders. XR/XR chest 1V IMPRESSION: No acute airspace disease. Electronically signed by: Jovan Howard MD 01/30/2025 03:21 PM EDT Dictated By: Jovan Palomino MD Signed By: <Electronically signed by Jovan Irving MD in OV> 01/30/25 1521 DD/ 1510 TD/TT: 01/30/25 1515 Card Folder: [address] [address] XRay Report Signed Patient: Michelle Anderson MR#: [id number] : 1955 Acct:[id number] Age/Sex: 69 / M ADM Date: 01/30/25 Loc: .ED Attending Dr: Ordering Physician: Alberto Simpson MD Date of Service: 01/30/25 Procedure(s): XR chest 1V Accession Number(s): [id number] cc: Wale Ta MD; Alberto Simpson MD EXAMINATION: XR CHEST CLINICAL INFORMATION: sepsis COMPARISON: None available. TECHNIQUE: Frontal view of the chest was obtained. FINDINGS: Poor inspiration. No consolidation pleural effusion or pneumothorax. Cardiomediastinal silhouette size is normal. Metallic device overlapping the left lateral lower hemithorax. Sternal wires. Level spondylosis. Degener ative changes both shoulders. X R/XR chest 1V IMPRESSION: No acute airspace disease. Electronically awilda d by: Jovan Howard MD 01/30/2025 03:21 PM EDT RP Dictated By: Jovan Hardin MD Signed By: <Electronically signed by Jovan Irving MD in OV> 01/30/25 1521 DD/ 1510 TD/TT: 01/30/25 1515 Card Folder: Glucose, Whole Blood Reviewed date:01/31/2025 07:22:58 AM Interpretation: Performing Lab:[facility], [address] [place] [phone] Notes/Report: Glucose, Whole Blood 135 60-115 mg/dL METER # : [id number] Complete Blood Count Auto Di ff Reviewed date:01/31/2025 03:29:27 PM Interpretation: Performing Lab:[facility], [address] [place] [phone] Notes/Report: I tried patient three times and missed, please try again I tried patient three times and missed, please try again after 7:00-Garciac after 7:00-Garcia White Blood Count 8.6 4.8-10.8 X10*3/uL Red Blood Count 4.06 4.60-5.80 X10*6/uL Hemoglobin 9.1 14.0-18.0 g/dl Hematocrit 30.3 42.0-52.0 % Mean Corpuscular Volume 74.6 80.0-98.0 fL Mean Corpuscular Hemoglobin 22.4 27.0-33.0 pg Mean Corpuscular HGB Conc 30.0 31.0-36.0 g/dl Red Cell Distribution Width 19.4 11.0-16.0 % Platelet Count 162 160-400 X10*3/uL Mean Platelet Volume 9.2 9.4-12.4 fL Neutrophils Percent Auto 91.8 45-73 % Imm Gran Pct Auto 0.5 0.0-0.4 % Lymphocytes Percent Auto 3.7 20-40 % Monocytes Percent Auto 3.4 2-11 % Eosinophils Percent Auto 0.1 0-4 % Basophils Percent Auto 0.5 0-2 % NRBC Pct Auto 0.0 0.0-0.2 /100WBC Neutrophils Absolute Auto 7.9 2.0-8.3 x10*3/uL Imm Gran Abs Auto 0.04 0.00-0.03 X10*3/uL Lymphocytes Absolute Auto 0.3 1.2-4.9 X10*3/uL Monocytes Absolute Auto 0.3 0.1-1.2 X10*3/uL Eosinophils Absolute Auto 0.0 0.0-0.4 X10*3/uL Basophils Absolute Auto 0.0 0.0-0.2 X10*3/uL NRBC Abs Auto 0.000 0.0-0.012 X10*3/uL White Blood Count 8.6 4.8-10.8 X10*3/uL Red Blood Count 4.06 4.60-5.80 X10*6/uL Hemoglobin 9.1 14.0-18.0 g/dl Hematocrit 30.3 42.0-52.0 % Mean Corpuscular Volume 74.6 80.0-98.0 fL Mean Corpuscular Hemoglobin 22.4 27.0-33.0 pg Mean Corpuscular HGB Conc 30.0 31.0-36.0 g/dl Red Cell Distribution Width 19.4 11.0-16.0 % Platelet Count 162 160-400 X10*3/uL Mean Platelet Volume 9.2 9.4-12.4 fL Neutrophils Percent Auto 91.8 45-73 % Imm Gran Pct Auto 0.5 0.0-0.4 % Lymphocytes Percent Auto 3.7 20-40 % Monocytes Percent Auto 3.4 2-11 % Eosinophils Percent Auto 0.1 0-4 % Basophils Percent Auto 0.5 0-2 % NRBC Pct Auto 0.0 0.0-0.2 /100WBC Neutrophils Absolute Auto 7.9 2.0-8.3 x10*3/uL Imm Gran Abs Auto 0.04 0.00-0.03 X10*3/uL Lymphocytes Absolute Auto 0.3 1.2-4.9 X10*3/uL Monocytes Absolute Auto 0.3 0.1-1.2 X10*3/uL Eosinophils Absolute Auto 0.0 0.0-0.4 X10*3/uL Basophils Absolute Auto 0.0 0.0-0.2 X10*3/uL NRBC Abs Auto 0.000 0.0-0.012 X10*3/uL COR RECTED REPORT COR RECTED REPORT Comprehensive Met. Panel Reviewed date:01/31/2025 03:29:27 PM Interpretation: Performing Lab:[facility], [address] [place] [phone] Notes/Report: I tried patient three times and missed, please try again after 7:00-Garciac Sodium 134 135-145 mmol/L Potassium 5.6 3.3-5.1 mmol/L Chloride 113 96-108 mmol/L Carbon Dioxide 14 22-29 mmol/L Anion Gap 13 12-20 Blood Urea Nitrogen 56 9-16 mg/dL Creatinine 1.81 0.5-1.4 mg/dL Creatinine Clr Calc Pharmacy 45.6 eGFR (calculated from the MDRD study equation) and eCrCl (calculated from the Cockcroft-Gault equation) are based on different parameters and may not yield comparable results. If eCrCl result is absurd, please check patient's height/weight. Estimated Glomerular Filt Rate 37 Chronic Kidney Disease: Estimated GFR < 60 mL/min/1.73m2 Severe Kidney Disease: Estimated GFR < 15 mL/min/1.73m2 Glucose Random 172 60-115 mg/dL Calcium 8.7 8.4-10.2 mg/dL Bilirubin Total 0.4 0.0-1.0 mg/dL Aspartate Amino Transferase 33 5-37 U/L Alanine Aminotransferase 22 0-40 U/L Total Protein 7.0 6.5-8.0 g/dL Albumin Level 3.2 3.5-5.0 g/dL Alkaline Phosphatase 52 39-117 U/L Basic Metabolic Panel Reviewed date:02/01/2025 01:36:53 PM Interpretation: Performing Lab:[facility], [address] [place] [phone] Notes/Report: Sodium 130 135-145 mmol/L Potassium 4.7 3.3-5.1 mmol/L Chloride 107 96-108 mmol/L Carbon Dioxide 14 22-29 mmol/L Anion Gap 14 12-20 Blood Urea Nitrogen 39 9-16 mg/dL Creatinine 1.50 0.5-1.4 mg/dL Creatinine Clr Calc Pharmacy 55.1 eGFR (calculated from the MDRD study equation) and eCrCl (calculated from the Cockcroft-Gault equation) are based on different parameters and may not yield comparable results. If eCrCl result is absurd, please check patient's height/weight. Estimated Glomerular Filt Rate 46 Chronic Kidney Disease: Estimated GFR < 60 mL/min/1.73m2 Severe Kidney Disease: Estimated GFR < 15 mL/min/1.73m2 Glucose Random 167 60-115 mg/dL Calcium 8.4 8.4-10.2 mg/dL Lactic Acid Reviewed date:01/31/2025 03:29:27 PM Interpretation: Performing Lab:[facility], [address] [place] [phone] Notes/Report: Lactic Acid 1.6 0.5-2.0 mmol/L Phosphorus Reviewed date:01/31/2025 03:29:27 PM Interpretation: Performing Lab:[facility], [address] [place] [phone] Notes/Report: I tried patient three times and missed, please try again after 7:00-Garciac Phosphorus 3.1 2.7-4.5 mg/dL Magnesium Reviewed date:01/31/2025 03:29:27 PM Interpretation: Performing Lab:[facility], [address] [place] [phone] Notes/Report: I tried patient three times and missed, please try again after 7:00-Garciac Magnesium 1.4 1.6-2.6 mg/dL Critical value for MAG: Results called to and read back by: JACINDA Ovalles calling: CHILO Date: 01-31-25 Time: 0813 Troponin-I High Sensitivity Reviewed date:01/31/2025 03:29:27 PM Interpretation: Performing Lab:[facility], [address] [place] [phone] Notes/Report: Troponin-I High Sensitivity 72.1 <3.5-35.0 ng/L The Alvarado high sensitivity Troponin-I results should be used in conjunction with other diagnostic information such as ECG, clinical observations and information, and patient symptoms to aid in the diagnosis of WI. Albumin Level Reviewed date:02/01/2025 01:36:53 PM Interpretation: Performing Lab:[facility], [address] [place] [phone] Notes/Report: Albumin Level 3.0 3.5-5.0 g/dL Lipase Reviewed date:01/31/2025 03:29:27 PM Interpretation: Performing Lab:[facility], [address] [place] [phone] Notes/Report: I tried patient three times and missed, please try again after 7:00-Garciac Lipase 41 8-78 U/L Procalcitonin Reviewed date:01/31/2025 03:29:27 PM Interpretation: Performing Lab:[facility], [address] [place] [phone] Notes/Report: Procalcitonin 13.37 Procalcitonin (PCT) Reference Range: PCT greater than 2.0 ng/mL: A PCT level above 2.0 ng/mL on the first day of ICU admission is associated with a high risk for progression to severe sepsis and/or septic shock. PCT less than 0.5 ng/mL: A PCT level below 0.5 ng/mL on the first day of ICU admission is associated with a low risk for progression to severe sepsis and/or septic shock. PCT levels below 0.5 ng/mL do not exclude an infection. Care must be taken in interpreting PCT results from different laboratories and methodologies. References: [employer]/Society of Critical Care Medicine Consensus Conference Committee. Definitions for sepsis and organ failure and guidelines for the use of innovative therapies in sepsis. Crit Care Med 1992;20(6):864-874. Liz B, Henri KL, Schamaviser H, et al. Calcitonin precursors are reliable markers of sepsis in a medical intensive care unit. Crit Care Med 2000;363:600-607. Kt S, Adele K, Tay C, et al. Diagnostic value of procalcitonin, interleukin-6 and interleukin-8 in critically ill patients admitted with suspected sepsis. AM J Respir Crit Care Med 2001;164:396-402. US Food and Drug Administration. 510(k) substantial equivalence determination decision summary for BRAS PCT ÁNGEL. http://www.accessdat a.fda.fov/cdrh_docs/ reviews/U076575.pdf. Published August 2004. Accessed December 2016. Chloride Urine Random Reviewed date:02/01/2025 01:36:53 PM Interpretation: Performing Lab:[facility], [address] [place] [phone] Notes/Report: Chloride Urine Random 119.0 Sodium Urine Random Reviewed date:02/01/2025 01:36:53 PM Interpretation: Performing Lab:[facility], [address] [place] [phone] Notes/Report: Sodium Urine Random 118.0 Potassium Urine Random Reviewed date:02/01/2025 01:36:53 PM Interpretation: Performing Lab:[facility], [address] [place] [phone] Notes/Report: Potassium Urine Random 19.4 Glucose, Whole Blood Reviewed date:01/31/2025 03:29:27 PM Interpretation: Performing Lab:[facility], [address] [place] [phone] Notes/Report: Glucose, Whole Blood 253 60-115 mg/dL METER # : [id number] SLIDE REVIEW Reviewed date:01/31/2025 03:29:27 PM Interpretation: Performing Lab:[facility], [address] [place] [phone] Notes/Report: I tried patient three times and missed, please try again after 7:00-Garciac SLIDE REVIEW VERIFIED Venous Blood Gases - POC Reviewed date:01/31/2025 03:29:27 PM Interpretation: Performing Lab:[facility], [address] [place] [phone] Notes/Report: VBG pH 7.43 7.32-7.43 METER #: [id number] additional_comment: Cb murca VBG pCO2 17 METER #: [id number] additional_comment: Cb murca VBG pO2 206 METER #: [id number] additional_comment: Cb murca VBG Base Excess -10.4 METER #: [id number] additional_comment: Cb murca VBG HCO3 11 22-26 mmol/L METER #: [id number] additional_comment: Cb murca VBG O2 % Saturation 99.0 METER #: [id number] additional_comment: Cb gabica Arterial Blood Gases - POC Reviewed date:01/31/2025 03:29:27 PM Interpretation: Performing Lab:[facility], [address] [place] [phone] Notes/Report: ABG pH 7.46 7.35-7.45 METER #: [id number] additional_comment: Cb lilibeth mac ABG pCO2 18 32-45 mmHg METER #: [id number] additional_comment: Cb lilibeth mac ABG pO2 109 83-108 mmHg METER #: [id number] additional_comment: Barrera mac ABG Base Excess -7.8 METER #: [id number] additional_comment: Barrera mac ABG HCO3 13 22-26 mmol/L METER #: [id number] additional_comment: Barrera mac ABG O2 % Saturation 99.0 METER #: [id number] additional_comment: Barrera mac Beta-Hydroxybutyrate Reviewed date:01/31/2025 03:29:27 PM Interpretation: Performing Lab:[facility], [address] [place] [phone] Notes/Report: Beta-Hydroxybutyrate 1.04 0.02-0.27 mmol/L CT hand RT wo con Reviewed date:01/31/2025 03:29:27 PM Interpretation: Performing Lab: Notes/Report: [address] [address] [address] Scan Report Signed Patient: Raulito Anderson MR#: [id number] : 1955 Acct:[id number] Age/Sex: 69 / M ADM Date: 01/30/25 Loc: HO.ICU 259-[address]: Tiki Mac MD Ordering Physician: Petra Augustine NP Date of Service: 01/31/25 Procedure(s): CT hand RT wo IV con Accession Number(s): [id number] cc: Wale Ta MD; Petra Augustine NP Report Number: [id number]: Total DLP = 140.00 mGy-cm CLINICAL HISTORY: osteo of fingers? Right Hand CT righthand without IV contrast. Comparison: None Findings: This exam was nondiagnostic for osteomyelitis of the digits due to motion. 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 Impression: 1. Nondiagnostic exam for osteomyelitis of the digits. Amputation sites as described with the adjacent soft tissue thickening but no soft tissue gas or soft tissue defects demonstrated. Subtle pathology may be obscured.. No carpal bone fractures or carpal malalignment. Radial carpal joint intact ulnar and radial styloid preserved. 2. Consider plain radiograph correlation if patient can not cooperate. Otherwise three-phase bone scan may be indicated This document has been electronically signed by: Devan Enriquez MD on 01/31/2025 10:21:29 Dictated By: Devan Enriquez MD Signed By: <Electronically signed by Devan Enriquez MD in OV> 01/31/25 1022 DD/ 1021 TD/TT: 01/31/25 1021 Card Folder: [address] [address] [address] Scan Report Signed Patient: Michelle Anderson MR#: [id number] : 1955 Acct:[id number] Age/Sex: 69 / M ADM Date: 01/30/25 Loc: HO.ICU 259-[address]: Pastora Mac MD Ordering Physician: Petra Augustine NP Date of Service: 01/31/25 Procedure(s): CT weir d RT wo IV con Accession Number(s): [id number] cc: Wale Ta MD; Petra Augustine NP Report Number: [id number]: Total DLP = 140.00 mGy-cm CLINICAL HISTORY: os linsey of fingers? Right Hand CT righthand without IV contrast. Comparison: None Findings: This exam was nondiagnostic for osteomyelitis of the digits due to motion. 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 Impression: 1. Nondiagnostic exa m for osteomyelitis of the digits. Amputation sites as described with the adjacent soft tissue thickening but no soft tissue gas or soft tissue defec ts demonstrated. Subtle pathology may be obscured.. No carpal bone fracture s or carpal malalignment. Radial carpal joint intact ulnar and radial sty loid preserved. 2. Consider plain radiograph correlation if patient can not cooperate. Otherwise three-phas e bone scan may be indicated This document has be en electronically signed by: Devan Enriquez MD on 01/31/2025 10:21:29 Dictated By: Devan Enriquez MD Signed By: <Electronically signed by Devan Enriquez MD in OV> 01/31/25 1022 DD/ 1021 TD/TT: 01/31/25 1021 Card Folder: CT hand LT wo con Reviewed date:01/31/2025 03:29:27 PM Interpretation: Performing Lab: Notes/Report: [address] [address] [address] Scan Report Signed Patient: Raulito Anderson MR#: [id number] : 1955 Acct:[id number] Age/Sex: 69 / M ADM Date: 01/30/25 Loc: .ICU 259-[address]: Tiki Mac MD Ordering Physician: Petra Augustine NP Date of Service: 01/31/25 Procedure(s): CT hand LT wo IV con Accession Number(s): [id number] cc: Wale Ta MD; Petra Augustine NP Report Number: [id number]: Total DLP = 87.00 mGy-cm CLINICAL HISTORY: Osteo of fingers? Left Hand CT left hand without IV contrast. Comparison: None Findings: This exam was nondiagnostic due to excessive motion. There is evidence of amputation at the level of the 2nd proximal phalanx 3rd metacarpal phalangeal joint 4th middle phalanx and 5th middle phalanx Impression: 1. Nondiagnostic study due to motion This document has been electronically signed by: Devan Enriquez MD on 01/31/2025 10:09:05 Dictated By: Devan Enriquez MD Signed By: <Electronically signed by Devan Enriquez MD in OV> 01/31/25 1010 DD/ 1009 TD/TT: 01/31/25 1009 Card Folder: [place] [id number] CT Scan Report Signed Patient: Michelle Anderson MR#: [id number] : 1955 Acct:[id number] Age/Sex: 69 / M ADM Date: 01/30/25 Loc: [facility] 259-[address]: Pastora Mac MD Ordering Physician: Petra Augustine NP Date of Service: 01/31/25 Procedure(s): CT weir d LT wo IV con Accession Number(s): [id number] cc: Wale Ta MD; Petra Augustine [employer] Report Number: [id number]: Total DLP = 87.00 mGy-cm CLINICAL HISTORY: Os linsey of fingers? Left Hand CT left hand without IV contrast. Comparison: None Findings: This exam was nondiagnostic due to excessive motion. There is evidence of amputation at the le [place] of the 2nd proximal phalanx 3rd metacarpal phalangeal joint 4th middle phalanx and 5th middle phalanx Impression: 1. Nondiagnostic clifton dy due to motion This document has be en electronically signed by: Devan Enriquez MD on 01/31/2025 10:09:05 Dictated By: Devan Enriquez MD Signed By: <Electronically signed by Devan Enriquez MD in OV> 01/31/25 1010 DD/ 1009 TD/TT: 01/31/25 1009 Card Folder: Glucose, Whole Blood Reviewed date:01/31/2025 03:29:27 PM Interpretation: Performing Lab:[facility], [address] [place] [phone] Notes/Report: Glucose, Whole Blood 203 60-115 mg/dL METER # : [id number] Glucose, Whole Blood Reviewed date:02/01/2025 01:36:53 PM Interpretation: Performing Lab:[facility], [address] [place] [phone] Notes/Report: Glucose, Whole Blood 166 60-115 mg/dL METER # : [id number] Venous Blood Gases - POC Reviewed date:02/01/2025 01:36:53 PM Interpretation: Performing Lab:[facility], [address] [place] [phone] Notes/Report: VBG pH 7.45 7.32-7.43 METER #: [id number] additional_comment: Cb fimitch ctrdex henriquevirac VBG pCO2 21 METER #: [id number] additional_comment: Cb oc ctrbb henriquezc VBG pO2 71 METER #: [id number] additional_comment: [facility] ctrbb henriquezc VBG Base Excess -6.8 METER #: [id number] additional_comment: Cb oc ctrdex henriquezc VBG HCO3 15 22-26 mmol/L METER #: [id number] additional_comment: Cb oc ctrbb henriquezc VBG O2 % Saturation 94.0 METER #: [id number] additional_comment: Cb mitch frederickriquehema Glucose, Whole Blood Reviewed date:02/01/2025 01:36:53 PM Interpretation: Performing Lab:[facility], [address] [place] [phone] Notes/Report: Glucose, Whole Blood 151 60-115 mg/dL METER # : [id number] Phosphorus Reviewed date:02/01/2025 01:36:53 PM Interpretation: Performing Lab:[facility], [address] [place] [phone] Notes/Report: Phosphorus 2.6 2.7-4.5 mg/dL Magnesium Reviewed date:02/01/2025 01:36:53 PM Interpretation: Performing Lab:[facility], [address] [place] [phone] Notes/Report: Magnesium 1.6 1.6-2.6 mg/dL Complete Blood Count Auto Di ff Reviewed date:02/01/2025 01:36:53 PM Interpretation: Performing Lab:[facility], [address] [place] [phone] Notes/Report: White Blood Count 5.6 4.8-10.8 X10*3/uL Red Blood Count 4.32 4.60-5.80 X10*6/uL Hemoglobin 9.8 14.0-18.0 g/dl Hematocrit 31.8 42.0-52.0 % Mean Corpuscular Volume 73.6 80.0-98.0 fL Mean Corpuscular Hemoglobin 22.7 27.0-33.0 pg Mean Corpuscular HGB Conc 30.8 31.0-36.0 g/dl Red Cell Distribution Width 19.6 11.0-16.0 % Platelet Count 135 160-400 X10*3/uL Mean Platelet Volume 8.8 9.4-12.4 fL Neutrophils Percent Auto 82.9 45-73 % Imm Gran Pct Auto 0.5 0.0-0.4 % Lymphocytes Percent Auto 8.4 20-40 % Monocytes Percent Auto 7.1 2-11 % Eosinophils Percent Auto 0.4 0-4 % Basophils Percent Auto 0.7 0-2 % NRBC Pct Auto 0.0 0.0-0.2 /100WBC Neutrophils Absolute Auto 4.7 2.0-8.3 x10*3/uL Imm Gran Abs Auto 0.03 0.00-0.03 X10*3/uL Lymphocytes Absolute Auto 0.5 1.2-4.9 X10*3/uL Monocytes Absolute Auto 0.4 0.1-1.2 X10*3/uL Eosinophils Absolute Auto 0.0 0.0-0.4 X10*3/uL Basophils Absolute Auto 0.0 0.0-0.2 X10*3/uL NRBC Abs Auto 0.000 0.0-0.012 X10*3/uL Comprehensive Met. Panel Reviewed date:02/01/2025 01:36:53 PM Interpretation: Performing Lab:[address] [address] Notes/Report: Sodium 132 135-145 mmol/L Potassium 4.9 3.3-5.1 mmol/L Chloride 106 96-108 mmol/L Carbon Dioxide 15 22-29 mmol/L Anion Gap 16 12-20 Blood Urea Nitrogen 36 9-16 mg/dL Creatinine 1.54 0.5-1.4 mg/dL Creatinine Clr Calc Pharmacy 53.7 eGFR (calculated from the MDRD study equation) and eCrCl (calculated from the Cockcroft-Gault equation) are based on different parameters and may not yield comparable results. If eCrCl result is absurd, please check patient's height/weight. Estimated Glomerular Filt Rate 45 Chronic Kidney Disease: Estimated GFR < 60 mL/min/1.73m2 Severe Kidney Disease: Estimated GFR < 15 mL/min/1.73m2 Glucose Random 169 60-115 mg/dL Calcium 8.5 8.4-10.2 mg/dL Bilirubin Total 0.5 0.0-1.0 mg/dL Aspartate Amino Transferase 37 5-37 U/L Alanine Aminotransferase 18 0-40 U/L Total Protein 6.7 6.5-8.0 g/dL Albumin Level 3.0 3.5-5.0 g/dL Alkaline Phosphatase 52 39-117 U/L Basic Metabolic Panel Reviewed date:02/01/2025 01:36:53 PM Interpretation: Performing Lab:[address] [address] Notes/Report: JUSTYNA Huynh delay the BMP to obtain with the vanco at 1200. [place] 0932 [id number] Sodium 131 135-145 mmol/L Potassium 4.9 3.3-5.1 mmol/L Chloride 104 96-108 mmol/L Carbon Dioxide 19 22-29 mmol/L Anion Gap 13 12-20 Blood Urea Nitrogen 36 9-16 mg/dL Creatinine 1.50 0.5-1.4 mg/dL Creatinine Clr Calc Pharmacy 55.0 eGFR (calculated from the MDRD study equation) and eCrCl (calculated from the Cockcroft-Gault equation) are based on different parameters and may not yield comparable results. If eCrCl result is absurd, please check patient's height/weight. Estimated Glomerular Filt Rate 46 Chronic Kidney Disease: Estimated GFR < 60 mL/min/1.73m2 Severe Kidney Disease: Estimated GFR < 15 mL/min/1.73m2 Glucose Random 292 60-115 mg/dL Calcium 8.4 8.4-10.2 mg/dL Phosphorus Reviewed date:02/01/2025 01:36:53 PM Interpretation: Performing Lab:[facility], [address] [place] [phone] Notes/Report: Phosphorus 3.2 2.7-4.5 mg/dL Magnesium Reviewed date:02/01/2025 01:36:53 PM Interpretation: Performing Lab:[facility], [address] [place] [phone] Notes/Report: Magnesium 1.5 1.6-2.6 mg/dL Glucose, Whole Blood Reviewed date:02/01/2025 01:36:53 PM Interpretation: Performing Lab:[facility], [address] [place] [phone] Notes/Report: Glucose, Whole Blood 206 60-115 mg/dL METER # : [id number] Vancomycin Random Reviewed date:02/01/2025 01:36:53 PM Interpretation: Performing Lab:[facility], [address] [place] [phone] Notes/Report: JUSTYNA Huynh delay the BMP to obtain with the vanco at 1200. [place] 0907 [id number] Vancomycin Random 14.0 15-20 mcg/mL Blood Culture < 90 LBS Reviewed date:02/07/2025 01:45:42 PM Interpretation: Performing Lab:[address] [address] Notes/Report: Blood Culture X1 No growth after 5 days. Venous Blood Gases - POC Reviewed date:02/01/2025 01:36:53 PM Interpretation: Performing Lab:[facility], [address] [place] [address] Notes/Report: VBG pH 7.36 7.32-7.43 METER #: [id number] additional_comment: BARRERA Longo VBG pCO2 25 METER #: [id number] additional_comment: BARRERA Longo VBG pO2 146 METER #: [id number] additional_comment: BARRERA Longo VBG Base Excess -9.1 METER #: [id number] additional_comment: BARRERA Longo VBG HCO3 14 22-26 mmol/L METER #: [id number] additional_comment: BARRERA Longo VBG O2 % Saturation 100.0 METER #: [id number] additional_comment: BARRERA Longo NM bone 3 phase Reviewed date:02/01/2025 09:00:04 PM Interpretation: Performing Lab: Notes/Report: [address] [address] Nuclear Medicine Report Signed Patient: Raulito Anderson MR#: [id number] : 1955 Acct:[id number] Age/Sex: 69 / M ADM Date: 01/30/25 Loc: [facility] 450-[address]: Jesus Fine MD Ordering Physician: Petra Augustine NP Date of Service: 02/01/25 Procedure(s): NM bone 3 phase Accession Number(s): [id number] cc: Wale Ta MD; Petra Augustine NP EXAMINATION: Nuclear medicine three-phase bone scan both hands. CLINICAL INDICATIONS: Bilateral hand osteomyelitis. Amputation of distal phalanges of both hands. Below left knee amputation COMPARISON: CT hand 01/31/2025. TECHNIQUE: Following intravenous administration of 36 mCi of 99m technetium MDP, three-phase bone scan of both hands were obtained. FINDINGS: RIGHT HAND: On first phase bone scan there is increased flow, blood pool imaging and static activity in the first, third and the fifth distal fingers consistent with osteomyelitis. LEFT HAND: On first phase bone scan there is mild increased flow to the fifth digit with increased blood pool activity in the second phase and focal intense activity in third phase in distal first and fifth digit consistent with osteomyelitis. Additional areas of abnormal activity seen. NM/NM bone 3 phase IMPRESSION: Findings suggestive of osteomyelitis of first, third and fifth distal fingers of RIGHT HAND consistent with osteomyelitis. Osteomyelitis distal first and the fifth digit LEFT HAND. Activity is significantly more intense in the distal little finger/fifth digit Electronically signed by: Armando Alvarado MD 02/01/2025 04:33 PM EDT Dictated By: Armando Alvarado MD Signed By: <Electronically signed by Armando Alvarado MD in OV> 02/01/25 1633 DD/ 1200 TD/TT: 02/01/25 1545 Card Folder: [place] [address] Nuclear Medicine Report Signed Patient: Michelle Anderson MR#: [id number] : 1955 Acct:[id number] Age/Sex: 69 / M ADM Date: 01/30/25 Loc: [facility] 450-[address]: Booker Fine MD Ordering Physician: Petra Augustine NP Date of Service: 02/01/25 Procedure(s): CHECO galo 3 phase Accession Number(s): [id number] cc: Wale Ta MD; Petra Augustine NP EXAMINATION: Nuclear medicine three-phase bone scan both hands. CLINICAL INDICATIONS : Bilateral hand osteomyelitis. Amputation of distal phalanges of both hands. Below left knee amputation COMPARISON: CT hand 01/31/2025. TECHNIQUE: Following intravenous administration of 36 mCi of 99m technetium MDP, three-phase bone scan of both hands were obtained. FINDINGS: RIGHT HAND: On first phase bone scan there is increased flow, blood pool imaging and static activity in the first, third and the fifth distal fingers consistent with osteomyelitis. LEFT HAND: On first phase bone scan there is mild increased flow to the fifth digit with increased blood pool activity in the second phase and focal intense activity in third phase in distal first and fifth digit consistent with osteomyelitis. Additional areas of abnormal activity seen. N M/NM bone 3 phase IMPRESSION: Findings suggestive of osteomyelitis of first, third and fifth distal fingers of RIGHT HAND consistent with osteomyelitis. Osteomyelitis distal first and the fifth digit LEFT HAND. Activity is significantly more intense in the distal little finger/fifth digit Electronically awilda d by: Armando Alvarado MD 02/01/2025 04:33 PM EDT Dictated By: Mr oscar Alvarado MD Signed By: <Electronically signed by Armando Alvarado MD in OV> 02/01/25 1633 DD/ 1200 TD/TT: 02/01/25 1545 Card Folder: [place] Glucose, Whole Blood Reviewed date:02/01/2025 01:36:53 PM Interpretation: Performing Lab:[facility], [address] [place] [phone] Notes/Report: Glucose, Whole Blood 262 60-115 mg/dL METER # : [id number] Magnesium Reviewed date:02/01/2025 01:36:53 PM Interpretation: Performing Lab:[facility], [address] [place] [phone] Notes/Report: JUSTYNA Huynh delay the BMP to obtain with the vanco at 1200. [place] 0932 [id number] Magnesium 1.7 1.6-2.6 mg/dL Glucose, Whole Blood Reviewed date:02/01/2025 09:00:04 PM Interpretation: Performing Lab:[facility], [address] [place] [phone] Notes/Report: Glucose, Whole Blood 301 60-115 mg/dL METER # : [id number] Glucose, Whole Blood Reviewed date:02/01/2025 09:00:04 PM Interpretation: Performing Lab:[facility], [address] [place] [phone] Notes/Report: Glucose, Whole Blood 347 60-115 mg/dL METER # : [id number] Comprehensive Met. Panel Reviewed date:02/02/2025 06:01:04 PM Interpretation: Performing Lab:[facility], [address] [place] [phone] Notes/Report: Sodium 134 135-145 mmol/L Potassium 4.4 3.3-5.1 mmol/L Chloride 106 96-108 mmol/L Carbon Dioxide 19 22-29 mmol/L Anion Gap 13 12-20 Blood Urea Nitrogen 38 9-16 mg/dL Creatinine 1.62 0.5-1.4 mg/dL Creatinine Clr Calc Pharmacy 49.4 eGFR (calculated from the MDRD study equation) and eCrCl (calculated from the Cockcroft-Gault equation) are based on different parameters and may not yield comparable results. If eCrCl result is absurd, please check patient's height/weight. Estimated Glomerular Filt Rate 42 Chronic Kidney Disease: Estimated GFR < 60 mL/min/1.73m2 Severe Kidney Disease: Estimated GFR < 15 mL/min/1.73m2 Glucose Random 269 60-115 mg/dL Calcium 8.6 8.4-10.2 mg/dL Bilirubin Total 0.3 0.0-1.0 mg/dL Aspartate Amino Transferase 34 5-37 U/L Alanine Aminotransferase 15 0-40 U/L Total Protein 7.0 6.5-8.0 g/dL Albumin Level 3.2 3.5-5.0 g/dL Alkaline Phosphatase 47 39-117 U/L Glucose, Whole Blood Reviewed date:02/02/2025 06:01:04 PM Interpretation: Performing Lab:[facility], [address] [place] [address] Notes/Report: Glucose, Whole Blood 234 60-115 mg/dL METER # : [id number] Glucose, Whole Blood Reviewed date:02/02/2025 06:01:04 PM Interpretation: Performing Lab:[facility], [address] [place] [phone] Notes/Report: Glucose, Whole Blood 270 60-115 mg/dL METER # : [id number] Glucose, Whole Blood Reviewed date:02/02/2025 06:01:04 PM Interpretation: Performing Lab:[facility], [address] [place] [phone] Notes/Report: Glucose, Whole Blood 307 60-115 mg/dL METER # : [id number] Glucose, Whole Blood Reviewed date:02/07/2025 01:45:42 PM Interpretation: Performing Lab:[facility], [address] [place] [phone] Notes/Report: Glucose, Whole Blood 334 60-115 mg/dL METER # : [id number] Basic Metabolic Panel Reviewed date:02/07/2025 01:45:42 PM Interpretation: Performing Lab:[address] [address] Notes/Report: Sodium 137 135-145 mmol/L Potassium 4.7 3.3-5.1 mmol/L Chloride 105 96-108 mmol/L Carbon Dioxide 22 22-29 mmol/L Anion Gap 15 12-20 Blood Urea Nitrogen 33 9-16 mg/dL Creatinine 1.32 0.5-1.4 mg/dL Creatinine Clr Calc Pharmacy 61.6 eGFR (calculated from the MDRD study equation) and eCrCl (calculated from the Cockcroft-Gault equation) are based on different parameters and may not yield comparable results. If eCrCl result is absurd, please check patient's height/weight. Estimated Glomerular Filt Rate 54 Chronic Kidney Disease: Estimated GFR < 60 mL/min/1.73m2 Severe Kidney Disease: Estimated GFR < 15 mL/min/1.73m2 Glucose Random 349 60-115 mg/dL Calcium 8.7 8.4-10.2 mg/dL Glucose, Whole Blood Reviewed date:02/07/2025 01:45:42 PM Interpretation: Performing Lab:[address] [address] Notes/Report: Glucose, Whole Blood 236 60-115 mg/dL METER # : [id number] Glucose, Whole Blood Reviewed date:02/07/2025 01:45:42 PM Interpretation: Performing Lab:[facility], [address] [place] [phone] Notes/Report: Glucose, Whole Blood 291 60-115 mg/dL METER # : [id number] Glucose, Whole Blood Reviewed date:02/07/2025 01:45:42 PM Interpretation: Performing Lab:[address] [address] Notes/Report: Glucose, Whole Blood 325 60-115 mg/dL METER # : [id number] Glucose, Whole Blood Reviewed date:02/07/2025 01:45:42 PM Interpretation: Performing Lab:[facility], [address] [place] [address] Notes/Report: Glucose, Whole Blood 320 60-115 mg/dL METER # : [id number] Glucose, Whole Blood Reviewed date:02/07/2025 01:45:42 PM Interpretation: Performing Lab:[facility], [address] [place] [address] Notes/Report: Glucose, Whole Blood 344 60-115 mg/dL METER # : [id number] Glucose, Whole Blood Reviewed date:02/07/2025 01:45:42 PM Interpretation: Performing Lab:[facility], [address] [place] [phone] Notes/Report: Glucose, Whole Blood 365 60-115 mg/dL METER # : [id number] Glucose, Whole Blood Reviewed date:02/07/2025 01:45:42 PM Interpretation: Performing Lab:[facility], [address] [place] [address] Notes/Report: Glucose, Whole Blood 207 60-115 mg/dL METER # : [id number] Glucose, Whole Blood Reviewed date:02/07/2025 01:45:42 PM Interpretation: Performing Lab:[facility], [address] [place] [address] Notes/Report: Glucose, Whole Blood 184 60-115 mg/dL METER # : [id number] Basic Metabolic Panel Fastin g Reviewed date:02/07/2025 01:45:42 PM Interpretation: Performing Lab:[facility], [address] [place] [address] Notes/Report: Sodium 137 135-145 mmol/L Potassium 4.3 3.3-5.1 mmol/L Chloride 106 96-108 mmol/L Carbon Dioxide 23 22-29 mmol/L Anion Gap 12 12-20 Blood Urea Nitrogen 24 9-16 mg/dL Creatinine 1.16 0.5-1.4 mg/dL Creatinine Clr Calc Pharmacy 69.8 eGFR (calculated from the MDRD study equation) and eCrCl (calculated from the Cockcroft-Gault equation) are based on different parameters and may not yield comparable results. If eCrCl result is absurd, please check patient's height/weight. Estimated Glomerular Filt Rate > 60 Chronic Kidney Disease: Estimated GFR < 60 mL/min/1.73m2 Severe Kidney Disease: Estimated GFR < 15 mL/min/1.73m2 Glucose Fasting 180 60-99 mg/dL A fasting glucose of 126 mg/dl or greater on more than one occasion is considered diagnostic of diabetes. Calcium 9.1 8.4-10.2 mg/dL Glucose, Whole Blood Reviewed date:02/07/2025 01:45:42 PM Interpretation: Performing Lab:[facility], [address] [place] [phone] Notes/Report: Glucose, Whole Blood 213 60-115 mg/dL METER # : [id number] Glucose, Whole Blood Reviewed date:02/07/2025 01:45:42 PM Interpretation: Performing Lab:[facility], [address] [place] [phone] Notes/Report: Glucose, Whole Blood 146 60-115 mg/dL METER # : [id number] Glucose, Whole Blood Reviewed date:02/07/2025 01:45:42 PM Interpretation: Performing Lab:[facility], [address] [place] [address] Notes/Report: Glucose, Whole Blood 221 60-115 mg/dL METER # : [id number] Glucose, Whole Blood Reviewed date:02/07/2025 01:45:42 PM Interpretation: Performing Lab:[facility], [address] [place] [address] Notes/Report: Glucose, Whole Blood 173 60-115 mg/dL METER # : [id number] Osmolality Urine Reviewed date:02/07/2025 01:45:42 PM Interpretation: Performing Lab:[facility], [address] [place] [phone] Notes/Report: JUSTYNA Huynh delay the BMP to obtain with the vanco at 1200. [place] 0960 [id number] Osmolality Urine 495 664-0827 mosm/kg Glucose, Whole Blood Reviewed date:02/07/2025 01:45:42 PM Interpretation: Performing Lab:[facility], [address] [place] [phone] Notes/Report: Glucose, Whole Blood 179 60-115 mg/dL METER # : [id number] Glucose, Whole Blood Reviewed date:02/07/2025 01:45:42 PM Interpretation: Performing Lab:[facility], [address] [place] [address] Notes/Report: Glucose, Whole Blood 171 60-115 mg/dL METER # : [id number] Glucose, Whole Blood Reviewed date:02/07/2025 01:45:42 PM Interpretation: Performing Lab:[facility], [address] [place] [address] Notes/Report: Glucose, Whole Blood 159 60-115 mg/dL METER # : [id number] Reason For Referral No Information Medications Medication SIG (Take, Route, Frequency, Duration) Notes Start Date End Date Status metFORMIN HCl 500 MG 2 tablet daily Oral ly Once a day for 90 days Active Lisinopril 20 MG TAKE 1 TABLET BY LORETTA TH DAILY Active Trulicity 3 MG/0.5ML as directed Subcutaneous 7 now Active Spironolactone 25 MG 1 tablet Orally Onc e a day Active Atorvastatin Calcium 40 MG 1 tablet Oral ly Once a day Active Metoprolol Succinate ER 100 MG 1 tablet Orally Once a day Active Immunizations Vaccine Route Administration Date Status Comme [facility] COVID- 19 Vaccine Unknown 03/04/2021 Administered De [place] [facility] on & Diogenes COVID- 19 Vaccine Unknown 07/28/2021 [...] Problem Status W/U Status Risk Notes Problem 1272777 Former smoker (Z87.891) Active confirmed He seems highly motivated not to smoke. We discussed a plan to prevent relapse in times of stress and illness. Problem 137357294 Type 2 diabetes mellitus without complications (E11.9) Active confirmed His A1c is 9.2. 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 We will try to arrange a telemetry health visit. If not, I will increase his trulicity in his medications. Problem 269462148 Other obesity due to excess calories (E66.09) [...] and sodium combined with physical activity. Problem 094208203 Mixed hyperlipidemia (E78.2) Active confirmed His lipids are within the normal range. On the last lipid profile. No change in his regimen was needed. Problem Impacted cerumen (01046388) Impacted cerumen, unspecified ear (H61.20) Active confirmed Warm water irrigation of the ear canals was employed to remove the cerumen impaction. Both were removed without any toxicity or trauma. He immediately could hear better and says he felt much better. He will return to routine medical care as scheduled. Problem [id number] Impacted cerumen, bilateral (H61.23) Active confirmed The impaction a s were removed without difficulty and his hearing was much improved. Problem 698224613 Ischemic cardiomyopathy (I25.5) Active confirmed His congestive heart feels well compensated and he will call me if he gains more than 5 pounds. He will weigh himself weekly. Problem 158461142 FDC (current) use of insulin (Z79.4) Active confirmed Problem 54884676 Essential hypertension (I10) Active confirmed His blood pressure today is well-controlled at 130/82. I recommended aggressive sodium restriction, weight loss and regular exercise. Problem [id number] Carpal tunnel syndrome, right (G56.01) Active confirmed This problem is mild and does not require treatment at this time. Problem 524257992 Non-rheumatic mitral regurgitation (I34.0) Active confirmed His mitral valv e is now functioning properly. No murmur was heard. He is in sinus rhythm. Problem Benign prostatic hypertrophy without outflow obstruction ([id number]) Benign prostatic hyperplasia, unspecified whether lower urinary tract symptoms present (N40.0) Active confirmed He rises den e sleep once or twice a night and is happy with this level of function. We discussed lifestyle modification as a way of reducing nocturia. Problem [id number] History of osteomyelitis (Z87.39) Active confirmed He continues to be cared for by the surgeons at [facility]. All of his wounds are healed. Despite the numerous missing portions of multiple fingers he says he is able to conduct all of the activities of daily life well. 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 Stump is intact. He is ambulatory. Problem [id number] Coronary artery disease involving [place] heart without angina pectoris, unspecified vessel or lesion type (I25.10) Active confirmed His ischemic heart disease is stable. He has been compliant with all his medications. I encouraged him to obtain a primary care physician during the 6 months he is in [place] so that he may be referred to cardiology if necessary. Vital Signs Heart Rate 71 /min 10/10/2024 Temperature 97.0 degrees Fahrenheit 10/10/2024 Blood pressure diastolic 70 mm Hg 10/10/2024 Height 71 in 10/10/2024 Blood pressure systolic 136 mm Hg 10/10/2024 Weight 241 lbs 10/10/2024 BMI 33.61 kg/m2 10/10/2024 Encounters Encounter Location Date Provider Diagnosis Wale Ta III, MD [address] [place] [address] [place] [id number] 06/23/2024 Wale Ta Impacted cerumen, unspecified ear H61.20 Wale Ta III, MD [address] [place] [address] [place] [id number] 08/31/2024 Wale Ta Impacted cerumen, unspecified ear H61.20 ; Other obesity due to excess calories E66.09 ; Essential hypertension I10 ; Coronary artery disease involving [place] heart without angina pectoris, unspecified vessel or lesion type I25.10 ; Mixed hyperlipidemia E78.2 ; Former smoker Z87.891 and Loose toenail L60.9 Wale Ta III, MD [address] [place] [address] [place] [id number] 10/10/2024 Wale Ta Impacted cerumen, unspecified ear H61.20 Wale Ta III, MD [address] [place] [address] [place] [id number] 12/28/2024 Wale Ta III, MD [address] [place] [address] [place] [phone] 01/01/2025 Wale Ta Assessments Encounter Date Diagnosis [...] regular exercise. 08/31/2024 Coronary artery disease involving [place] heart without angina pectoris, unspecified vessel or lesion type (ICD-10 - I25.10) His ischemic heart disease is stable. He has been compliant with all his medications. I encouraged him to obtain a primary care physician during the 6 months he is in [place] so that he may be referred to [...] 09/16/2022 Hemoglobin A1c 04/09/2022 Hemoglobin A1c 09/16/2022 Insurance Providers Payer Name Payer Address Payer Phone Subscriber Number Group Number Insured Name Patient Relationship to Insured Coverage Start Date Coverage End Date MEDICARE NGS [address] [place] [address] [id number] December, Raulito Self - patient is the insured 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 Melchor 02/15 amputation left second finger 09/2014 amputation of left third finger 01/2014 surgery of right second finger re: ostem yelitis 07/2011 right below the knee amputation re: oste omyelitis 11/2000 Hospitalization History Reason Date(Month/Year) No history multiple hospitalizations for surgery
== END 2025-03-07 10:40 | disposition home or self-care (01) ==
LOC: HO.HKA 09:52
PROVIDERS: PCP Internal Medicine Medical Oncology; Visit Provider Internal Medicine Critical Care Medicine
DX: N39.0 Urinary tract infection, site not specified (principal); E22.2 Syndrome of inappropriate secretion of antidiuretic hormone; N17.9 Acute kidney failure, unspecified
CPT/HCPCS: 99214

== ENCOUNTER → 2025-03-07 09:51 | Outpatient (BNVA) | payer MEDICARE, SELFPAY | PROVIDERS: PCP Internal Medicine Medical Oncology; Visit Provider Internal Medicine Critical Care Medicine | DX: I10 Essential (primary) hypertension (principal); N17.9 Acute kidney failure, unspecified; N39.0 Urinary tract infection, site not specified; E22.2 Syndrome of inappropriate secretion of antidiuretic hormone; Z79.85 Long-term (current) use of injectable non-insulin antidiabetic drugs; Z79.84 Long term (current) use of oral hypoglycemic drugs; Z79.899 Other long term (current) drug therapy | CPT/HCPCS: 99212 ==